=== PATIENT | male | born 1970 | race Two or more races ===

== ENCOUNTER 2024-08-26 20:05 | Inpatient (IN) | payer MEDICAID ==
[~2024-08-26] VITALS: Ht 157.5 cm; Wt 41.2 kg
--- NOTE | 2024-08-26 21:07 | ED.PDOC ---
Altered Mental Status HPI Comments 54-year-old male came to ER due to ALOC. Patient accompanied by sister who takes care of the patient. Patient has history of down syndrome. Noted for the past few days, patient has been combative and restless, screaming incessantly. Noted loss of appetite for 4 days with no bowel movements for same period. Persistence of altered mental status prompted check up at the ER. Chief Complaint: ALOC Time Seen by MD: 21:07 Reviewed Notes: Nurses Notes Allergies: Coded Allergies: NO KNOWN ALLERGIES (Unverified , 08/26/24) Information Source: Relative Mode of Arrival: Wheelchair Severity: Moderate, Unable to Care for Self Timing: Days Duration: Intermittent Quality: Decreased Alertness, Change in Behavior, Confusion Recent: None History of: Other (Down Sydrome) Past Medical History Past Medical History (Other): Down syndrome Surgical History: Denies all surgeries Family History Family History: Reviewed,noncontributory to illness Social History Smoker: Non-Smoker Alcohol: Denies ETOH Use Drugs: Denies Drug Use Lives In: Home Unable to Obtain due to: Other (Patient has down syndrome) Physical Exam General Appearance: No Apparent Distress, Normal HEENT: Normal ENT Inspection, Pharynx Normal, TMs Normal Neck: Full Range of Motion, Non-Tender, Normal, Normal Inspection Respiratory: Chest Non-Tender, Lungs Clear, No Accessory Muscle Use, No Respiratory Distress, Normal Breath Sounds Cardiovascular: No Edema, No JVD, No Murmur, No Gallop, Normal Peripheral Pulses, Regular Rate/Rhythm Breast Exam: Deferred Gastrointestinal: No Organomegaly, Non Tender, No Pulsatile Mass, Normal Bowel Sounds, Soft Genitalia: Deferred Pelvic: Deferred Rectal: Deferred Extremities: No calf tenderness, Normal capillary refill, Normal inspection, N ormal range of motion, Non-tender, No pedal edema Musculoskeletal : Apperance: Normal Neurologic: Alert, auto wrecker II-XII nml as Tested, No Motor Deficits, Normal Affect, Normal Mood, No Sensory Deficits Cerebellar Function: Normal Reflexes: Normal Skin: Dry, Normal Color, Warm Lymphatic: No Adenopathy Was a procedure done? Was a procedure done?: No Differential Diagnosis (ALOC) Differential Diagnosis: Dehydration, Hypoglycemia, Encephalopathy, Sepsis, Hypoxemia, Heart Failure, Renal Failure, Other (Down syndrome) X-Ray, Labs, Meds, VS Vital Signs Date Time Temp Pulse Resp B/P (MAP) Pulse Ox O2 Delivery O2 Flow Rate FiO2 08/27/24 00:00 86 15 94/47 (63) 99 08/26/24 21:53 97.5 109 20 91/64 (73) 100 97.5 08/26/24 21:53 109 20 100 Room Air* 0 21 08/26/24 20:55 97.0 80 22 95 Lab Test 08/26/24 23:09 08/26/24 21:28 08/26/24 21:25 Range/Units Salicylates Level < 3.0 -30 mg/dL Acetaminophen Level < 2.0 L 10.0-20.0 UG/ML Sodium Level 174 *H 136-145 mmol/L Potassium Level 4.2 3.5-5.1 mmol/L Chloride Level 136 H 98-107 mmol/L Carbon Dioxide Level 24 20-31 mmol/L Anion Gap 14 5-15 Blood Urea Nitrogen 61 H 9-23 mg/dL Creatinine 2.02 H 0.700-1.30 mg/dL Glomerular Filtration Rate Calc 38 >90 mL/min BUN/Creatinine Ratio 30.2 H 10.0-20.0 Serum Glucose 175 H 74-106 mg/dL Calcium Level 9.7 8.7-10.4 mg/dL Plasma/Serum Blood Alcohol 5.7 <10 mg/dL White Blood Count 10.4 4.4-10.8 10^3/uL Red Blood Count 5.82 4.5-5.90 10^6/uL Hemoglobin 18.8 H 13.5-17.5 g/dL Hematocrit 58.7 H 41.0-53.0 % Mean Corpuscular Volume 100.9 H 80.0-100.0 fL Mean Corpuscular Hemoglobin 32.3 H 28.0-32.0 pg Mean Corpuscular Hemoglobin Concent 32.1 32.0-36.0 g/dL Red Cell Distribution Width 14.5 H 11.8-14.3 % Platelet Count 164 140-450 10^3/uL Mean Platelet Volume 10.5 6.9-10.8 fL Neutrophils (%) (Auto) 80.1 H 37.0-80.0 % Lymphocytes (%) (Auto) 14.0 10.0-50.0 % Monocytes (%) (Auto) 5.1 0.0-12.0 % Eosinophils (%) (Auto) 0.5 0.0-7.0 % Basophils (%) (Auto) 0.3 0.0-2.0 % Neutrophils # (Auto) 8.3 1.6-8.6 10 ^3/uL Lymphocytes # (Auto) 1.5 0.4-5.4 10 ^3/uL Monocytes # (Auto) 0.5 0-1.3 10 ^3/uL Eosinophils # (Auto) 0.1 0-0.8 10 ^3/uL Basophils # (Auto) 0 0-0.2 10 ^3/uL Nucleated Red Blood Cells 0.5 % Current Medications Medications (Trade) Dose Ordered Sig/Elza Route Start Time Stop Time Status Last Admin Sodium Chloride 1,000 ml @ 1,000 mls/hr Q1H ONCE IV 08/26/24 21:45 08/26/24 22:44 DC 08/26/24 23:29 Ondansetron HCl (Zofran) 4 mg ONCE ONCE IV 08/26/24 21:45 08/26/24 21:46 DC 08/26/24 23:54 Famotidine (Pepcid Injection) 20 mg ONCE ONCE IV 08/26/24 21:45 08/26/24 21:46 DC 08/26/24 23:54 Acetaminophen (Ofirmev) 1,000 mg DAILY STAT IV 08/26/24 21:41 08/26/24 21:42 DC 08/26/24 23:54 Midazolam HCl (Versed Injection) 10 mg ONCE ONCE IM 08/26/24 22:15 08/26/24 22:17 DC 08/26/24 22:35 Time of 1ST Reevaluation: 21:01 Reevaluation 1ST: Unchanged Patient Education/Counseling: Diagnosis, Treatment, Other (PATIENT HAS DOWN SYNDROME) Family Education/Counseling: Diagnosis, Treatment Departure 1 Departure Time of Disposition: 05:28 (Patient with dehydration and elevated sodium. We will admit patient for further workup) Impression: Primary Impression: Acute hypernatremia Additional Impressions: Dehydration Down syndrome Disposition: 09 ADMITTED INPATIENT Admit to: Med Surg Condition: Guarded Critical Care Note Critical Care Time?: No Stability Stability form required: No Heart Score Heart Score: Heart Score Response (Comments) Value History N/A 0 EKG N/A 0 Age N/A 0 Risk Factors N/A 0 Troponin N/A 0 Total 0 I personally scribed for RAY FUNK MD ([email or web address]) on 08/26/24 at 21:07. E lectronically submitted by Patel Camilo ([facility]). RAY FUNK MD Aug 26, 2024 21:07
[2024-08-26 21:45] LABS: Eosinophils # (auto) 0.1 10 ^3/uL (0-0.8); Hemoglobin 18.8 g/dL (13.5-17.5); Lymphocytes # (auto) 1.5 10 ^3/uL (0.4-5.4); Monocytes # (auto) 0.5 10 ^3/uL (0-1.3)
[2024-08-26 21:46] LABS: Basophils # (auto) 0 10 ^3/uL (0-0.2); Basophils % (auto) 0.3 % (0.0-2.0); Eosinophils % (auto) 0.5 % (0.0-7.0); Mean Corpuscular Hemoglobin 32.3 pg (28.0-32.0); Mean Corpuscular Hgb Conc. 32.1 g/dL (32.0-36.0); Mean Corpuscular Volume 100.9 fL (80.0-100.0); Monocytes % (auto) 5.1 % (0.0-12.0); Neutrophils # (auto) 8.3 10 ^3/uL (1.6-8.6); Neutrophils % (auto) 80.1 % (37.0-80.0); Nucleated Red Blood Cells % 0.5 %; Platelet Count (auto) 164 10^3/uL (140-450); Red Blood Cells 5.82 10^6/uL (4.5-5.90); Red Cell Distribution Width 14.5 % (11.8-14.3); White Blood Cell 10.4 10^3/uL (4.4-10.8)
[2024-08-26 21:51] LABS: Potassium 4.2 mmol/L (3.5-5.1)
[2024-08-26 21:52] LABS: Hematocrit 58.7 % (41.0-53.0)
[2024-08-26 21:52] LABS: Anion Gap 14 (5-15); Calcium 9.7 mg/dL (8.7-10.4); Carbon Dioxide 24 mmol/L (20-31)
[2024-08-26 21:53] VITALS: PULSE 109; RESP 20; O2SAT 100
[2024-08-26 21:57] LABS: BUN/Creatinine Ratio 30.2 (10.0-20.0); Blood Alcohol 5.7 mg/dL (<10)
[2024-08-26 22:01] LABS: Blood Urea Nitrogen 61 mg/dL (9-23); Chloride 136 mmol/L (98-107); Glucose 175 mg/dL (74-106)
[2024-08-26 22:03] LABS: Sodium 174 mmol/L (136-145)
[2024-08-26] MEDS: MIDAZOLAM HCL 5 MG/ML-1ML VIAL IM ONE (22:35)
[2024-08-26] MEDS: SODIUM CHLORIDE 0.9% 1,000 ML IV ONE (23:29)
[2024-08-26] MEDS: ONDANSETRON HCL 4 MG/2 ML VIAL IV ONE (23:54)
[2024-08-26] MEDS: ACETAMINOPHEN IV 1000 MG/100ML (10MG/ML) IV STA (23:54)
[2024-08-26] MEDS: FAMOTIDINE (10MG/ML) 2ML VL IV ONE (23:54)
[2024-08-27] VITALS (22 sets, daily range): BP systolic 84–122; BP diastolic 38–70; PULSE 49–77; RESP 9–16; TEMP 97.8; O2SAT 95–100
[2024-08-27] LABS: Acetaminophen < 2.0 UG/ML (10.0-20.0); Salicylate < 3.0 mg/dL (-30)
[2024-08-27] MEDS ORDERED: ACETAMINOPHEN 325 MG TAB PO PRN (01:15)
[2024-08-27] MEDS ORDERED: MORPHINE SULFATE INJ 2 MG/ml SYRG IV PRN ×2 (01:15)
[2024-08-27] MEDS ORDERED: NITROGLYCERIN 0.4 MG SL TAB SL PRN (01:15)
--- NOTE | 2024-08-27 02:18 | DVHHPRES ---
History of Present Illness Resident Creating Document: GATITO LOVE RESIDENT History of Present Illness JUAN RIDDLE is a 54-year-old male with a PMH of down syndrome presented to the ED accompanied by sister due to altered mental status. Patient is altered, poor historian, obtained history from ED reports. For past 4 days patient has been not eating anything, no bowel movements, being combative, restless and screaming which got worsening so prominent him to visit ED. PMH: Down syndrome PSH: Denies Family history: Reviewed, noncontributory Social history: Lives in home. Denies smoking, alcohol and other drug abuse Allergies: No known allergies Review of Systems Review of Systems Patient seen and examined at the bedside. Patient is altered, unable to answer the questions. Unable to obtain ROS due to patient's clinical status. Allergies: Coded Allergies: NO KNOWN ALLERGIES (Unverified , 08/26/24) Medications Current Medications Medications Dose Ordered Sig/Elza Route Start Time Stop Time Status Last Admin Dose Admin Sodium Chloride 1,000 ml @ 100 mls/hr Q10H IV 08/27/24 01:15 Enoxaparin Sodium 30 mg DAILY SC 08/27/24 10:00 Acetaminophen 650 mg Q6HP PRN PO 08/27/24 01:15 Morphine Sulfate 2 mg Q4HPRN PRN IV 08/27/24 01:15 Nitroglycerin 0.4 mg Q5MINP PRN SL 08/27/24 01:15 Morphine Sulfate 2 mg Q30M PRN IV 08/27/24 01:15 Pantoprazole Sodium 40 mg DAILY IV 08/27/24 10:00 UNV Exam Vital Signs Vital Signs Date Time Temp Pulse Resp B/P (MAP) Pulse Ox O2 Delivery O2 Flow Rate FiO2 08/27/24 00:00 86 15 94/47 (63) 99 08/26/24 21:53 97.5 97.5 08/26/24 21:53 Room Air* 0 21 Exam Pt is lying on bed, limited exam due to patient's status General Appearance: Oriented X0, moderate distress HEENT: Atraumatic, Mucous membranes dry Respiratory: Clear to auscultation, Normal air movement Cardiovascular: Regular rate, Normal S1, Normal S2 Abdominal: Scaphoid, hypoactive bowel sounds, no distention, no tenderness Extremities: No edema, Normal pulses, No tenderness Skin: No Significant rash Neuro: Altered, unable to do neuro exam Nurse was there as oliviane during examination Labs/Xrays Labs Test 08/27/24 01:40 08/26/24 23:09 08/26/24 21:28 08/26/24 21:25 Range/Units Salicylates Level < 3.0 -30 mg/dL Acetaminophen Level < 2.0 L 10.0-20.0 UG/ML Plasma/Serum Blood Alcohol 5.7 <10 mg/dL White Blood Count 10.4 4.4-10.8 10^3/uL Red Blood Count 5.82 4.5-5.90 10^6/uL Hemoglobin 18.8 H 13.5-17.5 g/dL Hematocrit 58.7 H 41.0-53.0 % Mean Corpuscular Volume 100.9 H 80.0-100.0 fL Mean Corpuscular Hemoglobin 32.3 H 28.0-32.0 pg Mean Corpuscular Hemoglobin Concent 32.1 32.0-36.0 g/dL Red Cell Distribution Width 14.5 H 11.8-14.3 % Platelet Count 164 140-450 10^3/uL Mean Platelet Volume 10.5 6.9-10.8 fL Neutrophils (%) (Auto) 80.1 H 37.0-80.0 % Lymphocytes (%) (Auto) 14.0 10.0-50.0 % Monocytes (%) (Auto) 5.1 0.0-12.0 % Eosinophils (%) (Auto) 0.5 0.0-7.0 % Basophils (%) (Auto) 0.3 0.0-2.0 % Neutrophils # (Auto) 8.3 1.6-8.6 10 ^3/uL Lymphocytes # (Auto) 1.5 0.4-5.4 10 ^3/uL Monocytes # (Auto) 0.5 0-1.3 10 ^3/uL Eosinophils # (Auto) 0.1 0-0.8 10 ^3/uL Basophils # (Auto) 0 0-0.2 10 ^3/uL Nucleated Red Blood Cells 0.5 % Assessment/Plan Assessment/Plan # severe hypenatremia # severe dehydration # ? Hypovolemic shock - continuously monitoring lab - IVF NS 100 mL/hour - D5W 5% 75 ml/hr - avoid over-correction - consider free water # Failure to thrive # severe protein calorie malnutrition with a BMI 15.6 -nutritional consult # ROSLYN likely VMN unknown baseline -monitoring lab -IVF NS at 100 mL/hour # polycythemia -monitor lab for now # Hyper magnesemia - monitor PUD PPX: Protonix VTE PPX: Lovenox Diet: NPO for now Goals of care unable to discuss due to patient's status so until further details Full code status Case discussed with Dr. Espinosa and nurse Plan discussed with: Other (RN) My Orders Orders - GATITO LOVE RESIDENT Procedure Category Date Status Time Admit ADMIT 08/27/24 Transmitted 01:07 Allergies JULIEN 08/27/24 In Process 01:07 Code Status CODE 08/27/24 Transmitted 01:07 Sodium Chloride 0.9% PHA 08/27/24 In Process 01:15 Complete Blood Count LAB 08/28/24 Verified 04:00 Comprehensive LAB 08/27/24 Logged Metabolic Panel 04:00 Npo (Nothing By DIET 08/27/24 Transmitted Mouth) Diet Breakfast Condition: Stable JULIEN 08/27/24 In Process 01:07 Acetaminophen Tablet PHA 08/27/24 In Process (Tylenol Tablet) 01:15 Morphine Sulfate PHA 08/27/24 In Process Injection 01:15 Nitroglycerin PHA 08/27/24 In Process Sublingual (Ntrostat 01:15 Morphine Sulfate PHA 08/27/24 In Process Injection 01:15 Oxygen By Nasal RT 08/27/24 Transmitted Cannula 01:07 Stat Ekg For Chest JULIEN 08/27/24 In Process Pain 01:07 Notify Of Changes JULIEN 08/27/24 In Process From Base 01:07 Case Manager For JULIEN 08/27/24 In Process 24 Hours 01:07 Emergency Dysrhythmia JULIEN 08/27/24 In Process Protocol 01:07 Rhythm Strips Once JULIEN 08/27/24 In Process Every Shift 01:07 Comprehensive LAB 08/27/24 In Process Metabolic Panel 01:09 Magnesium LAB 08/27/24 In Process 01:09 Enoxaparin Sodium PHA 08/27/24 In Process (Lovenox) 10:00 Ammonia LAB 08/27/24 Logged 02:13 B-Type Natriuretic LAB 08/27/24 Logged Peptide 02:13 Drug Screen LAB 08/27/24 Logged 02:13 Hemoglobin A1c LAB 08/27/24 Logged 02:13 Lactic Acid W/ Reflex LAB 08/27/24 Logged Order 02:13 PTPTT LAB 08/27/24 Logged 02:13 Thyroid Stimulating LAB 08/27/24 Logged Hormone 02:13 Urinalysis LAB 08/27/24 Logged 02:13 Chest Xray 1 View XY 08/27/24 Logged 02:13 Pantoprazole PHA 08/27/24 Logged (Protonix) 10:00 Date of Service: Aug 27, 2024 Billing Provider: CHRISTAL ESPINOSA MD Common Visit Codes: [id number] CARE 30-74 MIN GATITO LOVE RESIDENT Aug 27, 2024 02:18 CHRISTAL ESPINOSA MD Aug 29, 2024 16:25
[2024-08-27 02:20] LABS: Albumin 3.4 g/dL (3.2-4.8); Anion Gap 11 (5-15); BUN/Creatinine Ratio 35.1 (10.0-20.0); Carbon Dioxide 26 mmol/L (20-31); Glucose 75 mg/dL (74-106); Potassium 3.6 mmol/L (3.5-5.1)
[2024-08-27 02:21] LABS: Bilirubin, Total 0.5 mg/dL (0.2-1.0); Total Protein 6.1 g/dL (5.7-8.2)
[2024-08-27] MEDS: SODIUM CHLORIDE 0.9% 1,000 ML IV SCH (02:29)
[2024-08-27 02:41] LABS: Alanine Aminotransferase 87 U/L (7-40); Alkaline Phosphatase 129 U/L (46-116); Aspartate Aminotransferase 94 U/L (13-40); Blood Urea Nitrogen 60 mg/dL (9-23); Calcium 8.5 mg/dL (8.7-10.4); Chloride 136 mmol/L (98-107); Magnesium 3.1 mg/dL (1.6-2.6); Sodium 173 mmol/L (136-145)
--- NOTE | 2024-08-27 04:00 | DVH ---
EXAM: CT HEAD WITHOUT CONTRAST HISTORY: aloc COMPARISON: None TECHNIQUE: Noncontrast axial CT images of the head were performed. Sagittal and coronal reformatted images were obtained. This CT exam was performed using 1 or more of the following dose reduction techniques: Au tomated exposure control, adjustment of the mA and/or kv according to patient size, or the use of ite rative reconstruction techniques. Radiation Dose : Head: CT Dose: CTDI volume is 53.8 mGy. Dose-length product is 1058.64 mGy*cm FINDINGS: No intracranial hemorrhage, mass, midline shift, or evidence of acute large vessel infarct. There is global brain atrophy with prominence of the ventricular system and sulci. The size of the ventricula r system is out of proportion to the size of the sulci. There is right phthsis bulbi. The partially-v isualized paranasal sinuses are clear. The bilateral mastoid air cells and middle ear spaces are dari ar. There is cerumen impaction in the bilateral external auditory canals. No cranial fracture or scal p edema. IMPRESSION: 1. Global brain atrophy with prominence of the ventricular system out of proportion to the size of th e sulci suggestive of normal pressure hydrocephalus. 2. Right phthisis bulbi.
[2024-08-27 05:04] LABS: INR 1.19 (0.9-1.15); Prothrombin Time 12.4 sec (9.3-11.8)
[2024-08-27 05:05] LABS: Albumin 3.4 g/dL (3.2-4.8); Anion Gap 11 (5-15); BUN/Creatinine Ratio 30.2 (10.0-20.0); Bilirubin, Total 0.5 mg/dL (0.2-1.0); Carbon Dioxide 25 mmol/L (20-31); Glucose 82 mg/dL (74-106); Potassium 3.9 mmol/L (3.5-5.1); Total Protein 6.3 g/dL (5.7-8.2)
[2024-08-27 05:36] LABS: Alanine Aminotransferase 90 U/L (7-40); Alkaline Phosphatase 133 U/L (46-116); Aspartate Aminotransferase 93 U/L (13-40); Blood Urea Nitrogen 52 mg/dL (9-23); Calcium 8.7 mg/dL (8.7-10.4); Chloride 136 mmol/L (98-107)
[2024-08-27 05:37] LABS: Sodium 172 mmol/L (136-145)
[2024-08-27] MEDS: D5W 5% 1,000 ML IV SCH ×3 (06:20→11:30)
--- NOTE | 2024-08-27 07:03 | DVH ---
CLINICAL INFORMATION: 54 years old, Male; pneumonia. TECHNIQUE: Single AP portable chest radiograph was obtained. COMPARISON: None FINDINGS: Lungs: Mild nonspecific perihilar interstitial opacities and mild atelectasis in the left lung base. No dense focal consolidation visualized. No pneumothorax or pleural effusion. Cardiac: Heart size is within normal limits. Pulmonary vasculature: Unremarkable. Mediastinum/greg: Unremarkable. Bones: No acute osseous abnormality identified. Other: No other significant findings. IMPRESSION: Nonspecific bilateral perihilar interstitial opacities and mild atelectasis in the left lung base. No dense focal consolidation visualized.
[2024-08-27] MEDS: NOREPINEPHRINE 8 MG/250ML KIT 250 ML IV ONE (07:53)
[2024-08-27] MEDS: NOREPINEPHRINE 8 MG/250ML KIT 250 ML IV SCH (08:00)
[2024-08-27 08:05] LABS: Magnesium 3.3 mg/dL (1.6-2.6); Phosphorus 5.3 mg/dL (2.4-5.1)
--- NOTE | 2024-08-27 08:50 | DVH ---
INDICATION: Transaminitis TECHNIQUE: Multiple real-time sonographic images were obtained of the right upper quadrant. COMPARISON: None FINDINGS: The liver demonstrates increased echotexture without focal mass lesions. The liver measure s 10.1 cm. There is no intrahepatic or extrahepatic ductal dilatation. The common duct is not visualized. The gallbladder is without evidence of stone or sludge. The gallbladder wall measures 0.1 cm and is within normal limits. The right kidney measures 8.0 cm. The right kidney is normal in contour, size, and shape. The echog enicity is normal. There is no hydronephrosis. The pancreas is not well visualized due to overlying bowel gas. IMPRESSION: Limited examination secondary to patient inability to cooperate with exam. Mild increased echogenicity of the liver may represent mild steatosis.
[2024-08-27 09:54] LABS: Urine Bacteria FEW /hpf (None Seen); Urine Blood Negative /uL (Negative); Urine Clarity Turbid (Clear); Urine Color Yellow (Yellow); Urine Protein, UAD TRACE (Negative); Urine Specific Gravity 1.029 (1.001-1.035); Urine Squamous Epithelial Cell None Seen /hpf (<5); Urine Urobilinogen Normal (Negative); Urine WBC 4 /HPF (0-3)
[2024-08-27 10:07] LABS: Amphetamine Screen, Urine Neg (NEGATIVE); Barbiturate Scree,Urine Neg (NEGATIVE); Benzodiazephine Screen, Urine Pos (NEGATIVE); Cocaine Screen, Urine Neg (NEGATIVE); Opiate Scree,Urine Neg (NEGATIVE); Phencyclidine Screen, Urine Neg (NEGATIVE)
[2024-08-27 10:08] LABS: Cannabinoid Screen, Urine Neg (NEGATIVE)
[2024-08-27 10:23] LABS: Anion Gap 12 (5-15); Carbon Dioxide 24 mmol/L (20-31); Potassium 3.7 mmol/L (3.5-5.1)
[2024-08-27 10:24] LABS: Calcium 8.9 mg/dL (8.7-10.4)
[2024-08-27 10:28] LABS: BUN/Creatinine Ratio 30.4 (10.0-20.0)
[2024-08-27 10:38] LABS: Blood Urea Nitrogen 55 mg/dL (9-23); Chloride 134 mmol/L (98-107); Glucose 146 mg/dL (74-106)
[2024-08-27 10:39] LABS: Sodium 170 mmol/L (136-145)
[2024-08-27] MEDS: PANTOPRAZOLE 40 MG/10 ML VIAL INJ IV SCH (11:23)
[2024-08-27] MEDS: ENOXAPARIN SOD 30 MG/0.3 ML SYRINGE SC SCH (11:23)
[2024-08-27] MEDS: LORazepam 2MG/ML-1ML VIAL IV ONE (13:01)
[2024-08-27 14:35] LABS: Potassium 3.7 mmol/L (3.5-5.1)
[2024-08-27 14:36] LABS: Anion Gap 10 (5-15); Carbon Dioxide 23 mmol/L (20-31)
[2024-08-27 14:42] LABS: BUN/Creatinine Ratio 23.5 (10.0-20.0)
[2024-08-27 14:45] LABS: Blood Urea Nitrogen 43 mg/dL (9-23); Calcium 8.6 mg/dL (8.7-10.4); Chloride 130 mmol/L (98-107); Glucose 319 mg/dL (74-106)
[2024-08-27 14:46] LABS: Sodium 163 mmol/L (136-145)
--- NOTE | 2024-08-27 17:11 | DVHINCON2 ---
Date of service: Aug 27, [address] Pham Reason for Consultation ROSLYN, Hypernatremia History of Present Illness Mr. Christy is a 54-year-old male with known history of Down syndrome presented for further evaluation management of altered mental status at home. He was brought in by family member. Evaluation in the ER notable for significant hypernatremia with serum sodium in the 170 range, elevated serum creatinine to two. He has received hypotonic IV fluids. He is currently seen in the emergency room remains minimally responsive. All the history was obtained through the chart. He has an indwelling Mason catheter currently. Past Medical History Down syndrome Allergies: Coded Allergies: NO KNOWN ALLERGIES (Unverified , 08/26/24) Current Medications Current Medications Medications (Trade) Dose Ordered Sig/Elza Route PRN Reason Start Time Stop Time Status Last Admin Acetaminophen (Ofirmev) 1,000 mg DAILY STAT IV 08/26/24 21:41 08/26/24 21:42 DC 08/26/24 23:54 Sodium Chloride 1,000 ml @ 100 mls/hr Q10H IV 08/27/24 01:15 08/27/24 06:03 DC 08/27/24 02:29 Enoxaparin Sodium (Lovenox) 30 mg DAILY SC 08/27/24 10:00 08/27/24 11:23 Acetaminophen (Tylenol Tablet) 650 mg Q6HP PRN PO PAIN SCALE 1-3 OR TEMP>100.4 08/27/24 01:15 Morphine Sulfate 2 mg Q4HPRN PRN IV SEVERE PAIN (7-10 PAIN SCALE) 08/27/24 01:15 Nitroglycerin (Ntrostat Sublingual) 0.4 mg Q5MINP PRN SL FOR CHEST PAIN 08/27/24 01:15 Morphine Sulfate 2 mg Q30M PRN IV FOR CHEST PAIN 08/27/24 01:15 Pantoprazole Sodium (Protonix) 40 mg DAILY IV 08/27/24 10:00 08/27/24 11:23 Dextrose 1,000 ml @ 75 mls/hr [id number] IV 08/27/24 06:00 08/27/24 08:35 DC 08/27/24 06:20 Norepinephrine Bitartrate 250 ml @ 3.75 mls/hr Q24H IV 08/27/24 08:00 08/27/24 08:00 Dextrose 1,000 ml @ 50 mls/hr Q20H IV 08/27/24 08:30 08/27/24 11:20 DC 08/27/24 08:56 Dextrose 1,000 ml @ 30 mls/hr Q24H IV 08/27/24 11:30 08/27/24 11:30 Lorazepam (Ativan Inj) 0.5 mg Q4HR PRN IV AGITATION 08/27/24 14:15 Family History: Diabetes mellitus G8 MOTHER G8 FATHER High cholesterol G8 MOTHER Hypertension G8 MOTHER Thyroid disease G8 MOTHER Review of Systems Unable to be obtained due to patient's current mental state H&P Exam Vital Signs/I&O Vital Sign Date Time Temp Pulse Resp B/P (MAP) Pulse Ox O2 Delivery O2 Flow Rate FiO2 08/27/24 15:00 59 15 119/81 (94) 97 08/27/24 08:45 Room Air* 0 21 08/27/24 01:07 97.6 97.6 Intake and Output 08/26/24 08/27/24 19:00 07:00 Intake Total 1300 ml Balance 1300 ml Intake IV Total 1300 ml Physical Exam Gen: nad, cachectic heent: nc/at, lungs: cta anteriorly cvs: no rub abd: soft, bowel sounds audible ext: no edema, onychomycosis skin: no rash neuro: Not responsive to voice Labs/Diagnostic Data Labs/Diagnostic Data Laboratory Tests Test 08/27/24 14:11 08/27/24 10:01 08/27/24 09:25 08/27/24 04:33 Range/Units Sodium Level 163 #*H 170 *H 172 *H 136-145 mmol/L Potassium Level 3.7 3.7 3.9 3.5-5.1 mmol/L Chloride Level 130 H 134 H 136 H 98-107 mmol/L Carbon Dioxide Level 23 24 25 20-31 mmol/L Anion Gap 10 12 11 5-15 Blood Urea Nitrogen 43 #H 55 H 52 H 9-23 mg/dL Creatinine 1.83 H 1.81 H 1.72 H 0.700-1.30 mg/dL Glomerular Filtration Rate Calc 43 44 46 >90 mL/min BUN/Creatinine Ratio 23.5 H 30.4 H 30.2 H 10.0-20.0 Serum Glucose 319 #H 146 H 82 74-106 mg/dL Calcium Level 8.6 L 8.9 8.7 8.7-10.4 mg/dL Urine Color Yellow Yellow Urine Clarity Turbid H Clear Urine pH 5.0 5.0-9.0 Urine Specific [place] 1.029 1.001-1.035 Urine Protein Trace H Negative Urine Ketones Negative Negative Urine Blood Negative Negative /uL Urine Nitrite Negative Negative Urine Bilirubin Negative Negative Urine Urobilinogen Normal Negative mg/dL Urine Leukocyte Esterase Negative Negative /uL Urine RBC 3 0 - 3 /hpf Urine Microscopic WBC 4 H 0-3 /HPF Urine Squamous Epithelial Cells None seen <5 /hpf Urine Uric Acid Crystals Few None Seen /hpf Urine Bacteria Few H None Seen /hpf Urine Glucose Normal Normal mg/dL Urine Opiates Screen Neg NEGATIVE Urine Fentanyl Screen Neg NEGATIVE Urine Barbiturates Screen Neg NEGATIVE Urine Phencyclidine Screen Neg NEGATIVE Urine Amphetamines Screen Neg NEGATIVE Urine Benzodiazepines Screen Pos NEGATIVE Urine Cocaine Screen Neg NEGATIVE Urine Cannabinoids Screen Neg NEGATIVE Prothrombin Time 12.4 H 9.3-11.8 sec Prothrombin Time INR 1.19 H 0.9-1.15 Activated Partial Thromboplast Time 25.0 24.5-34.5 SEC Hemoglobin A1c 5.6 <5.7 % A1C Serum Osmolality 378 H 278-298 mOsm/kg Lactic Acid Level 1.3 0.4-2.0 mmol/L Phosphorus Level 5.3 H 2.4-5.1 mg/dL Magnesium Level 3.3 H 1.6-2.6 mg/dL Total Bilirubin 0.5 0.2-1.0 mg/dL Aspartate Amino Transferase (AST) 93 H 13-40 U/L Alanine Aminotransferase (ALT) 90 H 7-40 U/L Alkaline Phosphatase 133 H 46-116 U/L Ammonia 23 11-32 umol/L B-Type Natriuretic Peptide 44.81 0-100 pg/mL Total Protein 6.3 5.7-8.2 g/dL Albumin 3.4 3.2-4.8 g/dL Thyroid Stimulating Hormone (TSH) 3.59 0.55-4.78 uIU/mL Test 08/27/24 01:40 08/26/24 23:09 08/26/24 21:28 08/26/24 21:25 Range/Units Sodium Level 173 *H 174 *H 136-145 mmol/L Potassium Level 3.6 4.2 3.5-5.1 mmol/L Chloride Level 136 H 136 H 98-107 mmol/L Carbon Dioxide Level 26 24 20-31 mmol/L Anion Gap 11 14 5-15 Blood Urea Nitrogen 60 H 61 H 9-23 mg/dL Creatinine 1.71 H 2.02 H 0.700-1.30 mg/dL Glomerular Filtration Rate Calc 47 38 >90 mL/min BUN/Creatinine Ratio 35.1 H 30.2 H 10.0-20.0 Serum Glucose 75 # 175 H 74-106 mg/dL Calcium Level 8.5 L 9.7 8.7-10.4 mg/dL Magnesium Level 3.1 H 1.6-2.6 mg/dL Total Bilirubin 0.5 0.2-1.0 mg/dL Aspartate Amino Transferase (AST) 94 H 13-40 U/L Alanine Aminotransferase (ALT) 87 H 7-40 U/L Alkaline Phosphatase 129 H 46-116 U/L Total Protein 6.1 5.7-8.2 g/dL Albumin 3.4 3.2-4.8 g/dL Salicylates Level < 3.0 -30 mg/dL Acetaminophen Level < 2.0 L 10.0-20.0 UG/ML Plasma/Serum Blood Alcohol 5.7 <10 mg/dL White Blood Count 10.4 4.4-10.8 10^3/uL Red Blood Count 5.82 4.5-5.90 10^6/uL Hemoglobin 18.8 H 13.5-17.5 g/dL Hematocrit 58.7 H 41.0-53.0 % Mean Corpuscular Volume 100.9 H 80.0-100.0 fL Mean Corpuscular Hemoglobin 32.3 H 28.0-32.0 pg Mean Corpuscular Hemoglobin Concent 32.1 32.0-36.0 g/dL Red Cell Distribution Width 14.5 H 11.8-14.3 % Platelet Count 164 140-450 10^3/uL Mean Platelet Volume 10.5 6.9-10.8 fL Neutrophils (%) (Auto) 80.1 H 37.0-80.0 % Lymphocytes (%) (Auto) 14.0 10.0-50.0 % Monocytes (%) (Auto) 5.1 0.0-12.0 % Eosinophils (%) (Auto) 0.5 0.0-7.0 % Basophils (%) (Auto) 0.3 0.0-2.0 % Neutrophils # (Auto) 8.3 1.6-8.6 10 ^3/uL Lymphocytes # (Auto) 1.5 0.4-5.4 10 ^3/uL Monocytes # (Auto) 0.5 0-1.3 10 ^3/uL Eosinophils # (Auto) 0.1 0-0.8 10 ^3/uL Basophils # (Auto) 0 0-0.2 10 ^3/uL Nucleated Red Blood Cells 0.5 % Assessment IMP: 1) Hemodynamically mediated ROSLYN/VMN secondary to volume depletion 2) hypernatremia - current water deficit approximately 3.7 L based on serum sodium 163 3) history of Down syndrome 4) toxic metabolic encephalopathy REC: - agree with holding D5 - repeat basic chemistry panel pending - we will resume efforts at hypotonic IV fluids A.m. August 28 pending repeat lab data guide therapy - we will check urine studies - we will continue to follow closely with you. Thank you for the consultation. Plan discussed with: Other RAE VIRK MD Aug 27, 2024 17:11
[2024-08-27] MEDS: LORazepam 2MG/ML-1ML VIAL IV PRN (17:42)
--- NOTE | 2024-08-27 18:26 | DVHPNRES ---
Progress Note Date Seen: Aug 27, 2024 Resident Creating Document: MARITZA WEEKS RESIDENT Medical Necessity Reason Pt with a Central, PICC or Fol: Yes The following are medically ne: Mason Catheter Subjective Review of Systems Orlando Christy is a 54-year-old male patient who presents to the ED due to altered mental status. Patient is altered, poor historian, obtained history from ED reports. For past 4 days patient has been not eating anything, no bowel movements, being combative, restless and screaming which got worsening so prominent him to visit ED. could not obtain review of systems due to clinical status. PMH: Down syndrome PSH: Denies Family history: Reviewed, noncontributory Social history: Lives in home. Denies smoking, alcohol and other drug abuse Allergies: No known allergies Home medication: Could not obtain at this moment Patient seen and examined at bedside. Patient was agitated and removing lines, indicated Ativan for agitation. We will monitor closely due to altered mental status, and need to protect airway. Objective vital signs Vital Sign Date Time Temp Pulse Resp B/P (MAP) Pulse Ox O2 Delivery O2 Flow Rate FiO2 08/27/24 15:00 59 15 119/81 (94) 97 08/27/24 08:45 Room Air* 0 21 08/27/24 01:07 97.6 97.6 Total Intake and Output 08/26/24 08/26/24 08/27/24 15:00 23:00 07:00 Intake Total 1300 ml Balance 1300 ml medications Current Medications Medications Dose Ordered Sig/Elza Route Start Time Stop Time Status Last Admin Dose Admin Enoxaparin Sodium 30 mg DAILY SC 08/27/24 10:00 08/27/24 11:23 30 MG Acetaminophen 650 mg Q6HP PRN PO 08/27/24 01:15 Morphine Sulfate 2 mg Q4HPRN PRN IV 08/27/24 01:15 Nitroglycerin 0.4 mg Q5MINP PRN SL 08/27/24 01:15 Morphine Sulfate 2 mg Q30M PRN IV 08/27/24 01:15 Pantoprazole Sodium 40 mg DAILY IV 08/27/24 10:00 08/27/24 11:23 40 MG Norepinephrine Bitartrate 250 ml @ 3.75 mls/hr Q24H IV 08/27/24 08:00 08/27/24 08:00 3.75 MLS/HR Dextrose 1,000 ml @ 30 mls/hr Q24H IV 08/27/24 11:30 08/27/24 11:30 30 MLS/HR Lorazepam 0.5 mg Q4HR PRN IV 08/27/24 14:15 08/27/24 17:42 0.5 MG Examination Patient lying in bed, in no acute distress General: Alert, orientation can not be evaluated, Down facies, afebrile, mucosae are dry Cardiovascular: Normal S1 and S2. No murmurs, gallops or rubs Respiratory: Normal ventilation mechanics. Clear lung sounds on auscultation Abdomen: Soft, nontender, no organomegaly, normal bowel sounds MSK/skin: Mobilizes 4 limbs. Skin is dry and warm Neurological: Orientation can not be evaluate due to Down syndrome. No motor no sensitive deficits. Pupils are isocoric and reactive laboratory and microbiology Laboratory Tests 08/27/24 14:11 08/26/24 21:25 Test 08/27/24 14:11 Range/Units Serum Glucose 319 #H 74-106 mg/dL Problem List/Assessment/Plan Problem List/Assessment/Plan # Metabolic encephalopathy secondary to hypernatremia Ordered head CT which showed global brain atrophy suggestive of normal pressure hydrocephalus, right phthisis bulbi Patient is more alert since admission, but is combative and trying to remove lines. Ativan p.r.n. for agitation. # Severe hypenatremia Natremia on admission was 174, currently is 163, have discontinued IV fluids at this point. Should not correct more than 10 mEq every 24 hours. BMP every 4 hours Nephrology on board: Optimizing medical therapy # Severe dehydration Monitor # Hypovolemic shock Currently on norepinephrine 8. # Failure to thrive Patient is NPO due to altered mental status # Severe protein calorie malnutrition with a BMI 15.6 -nutritional consult # ROSLYN likely VMN unknown baseline Nephrology on board Discontinue fluids at this point # Polycythemia Probably secondary to dehydration # Hypermagnesemia Monitor PUD PPX: Protonix VTE PPX: Lovenox Diet: NPO for now Goals of care discussed with sister (Torie) who is caregiver for over 18 minutes: Full code status Case discussed with Dr. Loco, sister and nurse: Patient is ICU status, lowering hypernatremia, currently discontinue D5W due to sodium level of 163 (on admission was 174), we will continue obtaining BNP at this moment. Patient is requiring low dose of norepinephrine, evaluate need for central line. Appreciate nephrology input. Patient has poor prognosis, have discussed with sister. Plan discussed with: Patient, Other (Sister (caregiver) and nurses) My Orders My Orders Orders - MARITZA WEEKS Procedure Category Date Status Time Basic Metabolic Panel LAB 08/27/24 Logged 18:00 Basic Metabolic Panel LAB 08/27/24 Logged 22:00 Basic Metabolic Panel LAB 08/28/24 Verified 02:00 Basic Metabolic Panel LAB 08/28/24 Verified 06:00 Basic Metabolic Panel LAB 08/28/24 Verified 10:00 Basic Metabolic Panel LAB 08/28/24 Verified 14:00 Basic Metabolic Panel LAB 08/28/24 Verified 18:00 Basic Metabolic Panel LAB 08/28/24 Verified 22:00 *[facility] CONS 08/27/24 Transmitted -[place] 07:35 D5w 5% (Dextrose 5%) PHA 08/27/24 In Process 11:30 Lorazepam 2mg/Ml Inj PHA 08/27/24 In Process (Ativan Inj) 14:15 Date of Service: Aug 27, 2024 Billing Provider: FRANKLYN LOCO MD Common Visit Codes: [id number] INP/OBS CARE(HIGH) MARITZA WEEKS RESIDENT Aug 27, 2024 18:26 FRANKLYN LOCO MD Aug 28, 2024 22:28
[2024-08-27 18:58] LABS: Anion Gap 9 (5-15); Calcium 8.9 mg/dL (8.7-10.4); Carbon Dioxide 27 mmol/L (20-31)
[2024-08-27 19:03] LABS: BUN/Creatinine Ratio 29.8 (10.0-20.0); Glucose 97 mg/dL (74-106)
[2024-08-27 19:11] LABS: Blood Urea Nitrogen 50 mg/dL (9-23); Chloride 136 mmol/L (98-107); Potassium 3.4 mmol/L (3.5-5.1)
[2024-08-27 19:12] LABS: Sodium 172 mmol/L (136-145)
[2024-08-27 19:22] LABS: Creatinine, Urine 104.6 mg/dL (30.0-125.0)
[2024-08-27 22:38] LABS: Potassium 3.8 mmol/L (3.5-5.1)
[2024-08-27 22:39] LABS: Anion Gap 8 (5-15); Carbon Dioxide 23 mmol/L (20-31)
[2024-08-27 22:47] LABS: Calcium 8.7 mg/dL (8.7-10.4); Chloride 134 mmol/L (98-107)
[2024-08-27 22:48] LABS: Blood Urea Nitrogen 34 mg/dL (9-23); Glucose 224 mg/dL (74-106); Sodium 165 mmol/L (136-145)
[2024-08-28] VITALS (50 sets, daily range): BP systolic 85–116; BP diastolic 43–70; PULSE 48–141; RESP 9–40; TEMP 97.6–99.3; O2SAT 91–100
[2024-08-28 02:55] LABS: Potassium 3.5 mmol/L (3.5-5.1)
[2024-08-28 02:56] LABS: Anion Gap 9 (5-15); Carbon Dioxide 25 mmol/L (20-31)
[2024-08-28 03:01] LABS: BUN/Creatinine Ratio 26.7 (10.0-20.0)
[2024-08-28 03:04] LABS: Chloride 136 mmol/L (98-107)
[2024-08-28 03:09] LABS: Blood Urea Nitrogen 39 mg/dL (9-23); Calcium 8.2 mg/dL (8.7-10.4); Glucose 116 mg/dL (74-106)
[2024-08-28 03:11] LABS: Sodium 170 mmol/L (136-145)
[2024-08-28 07:23] LABS: Basophils # (auto) 0 10 ^3/uL (0-0.2); Basophils % (auto) 0.4 % (0.0-2.0); Eosinophils # (auto) 0.1 10 ^3/uL (0-0.8); Eosinophils % (auto) 1.8 % (0.0-7.0); Hematocrit 48.1 % (41.0-53.0); Hemoglobin 15.6 g/dL (13.5-17.5); Lymphocytes # (auto) 1.1 10 ^3/uL (0.4-5.4); Lymphocytes % (auto) 17.4 % (10.0-50.0); Mean Corpuscular Hemoglobin 32.3 pg (28.0-32.0); Mean Corpuscular Hgb Conc. 32.4 g/dL (32.0-36.0); Monocytes # (auto) 0.4 10 ^3/uL (0-1.3); Monocytes % (auto) 5.6 % (0.0-12.0); Neutrophils # (auto) 4.7 10 ^3/uL (1.6-8.6); Neutrophils % (auto) 74.8 % (37.0-80.0); Nucleated Red Blood Cells % 0.3 %; Platelet Count (auto) 127 10^3/uL (140-450); Red Blood Cells 4.81 10^6/uL (4.5-5.90); Red Cell Distribution Width 14.4 % (11.8-14.3); White Blood Cell 6.3 10^3/uL (4.4-10.8)
[2024-08-28 07:42] LABS: Albumin 3.4 g/dL (3.2-4.8); Anion Gap 9 (5-15); BUN/Creatinine Ratio 20.6 (10.0-20.0); Bilirubin, Total 0.6 mg/dL (0.2-1.0); Calcium 8.8 mg/dL (8.7-10.4); Carbon Dioxide 24 mmol/L (20-31); Phosphorus 3.1 mg/dL (2.4-5.1); Potassium 3.5 mmol/L (3.5-5.1); Total Protein 6.3 g/dL (5.7-8.2)
[2024-08-28 08:03] LABS: Alanine Aminotransferase 75 U/L (7-40); Alkaline Phosphatase 123 U/L (46-116); Aspartate Aminotransferase 60 U/L (13-40); Blood Urea Nitrogen 34 mg/dL (9-23); Chloride 134 mmol/L (98-107); Glucose 145 mg/dL (74-106); Magnesium 3.1 mg/dL (1.6-2.6)
[2024-08-28 08:04] LABS: Sodium 167 mmol/L (136-145)
--- NOTE | 2024-08-28 08:45 | DVHPNRES ---
Progress Note Date Seen: Aug 28, 2024 Resident Creating Document: JOSE OLIVERA RESIDENT Medical Necessity Reason Pt with a Central, PICC or Fol: Yes The following are medically ne: Msaon Catheter Subjective Review of Systems Orlando Christy is a 54-year-old male patient who presents to the ED due to altered mental status. Patient is altered, poor historian, obtained history from ED reports. For past 4 days patient has been not eating anything, no bowel movements, being combative, restless and screaming which got worsening so prominent him to visit ED. could not obtain review of systems due to clinical status. PMH: Down syndrome PSH: Denies Family history: Reviewed, noncontributory Social history: Lives in home. Denies smoking, alcohol and other drug abuse Allergies: No known allergies Home medication: Could not obtain at this moment Patient seen and examined at bedside. Patient was agitated and removing lines, indicated Ativan for agitation. We will monitor closely due to altered mental status, and need to protect airway. GCS 9, however, patient was nonverbal at baseline so accurate calculation could not be completed. Patient continues to remain hypothermic with internal temperature is around 94.5, currently on Levophed 2 mcg. Target sodium for today in the range of upper 150s to low 160s over the next 24 hours. Objective vital signs Vital Sign Date Time Temp Pulse Resp B/P (MAP) Pulse Ox O2 Delivery O2 Flow Rate FiO2 08/28/24 08:00 104/63 08/28/24 07:30 48 12 100 Room Air* 0 21 08/28/24 04:00 97.8 97.8 Total Intake and Output 08/27/24 08/27/24 08/28/24 15:00 23:00 07:00 Intake Total 265 ml 232.50 ml 311.25 ml Output Total 400 ml Balance 265 ml 232.50 ml -88.75 ml medications Current Medications Medications Dose Ordered Sig/Elza Route Start Time Stop Time Status Last Admin Dose Admin Enoxaparin Sodium 30 mg DAILY SC 08/27/24 10:00 08/27/24 11:23 30 MG Acetaminophen 650 mg Q6HP PRN PO 08/27/24 01:15 Morphine Sulfate 2 mg Q4HPRN PRN IV 08/27/24 01:15 Nitroglycerin 0.4 mg Q5MINP PRN SL 08/27/24 01:15 Morphine Sulfate 2 mg Q30M PRN IV 08/27/24 01:15 Pantoprazole Sodium 40 mg DAILY IV 08/27/24 10:00 08/27/24 11:23 40 MG Norepinephrine Bitartrate 250 ml @ 3.75 mls/hr Q24H IV 08/27/24 08:00 08/28/24 02:38 11.25 MLS/HR Lorazepam 0.5 mg Q4HR PRN IV 08/27/24 14:15 08/27/24 23:49 0.5 MG Dextrose 1,000 ml @ 75 mls/hr [id number] IV 08/28/24 08:45 UNV Examination General Appearance: Patient lying in bed in position, currently in no active distress. Pulmonary/Respiratory: Chest non-tender. Clear bilateral breath sounds, no crackles, no wheezing. Cardiovascular/Chest: Regular rate and rhythm. No murmurs. No JVD. Peripheral Pulses: 2+ Radial (R). 2+ Radial (L). 2+ Pedal (R). 2+ Pedal (L) Abdominal Exam: Normal bowel sounds. Soft. normal abdomen, no visible veins, Nontender. No hepatospenomegaly. No masses Lower extremities: Negative lower extremity edema Neuro/Mental Status: A/O x0, patient nonverbal at baseline. No motor sensory deficits noted. laboratory and microbiology Laboratory Tests 08/28/24 07:05 Test 08/28/24 07:05 Range/Units Serum Glucose 145 H 74-106 mg/dL Labs and/or images reviewed: Labs reviewed by me, Image(s) reviewed by me Problem List/Assessment/Plan Problem List/Assessment/Plan # Metabolic encephalopathy secondary to hypernatremia Ordered head CT which showed global brain atrophy suggestive of normal pressure hydrocephalus, right phthisis bulbi Patient is more alert since admission, but is combative and trying to remove lines. Ativan p.r.n. for agitation. # Severe hypenatremia Natremia on admission was 174, currently is 163, have discontinued IV fluids at this point. Should not correct more than 10 mEq every 24 hours. BMP every 4 hours Nephrology on board: Optimizing medical therapy # Severe dehydration Monitor # Hypovolemic shock Currently on norepinephrine 2. # Failure to thrive Patient is NPO due to altered mental status # Severe protein calorie malnutrition with a BMI 15.6 -nutritional consult # ROSLYN likely VMN unknown baseline Nephrology on board Discontinue fluids at this point # Polycythemia Probably secondary to dehydration # Hypermagnesemia Monitor Hypokalemia 2.8, improved - repleted with IV potassium rider 60 mEq PUD PPX: Protonix VTE PPX: Lovenox Diet: NPO for now Goals of care discussed with sister (Torie) who is caregiver for over 18 minutes: Full code status Case discussed with Dr. Loco, sister and nurse: Patient is ICU status, lowering hypernatremia, currently D5W running at 75 cc/hour, we will continue obtaining BNP at this moment. Patient is requiring low dose of norepinephrine, evaluate need for central line. Appreciate nephrology input. Patient has poor prognosis, have discussed with sister. Plan discussed with: Patient, Other (RN) Date of Service: Aug 28, 2024 Billing Provider: FRANKLYN LOCO MD Common Visit Codes: [id number] INP/OBS CARE(HIGH) JOSE OLIVERA RESIDENT Aug 28, 2024 08:45 FRANKLYN LOCO MD Aug 28, 2024 22:29
[2024-08-28] MEDS: D5W 5% 1,000 ML IV SCH (09:20)
--- NOTE | 2024-08-28 09:24 | DVHPN2 ---
Progress Note - Dictate Date Seen: Aug 28, 2024 Medical Necessity Reason Pt with a Central, PICC or Fol: Yes The following are medically ne: Mason Catheter Subjective Still requiring vasopressor support vital signs Vital Sign Date Time Temp Pulse Resp B/P (MAP) Pulse Ox O2 Delivery O2 Flow Rate FiO2 08/28/24 08:00 104/63 08/28/24 07:30 48 12 100 Room Air* 0 21 08/28/24 04:00 97.8 97.8 Total Intake and Output 08/27/24 08/27/24 08/28/24 15:00 23:00 07:00 Intake Total 265 ml 232.50 ml 311.25 ml Output Total 400 ml Balance 265 ml 232.50 ml -88.75 ml medications Current Medications Medications Dose Ordered Sig/Elza Route Start Time Stop Time Status Last Admin Dose Admin Enoxaparin Sodium 30 mg DAILY SC 08/27/24 10:00 08/27/24 11:23 30 MG Acetaminophen 650 mg Q6HP PRN PO 08/27/24 01:15 Morphine Sulfate 2 mg Q4HPRN PRN IV 08/27/24 01:15 Nitroglycerin 0.4 mg Q5MINP PRN SL 08/27/24 01:15 Morphine Sulfate 2 mg Q30M PRN IV 08/27/24 01:15 Pantoprazole Sodium 40 mg DAILY IV 08/27/24 10:00 08/27/24 11:23 40 MG Norepinephrine Bitartrate 250 ml @ 3.75 mls/hr Q24H IV 08/27/24 08:00 08/28/24 02:38 11.25 MLS/HR Lorazepam 0.5 mg Q4HR PRN IV 08/27/24 14:15 08/27/24 23:49 0.5 MG Dextrose 1,000 ml @ 75 mls/hr [id number] IV 08/28/24 08:45 UNV objective Gen: nad, cachectic cvs: no rub ext: no edema skin: no rash laboratory and microbiology Laboratory Tests 08/28/24 07:05 Test 08/28/24 07:05 Range/Units Serum Glucose 145 H 74-106 mg/dL Assessment/Plan IMP: 1) Hemodynamically mediated ROSLYN/VMN secondary to volume depletion 2) hypernatremia - improved 3) history of Down syndrome 4) toxic metabolic encephalopathy REC: - will resume D5 at 75 cc an hour - target [Na] upper 150/ low 160 range approximately over next 24 Plan discussed with: Other RAE VIRK MD Aug 28, 2024 09:24
[2024-08-28 11:30] LABS: Anion Gap 9 (5-15); Carbon Dioxide 24 mmol/L (20-31)
[2024-08-28 11:35] LABS: BUN/Creatinine Ratio 26.3 (10.0-20.0); Glucose 98 mg/dL (74-106)
[2024-08-28 11:39] LABS: Blood Urea Nitrogen 35 mg/dL (9-23); Calcium 7.4 mg/dL (8.7-10.4); Chloride 135 mmol/L (98-107); Potassium 2.8 mmol/L (3.5-5.1)
[2024-08-28 11:40] LABS: Sodium 168 mmol/L (136-145)
[2024-08-28] MEDS: POTASSIUM CHL 20MEQ/100ML 100 ML IV SCH (13:12)
[2024-08-28 14:36] LABS: Potassium 3.5 mmol/L (3.5-5.1)
[2024-08-28 14:37] LABS: Anion Gap 9 (5-15); Carbon Dioxide 25 mmol/L (20-31)
[2024-08-28 14:42] LABS: Glucose 104 mg/dL (74-106)
[2024-08-28 14:43] LABS: BUN/Creatinine Ratio 21.1 (10.0-20.0); Blood Urea Nitrogen 34 mg/dL (9-23); Calcium 8.7 mg/dL (8.7-10.4); Chloride 133 mmol/L (98-107)
[2024-08-28 14:44] LABS: Sodium 167 mmol/L (136-145)
[2024-08-28 18:45] LABS: Potassium 4.4 mmol/L (3.5-5.1)
[2024-08-28 18:46] LABS: Calcium 8.5 mg/dL (8.7-10.4); Carbon Dioxide 24 mmol/L (20-31)
[2024-08-28 18:51] LABS: BUN/Creatinine Ratio 18.8 (10.0-20.0)
[2024-08-28 19:00] LABS: Anion Gap 7 (5-15); Blood Urea Nitrogen 30 mg/dL (9-23); Chloride 134 mmol/L (98-107); Glucose 139 mg/dL (74-106)
[2024-08-28 19:01] LABS: Sodium 165 mmol/L (136-145)
[2024-08-28 22:25] LABS: Potassium 4.1 mmol/L (3.5-5.1)
[2024-08-28 22:26] LABS: Anion Gap 9 (5-15); Carbon Dioxide 24 mmol/L (20-31)
[2024-08-28 22:31] LABS: BUN/Creatinine Ratio 17.7 (10.0-20.0)
[2024-08-28 22:35] LABS: Blood Urea Nitrogen 29 mg/dL (9-23); Calcium 8.5 mg/dL (8.7-10.4); Chloride 133 mmol/L (98-107); Glucose 136 mg/dL (74-106)
[2024-08-28 22:38] LABS: Sodium 166 mmol/L (136-145)
[2024-08-29] VITALS (92 sets, daily range): BP systolic 79–123; BP diastolic 36–79; PULSE 70–112; RESP 18–41; TEMP 92.7–99.3; O2SAT 90–100
[2024-08-29] MEDS ORDERED: D5W 5% 1,000 ML IV SCH
[2024-08-29 04:45] LABS: Potassium 4.1 mmol/L (3.5-5.1)
[2024-08-29 04:46] LABS: Anion Gap 7 (5-15); Carbon Dioxide 24 mmol/L (20-31)
[2024-08-29 04:47] LABS: Basophils # (auto) 0 10 ^3/uL (0-0.2); Basophils % (auto) 0.2 % (0.0-2.0); Calcium 8.8 mg/dL (8.7-10.4); Eosinophils # (auto) 0 10 ^3/uL (0-0.8); Hematocrit 46.6 % (41.0-53.0); Hemoglobin 15.1 g/dL (13.5-17.5); Lymphocytes # (auto) 0.7 10 ^3/uL (0.4-5.4); Lymphocytes % (auto) 4.9 % (10.0-50.0); Mean Corpuscular Hemoglobin 32.3 pg (28.0-32.0); Mean Corpuscular Hgb Conc. 32.4 g/dL (32.0-36.0); Mean Corpuscular Volume 99.7 fL (80.0-100.0); Monocytes # (auto) 0.6 10 ^3/uL (0-1.3); Neutrophils # (auto) 12.5 10 ^3/uL (1.6-8.6); Neutrophils % (auto) 90.9 % (37.0-80.0); Nucleated Red Blood Cells % 0.1 %; Platelet Count (auto) 131 10^3/uL (140-450); Red Blood Cells 4.68 10^6/uL (4.5-5.90); Red Cell Distribution Width 14.2 % (11.8-14.3); White Blood Cell 13.7 10^3/uL (4.4-10.8)
[2024-08-29 04:51] LABS: BUN/Creatinine Ratio 17.1 (10.0-20.0)
[2024-08-29 04:52] LABS: Magnesium 2.5 mg/dL (1.6-2.6)
[2024-08-29 04:53] LABS: Phosphorus 2.4 mg/dL (2.4-5.1)
[2024-08-29 04:55] LABS: Blood Urea Nitrogen 26 mg/dL (9-23); Chloride 131 mmol/L (98-107); Glucose 157 mg/dL (74-106)
[2024-08-29 04:56] LABS: Sodium 162 mmol/L (136-145)
[2024-08-29] MEDS ORDERED: VANCOMYCIN PER PHARMACY 0 MG IV SCH (06:30)
[2024-08-29] MEDS: PIPERACILLIN-TAZOB 3.375GM 100 ML IV ONE (06:35)
[2024-08-29] MEDS: D5W 5% 1,000 ML IV SCH ×2 (06:39→10:07)
[2024-08-29 07:15] LABS: Bilirubin, Total 0.7 mg/dL (0.2-1.0); Total Protein 5.8 g/dL (5.7-8.2)
[2024-08-29 07:21] LABS: Albumin 3.2 g/dL (3.2-4.8)
[2024-08-29 07:33] LABS: Bilirubin, Direct 0.3 mg/dL (<0.3)
--- NOTE | 2024-08-29 08:02 | DVH ---
CHEST RADIOGRAPH Indication: Acute respiratory failure Technique: Single AP portable chest radiograph was obtained. Comparison: XY CHEST XRAY 1 VIEW on DOS: 08/27/24, XY CHEST XRAY 1 VIEW on DOS: 08/27/24 FINDINGS: Lungs: Mild nonspecific perihilar interstitial opacities and mild atelectasis in the left lung base. No dense focal consolidation visualized. No pneumothorax or pleural effusion. Cardiac: Heart size is within normal limits. Pulmonary vasculature: Unremarkable. Mediastinum/greg: Unremarkable. Bones: No acute osseous abnormality identified. Other: No other significant findings. IMPRESSION: Nonspecific bilateral perihilar interstitial opacities and mild atelectasis in the left lung base. No dense focal consolidation visualized.
[2024-08-29 08:16] LABS: Base Excess -3.8 mmol/L (-2.0-3.0)
[2024-08-29 08:54] LABS: COVID19 ANTIGEN SOFIA FIA NEGATIVE (NEGATIVE); Rapid Influenza A Negative (Negative); Rapid Influenza B Negative (Negative)
[2024-08-29] MEDS: VANCOMYCIN 750mg/100mL D5W or NS KIT IV ONE (10:06)
[2024-08-29] MEDS: FUROSEMIDE 20 MG/2 ML VIAL ONE (11:41)
[2024-08-29] MEDS: FUROSEMIDE 20 MG/2 ML VIAL IV ONE (11:46)
--- NOTE | 2024-08-29 14:00 | DVHPN2 ---
Progress Note Date Seen: Aug 29, 2024 Medical Necessity Reason Pt with a Central, PICC or Fol: Yes The following are medically ne: Mason Catheter Subjective Patient reports: No new complaints Objective vital signs Vital Sign Date Time Temp Pulse Resp B/P (MAP) Pulse Ox O2 Delivery O2 Flow Rate FiO2 08/29/24 12:45 97.2 82 22 96/47 (63) 97 207.0 08/29/24 12:00 Oxymizer 5 N/A Total Intake and Output 08/28/24 08/28/24 08/29/24 15:00 23:00 07:00 Intake Total 585.875 ml 910.875 ml 821.25 ml Output Total 601 ml Balance 585.875 ml 910.875 ml 220.25 ml medications Current Medications Medications Dose Ordered Sig/Elza Route Start Time Stop Time Status Last Admin Dose Admin Enoxaparin Sodium 30 mg DAILY SC 08/27/24 10:00 08/29/24 10:06 30 MG Pantoprazole Sodium 40 mg DAILY IV 08/27/24 10:00 08/29/24 10:06 40 MG Norepinephrine Bitartrate 250 ml @ 3.75 mls/hr Q24H IV 08/27/24 08:00 08/29/24 09:20 30 MLS/HR Piperacillin Sod/ Tazobactam Sod 100 ml @ 25 mls/hr Q8HR IV 08/29/24 14:00 Vancomycin HCl 0 ml @ 0 mls/hr UD IV 08/29/24 06:30 Dextrose 1,000 ml @ 100 mls/hr Q10H IV 08/29/24 09:00 08/29/24 10:07 100 MLS/HR Vancomycin HCl 100 ml @ 200 mls/hr Q12H IV 08/29/24 20:00 Examination: GENERAL:Normal, CVS:Normal, ABDOMEN:Normal laboratory and microbiology Laboratory Tests 08/29/24 04:24 Test 08/29/24 04:24 Range/Units Serum Glucose 157 H 74-106 mg/dL Problem List/Assessment/Plan Problem List/Assessment/Plan Acute kidney injury in setting of volume depletion hypernatremia history of Down syndrome toxic metabolic encephalopathy ` free water IV currently clinically can tolerate more fluids avoid hypotension elevated WBC rule out infection sources Plan discussed with: Patient MANA KNUTSON MD Aug 29, 2024 14:00
[2024-08-29] MEDS: LIDOCAINE 1% (LOCAL ANESTH.) PF 5ml SDV ID ONE (14:12)
[2024-08-29 15:14] LABS: Potassium 3.7 mmol/L (3.5-5.1)
[2024-08-29 15:15] LABS: Anion Gap 8 (5-15); Calcium 9.4 mg/dL (8.7-10.4); Carbon Dioxide 27 mmol/L (20-31)
[2024-08-29 15:20] LABS: BUN/Creatinine Ratio 15.1 (10.0-20.0); Blood Urea Nitrogen 23 mg/dL (9-23)
[2024-08-29 15:26] LABS: Glucose 93 mg/dL (74-106)
[2024-08-29 15:30] LABS: Chloride 130 mmol/L (98-107)
[2024-08-29] MEDS ORDERED: CLINIMIX PER PHARMACY 0 ML IV SCH (15:30)
[2024-08-29 15:34] LABS: Sodium 165 mmol/L (136-145)
[2024-08-29] MEDS ORDERED: DEXTROSE (50%) 50ML SYRG IV SCH (15:45)
[2024-08-29] MEDS: PIPERACILLIN-TAZOB 3.375GM 100 ML IV SCH (16:01)
[2024-08-29] MEDS: InsuLIN REG 1unit/0.01ml Soln (100units/ml) SC SCH (18:00)
[2024-08-29] MEDS: NOREPINEPHRINE 8 MG/250ML KIT 250 ML IV ONE (18:23)
[2024-08-29] MEDS: ACCU-CHEK COMFORT CURVE STRIP VI SCH (18:28)
[2024-08-29] MEDS: PANTOPRAZOLE 40 MG/10 ML VIAL INJ IV ONE (18:28)
[2024-08-29] MEDS: VANCOMYCIN 500mg/100mL 100 ML IV SCH (20:26)
--- NOTE | 2024-08-29 20:43 | DVHPNRES ---
Progress Note Date Seen: Aug 29, 2024 Resident Creating Document: LUL MENDOZA RESIDENT Medical Necessity Reason Pt with a Central, PICC or Fol: Yes The following are medically ne: Mason Catheter Subjective Review of Systems Saw the patient initially at the emergency department, bladder patient was upgraded to the ICU, close monitoring continued. Objective vital signs Vital Sign Date Time Temp Pulse Resp B/P (MAP) Pulse Ox O2 Delivery O2 Flow Rate FiO2 08/29/24 18:45 98.6 94 26 120/68 (85) 92 209.5 08/29/24 18:00 Oxymizer 5 N/A Total Intake and Output 08/28/24 08/28/24 08/29/24 15:00 23:00 07:00 Intake Total 585.875 ml 910.875 ml 821.25 ml Output Total 601 ml Balance 585.875 ml 910.875 ml 220.25 ml medications Current Medications Medications Dose Ordered Sig/Elza Route Start Time Stop Time Status Last Admin Dose Admin Norepinephrine Bitartrate 250 ml @ 3.75 mls/hr Q24H IV 08/27/24 08:00 08/29/24 18:29 30 MLS/HR Piperacillin Sod/ Tazobactam Sod 100 ml @ 25 mls/hr Q8HR IV 08/29/24 14:00 08/29/24 16:01 25 MLS/HR Vancomycin HCl 0 ml @ 0 mls/hr UD IV 08/29/24 06:30 Vancomycin HCl 100 ml @ 200 mls/hr Q12H IV 08/29/24 20:00 Sodium Chloride 10 ml QSHIFT@10,22 IV 08/29/24 22:00 Amino Acids 0 ml @ 0 mls/hr PER PHARMACY IV 08/29/24 15:30 Pantoprazole Sodium 40 mg DAILY IV 08/30/24 10:00 Diagnostic Test (Pha) 1 strip Q6HR 08/29/24 18:00 08/29/24 18:28 1 STRIP Insulin Human Regular FOLLOW SLIDING SCALE Q6HR SC 08/29/24 18:00 Dextrose 50 ml UD IV 08/29/24 15:45 Amino Acids/ Electrolytes/ Dextrose 1,000 ml @ 41 mls/hr DAILY@2200 IV 08/29/24 22:00 Examination: GENERAL:Normal (Somnolent, arousable with voice and sternal rub), HEENT:Normal (Right eye existing lesion POA), NECK:Normal, LUNGS:Abnormal (Left lower lobe crackles more than right. Patient on nasal cannula oxygen Elijah present above), CVS:Abnormal (Low blood pressure with MAP of 65 on Levophed), ABDOMEN:Normal, MSK:Abnormal (Low muscle mass), SKIN:Normal, NEURO:Abnormal (Unable to check GCS as patient has baseline learning disability, Down syndrome and baseline nonverbal), :Normal (On Mason's catheter) laboratory and microbiology Laboratory Tests 08/29/24 14:50 08/29/24 04:24 Test 08/29/24 14:50 Range/Units Serum Glucose 93 74-106 mg/dL Labs and/or images reviewed: Labs reviewed by me, Image(s) reviewed by me Problem List/Assessment/Plan Problem List/Assessment/Plan ICU Course: Orlando Christy, a 54-year-old male with Down syndrome, presented to the ED with altered mental status. Over the past four days, he has not eaten, had no bowel movements, and exhibited combative, restless, and screaming behavior, which worsened and led to his ED visit. Due to his clinical status, a review of systems could not be obtained. His past surgical history is negative, family history is noncontributory, and he denies smoking, alcohol, and drug abuse. 08/29 morning patient was found ALOC with increased workup breathing, encephalopathic and primary team updated the patient to ICU status for close monitoring and possible intubation. after careful consideration, poor extubation reserve and poor outcome with no obvious benefits held further intubation but careful aspiration precautions. Hospitalization day: 3 A. Neurology: # down syndrome with learning disability # baseline nonverbal but internal at to the family as per sister # altered level of consciousness: Urine tox negative but plasma serum alcohol elevated, could be due to encephalopathy, change in electrolytes and sodium disorder # ? alcohol use disorder/ alcohol intoxication/ abuse # Encephalomalacia likely due to underlying Down syndrome # normal pressure hydrocephalus: Noted on noncontrast head CT # Right phthisis bulbi B. Cardiology: # ?Septic/ hypovolemic shock: now on Levophed support, Close monitoring with maybe target of 65 mm of mercury. No available echo/TTE, ordered echo to follow C. Respiratory: # acute hypoxic respiratory failure: At baseline patient does not dependent on oxygen, desaturated with 5 L of Oxymizer with negative for COVID and influenza likely aspiration pneumonia, keep the patient NPO and aspiration precautions # atelectasis: Also suggested for incentive spirometry patient is not able to follow commands. # possible flash pulmonary edema with possible aspiration pneumonia: Bilateral crackles with sudden desaturation and increased work of breathing with IV Lasix patient improved. # possible obstructive sleep apnea: Has a high propensity in down syndrome patient. We will look for overnight desaturations D. Gastrointestinal: # high-risk for aspiration: NPO status to continue aspiration precautions to continue. # mild transaminitis: Improving daily CMP to continue for now # Hepatic steatosis no obvious changes. E. Geniotourinary: # patient has indwelling catheter : Close input output keep the patient on Mason's for now, F. Infectious Disease: # Possible septic shock. Source of respiratory infection secondary to aspiration, elevated WBC 13.7, tachypnea, tachycardia, lactate previously WNL IV antibiotics to continue, IV hydration along with electrolyte correction to be continued, continue vancomycin and Zosyn for broad-spectrum antibiotic, as needed Levophed support G. Hematology & Oncology: # polycythemia: Was monitoring of CBC # Mild thrombocytopenia: close monitoring of platelets, high-risk of DVT so close monitoring of platelets and hold heparin ip attorney drop. # leukocytosis with predominant neutrophilia likely due to aspiration pneumonia: Daily CBC and close hemodynamic monitoring H. Nephrology: # severe hypenatremia , hypovolemic: Free water deficit of Around 5.6, Should not correct more than 10 mEq every 24 hours. Only on clini max now, Q 8 BMP, for free water supplements but if correct sodium accordingly # severe dehydration: Likely due to poor oral intake # ? Hypovolemic shock : Careful slow fluid replenishment with correction of underlying electrolyte disturbances # ROSLYN likely VMN unknown baseline: Close input output follow up, daily BNP, avoid nephrotoxins, improving renal functions # Hyper magnesemia: Improved # hypokalemia improved I. Endocrine: # Failure to thrive : Needs further evaluation, likely multifactorial , started the patient on Clinimix for nutrition supplement. # severe protein calorie malnutrition with a BMI 15.6, nutritional consult J. MSK: peripheral pulses, neuro vasculature remains intact. K. Prophylaxis: PPI: pantoprazole IV daily DVT: Lovenox continue L. Lines & Drains (with insertion date): Has existing Mason's catheter prior to the hospitalization not known insertion date Peripheral IV lines since 08/26. Poor vascular access PICC line placed today 08/29. M. Drips: Levophed titratable N. Disposition: Remains in ICU. Patient is requiring low dose of norepinephrine, evaluate need for central line. Appreciate nephrology input. Patient has poor prognosis, previously was updated Torie /sister. Further goals of care discussion tomorrow. Due to pre-existing conditions patient has extremely poor long-term outcome with present health issues. The plan was discussed with the ICU attending Dr. Sandoval. The patient care consists of total 87 minutes of critical care time excluding the procedures. Dictated by Lul Mendoza MD with 3M MModal Fluency. Plan discussed with: Patient, Other (Primary team RN) My Orders My Orders Orders - LUL MENDOZA Procedure Category Date Status Time Abg W/ Co-Ox RT 08/29/24 Logged 07:58 Mrsa Screen GUERO 08/29/24 In Process 11:00 Date of Service: Aug 29, 2024 Billing Provider: DAYDAY SANDOVAL MD Common Visit Codes: 45785-[id number] CARE 30-74 MIN, [id number] CARE-EACH +30MIN LUL MENDOZA Aug 29, 2024 20:43 DAYDAY SANDOVAL MD Aug 30, 2024 16:14
[2024-08-29] MEDS: SODIUM CHLOR 0.9% PF (SALINE LOCK) 10ML VIAL/SYR IV SCH (21:33)
[2024-08-29] MEDS: AMINO ACID INFUSION IN D10W 1,000 ML IV SCH (21:34)
[2024-08-30] VITALS (92 sets, daily range): BP systolic 89–139; BP diastolic 47–76; PULSE 52–114; RESP 11–33; TEMP 95.9–98.4; O2SAT 92–100
[2024-08-30 03:53] LABS: Basophils # (auto) 0 10 ^3/uL (0-0.2); Basophils % (auto) 0.1 % (0.0-2.0); Eosinophils # (auto) 0 10 ^3/uL (0-0.8); Hematocrit 45.7 % (41.0-53.0); Hemoglobin 14.6 g/dL (13.5-17.5); Lymphocytes # (auto) 0.7 10 ^3/uL (0.4-5.4); Lymphocytes % (auto) 4.3 % (10.0-50.0); Mean Corpuscular Hemoglobin 31.6 pg (28.0-32.0); Mean Corpuscular Hgb Conc. 31.9 g/dL (32.0-36.0); Mean Corpuscular Volume 99.1 fL (80.0-100.0); Monocytes # (auto) 0.5 10 ^3/uL (0-1.3); Neutrophils # (auto) 15.7 10 ^3/uL (1.6-8.6); Neutrophils % (auto) 92.6 % (37.0-80.0); Nucleated Red Blood Cells % 0.2 %; Platelet Count (auto) 107 10^3/uL (140-450); Red Blood Cells 4.62 10^6/uL (4.5-5.90); Red Cell Distribution Width 14.4 % (11.8-14.3)
[2024-08-30 04:18] LABS: Alkaline Phosphatase 102 U/L (46-116); Anion Gap 11 (5-15); Aspartate Aminotransferase 26 U/L (13-40); BUN/Creatinine Ratio 15.7 (10.0-20.0); Bilirubin, Total 0.9 mg/dL (0.2-1.0); Carbon Dioxide 23 mmol/L (20-31); Glucose 106 mg/dL (74-106); Magnesium 2.5 mg/dL (1.6-2.6); Total Protein 5.7 g/dL (5.7-8.2)
[2024-08-30 04:48] LABS: Alanine Aminotransferase 40 U/L (7-40); Albumin 3.1 g/dL (3.2-4.8); Blood Urea Nitrogen 24 mg/dL (9-23); Chloride 132 mmol/L (98-107); Phosphorus 2.3 mg/dL (2.4-5.1); Potassium 3.2 mmol/L (3.5-5.1); Sodium 166 mmol/L (136-145)
[2024-08-30] MEDS: POTASSIUM CHL 20MEQ/100ML 100 ML IV SCH (06:33)
[2024-08-30] MEDS: PANTOPRAZOLE 40 MG/10 ML VIAL INJ IV SCH (09:34)
[2024-08-30] MEDS: LORazepam 2MG/ML-1ML VIAL ONE (09:41)
[2024-08-30] MEDS ORDERED: D5W 5% 1,000 ML IV SCH (10:00)
[2024-08-30] MEDS: D5W 5% 1,000 ML IV SCH (10:00)
[2024-08-30] MEDS: LORazepam 2MG/ML-1ML VIAL IV ONE (10:11)
--- NOTE | 2024-08-30 12:30 | DVHSR ---
APPROVED REPORT EXAM: LIMITED Two-dimensional and M-mode echocardiogram with Doppler and color Doppler. Blood Pressure: 107/56 mmHg INDICATION Baseline structural cardiac functions in down syndrome RISK FACTORS Height: 62, Weight: 95 DIMENSIONS LVDd3.9 (3.8-5.7cm)LA (2D)3.9 (1.9-4.0cm)Aortic Root2.8 (2.0-3.7cm) LVDs2.7 (2.5-4.0cm)LA (MM) (1.9-4.0cm)Aortic Cusp Exc1.5 (1.5-2.0cm) EF (%) 60.0 (55-70%)Rt. Atrium3.4 (1.9-4.0cm)Asc. Aorta cm IVSd0.6 (0.7-1.1cm)RV (D) (1.8-2.4cm) PWd0.8 (0.7-1.1cm) Mitral Valve MitralMitral Stenosis E wave1.04m/sMV Mean GR.mmHg A wave0.81m/sMV Peak GR.mmHg E/A ratio1.32D MVAcm2 DECEL [id number] 1/2 Timems Aortic Valve Aortic ValveAortic Stenosis LVOT Diameter1.6 (1.8-2.4cm)Doppler AVAcm2 Other Information Technically limited study due to body habitus, patient position and patient moving. Patient was non compliant during exam due to down syndrome. Patient kept taking leads off during exam. Conclusion lvef 60% by visual estimate RV not well seen likely enlarged left atrium enlarged mild no severe valve abnormaliteis noted
[2024-08-30 15:39] LABS: Triglycerides 79 mg/dL (< 150)
[2024-08-30] MEDS: POTASSIUM PHOSPHATE 22 MEQ in SODIUM CHL 0.9% 100 ML IV ONE (15:53)
--- NOTE | 2024-08-30 17:45 | DVHPN2 ---
Progress Note Date Seen: Aug 30, 2024 Medical Necessity Reason Pt with a Central, PICC or Fol: Yes The following are medically ne: Mason Catheter Subjective Patient reports: Other Review of Systems: Deferred Objective vital signs Vital Sign Date Time Temp Pulse Resp B/P (MAP) Pulse Ox O2 Delivery O2 Flow Rate FiO2 08/30/24 16:30 98.2 56 16 97/56 (70) 100 98.2 08/30/24 16:00 Oxymizer 5 N/A Total Intake and Output 08/29/24 08/29/24 08/30/24 15:00 23:00 07:00 Intake Total 715 ml 584.5 ml 1045.00 ml Output Total 2000 ml 750 ml Balance 715 ml -1415.5 ml 295.00 ml medications Current Medications Medications Dose Ordered Sig/Elza Route Start Time Stop Time Status Last Admin Dose Admin Norepinephrine Bitartrate 250 ml @ 3.75 mls/hr Q24H IV 08/27/24 08:00 08/30/24 13:14 22.5 MLS/HR Piperacillin Sod/ Tazobactam Sod 100 ml @ 25 mls/hr Q8HR IV 08/29/24 14:00 08/30/24 13:14 25 MLS/HR Vancomycin HCl 0 ml @ 0 mls/hr UD IV 08/29/24 06:30 Vancomycin HCl 100 ml @ 200 mls/hr Q12H IV 08/29/24 20:00 08/30/24 09:43 200 MLS/HR Sodium Chloride 10 ml QSHIFT@10,22 IV 08/29/24 22:00 08/30/24 09:43 10 ML Amino Acids 0 ml @ 0 mls/hr PER PHARMACY IV 08/29/24 15:30 Pantoprazole Sodium 40 mg DAILY IV 08/30/24 10:00 08/30/24 09:34 40 MG Diagnostic Test (Pha) 1 strip Q6HR 08/29/24 18:00 08/30/24 12:06 1 STRIP Insulin Human Regular FOLLOW SLIDING SCALE Q6HR SC 08/29/24 18:00 08/30/24 12:08 2 UNITS Dextrose 50 ml UD IV 08/29/24 15:45 Amino Acids/ Electrolytes/ Dextrose 1,000 ml @ 41 mls/hr DAILY@2200 IV 08/29/24 22:00 08/29/24 21:34 41 MLS/HR Dextrose 1,000 ml @ 75 mls/hr [id number] IV 08/30/24 10:15 08/30/24 10:00 75 MLS/HR Examination: GENERAL:Abnormal, NEURO:Abnormal laboratory and microbiology Laboratory Tests 08/30/24 03:33 Test 08/30/24 17:26 Range/Units Serum Glucose Pending Microbiology Date/Time Source Procedure Growth Status 08/29/24 11:00 Nose MRSA Screen - Final Complete Problem List/Assessment/Plan Problem List/Assessment/Plan Acute kidney injury in setting of volume depletion hypernatremia history of Down syndrome toxic metabolic encephalopathy recs Continue D5W IV 75cc/hr There is shortage in pharmacy for D5W IV per rn Plan discussed with: Other My Orders My Orders Orders - EVERT KELLY MD Procedure Category Date Status Time D5w 5% (Dextrose 5%) PHA 08/30/24 In Process 10:15 Dietary Evaluation Review Comments: 1. Given functional GI tract, EN is preferred over PN; would recommend post-pyloric feeding tube placement to reduce aspiration risk and beginning standard formula Jevity 1.2 @ 10 ml/hr; advance by 10 ml Q6 hrs to goal-rate of 50 ml/hr or as tolerated *noted pt may not tolerate NGT placement due to agitation 2. If continuation of TPN is preferred by MD, recommend 1.5 L Clinimix E 15 @ 63 ml/hr x 24 hrs (provides 225 gm D, 75 gm AA = 1065 kcal/day) *add lipid infusion to meet remainder of kcal needs pending triglyceride level (must be <500) 3. Once medically able, consider WOOD PILER evaluation to assess appropriateness for PO diet Expected Outcomes/Goals: Improved nutritional status, weight maintenance, improved labs values. EVERT KELLY MD Aug 30, 2024 17:45
[2024-08-30 17:57] LABS: Anion Gap 9 (5-15); Carbon Dioxide 25 mmol/L (20-31)
[2024-08-30 18:04] LABS: Blood Urea Nitrogen 27 mg/dL (9-23)
[2024-08-30 18:18] LABS: BUN/Creatinine Ratio 18.9 (10.0-20.0); Calcium 8.6 mg/dL (8.7-10.4); Chloride 127 mmol/L (98-107); Glucose 129 mg/dL (74-106); Potassium 3.2 mmol/L (3.5-5.1)
[2024-08-30 18:21] LABS: Sodium 161 mmol/L (136-145)
--- NOTE | 2024-08-30 19:53 | DVHPNRES ---
Progress Note Date Seen: Aug 30, 2024 Resident Creating Document: LUL MENDOZA RESIDENT Medical Necessity Reason Pt with a Central, PICC or Fol: Yes The following are medically ne: Mason Catheter Objective vital signs Vital Sign Date Time Temp Pulse Resp B/P (MAP) Pulse Ox O2 Delivery O2 Flow Rate FiO2 08/30/24 18:30 57 14 109/65 (80) 98 08/30/24 18:00 Oxymizer 5 N/A 08/30/24 16:30 98.2 98.2 Total Intake and Output 08/29/24 08/29/24 08/30/24 15:00 23:00 07:00 Intake Total 715 ml 584.5 ml 1045.00 ml Output Total 2000 ml 750 ml Balance 715 ml -1415.5 ml 295.00 ml medications Current Medications Medications Dose Ordered Sig/Elza Route Start Time Stop Time Status Last Admin Dose Admin Norepinephrine Bitartrate 250 ml @ 3.75 mls/hr Q24H IV 08/27/24 08:00 08/30/24 13:14 22.5 MLS/HR Piperacillin Sod/ Tazobactam Sod 100 ml @ 25 mls/hr Q8HR IV 08/29/24 14:00 08/30/24 13:14 25 MLS/HR Vancomycin HCl 0 ml @ 0 mls/hr UD IV 08/29/24 06:30 Vancomycin HCl 100 ml @ 200 mls/hr Q12H IV 08/29/24 20:00 08/30/24 09:43 200 MLS/HR Sodium Chloride 10 ml QSHIFT@10,22 IV 08/29/24 22:00 08/30/24 09:43 10 ML Amino Acids 0 ml @ 0 mls/hr PER PHARMACY IV 08/29/24 15:30 Pantoprazole Sodium 40 mg DAILY IV 08/30/24 10:00 08/30/24 09:34 40 MG Diagnostic Test (Pha) 1 strip Q6HR 08/29/24 18:00 08/30/24 18:28 1 STRIP Insulin Human Regular FOLLOW SLIDING SCALE Q6HR SC 08/29/24 18:00 08/30/24 12:08 2 UNITS Dextrose 50 ml UD IV 08/29/24 15:45 Amino Acids/ Electrolytes/ Dextrose 1,000 ml @ 41 mls/hr DAILY@2200 IV 08/29/24 22:00 08/29/24 21:34 41 MLS/HR Dextrose 1,000 ml @ 75 mls/hr [id number] IV 08/30/24 10:15 08/30/24 10:00 75 MLS/HR Lorazepam 0.5 mg Q8HP PRN IV 08/30/24 19:00 UNV Examination GENERAL:Normal (Somnolent, arousable with voice and sternal rub), HEENT:Normal (Right eye existing lesion POA), NECK:Normal, LUNGS:Abnormal (Left lower lobe crackles more than right. Patient on nasal cannula oxygen Elijah present above), CVS:Abnormal (Low blood pressure with MAP of 65 on Levophed), ABDOMEN:Normal, MSK:Abnormal (Low muscle mass), SKIN:Normal, NEURO:Abnormal (Unable to check GCS as patient has baseline learning disability, Down syndrome and baseline nonverbal), :Normal (On Mason's catheter) laboratory and microbiology Laboratory Tests 08/30/24 17:26 08/30/24 03:33 Test 08/30/24 17:26 Range/Units Serum Glucose 129 H 74-106 mg/dL Microbiology Date/Time Source Procedure Growth Status 08/29/24 11:00 Nose MRSA Screen - Final Complete Labs and/or images reviewed: Labs reviewed by me, Image(s) reviewed by me Problem List/Assessment/Plan Problem List/Assessment/Plan ICU Course: Orlando Christy, a 54-year-old male with Down syndrome, presented to the ED with altered mental status. Over the past four days, he has not eaten, had no bowel movements, and exhibited combative, restless, and screaming behavior, which worsened and led to his ED visit. Due to his clinical status, a review of systems could not be obtained. His past surgical history is negative, family history is noncontributory, and he denies smoking, alcohol, and drug abuse. 08/29 morning patient was found ALOC with increased workup breathing, encephalopathic and primary team updated the patient to ICU status for close monitoring and possible intubation. after careful consideration, poor extubation reserve and poor outcome with no obvious benefits held further intubation but careful aspiration precautions. 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 Hospitalization day: 4 A. Neurology: # down syndrome with learning disability # baseline nonverbal but conversant to the family as per sister # altered level of consciousness: Urine tox negative but plasma serum alcohol elevated, could be due to encephalopathy, change in electrolytes and sodium disorder # ? alcohol use disorder/ alcohol intoxication/ abuse # Encephalomalacia likely due to underlying Down syndrome # normal pressure hydrocephalus: Noted on noncontrast head CT # Right phthisis bulbi, present on admission B. Cardiology: # ?Septic/ hypovolemic shock: now on Levophed support, Close monitoring with maybe target of 65 mm of mercury. Echo unremarkable, check morning cortisol. C. Respiratory: # acute hypoxic respiratory failure: At baseline patient does not dependent on oxygen, desaturated with 5 L of Oxymizer with negative for COVID and influenza likely aspiration pneumonia, keep the patient NPO and aspiration precautions # atelectasis: Also suggested for incentive spirometry patient is not able to follow commands. # possible flash pulmonary edema with possible aspiration pneumonia: Bilateral crackles with sudden desaturation and increased work of breathing with IV Lasix patient improved. # possible obstructive sleep apnea: Has a high propensity in down syndrome patient. We will look for overnight desaturations D. Gastrointestinal: # high-risk for aspiration: NPO status to continue aspiration precautions to continue. # mild transaminitis: Improving daily CMP to continue for now # Hepatic steatosis no obvious changes. E. Genitourinary: # patient has indwelling catheter: Close input output keep the patient on Mason's for now F. Infectious Disease: # Possible septic shock: Source of respiratory infection secondary to aspiration, elevated WBC 13.7, tachypnea, tachycardia, lactate previously WNL IV antibiotics to continue, IV hydration along with electrolyte correction to be continued, continue vancomycin and Zosyn for broad-spectrum antibiotic, as needed Levophed support # worsening leukocytosis: With predominant neutrophilia, likely worsening infection, source questionable pulmonary, needs further evaluation, at this point continue IV vanco Zosyn. G. Hematology & Oncology: # polycythemia history, questionable not noted on recent CBC # Mild thrombocytopenia: close monitoring of platelets, high-risk of DVT, off of heparin, on scds. # leukocytosis with predominant neutrophilia: likely due to aspiration pneumonia: Daily CBC and close hemodynamic monitoring. check blood culture. echo -ve for redding valvular pathology H. Nephrology: # severe hypenatremia , hypovolemic: Free water deficit of Around 5.6> today around 2.2 L Should not correct more than 10 mEq every 24 hours. On 75 cc/hour of D5 free water with Clinimix. We will repeat sodium tomorrow morning. Avoid over-correction. # severe dehydration: Likely due to poor oral intake, continue IV hydration. Monitor input output. # ? Hypovolemic shock : Careful slow fluid replenishment with correction of underlying electrolyte disturbances # ROSLYN likely VMN unknown baseline: Close input output follow up, daily BNP, avoid nephrotoxins, improving renal functions # Hyper magnesemia: Improved # hypokalemia, recurrent, continue supplementation. # hypophosphatemia: Replenished recheck in the morning. Correct accordingly. I. Endocrine: # Failure to thrive : Needs further evaluation, likely multifactorial , started the patient on Clinimix for nutrition supplement. # severe protein calorie malnutrition with a BMI 15.6, nutritional consult when patient is more clinically stable. J. MSK: peripheral pulses, neuro vasculature remains intact. But low muscle mass. K. Prophylaxis: PPI: pantoprazole IV daily DVT: Lovenox continue L. Lines & Drains (with insertion date): Has existing Mason's catheter prior to the hospitalization not known insertion date Peripheral IV lines since 08/26. Poor vascular access PICC line placed today 08/29. New Mason's placed on 08/30/2024 M. Drips: Levophed titratable to keep a map over 65 N. Disposition: Remains in ICU. Patient is requiring low dose of norepinephrine, evaluate need for central line. Appreciate nephrology input. Previously was updated sister. Further goals of care discussion tomorrow with sister at bedside. Due to pre-existing conditions patient has extremely poor long-term outcome with present health issues. The plan was discussed with the ICU attending Dr. Sandoval. The patient care consists of total 83 minutes of critical care time excluding the procedures. Dictated by Lul Mendoza MD with 3M MModal Fluency. Plan discussed with: Patient, Other My Orders My Orders Orders - LUL MENDOZA RESIDENT Procedure Category Date Status Time Echo 2d Mode Cardiac US 08/30/24 Resulted DOP 00:04 Urine Bacterial GUERO 08/30/24 Logged Culture 13:30 Lorazepam 2mg/Ml Inj PHA 08/30/24 Logged (Ativan Inj) 19:00 Dietary Evaluation Review Comments: 1. Given functional GI tract, EN is preferred over PN; would recommend post-pyloric feeding tube placement to reduce aspiration risk and beginning standard formula Jevity 1.2 @ 10 ml/hr; advance by 10 ml Q6 hrs to goal-rate of 50 ml/hr or as tolerated *noted pt may not tolerate NGT placement due to agitation 2. If continuation of TPN is preferred by MD, recommend 1.5 L Clinimix E 5/15 @ 63 ml/hr x 24 hrs (provides 225 gm D, 75 gm AA = 1065 kcal/day) *add lipid infusion to meet remainder of kcal needs pending triglyceride level (must be <500) 3. Once medically able, consider POWER PLANT SUPERINTENDENT evaluation to assess appropriateness for PO diet Expected Outcomes/Goals: Improved nutritional status, weight maintenance, improved labs values. Date of Service: Aug 30, 2024 Billing Provider: DAYDAY SANDOVAL MD Common Visit Codes: 50204-[id number] CARE 30-74 MIN, [id number] CARE-EACH +30MIN LUL MENDOZA RESIDENT Aug 30, 2024 19:53 DAYDAY SANDOVAL MD Aug 31, 2024 16:27
[2024-08-30] MEDS: LORazepam 2MG/ML-1ML VIAL IV PRN (19:57)
[2024-08-31] VITALS (98 sets, daily range): BP systolic 79–147; BP diastolic 39–80; PULSE 47–110; RESP 8–28; TEMP 97.6–98.2; O2SAT 84–100
[2024-08-31 03:30] LABS: Hematocrit 41.1 % (41.0-53.0); Hemoglobin 13.5 g/dL (13.5-17.5); Mean Corpuscular Hemoglobin 32.5 pg (28.0-32.0); Mean Corpuscular Volume 98.7 fL (80.0-100.0); Platelet Count (auto) 95 10^3/uL (140-450); Red Blood Cells 4.16 10^6/uL (4.5-5.90); Red Cell Distribution Width 14.3 % (11.8-14.3); White Blood Cell 16.8 10^3/uL (4.4-10.8)
[2024-08-31 03:34] LABS: Alanine Aminotransferase 28 U/L (7-40); Alkaline Phosphatase 95 U/L (46-116); Anion Gap 8 (5-15); Aspartate Aminotransferase 17 U/L (13-40); Carbon Dioxide 24 mmol/L (20-31)
[2024-08-31 03:35] LABS: Bilirubin, Total 0.8 mg/dL (0.2-1.0); Phosphorus 2.6 mg/dL (2.4-5.1)
[2024-08-31 03:38] LABS: Albumin 2.8 g/dL (3.2-4.8); Blood Urea Nitrogen 25 mg/dL (9-23); Calcium 8.3 mg/dL (8.7-10.4); Chloride 123 mmol/L (98-107); Glucose 116 mg/dL (74-106); Potassium 2.9 mmol/L (3.5-5.1); Sodium 155 mmol/L (136-145); Total Protein 5.2 g/dL (5.7-8.2)
[2024-08-31 03:53] LABS: Band Neutrophils % (manual) 0; Basophils % (manual) 0 (0.0-2.0); Blast Cells 0; Metamyelocytes % 0; Myelocytes % 0; Promyelocytes % 0; Reactive Lymphocytes 0
[2024-08-31] MEDS: POTASSIUM CHL 20MEQ/100ML 100 ML IV SCH (04:36)
[2024-08-31 07:35] LABS: Eosinophils % (manual) 1 (0-7); Lymphocytes % (manual) 11 (10.0-50.0); Monocytes % (manual) 5 (0-12); Platelet Estimate Decreased
--- NOTE | 2024-08-31 07:46 | DVHPNRES ---
Progress Note Date Seen: Aug 31, 2024 Resident Creating Document: LUL MENDOZA RESIDENT Medical Necessity Reason Pt with a Central, PICC or Fol: Yes The following are medically ne: Mason Catheter Objective vital signs Vital Sign Date Time Temp Pulse Resp B/P (MAP) Pulse Ox O2 Delivery O2 Flow Rate FiO2 08/31/24 07:15 75 8 110/58 (75) 100 08/31/24 05:56 98.1 98.1 08/31/24 05:53 Oxymizer 5 N/A Total Intake and Output 08/30/24 08/30/24 08/31/24 15:00 23:00 07:00 Intake Total 1142.0 ml 1090.5 ml 1337 ml Output Total 501 ml 402 ml Balance 1142.0 ml 589.5 ml 935 ml medications Current Medications Medications Dose Ordered Sig/Elza Route Start Time Stop Time Status Last Admin Dose Admin Norepinephrine Bitartrate 250 ml @ 3.75 mls/hr Q24H IV 08/27/24 08:00 08/30/24 23:37 22.5 MLS/HR Piperacillin Sod/ Tazobactam Sod 100 ml @ 25 mls/hr Q8HR IV 08/29/24 14:00 08/31/24 05:19 25 MLS/HR Vancomycin HCl 0 ml @ 0 mls/hr UD IV 08/29/24 06:30 Vancomycin HCl 100 ml @ 200 mls/hr Q12H IV 08/29/24 20:00 08/30/24 20:41 200 MLS/HR Sodium Chloride 10 ml QSHIFT@10,22 IV 08/29/24 22:00 08/30/24 22:03 10 ML Amino Acids 0 ml @ 0 mls/hr PER PHARMACY IV 08/29/24 15:30 Pantoprazole Sodium 40 mg DAILY IV 08/30/24 10:00 08/30/24 09:34 40 MG Amino Acids/ Electrolytes/ Dextrose 1,000 ml @ 41 mls/hr DAILY@2200 IV 08/29/24 22:00 08/30/24 22:04 41 MLS/HR Lorazepam 0.5 mg Q8HP PRN IV 08/30/24 19:00 08/30/24 19:57 0.5 MG Potassium Chloride 100 ml @ 50 mls/hr Q2H IV 08/31/24 04:30 08/31/24 08:29 08/31/24 06:19 50 MLS/HR Examination GENERAL:Normal (Somnolent, arousable with voice and sternal rub), HEENT:Normal (Right eye existing lesion POA), NECK:Normal, LUNGS:Abnormal (Left lower lobe crackles more than right. Patient on nasal cannula oxygen Elijah present above), CVS:Abnormal (Low blood pressure with MAP of 65 on Levophed), ABDOMEN:Normal, MSK:Abnormal (Low muscle mass), SKIN:Normal, NEURO:Abnormal (Unable to check GCS as patient has baseline learning disability, Down syndrome and baseline nonverbal), :Normal (On Mason's catheter) laboratory and microbiology Laboratory Tests 08/31/24 03:00 Test 08/31/24 03:00 Range/Units Serum Glucose 116 H 74-106 mg/dL Microbiology Date/Time Source Procedure Growth Status 08/29/24 11:00 Nose MRSA Screen - Final Complete Labs and/or images reviewed: Labs reviewed by me, Image(s) reviewed by me Problem List/Assessment/Plan Problem List/Assessment/Plan ICU Course: Orlando Christy, a 54-year-old male with Down syndrome, presented to the ED with altered mental status. Over the past four days, he has not eaten, had no bowel movements, and exhibited combative, restless, and screaming behavior, which worsened and led to his ED visit. Due to his clinical status, a review of systems could not be obtained. His past surgical history is negative, family history is noncontributory, and he denies smoking, alcohol, and drug abuse. 08/29 morning patient was found ALOC with increased workup breathing, encephalopathic and primary team updated the patient to ICU status for close monitoring and possible intubation. after careful consideration, poor extubation reserve and poor outcome with no obvious benefits held further intubation but careful aspiration precautions. 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 Hospitalization day: 5 A. Neurology: # down syndrome with learning disability # baseline nonverbal but conversant to the family as per sister # altered level of consciousness: Urine tox negative but plasma serum alcohol elevated, could be due to encephalopathy, change in electrolytes and sodium disorder # ? alcohol use disorder/ alcohol intoxication/ abuse # Encephalomalacia likely due to underlying Down syndrome # normal pressure hydrocephalus: Noted on noncontrast head CT # Right phthisis bulbi, present on admission B. Cardiology: # ?Septic/ hypovolemic shock: now on Levophed support, Close monitoring with maybe target of 65 mm of mercury. Echo unremarkable, check morning cortisol unremarkable. titrate down levo as tolerated. C. Respiratory: # acute hypoxic respiratory failure: At baseline patient does not dependent on oxygen, desaturated with 5 L of Oxymizer with negative for COVID and influenza likely aspiration pneumonia, keep the patient NPO and aspiration precautions, weaned to room air. # atelectasis: Also suggested for incentive spirometry patient is not able to follow commands. # possible flash pulmonary edema with possible aspiration pneumonia: Bilateral crackles with sudden desaturation and increased work of breathing with IV Lasix patient improved. # possible obstructive sleep apnea: Has a high propensity in down syndrome patient. We will look for overnight desaturations D. Gastrointestinal: # high-risk for aspiration: NPO status to continue aspiration precautions to continue. clinimax. # mild transaminitis: Improving daily CMP to continue for now # Hepatic steatosis no obvious changes. E. Genitourinary: # patient has indwelling catheter: Close input output keep the patient on Mason's for now F. Infectious Disease: # Possible septic shock: Source of respiratory infection secondary to aspiration, elevated WBC 13.7, tachypnea, tachycardia, lactate previously WNL IV antibiotics to continue, IV hydration along with electrolyte correction to be continued, continue vancomycin and Zosyn for broad-spectrum antibiotic, as needed Levophed support # worsening leukocytosis: With predominant neutrophilia, likely worsening infection, source questionable pulmonary, needs further evaluation, at this point continue IV vanco Zosyn. follow cbc. G. Hematology & Oncology: # polycythemia history, questionable not noted on recent CBC # Mild thrombocytopenia>moderate now: close monitoring of platelets, high-risk of DVT, off of heparin, on scds. # leukocytosis with predominant neutrophilia: likely due to aspiration pneumonia: Daily CBC and close hemodynamic monitoring. check blood culture. echo -ve for hopi valvular pathology H. Nephrology: # severe hypenatremia , hypovolemic: Free water deficit of Around 5.6> today around 2.2>>1 L Should not correct more than 10 mEq every 24 hours. On 50 cc/hour of D5 free water with Clinimix. We will repeat sodium tomorrow morning. Avoid over-correction. Target 145 by 4 am on 09/01 # severe dehydration: Likely due to poor oral intake, continue IV hydration. M onitor input output. Intravascular status improved # septic/Hypovolemic shock : Careful slow fluid replenishment with correction of underlying electrolyte disturbances # ROSLYN likely VMN unknown baseline: Close input output follow up, daily BNP, avoid nephrotoxins, improving renal functions # Hypomagnesemia: Improved # hypokalemia, recurrent, continue supplementation. # hypophosphatemia: Replenished recheck in the morning. Correct accordingly. Recheck electrolytes tomorrow I. Endocrine: # Failure to thrive : Needs further evaluation, likely multifactorial , started the patient on Clinimix for nutrition supplement. # severe protein calorie malnutrition with a BMI 15.6, nutritional consult when patient is more clinically stable. J. MSK: peripheral pulses, neuro vasculature remains intact. But low muscle mass. K. Prophylaxis: PPI: pantoprazole IV daily DVT: Lovenox continue L. Lines & Drains (with insertion date): Has existing Mason's catheter prior to the hospitalization not known insertion date Peripheral IV lines since 08/26. Poor vascular access PICC line placed today 08/29. New Mason's placed on 08/30/2024 M. Drips: Levophed titratable to keep a map over 65, still on 12. N. Disposition: Remains in ICU. Patient is requiring low dose of norepinephrine, evaluate need for central line. Appreciate nephrology input. Previously was updated sister. Further goals of care discussion pending with sister at bedside. Due to pre-existing conditions patient has extremely poor long-term outcome with present health issues. Appreciate sw input. Patient has mother out of state, who declined to partake in caregiving. The plan was discussed with the ICU attending Dr. Sandoval. The patient care consists of total 66 minutes of critical care time excluding the procedures. Dictated by Lul Mendoza MD with 3M MModal Fluency. Plan discussed with: Patient, Other My Orders My Orders Orders - LUL MENDOZA RESIDENT Procedure Category Date Status Time Urine Bacterial GUERO 08/30/24 In Process Culture 13:30 Lorazepam 2mg/Ml Inj PHA 08/30/24 In Process (Ativan Inj) 19:00 Cortisol Am LAB 08/31/24 Logged 04:00 Dietary Evaluation Review Comments: 1. Given functional GI tract, EN is preferred over PN; would recommend post-pyloric feeding tube placement to reduce aspiration risk and beginning standard formula Jevity 1.2 @ 10 ml/hr; advance by 10 ml Q6 hrs to goal-rate of 50 ml/hr or as tolerated *noted pt may not tolerate NGT placement due to agitation 2. If continuation of TPN is preferred by MD, recommend 1.5 L Clinimix E 5/15 @ 63 ml/hr x 24 hrs (provides 225 gm D, 75 gm AA = 1065 kcal/day) *add lipid infusion to meet remainder of kcal needs pending triglyceride level (must be <500) 3. Once medically able, consider CONGRESSIONAL ASSISTANT evaluation to assess appropriateness for PO diet Expected Outcomes/Goals: Improved nutritional status, weight maintenance, improved labs values. Date of Service: Aug 31, 2024 Billing Provider: DAYDAY SANDOVAL MD Common Visit Codes: [id number] CARE 30-74 MIN LUL MENDOZA RESIDENT Aug 31, 2024 07:46 DAYDAY SANDOVAL MD Sep 01, 2024 10:54
[2024-08-31] MEDS: D5W 5% 1,000 ML IV SCH (09:30)
--- NOTE | 2024-08-31 18:50 | DVHPN2 ---
Progress Note Date Seen: Aug 31, 2024 Medical Necessity Reason Pt with a Central, PICC or Fol: Yes The following are medically ne: Mason Catheter Subjective Patient reports: Other (No new events) Review of Systems: Deferred Objective vital signs Vital Sign Date Time Temp Pulse Resp B/P (MAP) Pulse Ox O2 Delivery O2 Flow Rate FiO2 08/31/24 18:30 66 18 125/80 (95) 98 08/31/24 18:00 Nasal Cannula* 2 28 08/31/24 16:15 98.1 98.1 Total Intake and Output 08/30/24 08/30/24 08/31/24 15:00 23:00 07:00 Intake Total 1142.0 ml 1090.5 ml 1337 ml Output Total 501 ml 402 ml Balance 1142.0 ml 589.5 ml 935 ml medications Current Medications Medications Dose Ordered Sig/Elza Route Start Time Stop Time Status Last Admin Dose Admin Norepinephrine Bitartrate 250 ml @ 3.75 mls/hr Q24H IV 08/27/24 08:00 08/31/24 10:36 26.25 MLS/HR Piperacillin Sod/ Tazobactam Sod 100 ml @ 25 mls/hr Q8HR IV 08/29/24 14:00 08/31/24 14:19 25 MLS/HR Vancomycin HCl 0 ml @ 0 mls/hr UD IV 08/29/24 06:30 Vancomycin HCl 100 ml @ 200 mls/hr Q12H IV 08/29/24 20:00 08/31/24 09:25 200 MLS/HR Sodium Chloride 10 ml QSHIFT@10,22 IV 08/29/24 22:00 08/31/24 09:39 10 ML Amino Acids 0 ml @ 0 mls/hr PER PHARMACY IV 08/29/24 15:30 Pantoprazole Sodium 40 mg DAILY IV 08/30/24 10:00 08/31/24 09:38 40 MG Amino Acids/ Electrolytes/ Dextrose 1,000 ml @ 41 mls/hr DAILY@2200 IV 08/29/24 22:00 08/30/24 22:04 41 MLS/HR Lorazepam 0.5 mg Q8HP PRN IV 08/30/24 19:00 08/30/24 19:57 0.5 MG Dextrose 1,000 ml @ 50 mls/hr Q20H IV 08/31/24 10:45 08/31/24 09:30 50 MLS/HR Examination: GENERAL:Abnormal, LUNGS:Abnormal, NEURO:Abnormal laboratory and microbiology Laboratory Tests 08/31/24 11:50 08/31/24 03:00 Test 08/31/24 03:00 Range/Units Serum Glucose 116 H 74-106 mg/dL Microbiology Date/Time Source Procedure Growth Status 08/31/24 00:30 Urine - Mason Port Urine Culture - Preliminary Resulted 08/30/24 17:21 Blood Blood Culture - Preliminary NO GROWTH AFTER 24 HOURS OF INCUBATION. Resulted 08/29/24 11:00 Nose MRSA Screen - Final Complete Problem List/Assessment/Plan Problem List/Assessment/Plan Acute kidney injury in setting of volume depletion hypernatremia history of Down syndrome toxic metabolic encephalopathy Hypokalemia recs Continue D5W IV KCL replace p.r.n. There is shortage in pharmacy for D5W IV per rn Plan discussed with: Other Dietary Evaluation Review Comments: 1. Given functional GI tract, EN is preferred over PN; would recommend post-pyloric feeding tube placement to reduce aspiration risk and beginning standard formula Jevity 1.2 @ 10 ml/hr; advance by 10 ml Q6 hrs to goal-rate of 50 ml/hr or as tolerated *noted pt may not tolerate NGT placement due to agitation 2. If continuation of TPN is preferred by MD, recommend 1.5 L Clinimix E 5/15 @ 63 ml/hr x 24 hrs (provides 225 gm D, 75 gm AA = 1065 kcal/day) *add lipid infusion to meet remainder of kcal needs pending triglyceride level (must be <500) 3. Once medically able, consider LAUNDRY PRICING CLERK evaluation to assess appropriateness for PO diet Expected Outcomes/Goals: Improved nutritional status, weight maintenance, improved labs values. EVERT KELLY MD Aug 31, 2024 18:50
[2024-09-01] VITALS (99 sets, daily range): BP systolic 84–133; BP diastolic 45–85; PULSE 51–94; RESP 10–33; TEMP 97.3–98.1; O2SAT 94–100
[2024-09-01 04:01] LABS: Hematocrit 40.3 % (41.0-53.0); Hemoglobin 13.5 g/dL (13.5-17.5); Mean Corpuscular Hemoglobin 32.6 pg (28.0-32.0); Mean Corpuscular Hgb Conc. 33.5 g/dL (32.0-36.0); Mean Corpuscular Volume 97.3 fL (80.0-100.0); Platelet Count (auto) 83 10^3/uL (140-450); Red Blood Cells 4.14 10^6/uL (4.5-5.90); Red Cell Distribution Width 14.2 % (11.8-14.3); White Blood Cell 10.9 10^3/uL (4.4-10.8)
[2024-09-01 04:12] LABS: Calcium 8.3 mg/dL (8.7-10.4)
[2024-09-01 04:13] LABS: Albumin 2.7 g/dL (3.2-4.8); BUN/Creatinine Ratio 21.1 (10.0-20.0); Magnesium 1.9 mg/dL (1.6-2.6)
[2024-09-01 04:15] LABS: Alanine Aminotransferase 19 U/L (7-40); Alkaline Phosphatase 91 U/L (46-116); Anion Gap 9 (5-15); Aspartate Aminotransferase 16 U/L (13-40); BUN/Creatinine Ratio 21.1 (10.0-20.0); Blood Urea Nitrogen 20 mg/dL (9-23); Carbon Dioxide 23 mmol/L (20-31)
[2024-09-01 04:16] LABS: Albumin 2.7 g/dL (3.2-4.8); Bilirubin, Total 0.6 mg/dL (0.2-1.0); Calcium 8.1 mg/dL (8.7-10.4); Chloride 121 mmol/L (98-107); Glucose 119 mg/dL (74-106); Phosphorus 1.5 mg/dL (2.4-5.1); Sodium 153 mmol/L (136-145); Total Protein 5.1 g/dL (5.7-8.2)
[2024-09-01 04:23] LABS: Basophils % (manual) 0 (0.0-2.0); Blast Cells 0; Metamyelocytes % 0; Monocytes % (manual) 0 (0-12); Myelocytes % 0; Promyelocytes % 0; Reactive Lymphocytes 0
[2024-09-01 05:24] LABS: Band Neutrophils % (manual) 8; Eosinophils % (manual) 1 (0-7); Lymphocytes % (manual) 17 (10.0-50.0); Platelet Estimate Decreased
[2024-09-01] MEDS: POTASSIUM CHL 20MEQ/100ML 100 ML IV SCH ×2 (09:11→17:09)
[2024-09-01] MEDS ORDERED: POTASSIUM CHL 20MEQ/100ML 100 ML IV SCH (10:45)
[2024-09-01] MEDS: POTASSIUM PHOSPHATE IV ONE (11:14)
[2024-09-01] MEDS: SODIUM CHL 0.9% IV ONE (11:14)
[2024-09-01] MEDS: D5W 5% 1,000 ML IV SCH (13:30)
[2024-09-01 15:38] LABS: Anion Gap 8 (5-15); Carbon Dioxide 24 mmol/L (20-31)
[2024-09-01 15:40] LABS: Calcium 8.1 mg/dL (8.7-10.4); Chloride 120 mmol/L (98-107); Potassium 3.1 mmol/L (3.5-5.1); Sodium 152 mmol/L (136-145)
[2024-09-01 15:44] LABS: BUN/Creatinine Ratio 19.3 (10.0-20.0); Blood Urea Nitrogen 17 mg/dL (9-23); Glucose 147 mg/dL (74-106)
--- NOTE | 2024-09-01 16:19 | DVHPN2 ---
Progress Note Date Seen: Sep 01, 2024 Medical Necessity Reason Pt with a Central, PICC or Fol: Yes The following are medically ne: Mason Catheter Subjective Patient reports: Other Review of Systems: Deferred Objective vital signs Vital Sign Date Time Temp Pulse Resp B/P (MAP) Pulse Ox O2 Delivery O2 Flow Rate FiO2 09/01/24 16:01 17 95 Room Air* 0 21 09/01/24 15:38 55 09/01/24 15:00 92/52 (65) 09/01/24 12:15 98.0 98.0 Total Intake and Output 08/31/24 08/31/24 09/01/24 15:00 23:00 07:00 Intake Total 1226.75 ml 1036.125 ml 835.55 ml Output Total 1228 ml 1978 ml Balance 1226.75 ml -191.875 ml -1142.45 ml medications Current Medications Medications Dose Ordered Sig/Elza Route Start Time Stop Time Status Last Admin Dose Admin Norepinephrine Bitartrate 250 ml @ 3.75 mls/hr Q24H IV 08/27/24 08:00 09/01/24 14:17 7.5 MLS/HR Piperacillin Sod/ Tazobactam Sod 100 ml @ 25 mls/hr Q8HR IV 08/29/24 14:00 09/01/24 14:10 25 MLS/HR Vancomycin HCl 0 ml @ 0 mls/hr UD IV 08/29/24 06:30 Vancomycin HCl 100 ml @ 200 mls/hr Q12H IV 08/29/24 20:00 09/01/24 10:07 200 MLS/HR Sodium Chloride 10 ml QSHIFT@10,22 IV 08/29/24 22:00 09/01/24 10:11 10 ML Amino Acids 0 ml @ 0 mls/hr PER PHARMACY IV 08/29/24 15:30 Pantoprazole Sodium 40 mg DAILY IV 08/30/24 10:00 09/01/24 10:10 40 MG Amino Acids/ Electrolytes/ Dextrose 1,000 ml @ 41 mls/hr DAILY@2200 IV 08/29/24 22:00 08/31/24 21:57 41 MLS/HR Lorazepam 0.5 mg Q8HP PRN IV 08/30/24 19:00 08/31/24 23:20 0.5 MG Dextrose 1,000 ml @ 75 mls/hr [id number] IV 09/01/24 10:45 09/01/24 13:30 75 MLS/HR laboratory and microbiology Laboratory Tests 09/01/24 15:11 09/01/24 03:06 Test 09/01/24 15:11 Range/Units Serum Glucose 147 H 74-106 mg/dL Microbiology Date/Time Source Procedure Growth Status 08/31/24 00:30 Urine - Mason Port Urine Culture - Final Complete 08/30/24 17:21 Blood Blood Culture - Preliminary Resulted 08/29/24 11:00 Nose MRSA Screen - Final Complete Problem List/Assessment/Plan Problem List/Assessment/Plan Acute kidney injury in setting of volume depletion hypernatremia history of Down syndrome toxic metabolic encephalopathy Hypokalemia recs Continue D5W IV KCL replace p.r.n. Improving sodium and renal function Plan discussed with: Other My Orders My Orders Orders - EVERT KELLY MD Procedure Category Date Status Time Basic Metabolic Panel LAB 09/02/24 Verified 04:00 Dietary Evaluation Review Comments: 1. Given functional GI tract, EN is preferred over PN; would recommend post-pyloric feeding tube placement to reduce aspiration risk and beginning standard formula Jevity 1.2 @ 10 ml/hr; advance by 10 ml Q6 hrs to goal-rate of 50 ml/hr or as tolerated *noted pt may not tolerate NGT placement due to agitation 2. If continuation of TPN is preferred by MD, recommend 1.5 L Clinimix E 5/15 @ 63 ml/hr x 24 hrs (provides 225 gm D, 75 gm AA = 1065 kcal/day) *add lipid infusion to meet remainder of kcal needs pending triglyceride level (must be <500) 3. Once medically able, consider HOOD MAKER evaluation to assess appropriateness for PO diet Expected Outcomes/Goals: Improved nutritional status, weight maintenance, improved labs values. EVERT KELLY MD Sep 01, 2024 16:19
--- NOTE | 2024-09-01 21:51 | DVHPNRES ---
Progress Note Date Seen: Sep 01, 2024 Resident Creating Document: LUL MENDOZA RESIDENT Medical Necessity Reason Pt with a Central, PICC or Fol: Yes The following are medically ne: Mason Catheter Subjective Review of Systems Remains nonverbal, agitated, sleeping most of the day, but awake most of the night. Patient reports: Feels better Objective vital signs Vital Sign Date Time Temp Pulse Resp B/P (MAP) Pulse Ox O2 Delivery O2 Flow Rate FiO2 09/01/24 20:07 126/62 09/01/24 19:00 58 20 99 09/01/24 18:21 Room Air* 0 21 09/01/24 16:15 98.1 98.1 Total Intake and Output 08/31/24 08/31/24 09/01/24 15:00 23:00 07:00 Intake Total 1226.75 ml 1036.125 ml 835.55 ml Output Total 1228 ml 1978 ml Balance 1226.75 ml -191.875 ml -1142.45 ml medications Current Medications Medications Dose Ordered Sig/Elza Route Start Time Stop Time Status Last Admin Dose Admin Norepinephrine Bitartrate 250 ml @ 3.75 mls/hr Q24H IV 08/27/24 08:00 09/01/24 14:17 7.5 MLS/HR Piperacillin Sod/ Tazobactam Sod 100 ml @ 25 mls/hr Q8HR IV 08/29/24 14:00 09/01/24 21:42 25 MLS/HR Vancomycin HCl 0 ml @ 0 mls/hr UD IV 08/29/24 06:30 Vancomycin HCl 100 ml @ 200 mls/hr Q12H IV 08/29/24 20:00 09/01/24 20:08 200 MLS/HR Sodium Chloride 10 ml QSHIFT@10,22 IV 08/29/24 22:00 09/01/24 21:42 10 ML Amino Acids 0 ml @ 0 mls/hr PER PHARMACY IV 08/29/24 15:30 Pantoprazole Sodium 40 mg DAILY IV 08/30/24 10:00 09/01/24 10:10 40 MG Amino Acids/ Electrolytes/ Dextrose 1,000 ml @ 41 mls/hr DAILY@2200 IV 08/29/24 22:00 09/01/24 21:40 41 MLS/HR Dextrose 1,000 ml @ 75 mls/hr [id number] IV 09/01/24 10:45 09/01/24 13:30 75 MLS/HR Lorazepam 1 mg Q8HP PRN IV 09/01/24 20:00 Examination GENERAL:Normal (Somnolent, arousable with voice and sternal rub), HEENT:Normal (Right eye existing lesion POA), NECK:Normal, LUNGS:Abnormal (Left lower lobe crackles more than right. Patient on nasal cannula oxygen Elijah present above), CVS:Abnormal (Low blood pressure with MAP of 65 on Levophed), ABDOMEN:Normal, MSK:Abnormal (Low muscle mass), SKIN:Normal, NEURO:Abnormal (Unable to check GCS as patient has baseline learning disability, Down syndrome and baseline nonverbal), :Normal (On Mason's catheter) laboratory and microbiology Laboratory Tests 09/01/24 15:11 09/01/24 03:06 Test 09/01/24 15:11 Range/Units Serum Glucose 147 H 74-106 mg/dL Microbiology Date/Time Source Procedure Growth Status 08/31/24 00:30 Urine - Mason Port Urine Culture - Final Complete 08/30/24 17:21 Blood Blood Culture - Preliminary Resulted 08/29/24 11:00 Nose MRSA Screen - Final Complete Labs and/or images reviewed: Labs reviewed by me, Image(s) reviewed by me Problem List/Assessment/Plan Problem List/Assessment/Plan ICU Course: Orlando Christy, a 54-year-old male with Down syndrome, presented to the ED with altered mental status. Over the past four days, he has not eaten, had no bowel movements, and exhibited combative, restless, and screaming behavior, which worsened and led to his ED visit. Due to his clinical status, a review of systems could not be obtained. His past surgical history is negative, family history is noncontributory, and he denies smoking, alcohol, and drug abuse. 08/29 morning patient was found ALOC with increased workup breathing, encephalopathic and primary team updated the patient to ICU status for close monitoring and possible intubation. after careful consideration, poor extubation reserve and poor outcome with no obvious benefits held further intubation but careful aspiration precautions. 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 Overall recent decline prior to the hospitalization and family's inability to help the patient further needs a care for goals of care discussion. Hospitalization day: 6 A. Neurology: # down syndrome with learning disability # baseline nonverbal but conversant to the family as per sister # altered level of consciousness: Urine tox negative but plasma serum alcohol elevated, could be due to encephalopathy, change in electrolytes and sodium disorder # ? alcohol use disorder/ alcohol intoxication/ abuse # Encephalomalacia likely due to underlying Down syndrome # normal pressure hydrocephalus: Noted on noncontrast head CT # Right phthisis bulbi, present on admission # agitation: Not improving with 0.5 as needed Ativan, as per family that has been going for past few days event prior to the hospitalization. Increased from 0.5-1 of Ativan. Close monitoring, minimal interruption. B. Cardiology: # ?Septic/ hypovolemic shock: now on Levophed support, Close monitoring with maybe target of 65 mm of mercury. Echo unremarkable, check morning cortisol unremarkable. titrate down levo as tolerated. C. Respiratory: # acute hypoxic respiratory failure: At baseline patient does not dependent on oxygen, desaturated with 5 L of Oxymizer with negative for COVID and influenza likely aspiration pneumonia, keep the patient NPO and aspiration precautions, weaned to room air. # atelectasis: Also suggested for incentive spirometry patient is not able to follow commands. # possible flash pulmonary edema with possible aspiration pneumonia: Bilateral crackles with sudden desaturation and increased work of breathing with IV Lasix patient improved. # possible obstructive sleep apnea: Has a high propensity in down syndrome patient. We will look for overnight desaturations D. Gastrointestinal: # high-risk for aspiration: NPO status to continue aspiration precautions to continue. clinimax. Patient failed swallow eval. # mild transaminitis: Improving daily CMP to continue for now # Hepatic steatosis no obvious changes. E. Genitourinary: # patient has indwelling catheter: Close input output keep the patient on Mason's for now F. Infectious Disease: # Possible septic shock: Source of respiratory infection secondary to aspiration, elevated WBC 13.7, tachypnea, tachycardia, lactate previously WNL IV antibiotics to continue, IV hydration along with electrolyte correction to be continued, continue vancomycin and Zosyn for broad-spectrum antibiotic, as needed Levophed support # worsening leukocytosis: With predominant neutrophilia, likely worsening infection, source questionable pulmonary, needs further evaluation, at this point continue IV vanco Zosyn. follow cbc. Blood culture growing Gram-positive pathogen, follow for further sensitivity. G. Hematology & Oncology: # polycythemia history, questionable not noted on recent CBC # Mild thrombocytopenia>moderate now: close monitoring of platelets, high-risk of DVT, off of heparin, on scds. Close monitoring # leukocytosis with predominant neutrophilia: likely due to aspiration pneumonia: Daily CBC and close hemodynamic monitoring. check blood culture. echo -ve for [place] [facility] pathology H. Nephrology: # severe hypenatremia , hypovolemic: Free water deficit of Around 5.6> today around 2.2>>1 L Should not correct more than 10 mEq every 24 hours. On 50 cc/hour of D5 free water with Clinimix. We will repeat sodium tomorrow morning. Avoid over-correction. Target 145 by 4 am on 09/01 # severe dehydration: Likely due to poor oral intake, continue IV hydration. M onitor input output. Intravascular status improved # septic/Hypovolemic shock : Careful slow fluid replenishment with correction of underlying electrolyte disturbances # ROSLYN likely VMN unknown baseline: Close input output follow up, daily BNP, avoid nephrotoxins, improving renal functions # Hypomagnesemia: Improved # hypokalemia, recurrent, continue supplementation. # hypophosphatemia: Replenished recheck in the morning. Correct accordingly. Recheck electrolytes tomorrow I. Endocrine: # Failure to thrive : Needs further evaluation, likely multifactorial , started the patient on Clinimix for nutrition supplement. # severe protein calorie malnutrition with a BMI 15.6, nutritional consult when patient is more clinically stable. J. MSK: peripheral pulses, neuro vasculature remains intact. But low muscle mass. K. Prophylaxis: PPI: pantoprazole IV daily DVT: Lovenox continue L. Lines & Drains (with insertion date): Has existing Mason's catheter prior to the hospitalization not known insertion date Peripheral IV lines since 08/26. Poor vascular access PICC line placed today 08/29. New Mason's placed on 08/30/2024 M. Drips: Levophed titratable to keep a map over 65, still on 12. N. Disposition: Remains in ICU. Patient is requiring low dose of norepinephrine, evaluate need for central line. Appreciate nephrology input. Previously was updated sister. Further goals of care discussion pending with sister at bedside. Due to pre-existing conditions patient has extremely poor long-term outcome with present health issues. Appreciate sw input. Extensive discussion with the patient's family, is a caregiver, but she does not have a POA, case management and sw input appreciated. Further discussion needed for need of additional documents/APS involvement in terms of life and decision-making. Pending meeting tomorrow at 6:30 p.m with sister. Code status: Remains full code till Thursday, we will continue all aggressive management. The plan was discussed with the ICU attending Dr. Sandoval. The patient care consists of total 69 minutes of critical care time excluding the procedures. Dictated by Lul Mendoza MD with 3M MModal Fluency. Plan discussed with: Patient, Other My Orders My Orders Orders - LUL MENDOZA RESIDENT Procedure Category Date Status Time Sequential JULIEN 08/31/24 In Process Compression Device 23:43 Phosphorus LAB 09/02/24 Verified 04:00 * Swallow Request ST 09/01/24 Transmitted 10:23 D5w 5% (Dextrose 5%) PHA 09/01/24 In Process 10:45 Npo (Nothing By DIET 09/01/24 Transmitted Mouth) Diet Dinner Lorazepam 2mg/Ml Inj PHA 09/01/24 In Process (Ativan Inj) 20:00 Complete Blood Count LAB 09/02/24 Verified 04:00 Comprehensive LAB 09/02/24 Verified Metabolic Panel 04:00 Dietary Evaluation Review Comments: 1. Given functional GI tract, EN is preferred over PN; would recommend post-pyloric feeding tube placement to reduce aspiration risk and beginning standard formula Jevity 1.2 @ 10 ml/hr; advance by 10 ml Q6 hrs to goal-rate of 50 ml/hr or as tolerated *noted pt may not tolerate NGT placement due to agitation 2. If continuation of TPN is preferred by MD, recommend 1.5 L Clinimix E 5/15 @ 63 ml/hr x 24 hrs (provides 225 gm D, 75 gm AA = 1065 kcal/day) *add lipid infusion to meet remainder of kcal needs pending triglyceride level (must be <500) 3. Once medically able, consider PORTER LUGGAGE evaluation to assess appropriateness for PO diet Expected Outcomes/Goals: Improved nutritional status, weight maintenance, improved labs values. Date of Service: Sep 01, 2024 Billing Provider: DAYDAY SANDOVAL MD Common Visit Codes: [id number] CARE 30-74 MIN LUL MENDOZA RESIDENT Sep 01, 2024 21:51 DAYDAY SANDOVAL MD Sep 04, 2024 15:37
[2024-09-02] VITALS (94 sets, daily range): BP systolic 73–122; BP diastolic 46–72; PULSE 54–106; RESP 11–32; TEMP 97–98.5; O2SAT 87–100
[2024-09-02 04:27] LABS: Hemoglobin 13.5 g/dL (13.5-17.5); Mean Corpuscular Hemoglobin 32.6 pg (28.0-32.0); Mean Corpuscular Hgb Conc. 33.7 g/dL (32.0-36.0); Mean Corpuscular Volume 96.7 fL (80.0-100.0); Platelet Count (auto) 91 10^3/uL (140-450); Red Blood Cells 4.14 10^6/uL (4.5-5.90); Red Cell Distribution Width 14.3 % (11.8-14.3); White Blood Cell 8.4 10^3/uL (4.4-10.8)
[2024-09-02 04:51] LABS: Basophils % (manual) 0 (0.0-2.0); Blast Cells 0; Metamyelocytes % 0; Myelocytes % 0; Promyelocytes % 0; Reactive Lymphocytes 0
[2024-09-02 04:52] LABS: Alanine Aminotransferase 19 U/L (7-40); Alkaline Phosphatase 98 U/L (46-116); Anion Gap 9 (5-15); BUN/Creatinine Ratio 16.5 (10.0-20.0); Blood Urea Nitrogen 14 mg/dL (9-23); Carbon Dioxide 24 mmol/L (20-31); GFR African American 120 mL/min; GFR Non-African American 99 mL/min; Magnesium 1.9 mg/dL (1.6-2.6)
[2024-09-02 04:53] LABS: Bilirubin, Total 0.6 mg/dL (0.2-1.0)
[2024-09-02 05:23] LABS: Albumin 2.8 g/dL (3.2-4.8); Aspartate Aminotransferase 10 U/L (13-40); Calcium 8.4 mg/dL (8.7-10.4); Chloride 118 mmol/L (98-107); Glucose 115 mg/dL (74-106); Phosphorus 1.7 mg/dL (2.4-5.1); Potassium 3.2 mmol/L (3.5-5.1); Sodium 151 mmol/L (136-145); Total Protein 5.3 g/dL (5.7-8.2)
[2024-09-02 06:27] LABS: Band Neutrophils % (manual) 8; Eosinophils % (manual) 1 (0-7); Lymphocytes % (manual) 25 (10.0-50.0); Monocytes % (manual) 1 (0-12)
[2024-09-02 06:28] LABS: Platelet Estimate Decreased
[2024-09-02] MEDS: POTASSIUM CHL 20MEQ/100ML 200 ML IV ONE (06:41)
[2024-09-02] MEDS: POTASSIUM CHL 20MEQ/100ML 100 ML IV SCH (08:15)
[2024-09-02] MEDS: D5W 5% 1,000 ML IV SCH (08:30)
--- NOTE | 2024-09-02 08:32 | DVHPNRES ---
Progress Note Date Seen: Sep 02, 2024 Resident Creating Document: LUL MENDOZA RESIDENT Medical Necessity Reason Pt with a Central, PICC or Fol: Yes The following are medically ne: Mason Catheter Objective vital signs Vital Sign Date Time Temp Pulse Resp B/P (MAP) Pulse Ox O2 Delivery O2 Flow Rate FiO2 09/02/24 07:00 87 15 92/47 (62) 97 09/02/24 06:00 Room Air* 0 21 09/02/24 04:00 98.0 98.0 Total Intake and Output 09/01/24 09/01/24 09/02/24 15:00 23:00 07:00 Intake Total 1523.00 ml 1489.675 ml 842.05 ml Output Total 1552 ml 2650 ml Balance 1523.00 ml -62.325 ml -1807.95 ml medications Current Medications Medications Dose Ordered Sig/Elza Route Start Time Stop Time Status Last Admin Dose Admin Norepinephrine Bitartrate 250 ml @ 3.75 mls/hr Q24H IV 08/27/24 08:00 09/01/24 14:17 7.5 MLS/HR Piperacillin Sod/ Tazobactam Sod 100 ml @ 25 mls/hr Q8HR IV 08/29/24 14:00 09/02/24 06:01 25 MLS/HR Vancomycin HCl 0 ml @ 0 mls/hr UD IV 08/29/24 06:30 Vancomycin HCl 100 ml @ 200 mls/hr Q12H IV 08/29/24 20:00 09/01/24 20:08 200 MLS/HR Sodium Chloride 10 ml QSHIFT@10,22 IV 08/29/24 22:00 09/01/24 21:42 10 ML Amino Acids 0 ml @ 0 mls/hr PER PHARMACY IV 08/29/24 15:30 Pantoprazole Sodium 40 mg DAILY IV 08/30/24 10:00 09/01/24 10:10 40 MG Amino Acids/ Electrolytes/ Dextrose 1,000 ml @ 41 mls/hr DAILY@2200 IV 08/29/24 22:00 09/01/24 21:40 41 MLS/HR Lorazepam 1 mg Q8HP PRN IV 09/01/24 20:00 Potassium Chloride 100 ml @ 50 mls/hr Q2H IV 09/02/24 06:15 09/02/24 10:14 Dextrose 1,000 ml @ 125 mls/hr Q8H IV 09/02/24 08:30 UNV Examination Remains nonverbal, agitated, sleeping most of the day, but awake most of the night. GENERAL:Normal (Somnolent, arousable with voice and sternal rub), HEENT:Normal (Right eye existing lesion POA), NECK:Normal, LUNGS: clear, CVS:Abnormal (Low blood pressure with MAP of 65 on min Levophed), ABDOMEN:Normal, MSK:Abnormal (Low muscle mass), SKIN:Normal, NEURO:Abnormal (Unable to check GCS as patient has baseline learning disability, Down syndrome and baseline nonverbal), :Normal (On Mason's catheter) laboratory and microbiology Laboratory Tests 09/02/24 03:20 Test 09/02/24 03:20 Range/Units Serum Glucose 115 H 74-106 mg/dL Microbiology Date/Time Source Procedure Growth Status 08/31/24 00:30 Urine - Mason Port Urine Culture - Final Complete 08/30/24 17:21 Blood Blood Culture - Preliminary Resulted 08/29/24 11:00 Nose MRSA Screen - Final Complete Labs and/or images reviewed: Labs reviewed by me, Image(s) reviewed by me Problem List/Assessment/Plan Problem List/Assessment/Plan ICU Course: Orlando Christy, a 54-year-old male with Down syndrome, presented to the ED with altered mental status. Over the past four days, he has not eaten, had no bowel movements, and exhibited combative, restless, and screaming behavior, which worsened and led to his ED visit. Due to his clinical status, a review of systems could not be obtained. His past surgical history is negative, family history is noncontributory, and he denies smoking, alcohol, and drug abuse. 08/29 morning patient was found ALOC with increased workup breathing, encephalopathic and primary team updated the patient to ICU status for close monitoring and possible intubation. after careful consideration, poor extubation reserve and poor outcome with no obvious benefits held further intubation but careful aspiration precautions. 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 Overall recent decline prior to the hospitalization and family's inability to help the patient further needs a care for goals of care discussion. Hospitalization day: 7 A. Neurology: # down syndrome with learning disability # baseline nonverbal but conversant to the family as per sister # altered level of consciousness due to metabolic/toxic encephalopathy, change in electrolytes and sodium disorder # Encephalomalacia likely due to underlying Down syndrome # normal pressure hydrocephalus: Noted on noncontrast head CT # Right phthisis bulbi, present on admission # agitation: Not improving with 0.5 as needed Ativan, as per family that has been going for past few days event prior to the hospitalization. Increased from 0.5-1 of Ativan. Close monitoring, minimal interruption. sitter as needed. B. Cardiology: # Likely Septic/ hypovolemic shock: now on minimal Levophed support, Close monitoring with maybe target of 65 mm of mercury. Echo unremarkable,morning cortisol unremarkable. titrate down levo as tolerated. C. Respiratory: # acute hypoxic respiratory failure: weaned to room air. # atelectasis: Also suggested for incentive spirometry patient is not able to follow commands. # possible flash pulmonary edema with possible aspiration pneumonia IV Lasix patient improved. # possible obstructive sleep apnea, no overnight desaturations D. Gastrointestinal: # high-risk for aspiration: NPO status to continue aspiration precautions to continue. clinimax. Patient failed swallow eval. # mild transaminitis: Improving daily CMP to continue for now # Hepatic steatosis no obvious changes. E. Genitourinary: # patient has indwelling catheter: Close input output keep the patient on Mason's for now F. Infectious Disease: # septic shock: Source of respiratory infection secondary to aspiration, elukocytosis resolved, continue vancomycin and Zosyn for broad-spectrum antibiotic, as needed Levophed support # Blood culture growing Gram-positive pathogen, follow for further sensitivity. G. Hematology & Oncology: # polycythemia history, questionable not noted on recent CBC # Mild thrombocytopenia>moderate now: Close monitoring # leukocytosis with predominant neutrophilia: likely due to aspiration pneumonia: Daily CBC and close hemodynamic monitoring. check blood culture. echo -ve for viejas valvular pathology H. Nephrology: # severe hypenatremia , hypovolemic: 1.3 L Should not correct more than 10 mEq every 24 hours. On 1 cc/hour of D5 free water with Clinimix. We will repeat sodium tomorrow morning. Avoid over-correction. Target 145 by 4 am on 09/01 # severe dehydration: Likely due to poor oral intake, continue IV hydration. Monitor input output. Intravascular status improved # septic/Hypovolemic shock : Careful slow fluid replenishment with correction of underlying electrolyte disturbances # ROSLYN likely VMN unknown baseline: Close input output follow up, daily BNP, avoid nephrotoxins, improving renal functions # Hypomagnesemia: Improved # hypokalemia, recurrent, continue supplementation. # hypophosphatemia: Replenished recheck in the morning. Correct accordingly. Recheck electrolytes tomorrow I. Endocrine: # Failure to thrive : Needs further evaluation, likely multifactorial , started the patient on Clinimix for nutrition supplement. recheck swallow eval. # severe protein calorie malnutrition with a BMI 15.6, nutritional consult when patient is more clinically stable. J. MSK: peripheral pulses, neuro vasculature remains intact. But low muscle mass. K. Prophylaxis: PPI: pantoprazole IV daily DVT Lovenox continue L. Lines & Drains (with insertion date): Has existing Mason's catheter prior to the hospitalization not known insertion date Peripheral IV lines since 08/26. Poor vascular access PICC line placed today 08/29. New Mason's placed on 08/30/2024 M. Drips: Levophed titratable to keep a map over 65, still on 2 N. Disposition: Remains in ICU. Extensive discussion with the patient's family, sister is a caregiver, but she does not have a POA, case management and sw input appreciated this PM. Thursday the family decided for hospice care. till then continue aggressive treatment. Code status: Remains full code till Thursday, we will continue all aggressive management. The plan was discussed with the ICU attending Dr. Paul Nuñez. The patient care consists of total 89 minutes of critical care time excluding the procedures. Dictated by Lul Mendoza MD with 3M MModal Fluency. Plan discussed with: Patient, Other (sister, ) My Orders My Orders Orders - LUL MENDOZA RESIDENT Procedure Category Date Status Time * Swallow Request ST 09/01/24 Transmitted 10:23 Npo (Nothing By DIET 09/01/24 Transmitted Mouth) Diet Dinner Lorazepam 2mg/Ml Inj PHA 09/01/24 In Process (Ativan Inj) 20:00 D5w 5% (Dextrose 5%) PHA 09/02/24 Logged 08:30 Basic Metabolic Panel LAB 09/02/24 Logged 15:00 Dietary Evaluation Review Comments: 1. Given functional GI tract, EN is preferred over PN; would recommend post-pyloric feeding tube placement to reduce aspiration risk and beginning standard formula Jevity 1.2 @ 10 ml/hr; advance by 10 ml Q6 hrs to goal-rate of 50 ml/hr or as tolerated *noted pt may not tolerate NGT placement due to agitation 2. If continuation of TPN is preferred by MD, recommend 1.5 L Clinimix E 15 @ 63 ml/hr x 24 hrs (provides 225 gm D, 75 gm AA = 1065 kcal/day) *add lipid infusion to meet remainder of kcal needs pending triglyceride level (must be <500) 3. Once medically able, consider STRING WINDING MACHINE OPERATOR evaluation to assess appropriateness for PO diet Expected Outcomes/Goals: Improved nutritional status, weight maintenance, improved labs values. Labs/Diagnostic Data Laboratory Tests Test 09/02/24 03:20 09/01/24 15:11 Range/Units White Blood Count 8.4 4.4-10.8 10^3/uL Red Blood Count 4.14 L 4.5-5.90 10^6/uL Hemoglobin 13.5 13.5-17.5 g/dL Hematocrit 40.0 L 41.0-53.0 % Mean Corpuscular Volume 96.7 80.0-100.0 fL Mean Corpuscular Hemoglobin 32.6 H 28.0-32.0 pg Mean Corpuscular Hemoglobin Concent 33.7 32.0-36.0 g/dL Red Cell Distribution Width 14.3 11.8-14.3 % Platelet Count 91 L 140-450 10^3/uL Mean Platelet Volume 9.8 6.9-10.8 fL Neutrophils (%) (Auto) 37.0-80.0 % Lymphocytes (%) (Auto) 10.0-50.0 % Monocytes (%) (Auto) 0.0-12.0 % Basophils (%) (Auto) 0.0-2.0 % Neutrophils # (Auto) 1.6-8.6 10 ^3/uL Lymphocytes # (Auto) 0.4-5.4 10 ^3/uL Monocytes # (Auto) 0-1.3 10 ^3/uL Differential Total Cells Counted 100.0 100 Neutrophils % (Manual) 65 37.0-80.0 Band Neutrophils % (Manual) 8 Lymphocytes % (Manual) 25 10.0-50.0 Monocytes % (Manual) 1 0-12 Eosinophils % (Manual) 1 0-7 Basophils % (Manual) 0 0.0-2.0 Metamyelocytes % (manual) 0 Myelocytes % (Manual) 0 Promyelocytes % (Manual) 0 Blast Cells % (Manual) 0 Reactive Lymphocytes 0 Platelet Estimate Decreased Sodium Level 151 H 152 H 136-145 mmol/L Potassium Level 3.2 L 3.1 L 3.5-5.1 mmol/L Chloride Level 118 H 120 H 98-107 mmol/L Carbon Dioxide Level 24 24 20-31 mmol/L Anion Gap 9 8 5-15 Blood Urea Nitrogen 14 17 9-23 mg/dL Creatinine 0.85 0.88 0.700-1.30 mg/dL Glomerular Filtration Rate Calc 103 102 >90 mL/min Estimated GFR () 120 mL/min Estimated GFR (Non- 99 mL/min BUN/Creatinine Ratio 16.5 19.3 10.0-20.0 Serum Glucose 115 H 147 H 74-106 mg/dL Calcium Level 8.4 L 8.1 L 8.7-10.4 mg/dL Phosphorus Level 1.7 L 2.4-5.1 mg/dL Magnesium Level 1.9 1.6-2.6 mg/dL Total Bilirubin 0.6 0.2-1.0 mg/dL Aspartate Amino Transferase (AST) 10 L 13-40 U/L Alanine Aminotransferase (ALT) 19 7-40 U/L Alkaline Phosphatase 98 46-116 U/L Total Protein 5.3 L 5.7-8.2 g/dL Albumin 2.8 L 3.2-4.8 g/dL Microbiology Date/Time Source Procedure Growth Status 08/31/24 00:30 Urine - Mason Port Urine Culture - Final Complete 08/30/24 17:21 Blood Blood Culture - Preliminary Resulted 08/29/24 11:00 Nose MRSA Screen - Final Complete Date of Service: Sep 02, 2024 Billing Provider: PAUL NUÑEZ MD Common Visit Codes: NOT BILLABLE LUL MENDOZA RESIDENT Sep 02, 2024 08:32 PAUL NUÑEZ MD Sep 12, 2024 10:59
[2024-09-02] MEDS: POTASSIUM PHOSPHATE 22 MEQ in SODIUM CHL 0.9% 100 ML IV ONE (12:28)
--- NOTE | 2024-09-02 12:36 | DVHPN2 ---
Progress Note Date Seen: Sep 02, 2024 Medical Necessity Reason Pt with a Central, PICC or Fol: Yes The following are medically ne: Masno Catheter Subjective Patient reports: No new complaints Other Systems: Patient seen and examined by myself today in follow-up Objective vital signs Vital Sign Date Time Temp Pulse Resp B/P (MAP) Pulse Ox O2 Delivery O2 Flow Rate FiO2 09/02/24 07:00 87 15 92/47 (62) 97 09/02/24 06:00 Room Air* 0 21 09/02/24 04:00 98.0 98.0 Total Intake and Output 09/01/24 09/01/24 09/02/24 15:00 23:00 07:00 Intake Total 1523.00 ml 1489.675 ml 842.05 ml Output Total 1552 ml 2650 ml Balance 1523.00 ml -62.325 ml -1807.95 ml medications Current Medications Medications Dose Ordered Sig/Elza Route Start Time Stop Time Status Last Admin Dose Admin Norepinephrine Bitartrate 250 ml @ 3.75 mls/hr Q24H IV 08/27/24 08:00 09/01/24 14:17 7.5 MLS/HR Piperacillin Sod/ Tazobactam Sod 100 ml @ 25 mls/hr Q8HR IV 08/29/24 14:00 09/02/24 06:01 25 MLS/HR Vancomycin HCl 0 ml @ 0 mls/hr UD IV 08/29/24 06:30 Vancomycin HCl 100 ml @ 200 mls/hr Q12H IV 08/29/24 20:00 09/02/24 12:23 200 MLS/HR Sodium Chloride 10 ml QSHIFT@10,22 IV 08/29/24 22:00 09/02/24 10:03 10 ML Amino Acids 0 ml @ 0 mls/hr PER PHARMACY IV 08/29/24 15:30 Pantoprazole Sodium 40 mg DAILY IV 08/30/24 10:00 09/02/24 10:02 40 MG Amino Acids/ Electrolytes/ Dextrose 1,000 ml @ 41 mls/hr DAILY@2200 IV 08/29/24 22:00 09/01/24 21:40 41 MLS/HR Lorazepam 1 mg Q8HP PRN IV 09/01/24 20:00 Dextrose 1,000 ml @ 125 mls/hr Q8H IV 09/02/24 08:30 09/02/24 11:04 125 MLS/HR Examination: LUNGS:Normal, CVS:Normal, MSK:Normal laboratory and microbiology Laboratory Tests 09/02/24 03:20 Test 09/02/24 03:20 Range/Units Serum Glucose 115 H 74-106 mg/dL Microbiology Date/Time Source Procedure Growth Status 08/31/24 00:30 Urine - Mason Port Urine Culture - Final Complete 08/30/24 17:21 Blood Blood Culture - Final Staphylococcus aureus Complete 08/29/24 11:00 Nose MRSA Screen - Final Complete Problem List/Assessment/Plan Problem List/Assessment/Plan Acute kidney injury in setting of volume depletion hypernatremia secondary to dehydration Down syndrome Hypokalemia Recommendations Kidney function is improving Continue D5W IV KCL replace p.r.n. We will continue to follow up Plan discussed with: Other (Nurse) Dietary Evaluation Review Comments: 1. Given functional GI tract, EN is preferred over PN; would recommend post-pyloric feeding tube placement to reduce aspiration risk and beginning standard formula Jevity 1.2 @ 10 ml/hr; advance by 10 ml Q6 hrs to goal-rate of 50 ml/hr or as tolerated *noted pt may not tolerate NGT placement due to agitation 2. If continuation of TPN is preferred by MD, recommend 1.5 L Clinimix E 5/15 @ 63 ml/hr x 24 hrs (provides 225 gm D, 75 gm AA = 1065 kcal/day) *add lipid infusion to meet remainder of kcal needs pending triglyceride level (must be <500) 3. Once medically able, consider HEAVY REPAIRER evaluation to assess appropriateness for PO diet Expected Outcomes/Goals: Improved nutritional status, weight maintenance, improved labs values. CAROLANN BELTRAN MD Sep 02, 2024 12:36
[2024-09-02 15:44] LABS: Potassium 3.6 mmol/L (3.5-5.1)
[2024-09-02 15:45] LABS: Anion Gap 5 (5-15); Carbon Dioxide 27 mmol/L (20-31)
[2024-09-02 15:50] LABS: BUN/Creatinine Ratio 18.5 (10.0-20.0); Blood Urea Nitrogen 15 mg/dL (9-23); Glucose 86 mg/dL (74-106)
[2024-09-02 15:51] LABS: Calcium 8.4 mg/dL (8.7-10.4); Chloride 116 mmol/L (98-107); Sodium 148 mmol/L (136-145)
[2024-09-02] MEDS: VANCOMYCIN 500mg/100mL 100 ML IV SCH (21:30)
[2024-09-02] MEDS: HYDROCORTISONE SOD SUCC 100 MG/2ML INJ VIAL IV SCH (22:17)
[2024-09-03] VITALS (90 sets, daily range): BP systolic 76–123; BP diastolic 19–101; PULSE 52–98; RESP 10–25; TEMP 97–98.5; O2SAT 90–100
[2024-09-03] MEDS: POTASSIUM PHOSPHATE 22 MEQ in SODIUM CHL 0.9% 100 ML IV ONE (03:00)
[2024-09-03 04:30] LABS: Hematocrit 40.9 % (41.0-53.0); Hemoglobin 13.7 g/dL (13.5-17.5); Mean Corpuscular Hemoglobin 32.1 pg (28.0-32.0); Mean Corpuscular Hgb Conc. 33.5 g/dL (32.0-36.0); Platelet Count (auto) 106 10^3/uL (140-450); Red Blood Cells 4.26 10^6/uL (4.5-5.90); White Blood Cell 5.6 10^3/uL (4.4-10.8)
[2024-09-03 04:34] LABS: Basophils % (manual) 0 (0.0-2.0); Blast Cells 0; Eosinophils % (manual) 0 (0-7); Metamyelocytes % 0; Myelocytes % 0; Promyelocytes % 0; Reactive Lymphocytes 0
[2024-09-03 04:44] LABS: Alanine Aminotransferase 19 U/L (7-40); Alkaline Phosphatase 94 U/L (46-116); Anion Gap 8 (5-15); Aspartate Aminotransferase 19 U/L (13-40); BUN/Creatinine Ratio 13.8 (10.0-20.0); Blood Urea Nitrogen 11 mg/dL (9-23); Carbon Dioxide 26 mmol/L (20-31); Magnesium 1.9 mg/dL (1.6-2.6)
[2024-09-03 04:45] LABS: Bilirubin, Total 0.7 mg/dL (0.2-1.0); Phosphorus 3.1 mg/dL (2.4-5.1)
[2024-09-03 04:58] LABS: Calcium 8.6 mg/dL (8.7-10.4); Chloride 114 mmol/L (98-107); Glucose 155 mg/dL (74-106); Potassium 3.1 mmol/L (3.5-5.1); Sodium 148 mmol/L (136-145); Total Protein 5.7 g/dL (5.7-8.2)
[2024-09-03 05:15] LABS: Band Neutrophils % (manual) 8; Lymphocytes % (manual) 22 (10.0-50.0); Monocytes % (manual) 1 (0-12)
[2024-09-03 05:16] LABS: Platelet Estimate Decreased
[2024-09-03] MEDS: POTASSIUM CHL 20MEQ/100ML 100 ML IV SCH ×2 (06:35→12:40)
--- NOTE | 2024-09-03 08:35 | MEDREC ---
[facility] Intervention Section I [facility] Intervention: Deescalate AB based on CS (THE FINAL BLOOD CULTURE RESULTED IN [facility]. PLEASE CONSIDER DE-ESCALATING ANTIBIOTICS BASED ON THE CULTURE RESULT) RACHELLE ROSARIO Sep 03, 2024 08:35
[2024-09-03] MEDS: InsuLIN REG 1unit/0.01ml Soln (100units/ml) ONE (08:40)
--- NOTE | 2024-09-03 09:33 | DVHPN2 ---
Progress Note Date Seen: Sep 03, 2024 Medical Necessity Reason Pt with a Central, PICC or Fol: Yes The following are medically ne: Mason Catheter Subjective Patient reports: No new complaints Other Systems: Patient seen and examined by myself today in follow-up Objective vital signs Vital Sign Date Time Temp Pulse Resp B/P (MAP) Pulse Ox O2 Delivery O2 Flow Rate FiO2 09/03/24 08:00 97.0 79 13 95/47 (63) 100 97.0 09/03/24 08:00 Room Air* 0 21 Total Intake and Output 09/02/24 09/02/24 09/03/24 15:00 23:00 07:00 Intake Total 1508.00 ml 1622.00 ml 1001.25 ml Output Total 2350 ml 2150 ml Balance 1508.00 ml -728.00 ml -1148.75 ml medications Current Medications Medications Dose Ordered Sig/Elza Route Start Time Stop Time Status Last Admin Dose Admin Norepinephrine Bitartrate 250 ml @ 3.75 mls/hr Q24H IV 08/27/24 08:00 09/01/24 14:17 7.5 MLS/HR Piperacillin Sod/ Tazobactam Sod 100 ml @ 25 mls/hr Q8HR IV 08/29/24 14:00 09/03/24 06:35 25 MLS/HR Vancomycin HCl 0 ml @ 0 mls/hr UD IV 08/29/24 06:30 Sodium Chloride 10 ml QSHIFT@10,22 IV 08/29/24 22:00 09/02/24 22:04 10 ML Amino Acids 0 ml @ 0 mls/hr PER PHARMACY IV 08/29/24 15:30 Pantoprazole Sodium 40 mg DAILY IV 08/30/24 10:00 09/02/24 10:02 40 MG Amino Acids/ Electrolytes/ Dextrose 1,000 ml @ 41 mls/hr DAILY@2200 IV 08/29/24 22:00 09/01/24 21:40 41 MLS/HR Lorazepam 1 mg Q8HP PRN IV 09/01/24 20:00 Dextrose 1,000 ml @ 125 mls/hr Q8H IV 09/02/24 08:30 09/03/24 03:40 125 MLS/HR Vancomycin HCl 100 ml @ 200 mls/hr Q12HR IV 09/02/24 22:00 09/02/24 21:30 200 MLS/HR Hydrocortisone Sodium Succinate 50 mg Q12HR IV 09/02/24 22:00 09/02/24 22:17 50 MG Potassium Chloride 100 ml @ 50 mls/hr Q2H IV 09/03/24 05:45 09/03/24 09:44 09/03/24 06:35 50 MLS/HR Examination: LUNGS:Normal, CVS:Normal, MSK:Normal laboratory and microbiology Laboratory Tests 09/03/24 04:00 Test 09/03/24 04:00 Range/Units Serum Glucose 155 H 74-106 mg/dL Microbiology Date/Time Source Procedure Growth Status 08/31/24 00:30 Urine - Mason Port Urine Culture - Final Complete 08/30/24 17:21 Blood Blood Culture - Final Staphylococcus aureus Complete 08/29/24 11:00 Nose MRSA Screen - Final Complete Problem List/Assessment/Plan Problem List/Assessment/Plan Acute kidney injury in setting of volume depletion hypernatremia secondary to dehydration Down syndrome Hypokalemia Recommendations Kidney function resolved back to normal Increased urine output Continue D5W IV KCL 40 mEq IV piggyback We will continue to follow Plan discussed with: Other (Nurse) Dietary Evaluation Review Comments: 1. Given functional GI tract, EN is preferred over PN; would recommend post-pyloric feeding tube placement to reduce aspiration risk and beginning standard formula Jevity 1.2 @ 10 ml/hr; advance by 10 ml Q6 hrs to goal-rate of 50 ml/hr or as tolerated *noted pt may not tolerate NGT placement due to agitation 2. If continuation of TPN is preferred by MD, recommend 1.5 L Clinimix E 5/15 @ 63 ml/hr x 24 hrs (provides 225 gm D, 75 gm AA = 1065 kcal/day) *add lipid infusion to meet remainder of kcal needs pending triglyceride level (must be <500) 3. Once medically able, consider MARKETING SERVICES MANAGER evaluation to assess appropriateness for PO diet Expected Outcomes/Goals: Improved nutritional status, weight maintenance, improved labs values. CAROLANN BELTRAN MD Sep 03, 2024 09:33
[2024-09-03] MEDS ORDERED: POTASSIUM CHL 20MEQ/100ML 100 ML IV SCH (09:45)
[2024-09-03] MEDS ORDERED: D5W 5% 1,000 ML IV SCH (11:15)
--- NOTE | 2024-09-03 14:43 | DVHPN2 ---
Subjective The patient is seen and examined at bedside. Complain of being hungry. Waiting for swallow evaluation. Reviewed: Care Plan, H&P, Labs, Medications, Previous Orders, Radiology Changes from previous H/P or p: No Changes Objective Vitals Vital Signs Date Time Temp Pulse Resp B/P (MAP) Pulse Ox O2 Delivery O2 Flow Rate FiO2 09/03/24 08:00 97.0 79 13 95/47 (63) 100 97.0 09/03/24 08:00 Room Air* 0 21 Intake/Output Intake and Output 09/03/24 07:00 Intake Total 4131.25 ml Output Total 4500 ml Balance -368.75 ml IV Total 4131.25 ml Output Urine Total 4500 ml # Bowel Movements 6 General Appearance: Alert, Cooperative, No acute distress HEENT: Atraumatic, PERRLA, EOMI, Mucous membr. moist/pink Neck: Supple Lungs: Clear to auscultation, Normal air movement Cardiovascular: Regular rate, Normal S1, Normal S2, No murmurs, Gallops, Rubs Abdomen: Normal bowel sounds, Soft, No tenderness Neuro: Cranial nerves 3-12 NL Psych/Mental Status: Mental status NL Medications Current Medications Medications Dose Ordered Sig/Elza Route Start Time Stop Time Status Last Admin Dose Admin Norepinephrine Bitartrate 250 ml @ 3.75 mls/hr Q24H IV 08/27/24 08:00 09/01/24 14:17 7.5 MLS/HR Piperacillin Sod/ Tazobactam Sod 100 ml @ 25 mls/hr Q8HR IV 08/29/24 14:00 09/03/24 06:35 25 MLS/HR Vancomycin HCl 0 ml @ 0 mls/hr UD IV 08/29/24 06:30 Sodium Chloride 10 ml QSHIFT@10,22 IV 08/29/24 22:00 09/03/24 10:33 10 ML Amino Acids 0 ml @ 0 mls/hr PER PHARMACY IV 08/29/24 15:30 Pantoprazole Sodium 40 mg DAILY IV 08/30/24 10:00 09/03/24 10:32 40 MG Amino Acids/ Electrolytes/ Dextrose 1,000 ml @ 41 mls/hr DAILY@2200 IV 08/29/24 22:00 09/01/24 21:40 41 MLS/HR Lorazepam 1 mg Q8HP PRN IV 09/01/24 20:00 Dextrose 1,000 ml @ 125 mls/hr Q8H IV 09/02/24 08:30 09/03/24 12:41 125 MLS/HR Vancomycin HCl 100 ml @ 200 mls/hr Q12HR IV 09/02/24 22:00 09/03/24 10:34 200 MLS/HR Hydrocortisone Sodium Succinate 50 mg Q12HR IV 09/02/24 22:00 09/03/24 10:33 50 MG Potassium Chloride 100 ml @ 50 mls/hr Q2H IV 09/03/24 12:30 09/03/24 16:29 09/03/24 12:40 50 MLS/HR Laboratory Results Laboratory Tests 09/03/24 04:00 Chemistry Test 09/02/24 15:00 09/03/24 04:00 Calcium Level 8.4 mg/dL (8.7-10.4) L 8.6 mg/dL (8.7-10.4) L Albumin 3.0 g/dL (3.2-4.8) L Magnesium Level 1.9 mg/dL (1.6-2.6) Phosphorus Level 3.1 mg/dL (2.4-5.1) Total Protein 5.7 g/dL (5.7-8.2) LFT Test 09/03/24 04:00 Alanine Aminotransferase (ALT) 19 U/L (7-40) Alkaline Phosphatase 94 U/L (46-116) Aspartate Amino Transferase (AST) 19 U/L (13-40) Total Bilirubin 0.7 mg/dL (0.2-1.0) Urinalysis Test 08/27/24 09:25 Urine Color Yellow (Yellow) Urine Clarity Turbid (Clear) H Urine pH 5.0 (5.0-9.0) Urine Specific [place] 1.029 (1.001-1.035) Urine Protein Trace (Negative) H Urine Ketones Negative (Negative) Urine Blood Negative /uL (Negative) Urine Nitrite Negative (Negative) Urine Bilirubin Negative (Negative) Urine Urobilinogen Normal mg/dL (Negative) Urine Leukocyte Esterase Negative /uL (Negative) Urine RBC 3 /hpf (0 - 3) Urine Microscopic WBC 4 /HPF (0-3) H Urine Squamous Epithelial Cells None seen /hpf (<5) Urine Uric Acid Crystals Few /hpf (None Seen) Urine Bacteria Few /hpf (None Seen) H Urine Creatinine 104.60 mg/dL (30.0-125.0) Urine Sodium 24 mmol/L (40-220) L Urine Glucose Normal mg/dL (Normal) Microbiology Microbiology Date/Time Source Procedure Growth Status 08/31/24 00:30 Urine - Mason Port Urine Culture - Final Complete 08/30/24 17:21 Blood Blood Culture - Final Staphylococcus aureus Complete 08/29/24 11:00 Nose MRSA Screen - Final Complete Labs and/or images reviewed: Labs reviewed by me Assessment/Plan Assessment/Plan Orlando Christy, a 54-year-old male with Down syndrome, presented to the ED with altered mental status. Over the past four days, he has not eaten, had no bowel movements, and exhibited combative, restless, and screaming behavior, which worsened and led to his ED visit. Due to his clinical status, a review of systems could not be obtained. His past surgical history is negative, family history is noncontributory, and he denies smoking, alcohol, and drug abuse. 08/29 morning patient was found ALOC with increased workup breathing, encephalopathic and primary team updated the patient to ICU status for close monitoring and possible intubation. after careful consideration, poor extubation reserve and poor outcome with no obvious benefits held further intubation but careful aspiration precautions. 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 Overall recent decline prior to the hospitalization and family's inability to help the patient further needs a care for goals of care discussion. Hospitalization day: 8 A. Neurology: # down syndrome with learning disability # baseline nonverbal but conversant to the family as per sister # altered level of consciousness due to metabolic/toxic encephalopathy, change in electrolytes and sodium disorder # Encephalomalacia likely due to underlying Down syndrome # normal pressure hydrocephalus: Noted on noncontrast head CT # Right phthisis bulbi, present on admission # agitation: Not improving with 0.5 as needed Ativan, as per family that has been going for past few days event prior to the hospitalization. Increased from 0.5-1 of Ativan. Close monitoring, minimal interruption. sitter as needed. B. Cardiology: # Likely Septic/ hypovolemic shock: now on minimal Levophed support, Close monitoring with maybe target of 65 mm of mercury. Echo unremarkable,morning cortisol unremarkable. titrate down levo as tolerated. C. Respiratory: # acute hypoxic respiratory failure: weaned to room air. # atelectasis: Also suggested for incentive spirometry patient is not able to follow commands. # possible flash pulmonary edema with possible aspiration pneumonia IV Lasix patient improved. # possible obstructive sleep apnea, no overnight desaturations D. Gastrointestinal: # high-risk for aspiration: NPO status to continue aspiration precautions to continue. clinimax. Patient failed swallow eval. # mild transaminitis: Improving daily CMP to continue for now # Hepatic steatosis no obvious changes. E. Genitourinary: # patient has indwelling catheter: Close input output keep the patient on Mason's for now F. Infectious Disease: # septic shock: Source of respiratory infection secondary to aspiration, elukocytosis resolved, continue vancomycin and Zosyn for broad-spectrum antibiotic, as needed Levophed support # Blood culture growing Gram-positive pathogen, follow for further sensitivity. G. Hematology & Oncology: # polycythemia history, questionable not noted on recent CBC # Mild thrombocytopenia>moderate now: Close monitoring # leukocytosis with predominant neutrophilia: likely due to aspiration pneumonia: Daily CBC and close hemodynamic monitoring. check blood culture. echo -ve for [place] valvular pathology H. Nephrology: # severe hypenatremia , hypovolemic: 1.3 L Should not correct more than 10 mEq every 24 hours. On 1 cc/hour of D5 free water with Clinimix. We will repeat sodium tomorrow morning. Avoid over-correction. Target 145 by 4 am on 09/01 # severe dehydration: Likely due to poor oral intake, continue IV hydration. Monitor input output. Intravascular status improved # septic/Hypovolemic shock : Careful slow fluid replenishment with correction of underlying electrolyte disturbances # ROSLYN likely VMN unknown baseline: Close input output follow up, daily BNP, avoid nephrotoxins, improving renal functions # Hypomagnesemia: Improved # hypokalemia, recurrent, continue supplementation. # hypophosphatemia: Replenished recheck in the morning. Correct accordingly. Recheck electrolytes tomorrow I. Endocrine: # Failure to thrive : Needs further evaluation, likely multifactorial , started the patient on Clinimix for nutrition supplement. recheck swallow eval. # severe protein calorie malnutrition with a BMI 15.6, nutritional consult when patient is more clinically stable. J. MSK: peripheral pulses, neuro vasculature remains intact. But low muscle mass. K. Prophylaxis: PPI: pantoprazole IV daily DVT Lovenox continue L. Lines & Drains (with insertion date): Has existing Mason's catheter prior to the hospitalization not known insertion date Peripheral IV lines since 08/26. Poor vascular access PICC line placed today 08/29. New Mason's placed on 08/30/2024 M. Drips: Levophed titratable to keep a map over 65, still on 2 N. Disposition: Remains in ICU. Extensive discussion with the patient's family, sister is a caregiver, but she does not have a POA, case management and sw input appreciated this PM. Thursday the family decided for hospice care. till then continue aggressive treatment. Code status: Remains full code till Thursday, we will continue all aggressive management. Continue current management. Will restart diet if patient passed swallow evaluation today. Plan discussed with: Other (RN) Date of Service: Sep 03, 2024 Billing Provider: FRANKLYN LOCO MD Common Visit Codes: [id number] INP/OBS CARE(HIGH) FRANKLYN LOCO MD Sep 03, 2024 14:43
[2024-09-03] MEDS ORDERED: DEXTROSE (50%) 50ML SYRG IV SCH (16:45)
[2024-09-03] MEDS ORDERED: ACCU-CHEK COMFORT CURVE STRIP VI SCH (18:00)
[2024-09-03] MEDS ORDERED: InsuLIN REG 1unit/0.01ml Soln (100units/ml) SC SCH (18:00)
--- NOTE | 2024-09-03 21:57 | DVHINCON2 ---
Date of service: Sep 03, 2024 Referring Physician Lul Willams MD Reason for Consultation AHRF, septic shock History of Present Illness A 54-year-old man with a PMHx of Down syndrome who presented to the ED on 08/27/24 accompanied by sister due to altered mental status. Patient is altered, poor historian, obtained history from ED reports. Per report, for the past 4 days prior to presentation, patient had not been eating,. no bowel movements, being combative, restless and screaming which worsened, prompting visit to ED. Patient was admitted for further care, and pulmonary consultation is requested for evaluation and management of acute hypoxic respiratory failure and septic shock. Review of Systems: 14-point review of systems negative unless otherwise noted above. Past Medical History: Down syndrome Past Surgical History: None Medications: Reviewed. Allergies: No known drug allergies. Family History: DM, HTN, HLD, thyroid disease. Social History: Nonsmoker. No alcohol or illicit drug use. Family History: Diabetes mellitus G8 MOTHER G8 FATHER High cholesterol G8 MOTHER Hypertension G8 MOTHER Thyroid disease G8 MOTHER Allergies: Coded Allergies: NO KNOWN ALLERGIES (Unverified , 08/26/24) Current Medications Current Medications Medications (Trade) Dose Ordered Sig/Elza Route PRN Reason Start Time Stop Time Status Last Admin Vancomycin HCl 100 ml @ 200 mls/hr Q12HR IV 09/02/24 22:00 09/03/24 10:34 Hydrocortisone Sodium Succinate (Solu-CORTEF INJECTION) 50 mg Q12HR IV 09/02/24 22:00 09/03/24 10:33 Potassium Chloride 100 ml @ 50 mls/hr Q2H IV 09/03/24 05:45 09/03/24 09:44 DC 09/03/24 09:49 Potassium Chloride 100 ml @ 50 mls/hr Q2H IV 09/03/24 09:45 09/03/24 12:27 DC Dextrose 1,000 ml @ 100 mls/hr Q10H IV 09/03/24 11:15 09/03/24 11:25 DC Potassium Chloride 100 ml @ 50 mls/hr Q2H IV 09/03/24 12:30 09/03/24 16:29 DC 09/03/24 15:40 Diagnostic Test (Pha) (Accu-Chek Comfort Curve T) 1 strip Q6HR 09/03/24 18:00 Cancel Insulin Human Regular (InsuLIN R) FOLLOW SLIDING SCALE Q6HR SC 09/03/24 18:00 Cancel Dextrose 50 ml UD IV 09/03/24 16:45 Cancel Vital Signs Vital Signs Date Time Temp Pulse Resp B/P (MAP) Pulse Ox O2 Delivery O2 Flow Rate FiO2 09/03/24 20:00 57 19 96 Room Air* 0 21 09/03/24 18:30 117/59 (78) 09/03/24 16:00 97.4 97.4 Physical Exam Gen.: Patient lying in bed in no apparent distress. Breathing on room air. Head: Normocephalic, atraumatic. Eyes: EOMI/PERRLA. Ears: Normal hearing. Normal anatomy. Neck/trachea: Trachea midline, supple. Nose: Normal external anatomy. Mouth: Moist mucous membranes. Chest: Decreased air entry bilaterally. No wheezing or rhonchi. Cardiovascular: Positive S1, positive S2. Regular rate and rhythm. Abdomen: Positive bowel sounds in all 4 quadrants. Soft, non-tender, non- distended. : Deferred. Rectal: Deferred. Skin: Warm, dry. Intact. Extremities: 2+ radial pulses bilaterally. No lower extremity edema. Neuro: Awake, alert, oriented x3. No gross motor or sensory deficits. Cranial nerves II through XII intact. Gait not assessed. Labs/Diagnostic Data Labs Test 09/03/24 19:44 09/03/24 04:00 09/02/24 03:20 08/31/24 07:55 Range/Units Stool Occult Blood Negative Negative Stool Occult Blood Sample #3 Negative White Blood Count 5.6 # 4.4-10.8 10^3/uL Red Blood Count 4.26 L 4.5-5.90 10^6/uL Hemoglobin 13.7 13.5-17.5 g/dL Hematocrit 40.9 L 41.0-53.0 % Mean Corpuscular Volume 96.0 80.0-100.0 fL Mean Corpuscular Hemoglobin 32.1 H 28.0-32.0 pg Mean Corpuscular Hemoglobin Concent 33.5 32.0-36.0 g/dL Red Cell Distribution Width 14.0 11.8-14.3 % Platelet Count 106 L 140-450 10^3/uL Mean Platelet Volume 9.0 6.9-10.8 fL Neutrophils (%) (Auto) 37.0-80.0 % Lymphocytes (%) (Auto) 10.0-50.0 % Monocytes (%) (Auto) 0.0-12.0 % Basophils (%) (Auto) 0.0-2.0 % Neutrophils # (Auto) 1.6-8.6 10 ^3/uL Lymphocytes # (Auto) 0.4-5.4 10 ^3/uL Monocytes # (Auto) 0-1.3 10 ^3/uL Differential Total Cells Counted 100.0 100 Neutrophils % (Manual) 69 37.0-80.0 Band Neutrophils % (Manual) 8 Lymphocytes % (Manual) 22 10.0-50.0 Monocytes % (Manual) 1 0-12 Eosinophils % (Manual) 0 0-7 Basophils % (Manual) 0 0.0-2.0 Metamyelocytes % (manual) 0 Myelocytes % (Manual) 0 Promyelocytes % (Manual) 0 Blast Cells % (Manual) 0 Reactive Lymphocytes 0 Platelet Estimate Decreased Sodium Level 148 H 136-145 mmol/L Potassium Level 3.1 L 3.5-5.1 mmol/L Chloride Level 114 H 98-107 mmol/L Carbon Dioxide Level 26 20-31 mmol/L Anion Gap 8 5-15 Blood Urea Nitrogen 11 9-23 mg/dL Creatinine 0.80 0.700-1.30 mg/dL Glomerular Filtration Rate Calc 105 >90 mL/min BUN/Creatinine Ratio 13.8 10.0-20.0 Serum Glucose 155 H 74-106 mg/dL Calcium Level 8.6 L 8.7-10.4 mg/dL Phosphorus Level 3.1 2.4-5.1 mg/dL Magnesium Level 1.9 1.6-2.6 mg/dL Total Bilirubin 0.7 0.2-1.0 mg/dL Aspartate Amino Transferase (AST) 19 13-40 U/L Alanine Aminotransferase (ALT) 19 7-40 U/L Alkaline Phosphatase 94 46-116 U/L Total Protein 5.7 5.7-8.2 g/dL Albumin 3.0 L 3.2-4.8 g/dL Estimated GFR () 120 mL/min Estimated GFR (Non- 99 mL/min Cortisol AM Sample 24.28 H 5.27-22.45 ug/dL Vancomycin Level Trough 16.5 H 5-10 ug/mL Test 08/31/24 03:00 08/30/24 23:59 08/30/24 03:33 08/29/24 08:13 Range/Units Nucleated Red Blood Cells 1.0 % POC Glucose 165 H 70-106 mg/dl Eosinophils (%) (Auto) 0.0 0.0-7.0 % Eosinophils # (Auto) 0 0-0.8 10 ^3/uL Basophils # (Auto) 0 0-0.2 10 ^3/uL Triglycerides Level 79 < 150 mg/dL Influenza Type A Antigen Negative Negative Influenza Type B Antigen Negative Negative SARS-CoV-2 Antigen (Rapid) Negative NEGATIVE Test 08/29/24 08:09 08/29/24 04:24 08/27/24 09:25 08/27/24 04:33 Range/Units Blood Gas Specimen Type Arterial Blood Gas Sample Site Left radial Blood Gas Patient Temperature 37.0 Arterial Blood Date Drawn [id number] Arterial Blood pH 7.379 7.350-7.450 Arterial Blood Partial Pressure CO2 35.7 35.0-48.0 mmHg Arterial Blood Partial Pressure O2 71.6 L 83.0-108.0 mmHg Arterial Blood HCO3 20.6 L 21.0-28.0 mmol/L Arterial Blood Oxygen Saturation 94.4 94.0-98.0 % Arterial Blood Base Excess -3.8 L -2.0-3.0 mmol/L Arterial Blood Oxyhemoglobin 93.2 L 94.0-98.0 % Arterial Blood Carboxyhemoglobin 1.0 0.5-1.5 % Arterial Blood Methemoglobin 0.3 0.0-1.5 % Jeff Test Yes Blood Gas Total Hemoglobin 15.50 13.5-17.5 g/dL Blood Gas Liter Flow 5.00 Blood Gas Modality Oxymizer FiO2 % 46.0 Direct Bilirubin 0.3 <0.3 mg/dL Urine Color Yellow Yellow Urine Clarity Turbid H Clear Urine pH 5.0 5.0-9.0 Urine Specific [place] 1.029 1.001-1.035 Urine Protein Trace H Negative Urine Ketones Negative Negative Urine Blood Negative Negative /uL Urine Nitrite Negative Negative Urine Bilirubin Negative Negative Urine Urobilinogen Normal Negative mg/dL Urine Leukocyte Esterase Negative Negative /uL Urine RBC 3 0 - 3 /hpf Urine Microscopic WBC 4 H 0-3 /HPF Urine Squamous Epithelial Cells None seen <5 /hpf Urine Uric Acid Crystals Few None Seen /hpf Urine Bacteria Few H None Seen /hpf Urine Creatinine 104.60 30.0-125.0 mg/dL Urine Sodium 24 L 40-220 mmol/L Urine Glucose Normal Normal mg/dL Urine Opiates Screen Neg NEGATIVE Urine Fentanyl Screen Neg NEGATIVE Urine Barbiturates Screen Neg NEGATIVE Urine Phencyclidine Screen Neg NEGATIVE Urine Amphetamines Screen Neg NEGATIVE Urine Benzodiazepines Screen Pos NEGATIVE Urine Cocaine Screen Neg NEGATIVE Urine Cannabinoids Screen Neg NEGATIVE Prothrombin Time 12.4 H 9.3-11.8 sec Prothrombin Time INR 1.19 H 0.9-1.15 Activated Partial Thromboplast Time 25.0 24.5-34.5 SEC Hemoglobin A1c 5.6 <5.7 % A1C Serum Osmolality 378 H 278-298 mOsm/kg Lactic Acid Level 1.3 0.4-2.0 mmol/L Ammonia 23 11-32 umol/L B-Type Natriuretic Peptide 44.81 0-100 pg/mL Thyroid Stimulating Hormone (TSH) 3.59 0.55-4.78 uIU/mL Test 08/26/24 23:09 08/26/24 21:28 Range/Units Salicylates Level < 3.0 -30 mg/dL Acetaminophen Level < 2.0 L 10.0-20.0 UG/ML Plasma/Serum Blood Alcohol 5.7 <10 mg/dL Microbiology Date/Time Source Procedure Growth Status 08/31/24 00:30 Urine - [place] Urine Culture - Final Complete 08/30/24 17:21 Blood Blood Culture - Final Staphylococcus aureus Complete 08/29/24 11:00 Nose MRSA Screen - Final Complete Assessment Impression: Acute hypoxic respiratory failure, resolved Septic shock Hypokalemia Developmental delay Cachexia Plan: On room air Supplemental oxygen PRN Titrate to keep O2 sats above 92%. S/p PICC line On pressors for hemodynamic support Levophed 1 mcg/min Titrate to keep mean arterial pressure greater than 65 mmHg. Continue antibiotics IV steroids Swallow eval Clinimix for nutritional support IV fluids with NS at 100 ml/hr. Monitor renal function. Monitor electrolytes. Supplement as necessary. Potassium supplementation Monitor ins and outs. DVT prophylaxis. Prognosis: Poor given patient's multiple co-morbidities. Rest of plan per hospitalist and other consultants. Thank you Dr. Willams, for allowing me to participate in this patient's care. Further recommendations will depend on the patient's clinical course. Please do not hesitate to contact me if you have any questions or concerns. This medical document was created using an electronic medical record system with [employer] dictation system. Although these documentations are being carefully reviewed, there may still be some phonetic and typographical changes. The errors are purely typographical, due to imperfection on the software program, and do not reflect any compromise in the patient's medical care. Plan discussed with: Other (JENI October/Dr Willams) TIFFANY DEVINE MD Sep 03, 2024 21:57
[2024-09-03] MEDS: ONDANSETRON HCL 4 MG/2 ML VIAL IV PRN (23:14)
[2024-09-04] VITALS (94 sets, daily range): BP systolic 82–128; BP diastolic 36–81; PULSE 43–108; RESP 9–25; TEMP 98.2–98.8; O2SAT 83–100
[2024-09-04 04:37] LABS: Alanine Aminotransferase 23 U/L (7-40); Alkaline Phosphatase 93 U/L (46-116); Anion Gap 8 (5-15); Blood Urea Nitrogen 9 mg/dL (9-23); Carbon Dioxide 26 mmol/L (20-31); Magnesium 1.8 mg/dL (1.6-2.6); Sodium 144 mmol/L (136-145)
[2024-09-04 04:38] LABS: Aspartate Aminotransferase 28 U/L (13-40)
[2024-09-04 04:39] LABS: Bilirubin, Total 0.4 mg/dL (0.2-1.0)
[2024-09-04 04:48] LABS: Albumin 2.9 g/dL (3.2-4.8); Calcium 8.4 mg/dL (8.7-10.4); Chloride 110 mmol/L (98-107); Glucose 210 mg/dL (74-106); Phosphorus 2.3 mg/dL (2.4-5.1); Potassium 3.1 mmol/L (3.5-5.1); Total Protein 5.5 g/dL (5.7-8.2)
[2024-09-04] MEDS: SOD CHL 0.45% 1,000 ML IV SCH (06:00)
--- NOTE | 2024-09-04 10:20 | DVHPN2 ---
Progress Note Date Seen: Sep 04, 2024 Medical Necessity Reason Pt with a Central, PICC or Fol: Yes The following are medically ne: Mason Catheter Subjective Patient reports: No new complaints Other Systems: Patient seen and examined by myself today in follow-up Objective vital signs Vital Sign Date Time Temp Pulse Resp B/P (MAP) Pulse Ox O2 Delivery O2 Flow Rate FiO2 09/04/24 07:15 54 11 89/50 (63) 96 09/04/24 06:00 Room Air* 0 21 09/04/24 04:00 98.4 98.4 Total Intake and Output 09/03/24 09/03/24 09/04/24 15:00 23:00 07:00 Intake Total 1353.00 ml 1558.00 ml 1209.8 ml Output Total 1525 ml 1700 ml Balance 1353.00 ml 33.00 ml -490.2 ml medications Current Medications Medications Dose Ordered Sig/Ezla Route Start Time Stop Time Status Last Admin Dose Admin Norepinephrine Bitartrate 250 ml @ 3.75 mls/hr Q24H IV 08/27/24 08:00 09/02/24 22:00 3.75 MLS/HR Piperacillin Sod/ Tazobactam Sod 100 ml @ 25 mls/hr Q8HR IV 08/29/24 14:00 09/04/24 06:00 25 MLS/HR Vancomycin HCl 0 ml @ 0 mls/hr UD IV 08/29/24 06:30 Sodium Chloride 10 ml QSHIFT@10,22 IV 08/29/24 22:00 09/04/24 09:43 10 ML Amino Acids 0 ml @ 0 mls/hr PER PHARMACY IV 08/29/24 15:30 Pantoprazole Sodium 40 mg DAILY IV 08/30/24 10:00 09/04/24 09:42 40 MG Amino Acids/ Electrolytes/ Dextrose 1,000 ml @ 41 mls/hr DAILY@2200 IV 08/29/24 22:00 09/03/24 12:35 41 MLS/HR Lorazepam 1 mg Q8HP PRN IV 09/01/24 20:00 Vancomycin HCl 100 ml @ 200 mls/hr Q12HR IV 09/02/24 22:00 09/04/24 09:43 200 MLS/HR Hydrocortisone Sodium Succinate 50 mg Q12HR IV 09/02/24 22:00 09/04/24 09:43 50 MG Diagnostic Test (Pha) 1 strip Q6HR 09/03/24 18:00 Cancel Insulin Human Regular FOLLOW SLIDING SCALE Q6HR SC 09/03/24 18:00 Cancel Dextrose 50 ml UD IV 09/03/24 16:45 Cancel Ondansetron HCl 4 mg Q4HPRN PRN IV 09/03/24 23:00 09/04/24 09:23 4 MG Sodium Chloride 1,000 ml @ 100 mls/hr Q10H IV 09/04/24 05:15 09/04/24 06:00 100 MLS/HR Examination: LUNGS:Normal, CVS:Normal, MSK:Normal laboratory and microbiology Laboratory Tests 09/04/24 03:37 09/03/24 04:00 Test 09/04/24 03:37 Range/Units Serum Glucose 210 H 74-106 mg/dL Microbiology Date/Time Source Procedure Growth Status 08/31/24 00:30 Urine - [place] Urine Culture - Final Complete 08/30/24 17:21 Blood Blood Culture - Final Staphylococcus aureus Complete 08/29/24 11:00 Nose MRSA Screen - Final Complete Problem List/Assessment/Plan Problem List/Assessment/Plan Acute kidney injury in setting of volume depletion hypernatremia secondary to dehydration Down syndrome Hypokalemia Recommendations Kidney function resolved back to normal Increased urine output Continue D5W IV KCL 40 mEq IV piggyback I will sign off this case, please reconsult as needed Thank you for the consult Plan discussed with: Patient My Orders My Orders Orders - CAROLANN BELTRAN MD Procedure Category Date Status Time Communication Order ORDERS 09/03/24 Transmitted 11:07 Sod Chl 0.45% (Sodium PHA 09/04/24 In Process Chloride 0.45% Via 05:15 Dietary Evaluation Review Comments: 1. Given functional GI tract, EN is preferred over PN; would recommend post-pyloric feeding tube placement to reduce aspiration risk and beginning standard formula Jevity 1.2 @ 10 ml/hr; advance by 10 ml Q6 hrs to goal-rate of 50 ml/hr or as tolerated *noted pt may not tolerate NGT placement due to agitation 2. If continuation of TPN is preferred by , recommend 1.5 L Clinimix E 15 @ 63 ml/hr x 24 hrs (provides 225 gm D, 75 gm AA = 1065 kcal/day) *add lipid infusion to meet remainder of kcal needs pending triglyceride level (must be <500) 3. Once medically able, consider [employer] evaluation to assess appropriateness for PO diet Expected Outcomes/Goals: Improved nutritional status, weight maintenance, improved labs values. CAROLANN BELTRAN MD Sep 04, 2024 10:20
[2024-09-04] MEDS: POTASSIUM CHL 20MEQ/100ML 100 ML IV SCH (10:30)
[2024-09-04] MEDS ORDERED: DEXTROSE (50%) 50ML SYRG IV SCH (12:00)
[2024-09-04] MEDS: InsuLIN REG 1unit/0.01ml Soln (100units/ml) SC SCH (12:00)
[2024-09-04] MEDS ORDERED: POTASSIUM PHOSPHATE 22 MEQ in SODIUM CHL 0.9% 100 ML IV ONE (12:00)
[2024-09-04] MEDS: ACCU-CHEK COMFORT CURVE STRIP VI SCH (12:00)
--- NOTE | 2024-09-04 12:41 | DVHPN2 ---
Subjective The patient is seen and examined at bedside. Alert , awake. Reviewed: Care Plan, H&P, Labs, Medications, Previous Orders, Radiology Changes from previous H/P or p: No Changes Objective Vitals Vital Signs Date Time Temp Pulse Resp B/P (MAP) Pulse Ox O2 Delivery O2 Flow Rate FiO2 09/04/24 10:00 59 09/04/24 10:00 18 98 Room Air* 0 21 09/04/24 09:30 76/32 09/04/24 04:00 98.4 98.4 Intake/Output Intake and Output 09/04/24 07:00 Intake Total 4128.30 ml Output Total 3225 ml Balance 903.30 ml Intake Oral 220 ml IV Total 3908.30 ml Output Urine Total 3225 ml # Bowel Movements 3 General Appearance: Alert, Cooperative, No acute distress HEENT: Atraumatic, PERRLA, EOMI, Mucous membr. moist/pink Neck: Supple Lungs: Clear to auscultation, Normal air movement Cardiovascular: Regular rate, Normal S1, Normal S2, No murmurs, Gallops, Rubs Abdomen: Normal bowel sounds, Soft, No tenderness Neuro: Cranial nerves 3-12 NL Psych/Mental Status: Mental status NL Medications Current Medications Medications Dose Ordered Sig/Elza Route Start Time Stop Time Status Last Admin Dose Admin Norepinephrine Bitartrate 250 ml @ 3.75 mls/hr Q24H IV 08/27/24 08:00 09/02/24 22:00 3.75 MLS/HR Piperacillin Sod/ Tazobactam Sod 100 ml @ 25 mls/hr Q8HR IV 08/29/24 14:00 09/04/24 06:00 25 MLS/HR Vancomycin HCl 0 ml @ 0 mls/hr UD IV 08/29/24 06:30 Sodium Chloride 10 ml QSHIFT@10,22 IV 08/29/24 22:00 09/04/24 09:43 10 ML Amino Acids 0 ml @ 0 mls/hr PER PHARMACY IV 08/29/24 15:30 Pantoprazole Sodium 40 mg DAILY IV 08/30/24 10:00 09/04/24 09:42 40 MG Amino Acids/ Electrolytes/ Dextrose 1,000 ml @ 41 mls/hr DAILY@2200 IV 08/29/24 22:00 09/03/24 12:35 41 MLS/HR Lorazepam 1 mg Q8HP PRN IV 09/01/24 20:00 Vancomycin HCl 100 ml @ 200 mls/hr Q12HR IV 09/02/24 22:00 09/04/24 09:43 200 MLS/HR Hydrocortisone Sodium Succinate 50 mg Q12HR IV 09/02/24 22:00 09/04/24 09:43 50 MG Diagnostic Test (Pha) 1 strip Q6HR 09/03/24 18:00 Cancel Insulin Human Regular FOLLOW SLIDING SCALE Q6HR SC 09/03/24 18:00 Cancel Dextrose 50 ml UD IV 09/03/24 16:45 Cancel Ondansetron HCl 4 mg Q4HPRN PRN IV 09/03/24 23:00 09/04/24 09:23 4 MG Sodium Chloride 1,000 ml @ 100 mls/hr Q10H IV 09/04/24 05:15 09/04/24 06:00 100 MLS/HR Potassium Chloride 100 ml @ 50 mls/hr Q2H IV 09/04/24 10:30 09/04/24 14:29 09/04/24 10:30 50 MLS/HR Diagnostic Test (Pha) 1 strip Q6HR 09/04/24 12:00 Insulin Human Regular FOLLOW SLIDING SCALE Q6HR SC 09/04/24 12:00 Dextrose 50 ml UD IV 09/04/24 12:00 Enteral Nutritional Formula 4 oz BIDWM PO 09/04/24 18:00 Laboratory Results Laboratory Tests 09/03/24 04:00 09/04/24 03:37 Chemistry Test 09/04/24 03:37 Albumin 2.9 g/dL (3.2-4.8) L Calcium Level 8.4 mg/dL (8.7-10.4) L Magnesium Level 1.8 mg/dL (1.6-2.6) Phosphorus Level 2.3 mg/dL (2.4-5.1) L Total Protein 5.5 g/dL (5.7-8.2) L LFT Test 09/04/24 03:37 Alanine Aminotransferase (ALT) 23 U/L (7-40) Alkaline Phosphatase 93 U/L (46-116) Aspartate Amino Transferase (AST) 28 U/L (13-40) Total Bilirubin 0.4 mg/dL (0.2-1.0) Urinalysis Test 08/27/24 09:25 Urine Color Yellow (Yellow) Urine Clarity Turbid (Clear) H Urine pH 5.0 (5.0-9.0) Urine Specific [place] 1.029 (1.001-1.035) Urine Protein Trace (Negative) H Urine Ketones Negative (Negative) Urine Blood Negative /uL (Negative) Urine Nitrite Negative (Negative) Urine Bilirubin Negative (Negative) Urine Urobilinogen Normal mg/dL (Negative) Urine Leukocyte Esterase Negative /uL (Negative) Urine RBC 3 /hpf (0 - 3) Urine Microscopic WBC 4 /HPF (0-3) H Urine Squamous Epithelial Cells None seen /hpf (<5) Urine Uric Acid Crystals Few /hpf (None Seen) Urine Bacteria Few /hpf (None Seen) H Urine Creatinine 104.60 mg/dL (30.0-125.0) Urine Sodium 24 mmol/L (40-220) L Urine Glucose Normal mg/dL (Normal) Microbiology Microbiology Date/Time Source Procedure Growth Status 08/31/24 00:30 Urine - [facility] Urine Culture - Final Complete 08/30/24 17:21 Blood Blood Culture - Final Staphylococcus aureus Complete 08/29/24 11:00 Nose MRSA Screen - Final Complete Labs and/or images reviewed: Labs reviewed by me Assessment/Plan Assessment/Plan Orlando Christy, a 54-year-old male with Down syndrome, presented to the ED with altered mental status. Over the past four days, he has not eaten, had no bowel movements, and exhibited combative, restless, and screaming behavior, which worsened and led to his ED visit. Due to his clinical status, a review of systems could not be obtained. His past surgical history is negative, family history is noncontributory, and he denies smoking, alcohol, and drug abuse. 08/29 morning patient was found ALOC with increased workup breathing, encephalopathic and primary team updated the patient to ICU status for close monitoring and possible intubation. after careful consideration, poor extubation reserve and poor outcome with no obvious benefits held further intubation but careful aspiration precautions. 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 Overall recent decline prior to the hospitalization and family's inability to help the patient further needs a care for goals of care discussion. Hospitalization day: 9 A. Neurology: # down syndrome with learning disability # baseline nonverbal but conversant to the family as per sister # altered level of consciousness due to metabolic/toxic encephalopathy, change in electrolytes and sodium disorder # Encephalomalacia likely due to underlying Down syndrome # normal pressure hydrocephalus: Noted on noncontrast head CT # Right phthisis bulbi, present on admission # agitation: Not improving with 0.5 as needed Ativan, as per family that has been going for past few days event prior to the hospitalization. Increased from 0.5-1 of Ativan. Close monitoring, minimal interruption. sitter as needed. B. Cardiology: # Likely Septic/ hypovolemic shock: now on minimal Levophed support, Close monitoring with maybe target of 65 mm of mercury. Echo unremarkable,morning cortisol unremarkable. titrate down levo as tolerated. C. Respiratory: # acute hypoxic respiratory failure: weaned to room air. # atelectasis: Also suggested for incentive spirometry patient is not able to follow commands. # possible flash pulmonary edema with possible aspiration pneumonia IV Lasix patient improved. # possible obstructive sleep apnea, no overnight desaturations D. Gastrointestinal: # high-risk for aspiration: NPO status to continue aspiration precautions to continue. clinimax. Patient failed swallow eval. # mild transaminitis: Improving daily CMP to continue for now # Hepatic steatosis no obvious changes. E. Genitourinary: # patient has indwelling catheter: Close input output keep the patient on Mason's for now F. Infectious Disease: # septic shock: Source of respiratory infection secondary to aspiration, elukocytosis resolved, continue vancomycin and Zosyn for broad-spectrum antibiotic, as needed Levophed support # Blood culture growing Gram-positive pathogen, follow for further sensitivity. G. Hematology & Oncology: # polycythemia history, questionable not noted on recent CBC # Mild thrombocytopenia>moderate now: Close monitoring # leukocytosis with predominant neutrophilia: likely due to aspiration pneumonia: Daily CBC and close hemodynamic monitoring. check blood culture. echo -ve for [place] valvular pathology H. Nephrology: # severe hypenatremia , hypovolemic: 1.3 L Should not correct more than 10 mEq every 24 hours. On 1 cc/hour of D5 free water with Clinimix. We will repeat sodium tomorrow morning. Avoid over-correction. Target 145 by 4 am on 09/01 # severe dehydration: Likely due to poor oral intake, continue IV hydration. Monitor input output. Intravascular status improved # septic/Hypovolemic shock : Careful slow fluid replenishment with correction of underlying electrolyte disturbances # ROSLYN likely VMN unknown baseline: Close input output follow up, daily BNP, avoid nephrotoxins, improving renal functions # Hypomagnesemia: Improved # hypokalemia, recurrent, continue supplementation. # hypophosphatemia: Replenished recheck in the morning. Correct accordingly. Recheck electrolytes tomorrow I. Endocrine: # Failure to thrive : Needs further evaluation, likely multifactorial , started the patient on Clinimix for nutrition supplement. recheck swallow eval. # severe protein calorie malnutrition with a BMI 15.6, nutritional consult when patient is more clinically stable. J. MSK: peripheral pulses, neuro vasculature remains intact. But low muscle mass. K. Prophylaxis: PPI: pantoprazole IV daily DVT Lovenox continue L. Lines & Drains (with insertion date): Has existing Mason's catheter prior to the hospitalization not known insertion date Peripheral IV lines since 08/26. Poor vascular access PICC line placed today 08/29. New Mason's placed on 08/30/2024 M. Drips: Levophed titratable to keep a map over 65, still on 2 N. Disposition: Remains in ICU. Extensive discussion with the patient's family, sister is a caregiver, but she does not have a POA, case management and sw input appreciated this PM. Thursday the family decided for hospice care. till then continue aggressive treatment. Code status: Remains full code till Thursday, we will continue all aggressive management. Continuing current management. Patient passed swallow eval and eating. Aspirate precautions. Plan discussed with: Other (RN) Date of Service: Sep 04, 2024 Billing Provider: FRANKLYN LOCO MD Common Visit Codes: [id number] INP/OBS CARE(HIGH) FRANKLYN LOCO MD Sep 04, 2024 12:41
[2024-09-04] MEDS: POTASSIUM PHOSPHATE 22 MEQ in SODIUM CHL 0.9% 100 ML IV ONE (14:38)
[2024-09-04] MEDS: Ensure Pudding Vanilla 4 oz Cup PO SCH (17:31)
--- NOTE | 2024-09-04 23:16 | DVHPN2 ---
Progress Note - Dictate Date Seen: Sep 04, 2024 Medical Necessity Reason Pt with a Central, PICC or Fol: Yes The following are medically ne: Feliz Catheter Reason for feliz catheter: Strict I&O Subjective Patient seen and examined at bedside. Breathing comfortably on room air. Overnight events reviewed vital signs Vital Sign Date Time Temp Pulse Resp B/P (MAP) Pulse Ox O2 Delivery O2 Flow Rate FiO2 09/04/24 22:31 43 12 126/63 (84) 97 09/04/24 22:00 Room Air* 0 21 09/04/24 16:00 98.4 98.4 Total Intake and Output 09/03/24 09/03/24 09/04/24 15:00 23:00 07:00 Intake Total 1353.00 ml 1558.00 ml 1358.3 ml Output Total 1525 ml 1700 ml Balance 1353.00 ml 33.00 ml -341.7 ml medications Current Medications Medications Dose Ordered Sig/Elza Route Start Time Stop Time Status Last Admin Dose Admin Norepinephrine Bitartrate 250 ml @ 3.75 mls/hr Q24H IV 08/27/24 08:00 09/04/24 17:34 11.25 MLS/HR Piperacillin Sod/ Tazobactam Sod 100 ml @ 25 mls/hr Q8HR IV 08/29/24 14:00 09/04/24 22:07 25 MLS/HR Vancomycin HCl 0 ml @ 0 mls/hr UD IV 08/29/24 06:30 Sodium Chloride 10 ml QSHIFT@10,22 IV 08/29/24 22:00 09/04/24 22:07 10 ML Amino Acids 0 ml @ 0 mls/hr PER PHARMACY IV 08/29/24 15:30 Pantoprazole Sodium 40 mg DAILY IV 08/30/24 10:00 09/04/24 09:42 40 MG Amino Acids/ Electrolytes/ Dextrose 1,000 ml @ 41 mls/hr DAILY@2200 IV 08/29/24 22:00 09/04/24 22:07 41 MLS/HR Lorazepam 1 mg Q8HP PRN IV 09/01/24 20:00 Vancomycin HCl 100 ml @ 200 mls/hr Q12HR IV 09/02/24 22:00 09/04/24 21:36 200 MLS/HR Hydrocortisone Sodium Succinate 50 mg Q12HR IV 09/02/24 22:00 09/04/24 22:07 50 MG Diagnostic Test (Pha) 1 strip Q6HR 09/03/24 18:00 Cancel Insulin Human Regular FOLLOW SLIDING SCALE Q6HR SC 09/03/24 18:00 Cancel Dextrose 50 ml UD IV 09/03/24 16:45 Cancel Ondansetron HCl 4 mg Q4HPRN PRN IV 09/03/24 23:00 09/04/24 14:38 4 MG Sodium Chloride 1,000 ml @ 100 mls/hr Q10H IV 09/04/24 05:15 09/04/24 14:39 100 MLS/HR Diagnostic Test (Pha) 1 strip Q6HR 09/04/24 12:00 09/04/24 17:34 1 STRIP Insulin Human Regular FOLLOW SLIDING SCALE Q6HR SC 09/04/24 12:00 09/04/24 17:33 4 UNITS Dextrose 50 ml UD IV 09/04/24 12:00 Enteral Nutritional Formula 4 oz BIDWM PO 09/04/24 18:00 objective Gen.: Patient lying in bed in no apparent distress. Breathing on room air. Head: Normocephalic, atraumatic. Eyes: EOMI/PERRLA. Ears: Normal hearing. Normal anatomy. Neck/trachea: Trachea midline, supple. Nose: Normal external anatomy. Mouth: Moist mucous membranes. Chest: Decreased air entry bilaterally. No wheezing or rhonchi. Cardiovascular: Positive S1, positive S2. Regular rate and rhythm. Abdomen: Positive bowel sounds in all 4 quadrants. Soft, non-tender, non- distended. : Deferred. Rectal: Deferred. Skin: Warm, dry. Intact. Extremities: 2+ radial pulses bilaterally. No lower extremity edema. Neuro: Awake, alert, oriented x3. No gross motor or sensory deficits. Cranial nerves II through XII intact. Gait not assessed. laboratory and microbiology Laboratory Tests 09/04/24 03:37 09/03/24 04:00 Test 09/04/24 03:37 Range/Units Serum Glucose 210 H 74-106 mg/dL Assessment/Plan Impression: Acute hypoxic respiratory failure, resolved Septic shock Hypokalemia Developmental delay Cachexia Events: Remains on room air Supplemental oxygen PRN On pressors for hemodynamic support Levophed 6 mcg/min Titrate to keep mean arterial pressure greater than 65 mmHg Continue antibiotics IV fluids with D5W at 100 ml/hr TPN for nutritional support Monitor renal function. Monitor electrolytes. Supplement as necessary. Potassium supplementation Labs and imaging reviewed. Rest of plan as noted below. Plan: On room air Supplemental oxygen PRN S/p PICC line On pressors for hemodynamic support Titrate to keep mean arterial pressure greater than 65 mmHg. Continue antibiotics IV steroids Swallow eval Clinimix for nutritional support IV fluids with NS at 100 ml/hr. Monitor renal function. Monitor electrolytes. Supplement as necessary. Potassium supplementation Monitor ins and outs. DVT prophylaxis. Prognosis: Guarded given patient's multiple co-morbidities. Condition: Critical Rest of plan per hospitalist and other consultants. A total of 35 minutes of critical care time was spent reviewing the patient record, examining the patient, making a diagnostic and therapeutic plan, discussing this plan with the medical personnel, following up on diagnostic studies and following the patient for clinical stability excluding any and all procedures. At least 50% of this time was spent in direct, [id number] contact. Thank you Dr. Willams, for allowing me to participate in this patient's care. Further recommendations will depend on the patient's clinical course. Please do not hesitate to contact me if you have any questions or concerns. This medical document was created using an electronic medical record system with [id number] dictation system. Although these documentations are being carefully reviewed, there may still be some phonetic and typographical changes. The errors are purely typographical, due to imperfection on the software program, and do not reflect any compromise in the patient's medical care. Dietary Evaluation Review Comments: 1) Intiate Glucerna bid 2) Promote good PO intake 3) Continue to monitor appetite, labs, and skin integrity Expected Outcomes/Goals: 1) appetite and labs to improve 2) skin to improve 3) f/u in 5 days Plan discussed with: Patient, Other (JENI Peraza) Critical Care Time(min): 35 TIFFANY DEVINE MD Sep 04, 2024 23:16
[2024-09-05] VITALS (99 sets, daily range): BP systolic 68–138; BP diastolic 33–96; PULSE 39–112; RESP 9–27; TEMP 97.4–98.3; O2SAT 81–100
[2024-09-05] MEDS: LORazepam 2MG/ML-1ML VIAL IV PRN (00:33)
[2024-09-05 03:55] LABS: Alkaline Phosphatase 89 U/L (46-116); Anion Gap 7 (5-15); BUN/Creatinine Ratio 14.1 (10.0-20.0); Blood Urea Nitrogen 11 mg/dL (9-23); Carbon Dioxide 28 mmol/L (20-31); Magnesium 2.1 mg/dL (1.6-2.6); Phosphorus 2.6 mg/dL (2.4-5.1)
[2024-09-05 03:56] LABS: Alanine Aminotransferase 45 U/L (7-40); Albumin 2.8 g/dL (3.2-4.8); Aspartate Aminotransferase 47 U/L (13-40); Bilirubin, Total 0.3 mg/dL (0.2-1.0); Calcium 8.5 mg/dL (8.7-10.4); Chloride 115 mmol/L (98-107); Glucose 138 mg/dL (74-106); Sodium 150 mmol/L (136-145); Total Protein 5.2 g/dL (5.7-8.2)
[2024-09-05] MEDS: POTASSIUM CHL 20MEQ/100ML 100 ML IV SCH (05:56)
[2024-09-05 06:42] LABS: Hematocrit 37.1 % (41.0-53.0); Hemoglobin 12.3 g/dL (13.5-17.5); Mean Corpuscular Hgb Conc. 33.2 g/dL (32.0-36.0); Mean Corpuscular Volume 96.4 fL (80.0-100.0); Platelet Count (auto) 176 10^3/uL (140-450); Red Blood Cells 3.85 10^6/uL (4.5-5.90); Red Cell Distribution Width 14.1 % (11.8-14.3); White Blood Cell 7.2 10^3/uL (4.4-10.8)
[2024-09-05 06:53] LABS: Basophils % (manual) 0 (0.0-2.0); Blast Cells 0; Eosinophils % (manual) 0 (0-7); Metamyelocytes % 0; Myelocytes % 0; Promyelocytes % 0
[2024-09-05 07:25] LABS: Band Neutrophils % (manual) 6; Lymphocytes % (manual) 9 (10.0-50.0); Monocytes % (manual) 6 (0-12); Reactive Lymphocytes 2
[2024-09-05 07:26] LABS: Platelet Estimate Adequate; RBC Morphology Normal
--- NOTE | 2024-09-05 09:14 | DVHPN2 ---
Progress Note Date Seen: Sep 05, 2024 Medical Necessity Reason Pt with a Central, PICC or Fol: Yes The following are medically ne: Feliz Catheter Reason for feliz catheter: Strict I&O Objective vital signs Vital Sign Date Time Temp Pulse Resp B/P (MAP) Pulse Ox O2 Delivery O2 Flow Rate FiO2 09/05/24 06:45 44 11 109/54 (72) 100 09/05/24 06:00 Nasal Cannula* 2 28 09/05/24 04:00 98.3 98.3 Total Intake and Output 09/04/24 09/04/24 09/05/24 15:00 23:00 07:00 Intake Total 1157.75 ml 1483.00 ml 1394.75 ml Output Total 1250 ml 1500 ml Balance 1157.75 ml 233.00 ml -105.25 ml medications Current Medications Medications Dose Ordered Sig/Elza Route Start Time Stop Time Status Last Admin Dose Admin Norepinephrine Bitartrate 250 ml @ 3.75 mls/hr Q24H IV 08/27/24 08:00 09/04/24 17:34 11.25 MLS/HR Piperacillin Sod/ Tazobactam Sod 100 ml @ 25 mls/hr Q8HR IV 08/29/24 14:00 09/05/24 05:56 25 MLS/HR Vancomycin HCl 0 ml @ 0 mls/hr UD IV 08/29/24 06:30 Sodium Chloride 10 ml QSHIFT@10,22 IV 08/29/24 22:00 09/04/24 22:07 10 ML Amino Acids 0 ml @ 0 mls/hr PER PHARMACY IV 08/29/24 15:30 Pantoprazole Sodium 40 mg DAILY IV 08/30/24 10:00 09/04/24 09:42 40 MG Amino Acids/ Electrolytes/ Dextrose 1,000 ml @ 41 mls/hr DAILY@2200 IV 08/29/24 22:00 09/04/24 22:07 41 MLS/HR Lorazepam 1 mg Q8HP PRN IV 09/01/24 20:00 09/05/24 00:33 1 MG Vancomycin HCl 100 ml @ 200 mls/hr Q12HR IV 09/02/24 22:00 09/04/24 21:36 200 MLS/HR Hydrocortisone Sodium Succinate 50 mg Q12HR IV 09/02/24 22:00 09/04/24 22:07 50 MG Diagnostic Test (Pha) 1 strip Q6HR 09/03/24 18:00 Cancel Insulin Human Regular FOLLOW SLIDING SCALE Q6HR SC 09/03/24 18:00 Cancel Dextrose 50 ml UD IV 09/03/24 16:45 Cancel Ondansetron HCl 4 mg Q4HPRN PRN IV 09/03/24 23:00 09/04/24 14:38 4 MG Sodium Chloride 1,000 ml @ 100 mls/hr Q10H IV 09/04/24 05:15 09/05/24 01:49 100 MLS/HR Diagnostic Test (Pha) 1 strip Q6HR 09/04/24 12:00 09/05/24 05:56 1 STRIP Insulin Human Regular FOLLOW SLIDING SCALE Q6HR SC 09/04/24 12:00 09/05/24 06:09 2 UNITS Dextrose 50 ml UD IV 09/04/24 12:00 Enteral Nutritional Formula 4 oz BIDWM PO 09/04/24 18:00 Examination: GENERAL:Abnormal, ABDOMEN:Abnormal, MSK:Abnormal laboratory and microbiology Laboratory Tests 09/05/24 03:30 09/05/24 03:02 Test 09/05/24 03:02 Range/Units Serum Glucose 138 H 74-106 mg/dL Microbiology Date/Time Source Procedure Growth Status 08/31/24 00:30 Urine - [place] Urine Culture - Final Complete 08/30/24 17:21 Blood Blood Culture - Final Staphylococcus aureus Complete 08/29/24 11:00 Nose MRSA Screen - Final Complete Problem List/Assessment/Plan Problem List/Assessment/Plan Acute kidney injury in setting of volume depletion resolved history of Down syndrome toxic metabolic encephalopathy hypernatremia hypokalemia free water IV currently was on 07/14 however NA 150 today. needs more intake free water orally if able clinically can tolerate more fluids avoid hypotension replace potassium change to DW due to worsening Na Plan discussed with: Patient Dietary Evaluation Review Comments: 1) Intiate Glucerna bid 2) Promote good PO intake 3) Continue to monitor appetite, labs, and skin integrity Expected Outcomes/Goals: 1) appetite and labs to improve 2) skin to improve 3) f/u in 5 days MANA KNUTSON MD Sep 05, 2024 09:13
[2024-09-05] MEDS: D5W 5% 1,000 ML IV SCH (10:52)
--- NOTE | 2024-09-05 10:58 | DVHPNRES ---
Progress Note Date Seen: Sep 05, 2024 Resident Creating Document: LUL MENDOZA RESIDENT Medical Necessity Reason Pt with a Central, PICC or Fol: Yes The following are medically ne: Feliz Catheter Reason for feliz catheter: Strict I&O Subjective Patient reports: Feels better Objective vital signs Vital Sign Date Time Temp Pulse Resp B/P (MAP) Pulse Ox O2 Delivery O2 Flow Rate FiO2 09/05/24 08:00 12 100 Nasal Cannula* 2 28 09/05/24 08:00 45 09/05/24 06:45 109/54 (72) 09/05/24 04:00 98.3 98.3 Total Intake and Output 09/04/24 09/04/24 09/05/24 15:00 23:00 07:00 Intake Total 1157.75 ml 1483.00 ml 1747.00 ml Output Total 1250 ml 1500 ml Balance 1157.75 ml 233.00 ml 247.00 ml medications Current Medications Medications Dose Ordered Sig/Elza Route Start Time Stop Time Status Last Admin Dose Admin Norepinephrine Bitartrate 250 ml @ 3.75 mls/hr Q24H IV 08/27/24 08:00 09/04/24 17:34 11.25 MLS/HR Piperacillin Sod/ Tazobactam Sod 100 ml @ 25 mls/hr Q8HR IV 08/29/24 14:00 09/05/24 05:56 25 MLS/HR Vancomycin HCl 0 ml @ 0 mls/hr UD IV 08/29/24 06:30 Sodium Chloride 10 ml QSHIFT@10,22 IV 08/29/24 22:00 09/05/24 10:00 10 ML Amino Acids 0 ml @ 0 mls/hr PER PHARMACY IV 08/29/24 15:30 Pantoprazole Sodium 40 mg DAILY IV 08/30/24 10:00 09/05/24 10:31 40 MG Amino Acids/ Electrolytes/ Dextrose 1,000 ml @ 41 mls/hr DAILY@2200 IV 08/29/24 22:00 09/04/24 22:07 41 MLS/HR Lorazepam 1 mg Q8HP PRN IV 09/01/24 20:00 09/05/24 00:33 1 MG Vancomycin HCl 100 ml @ 200 mls/hr Q12HR IV 09/02/24 22:00 09/05/24 10:00 200 MLS/HR Hydrocortisone Sodium Succinate 50 mg Q12HR IV 09/02/24 22:00 09/05/24 10:32 50 MG Diagnostic Test (Pha) 1 strip Q6HR 09/03/24 18:00 Cancel Insulin Human Regular FOLLOW SLIDING SCALE Q6HR SC 09/03/24 18:00 Cancel Dextrose 50 ml UD IV 09/03/24 16:45 Cancel Ondansetron HCl 4 mg Q4HPRN PRN IV 09/03/24 23:00 09/04/24 14:38 4 MG Diagnostic Test (Pha) 1 strip Q6HR 09/04/24 12:00 09/05/24 05:56 1 STRIP Insulin Human Regular FOLLOW SLIDING SCALE Q6HR SC 09/04/24 12:00 09/05/24 06:09 2 UNITS Dextrose 50 ml UD IV 09/04/24 12:00 Enteral Nutritional Formula 4 oz BIDWM PO 09/04/24 18:00 09/05/24 08:00 4 OZ Dextrose 1,000 ml @ 60 mls/hr [id number] IV 09/05/24 09:15 09/05/24 10:52 60 MLS/HR Examination Remains nonverbal, significantly less agitated, sleeping most of the day and night. GENERAL:Normal (alert, awake, nonverbal communication continues), HEENT:Normal (Right eye existing lesion POA), NECK:Normal, LUNGS: clear, CVS:Abnormal (Low blood pressure with MAP of 65 on min Levophed off,), ABDOMEN:Normal, MSK:Abnormal (Low muscle mass), SKIN:Normal, NEURO:Abnormal ( has baseline learning disability, Down syndrome and baseline nonverbal), :Normal (On Feliz's catheter) laboratory and microbiology Laboratory Tests 09/05/24 03:30 09/05/24 03:02 Test 09/05/24 03:02 Range/Units Serum Glucose 138 H 74-106 mg/dL Microbiology Date/Time Source Procedure Growth Status 08/31/24 00:30 Urine - Feliz Port Urine Culture - Final Complete 08/30/24 17:21 Blood Blood Culture - Final Staphylococcus aureus Complete 08/29/24 11:00 Nose MRSA Screen - Final Complete Labs and/or images reviewed: Labs reviewed by me, Image(s) reviewed by me Problem List/Assessment/Plan Problem List/Assessment/Plan ICU Course: Orlando Christy, a 54-year-old male with Down syndrome, presented to the ED with altered mental status. Over the past four days, he has not eaten, had no bowel movements, and exhibited combative, restless, and screaming behavior, which worsened and led to his ED visit. Due to his clinical status, a review of systems could not be obtained. His past surgical history is negative, family history is noncontributory, and he denies smoking, alcohol, and drug abuse. 08/29 morning patient was found ALOC with increased workup breathing, encephalopathic and primary team updated the patient to ICU status for close monitoring and possible intubation. after careful consideration, poor extubation reserve and poor outcome with no obvious benefits held further intubation but careful aspiration precautions. 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 Overall recent decline prior to the hospitalization and family's inability to help the patient further needs a care for goals of care discussion. Hospitalization day: 10 A. Neurology: # down syndrome with learning disability # baseline nonverbal but conversant to the family as per sister # altered level of consciousness due to metabolic/toxic encephalopathy, change in electrolytes and sodium disorder # Encephalomalacia likely due to underlying Down syndrome # normal pressure hydrocephalus: Noted on noncontrast head CT # Right phthisis bulbi, present on admission # agitation: 1 changed to 0.5 ativan # early onset of dementia ? contributory B. Cardiology: # Likely Septic/ hypovolemic shock: now on minimal Levophed support, Close monitoring with maybe target of 65 mm of mercury. Echo unremarkable,morning cortisol unremarkable. titrate down levo as tolerated. # asymptomatic sinus bradycardia with baseline in 40s to 50s without any other conduction abnormalities. C. Respiratory: # acute hypoxic respiratory failure: weaned to room air. # atelectasis: Also suggested for incentive spirometry patient is not able to follow commands. # possible flash pulmonary edema with possible aspiration pneumonia IV Lasix patient improved. respiratory stable. # possible obstructive sleep apnea, overnight desaturations can use oxygen, as bipap not feasible. D. Gastrointestinal: # high-risk for aspiration: NPO status to continue aspiration precautions to continue. clinimax. Patient failed swallow eval>>>passed later on pureed diet - ensure high-protein twice a day. # mild transaminitis: Improving daily CMP to continue for now # Hepatic steatosis no obvious changes. E. Genitourinary: # patient has indwelling catheter: Close input output keep the patient on Feliz's for now F. Infectious Disease: # septic shock: Source of respiratory infection secondary to aspiration, lukocytosis resolved, discontinue vancomycin and Zosyn for MSSA, as needed Levophed support -repeat blood culture follow up if -ve dc all the abx day 9 # Blood culture growing MSSA in 1/2 on iv levophed. we will try to titrate Levophed with systolic of 90 other than map of 65, as needed small doses of bolus. DC IV steroid . G. Hematology & Oncology: # polycythemia history, questionable not noted on recent CBC # Mild thrombocytopenia>moderate now: Close monitoring lovenox off. recovered pletlets. close follow up. # leukocytosis with predominant neutrophilia: likely due to aspiration pneumonia: Daily CBC and close hemodynamic monitoring. check blood culture. echo -ve for [place] valvular pathology, repeat blood culture pending H. Nephrology: # severe hypernatremia , hypovolemic>>mild hypernatrimia 0.8 L free water defecit: Should not correct more than 10 mEq every 24 hours. On 60 cc/hour of D5 free water with Clinimix. Target 145 by 4 am on 09/06 # severe dehydration: Likely due to poor oral intake, continue IV hydration. Monitor input output. Intravascular fluid status improved, close to euvolemia. # septic/Hypovolemic shock : Careful slow fluid replenishment with correction of underlying electrolyte disturbances # ROSLYN likely VMN unknown baseline: Close input output follow up, daily BNP, avoid nephrotoxins, improving renal functions # Hypomagnesemia: Improved # hypokalemia, recurrent, continue supplementation added, follow bmp. # hypophosphatemia: Replenished recheck in the morning. Correct accordingly. Recheck electrolytes tomorrow I. Endocrine: # Failure to thrive : Needs further evaluation, likely multifactorial , started the patient on Clinimix for nutrition supplement. recheck swallow eval. # severe protein calorie malnutrition with a BMI 15.6>17.0 (likely body water gain), nutritional consult when patient is more clinically stable. continue protein. J. MSK: peripheral pulses, neuro vasculature remains intact. But low muscle mass. K. Prophylaxis: PPI: pantoprazole IV daily DVT Lovenox held, scd on. pletlets improved. L. Lines & Drains (with insertion date): Poor vascular access PICC line placed 08/29. New Feliz's placed on 08/30/2024 M. Drips: Levophed titratable to keep a map over 65, still on 2 N. Disposition: Remains in ICU. Extensive discussion with the patient's family, sister is a caregiver, on 09/02. Repeat goals of care and further discussion with mother, sister, other family members all agreed to home hospice for based care. Planned called back on 09/06 2 start arrangement for home hospice and advanced discharge planning. Code status: Remains full code, we will continue all aggressive management. Pending code status change tomorrow. Family agreed to have a further discussion over phone. The plan was discussed with the ICU attending Dr. Sandoval. The patient care consists of total 91 minutes of critical care time excluding the procedures. Dictated by Lul Mendoza MD with 3M MModal Fluency. Plan discussed with: Patient, Other (sister, mother, aunt , primary team RN ) My Orders My Orders Orders - LUL MENDOZA RESIDENT Procedure Category Date Status Time Nutritional PHA 09/04/24 In Process Supplements (Ensure 18:00 Lorazepam 2mg/Ml Inj PHA 09/05/24 Transmitted (Ativan Inj) 11:00 Dietary Evaluation Review Comments: 1) Intiate Glucerna bid 2) Promote good PO intake 3) Continue to monitor appetite, labs, and skin integrity Expected Outcomes/Goals: 1) appetite and labs to improve 2) skin to improve 3) f/u in 5 days Laboratory Results Laboratory Tests 09/05/24 03:02 09/05/24 03:30 Chemistry Test 09/05/24 03:02 Albumin 2.8 g/dL (3.2-4.8) L Calcium Level 8.5 mg/dL (8.7-10.4) L Magnesium Level 2.1 mg/dL (1.6-2.6) Phosphorus Level 2.6 mg/dL (2.4-5.1) Total Protein 5.2 g/dL (5.7-8.2) L LFT Test 09/05/24 03:02 Alanine Aminotransferase (ALT) 45 U/L (7-40) H Alkaline Phosphatase 89 U/L (46-116) Aspartate Amino Transferase (AST) 47 U/L (13-40) H Total Bilirubin 0.3 mg/dL (0.2-1.0) Urinalysis Test 08/27/24 09:25 Urine Color Yellow (Yellow) Urine Clarity Turbid (Clear) H Urine pH 5.0 (5.0-9.0) Urine Specific [place] 1.029 (1.001-1.035) Urine Protein Trace (Negative) H Urine Ketones Negative (Negative) Urine Blood Negative /uL (Negative) Urine Nitrite Negative (Negative) Urine Bilirubin Negative (Negative) Urine Urobilinogen Normal mg/dL (Negative) Urine Leukocyte Esterase Negative /uL (Negative) Urine RBC 3 /hpf (0 - 3) Urine Microscopic WBC 4 /HPF (0-3) H Urine Squamous Epithelial Cells None seen /hpf (<5) Urine Uric Acid Crystals Few /hpf (None Seen) Urine Bacteria Few /hpf (None Seen) H Urine Creatinine 104.60 mg/dL (30.0-125.0) Urine Sodium 24 mmol/L (40-220) L Urine Glucose Normal mg/dL (Normal) Microbiology Microbiology Date/Time Source Procedure Growth Status 08/31/24 00:30 Urine - Feliz Port Urine Culture - Final Complete 08/30/24 17:21 Blood Blood Culture - Final Staphylococcus aureus Complete 08/29/24 11:00 Nose MRSA Screen - Final Complete vital signs Vital Sign Date Time Temp Pulse Resp B/P (MAP) Pulse Ox O2 Delivery O2 Flow Rate FiO2 09/05/24 08:00 12 100 Nasal Cannula* 2 28 09/05/24 08:00 45 09/05/24 06:45 109/54 (72) 09/05/24 04:00 98.3 98.3 Total Intake and Output 09/04/24 09/04/24 09/05/24 15:00 23:00 07:00 Intake Total 1157.75 ml 1483.00 ml 1747.00 ml Output Total 1250 ml 1500 ml Balance 1157.75 ml 233.00 ml 247.00 ml medications Current Medications Medications Dose Ordered Sig/Elza Route Start Time Stop Time Status Last Admin Dose Admin Norepinephrine Bitartrate 250 ml @ 3.75 mls/hr Q24H IV 08/27/24 08:00 09/04/24 17:34 11.25 MLS/HR Piperacillin Sod/ Tazobactam Sod 100 ml @ 25 mls/hr Q8HR IV 08/29/24 14:00 09/05/24 05:56 25 MLS/HR Vancomycin HCl 0 ml @ 0 mls/hr UD IV 08/29/24 06:30 Sodium Chloride 10 ml QSHIFT@10,22 IV 08/29/24 22:00 09/05/24 10:00 10 ML Amino Acids 0 ml @ 0 mls/hr PER PHARMACY IV 08/29/24 15:30 Pantoprazole Sodium 40 mg DAILY IV 08/30/24 10:00 09/05/24 10:31 40 MG Amino Acids/ Electrolytes/ Dextrose 1,000 ml @ 41 mls/hr DAILY@2200 IV 08/29/24 22:00 09/04/24 22:07 41 MLS/HR Lorazepam 1 mg Q8HP PRN IV 09/01/24 20:00 09/05/24 00:33 1 MG Vancomycin HCl 100 ml @ 200 mls/hr Q12HR IV 09/02/24 22:00 09/05/24 10:00 200 MLS/HR Hydrocortisone Sodium Succinate 50 mg Q12HR IV 09/02/24 22:00 09/05/24 10:32 50 MG Diagnostic Test (Pha) 1 strip Q6HR 09/03/24 18:00 Cancel Insulin Human Regular FOLLOW SLIDING SCALE Q6HR SC 09/03/24 18:00 Cancel Dextrose 50 ml UD IV 09/03/24 16:45 Cancel Ondansetron HCl 4 mg Q4HPRN PRN IV 09/03/24 23:00 09/04/24 14:38 4 MG Diagnostic Test (Pha) 1 strip Q6HR 09/04/24 12:00 09/05/24 05:56 1 STRIP Insulin Human Regular FOLLOW SLIDING SCALE Q6HR SC 09/04/24 12:00 09/05/24 06:09 2 UNITS Dextrose 50 ml UD IV 09/04/24 12:00 Enteral Nutritional Formula 4 oz BIDWM PO 09/04/24 18:00 09/05/24 08:00 4 OZ Dextrose 1,000 ml @ 60 mls/hr [id number] IV 09/05/24 09:15 09/05/24 10:52 60 MLS/HR laboratory and microbiology Laboratory Tests 09/05/24 03:30 09/05/24 03:02 Test 09/05/24 03:02 Range/Units Serum Glucose 138 H 74-106 mg/dL Date of Service: Sep 05, 2024 Billing Provider: DAYDAY SANDOVAL MD Common Visit Codes: 28601-[id number] CARE 30-74 MIN, 24314-REBUIOBS CARE-EACH +30MIN LUL MENDOZA RESIDENT Sep 05, 2024 10:58 DAYDAY SANDOVAL MD Sep 06, 2024 13:38
[2024-09-05] MEDS ORDERED: LORazepam 2MG/ML-1ML VIAL IV PRN (11:00)
[2024-09-05] MEDS: NOREPINEPHRINE 8 MG/250ML KIT 250 ML IV SCH (11:15)
[2024-09-05] MEDS: POTASSIUM PHOSPHATE 26.4 MEQ in SODIUM CHL 0.9% 100 ML IV ONE (13:22)
[2024-09-05 17:57] LABS: Chloride 113 mmol/L (98-107); Potassium 3.4 mmol/L (3.5-5.1); Sodium 145 mmol/L (136-145)
[2024-09-05 17:58] LABS: Anion Gap 6 (5-15); Carbon Dioxide 26 mmol/L (20-31)
[2024-09-05 17:59] LABS: Calcium 7.8 mg/dL (8.7-10.4)
[2024-09-05 18:03] LABS: BUN/Creatinine Ratio 11.5 (10.0-20.0); Blood Urea Nitrogen 9 mg/dL (9-23)
[2024-09-05 18:07] LABS: Glucose 132 mg/dL (74-106)
[2024-09-06] VITALS (96 sets, daily range): BP systolic 74–137; BP diastolic 31–72; PULSE 44–110; RESP 5–28; TEMP 97.2–98; O2SAT 90–100
[2024-09-06 04:22] LABS: Alkaline Phosphatase 88 U/L (46-116); Anion Gap 6 (5-15); Blood Urea Nitrogen 12 mg/dL (9-23); Carbon Dioxide 28 mmol/L (20-31); Magnesium 1.8 mg/dL (1.6-2.6); Sodium 144 mmol/L (136-145)
[2024-09-06 04:53] LABS: Alanine Aminotransferase 74 U/L (7-40); Albumin 2.5 g/dL (3.2-4.8); Aspartate Aminotransferase 61 U/L (13-40); Bilirubin, Total 0.2 mg/dL (0.2-1.0); Calcium 8.1 mg/dL (8.7-10.4); Chloride 110 mmol/L (98-107); Glucose 128 mg/dL (74-106); Phosphorus 1.8 mg/dL (2.4-5.1); Potassium 3.1 mmol/L (3.5-5.1); Total Protein 4.7 g/dL (5.7-8.2)
[2024-09-06 04:54] LABS: Triglycerides 161 mg/dL (< 150)
--- NOTE | 2024-09-06 08:58 | DVHPNRES ---
Progress Note Date Seen: Sep 06, 2024 Resident Creating Document: LUL MENDOZA RESIDENT Medical Necessity Reason Pt with a Central, PICC or Fol: Yes The following are medically ne: Feliz Catheter Reason for feliz catheter: Strict I&O Objective vital signs Vital Sign Date Time Temp Pulse Resp B/P (MAP) Pulse Ox O2 Delivery O2 Flow Rate FiO2 09/06/24 05:52 16 98 Room Air* 0 21 09/06/24 05:52 58 09/06/24 03:30 97.2 104/40 (61) 97.2 Total Intake and Output 09/05/24 09/05/24 09/06/24 15:00 23:00 07:00 Intake Total 1203.375 ml 1295.50 ml 833.25 ml Output Total 750 ml 1500 ml Balance 1203.375 ml 545.50 ml -666.75 ml medications Current Medications Medications Dose Ordered Sig/Elza Route Start Time Stop Time Status Last Admin Dose Admin Piperacillin Sod/ Tazobactam Sod 100 ml @ 25 mls/hr Q8HR IV 08/29/24 14:00 09/06/24 05:39 25 MLS/HR Sodium Chloride 10 ml QSHIFT@10,22 IV 08/29/24 22:00 09/05/24 21:29 10 ML Amino Acids 0 ml @ 0 mls/hr PER PHARMACY IV 08/29/24 15:30 Pantoprazole Sodium 40 mg DAILY IV 08/30/24 10:00 09/05/24 10:31 40 MG Amino Acids/ Electrolytes/ Dextrose 1,000 ml @ 41 mls/hr DAILY@2200 IV 08/29/24 22:00 09/05/24 20:24 41 MLS/HR Diagnostic Test (Pha) 1 strip Q6HR 09/03/24 18:00 Cancel Insulin Human Regular FOLLOW SLIDING SCALE Q6HR SC 09/03/24 18:00 Cancel Dextrose 50 ml UD IV 09/03/24 16:45 Cancel Ondansetron HCl 4 mg Q4HPRN PRN IV 09/03/24 23:00 09/04/24 14:38 4 MG Diagnostic Test (Pha) 1 strip Q6HR 09/04/24 12:00 09/06/24 05:39 1 STRIP Insulin Human Regular FOLLOW SLIDING SCALE Q6HR SC 09/04/24 12:00 09/05/24 12:39 4 UNITS Dextrose 50 ml UD IV 09/04/24 12:00 Enteral Nutritional Formula 4 oz BIDWM PO 09/04/24 18:00 09/05/24 18:00 4 OZ Dextrose 1,000 ml @ 60 mls/hr [id number] IV 09/05/24 09:15 09/06/24 05:47 60 MLS/HR Norepinephrine Bitartrate 250 ml @ 3.75 mls/hr Q24H IV 09/05/24 11:15 Examination Remains nonverbal, significantly less agitated, watching tv when awake, sleeping most of the day and night. GENERAL:Normal (alert, awake, nonverbal communication continues), HEENT:Normal (Right eye existing lesion POA), NECK:Normal, LUNGS: clear, CVS:Abnormal (Low blood pressure with MAP of 65 on min Levophed off,), ABDOMEN:Normal, MSK:Abnormal (Low muscle mass), SKIN:Normal, NEURO:Abnormal ( has baseline learning disability, Down syndrome and baseline nonverbal), :Normal (On Feliz's catheter) laboratory and microbiology Laboratory Tests 09/06/24 03:27 Test 09/06/24 03:27 Range/Units Serum Glucose 128 H 74-106 mg/dL Microbiology Date/Time Source Procedure Growth Status 08/31/24 00:30 Urine - Feliz Port Urine Culture - Final Complete 08/30/24 17:21 Blood Blood Culture - Final Staphylococcus aureus Complete 08/29/24 11:00 Nose MRSA Screen - Final Complete Labs and/or images reviewed: Labs reviewed by me, Image(s) reviewed by me Problem List/Assessment/Plan Problem List/Assessment/Plan ICU Course: Orlando Christy, a 54-year-old male with Down syndrome, presented to the ED with altered mental status. Over the past four days, he has not eaten, had no bowel movements, and exhibited combative, restless, and screaming behavior, which worsened and led to his ED visit. Due to his clinical status, a review of systems could not be obtained. His past surgical history is negative, family history is noncontributory, and he denies smoking, alcohol, and drug abuse. 08/29 morning patient was found ALOC with increased workup breathing, encephalopathic and primary team updated the patient to ICU status for close monitoring and possible intubation. after careful consideration, poor extubation reserve and poor outcome with no obvious benefits held further intubation but careful aspiration precautions. 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 Overall recent decline prior to the hospitalization and family's inability to help the patient further needs a care for goals of care discussion. Hospitalization day: 11 A. Neurology: # down syndrome with learning disability # baseline nonverbal but conversant to the family as per sister # altered level of consciousness due to metabolic/toxic encephalopathy, change in electrolytes and sodium disorder # Encephalomalacia likely due to underlying Down syndrome # normal pressure hydrocephalus: Noted on noncontrast head CT # Right phthisis bulbi, present on admission # agitation: 1 changed to 0.5 ativan # early onset of dementia ? contributory B. Cardiology: # Septic shock, concurrent hypovolumic shock: now on minimal Levophed support, Close monitoring with maybe target of 65 mm of mercury. Echo unremarkable,morning cortisol unremarkable. titrate down levo as tolerated. # asymptomatic sinus bradycardia with baseline in 40s to 50s without any other conduction abnormalities. continue telemetry avoid lan blockers. C. Respiratory: # acute hypoxic respiratory failure: weaned to room air. resolved. # atelectasis: Also suggested for incentive spirometry q1 patient is not able to follow commands. # possible flash pulmonary edema with possible aspiration pneumonia IV Lasix patient improved. respiratory stable. resolved. # possible obstructive sleep apnea, overnight desaturations can use oxygen, as bipap not feasible, patient is agitated. interval xray this AM unremarkable. improving pulm infection. # aspiration pneumonia present on admission D. Gastrointestinal: # high-risk for aspiration: NPO status to continue aspiration precautions to continue. clinimax. Patient failed swallow eval>>>passed later on pureed diet - ensure high-protein ensure thrice a day. strict aspiration precaution. # mild transaminitis: Improving daily CMP to continue for now # Hepatic steatosis no obvious changes. E. Genitourinary: # patient has indwelling catheter: Close input output keep the patient on Feliz's for now F. Infectious Disease: # Sepsis present on admission # septic shock: Source of respiratory infection secondary to aspiration, lukocytosis resolved, discontinue vancomycin and continue Zosyn for MSSA, as needed Levophed support -repeat blood culture follow up if -ve dc all the abx day 10. as needed iv 250 cc of LR and avoid levophed. # Blood culture growing MSSA in 1/2 on iv levophed. we will try to titrate Levophed with systolic of 90 other than map of 65, as needed small doses of bolus. DC IV steroid . G. Hematology & Oncology: # polycythemia history, questionable not noted on recent CBC # Mild thrombocytopenia>moderate now: Close monitoring lovenox off. recovered pletlets. close follow up. # leukocytosis with predominant neutrophilia: likely due to aspiration pneumonia: Daily CBC and close hemodynamic monitoring. check blood culture. echo -ve for [place] valvular pathology, repeat blood culture pending H. Nephrology: # severe hypernatremia , hypovolemic>> corrected, this am 144 Na, continue oral free water. # severe dehydration: Likely due to poor oral intake, continue IV hydration. Monitor input output. Intravascular fluid status improved, close to euvolemia. check I and O closely. # septic shock : Careful slow fluid replenishment with correction of underlying electrolyte disturbances # ROSLYN likely VMN unknown baseline: Close input output follow up, daily BNP, avoid nephrotoxins, improving renal functions resolved. # Hypomagnesemia: Improved # hypokalemia, recurrent, continue supplementation added, follow bmp. # hypophosphatemia: Replenished recheck in the morning. Correct accordingly. Recheck electrolytes tomorrow I. Endocrine: # Failure to thrive : Needs further evaluation, likely multifactorial , started the patient on Clinimix for nutrition supplement. recheck swallow eval. # severe protein calorie malnutrition with a BMI 15.6>17.0 (likely body water gain), nutritional consult when patient is more clinically stable. continue protein. J. MSK: peripheral pulses, neuro vasculature remains intact. But low muscle mass. difficult to follow him with Physical therapy. K. Prophylaxis: PPI: pantoprazole IV daily DVT Lovenox held, scd on. pletlets improved. L. Lines & Drains (with insertion date): Poor vascular access PICC line placed 08/29. New Feliz's placed on 08/30/2024 M. Drips: off of drips. N. Disposition: Remains in ICU, if remains stable downgrade to floor tomorrow AM. Extensive discussion with the patient's family, sister is a caregiver, on 09/02. Repeat goals of care and further discussion with mother, sister, other family members all agreed to home hospice for based care. Planned called back on 09/06 start arrangement for home hospice and advanced discharge planning. discussed with Dr. Sandoval for home hospice arrangement. Code status: Remains full code, we will continue all aggressive management. Pending code status change tomorrow. Family agreed to have a further discussion over phone. The plan was discussed with the ICU attending Dr. Sandoval. The patient care consists of total 69 minutes of critical care time excluding the procedures. Dictated by Lul Mendoza MD with 3M MModal Fluency. Plan discussed with: Patient, Other (Sister. CHRISTIANA) My Orders My Orders Orders - LUL MENDOZA Procedure Category Date Status Time Norepinephrine 8 PHA 09/06/24 Logged Mg/250ml Kit 08:30 Complete Blood Count LAB 09/06/24 In Process 08:18 Dietary Evaluation Review Comments: 1) Intiate Glucerna bid 2) Promote good PO intake 3) Continue to monitor appetite, labs, and skin integrity Expected Outcomes/Goals: 1) appetite and labs to improve 2) skin to improve 3) f/u in 5 days Date of Service: Sep 07, 2024 Billing Provider: DAYDAY SANDOVAL MD Common Visit Codes: [id number] CARE 30-74 MIN LUL MENDOZA Sep 06, 2024 08:58 DAYDAY SANDOVAL MD Sep 07, 2024 14:55
[2024-09-06 09:07] LABS: Hematocrit 33.7 % (41.0-53.0); Hemoglobin 11.2 g/dL (13.5-17.5); Mean Corpuscular Hemoglobin 32.1 pg (28.0-32.0); Mean Corpuscular Hgb Conc. 33.2 g/dL (32.0-36.0); Mean Corpuscular Volume 96.7 fL (80.0-100.0); Platelet Count (auto) 157 10^3/uL (140-450); Red Blood Cells 3.48 10^6/uL (4.5-5.90); White Blood Cell 5.4 10^3/uL (4.4-10.8)
[2024-09-06 09:22] LABS: Basophils % (manual) 0 (0.0-2.0); Blast Cells 0; Metamyelocytes % 0; Myelocytes % 0; Promyelocytes % 0
[2024-09-06] MEDS: POTASSIUM EFFERVESENT TAB 25 MEQ PO ONE (09:31)
[2024-09-06] MEDS: NOREPINEPHRINE 8 MG/250ML KIT 250 ML IV SCH ×2 (09:50→11:50)
--- NOTE | 2024-09-06 10:50 | DVHPN2 ---
Progress Note Date Seen: Sep 06, 2024 Medical Necessity Reason Pt with a Central, PICC or Fol: Yes The following are medically ne: Feliz Catheter Reason for feliz catheter: Strict I&O Objective vital signs Vital Sign Date Time Temp Pulse Resp B/P (MAP) Pulse Ox O2 Delivery O2 Flow Rate FiO2 09/06/24 09:50 108/47 09/06/24 08:00 16 98 Room Air* 0 21 09/06/24 05:52 58 09/06/24 03:30 97.2 97.2 Total Intake and Output 09/05/24 09/05/24 09/06/24 15:00 23:00 07:00 Intake Total 1203.375 ml 1295.50 ml 833.25 ml Output Total 750 ml 1500 ml Balance 1203.375 ml 545.50 ml -666.75 ml medications Current Medications Medications Dose Ordered Sig/Elza Route Start Time Stop Time Status Last Admin Dose Admin Piperacillin Sod/ Tazobactam Sod 100 ml @ 25 mls/hr Q8HR IV 08/29/24 14:00 09/06/24 05:39 25 MLS/HR Sodium Chloride 10 ml QSHIFT@10,22 IV 08/29/24 22:00 09/05/24 21:29 10 ML Amino Acids 0 ml @ 0 mls/hr PER PHARMACY IV 08/29/24 15:30 Pantoprazole Sodium 40 mg DAILY IV 08/30/24 10:00 09/06/24 09:31 40 MG Amino Acids/ Electrolytes/ Dextrose 1,000 ml @ 41 mls/hr DAILY@2200 IV 08/29/24 22:00 09/05/24 20:24 41 MLS/HR Diagnostic Test (Pha) 1 strip Q6HR 09/03/24 18:00 Cancel Insulin Human Regular FOLLOW SLIDING SCALE Q6HR SC 09/03/24 18:00 Cancel Dextrose 50 ml UD IV 09/03/24 16:45 Cancel Ondansetron HCl 4 mg Q4HPRN PRN IV 09/03/24 23:00 09/04/24 14:38 4 MG Diagnostic Test (Pha) 1 strip Q6HR 09/04/24 12:00 09/06/24 05:39 1 STRIP Insulin Human Regular FOLLOW SLIDING SCALE Q6HR SC 09/04/24 12:00 09/05/24 12:39 4 UNITS Dextrose 50 ml UD IV 09/04/24 12:00 Enteral Nutritional Formula 4 oz BIDWM PO 09/04/24 18:00 09/05/24 18:00 4 OZ Norepinephrine Bitartrate 250 ml @ 3.75 mls/hr Q24H IV 09/06/24 08:30 Examination: GENERAL:Normal, HEENT:Normal, CVS:Normal laboratory and microbiology Laboratory Tests 09/06/24 03:27 Test 09/06/24 03:27 Range/Units Serum Glucose 128 H 74-106 mg/dL Microbiology Date/Time Source Procedure Growth Status 08/31/24 00:30 Urine - Feliz Port Urine Culture - Final Complete 08/30/24 17:21 Blood Blood Culture - Final Staphylococcus aureus Complete 08/29/24 11:00 Nose MRSA Screen - Final Complete Problem List/Assessment/Plan Problem List/Assessment/Plan Acute kidney injury in setting of volume depletion resolved history of Down syndrome toxic metabolic encephalopathy hypernatremia hypokalemia hypophosphatemia free water as needed K-phos IV avoid hypotension replace potassium Andrea has resolved, replace electrytes daily. no further renal recs will sign off Plan discussed with: Patient My Orders My Orders Orders - MANA KNUTSON MD Procedure Category Date Status Time Potassium Phosphate PHA 09/06/24 Verified 11:00 Dietary Evaluation Review Comments: 1) Intiate Glucerna bid 2) Promote good PO intake 3) Continue to monitor appetite, labs, and skin integrity Expected Outcomes/Goals: 1) appetite and labs to improve 2) skin to improve 3) f/u in 5 days MANA KNUTSON MD Sep 06, 2024 10:50
[2024-09-06 11:20] LABS: Band Neutrophils % (manual) 1; Eosinophils % (manual) 1 (0-7); Lymphocytes % (manual) 39 (10.0-50.0); Monocytes % (manual) 14 (0-12); Reactive Lymphocytes 4
[2024-09-06 11:21] LABS: Platelet Estimate Adequate
--- NOTE | 2024-09-06 11:41 | DVH ---
EXAM: XY CHEST PORTABLE Indication: pain Technique: Single frontal view of the chest was obtained Comparison: XY CHEST XRAY 1 VIEW on DOS: 08/29/24, XY CHEST XRAY 1 VIEW on DOS: 08/27/24 FINDINGS: Lines and Tubes: Left PICC tip projects over the cavoatrial junction. Lungs: Diffuse interstitial opacities. Pleura: Trace left pleural effusion. No pneumothorax. Cardiomediastinal contours: Unremarkable Bones: No acute osseous abnormality. IMPRESSION: Diffuse interstitial opacities suggestive of atypical infection or pulmonary edema. Trace left pleura l effusion.
[2024-09-06] MEDS: POTASSIUM PHOSPHATE 22 MEQ in SODIUM CHL 0.9% 100 ML IV ONE (12:01)
[2024-09-06] MEDS: LACTATED RINGER'S 250 ML IV ONE ×2 (14:26→18:24)
[2024-09-06] MEDS: MAGNESIUM SULFATE 1GM/100ML 100 ML IV ONE (15:59)
[2024-09-06] MEDS: Ensure HIGH Protein Chocolate 8oz Bottle PO SCH (21:53)
[2024-09-07] VITALS (94 sets, daily range): BP systolic 56–124; BP diastolic 22–74; PULSE 48–94; RESP 10–27; TEMP 97.3–97.9; O2SAT 95–100
[2024-09-07 05:24] LABS: Hematocrit 41.1 % (41.0-53.0); Hemoglobin 13.5 g/dL (13.5-17.5); Mean Corpuscular Hemoglobin 31.7 pg (28.0-32.0); Mean Corpuscular Hgb Conc. 32.8 g/dL (32.0-36.0); Mean Corpuscular Volume 96.6 fL (80.0-100.0); Platelet Count (auto) 241 10^3/uL (140-450); Red Blood Cells 4.25 10^6/uL (4.5-5.90); Red Cell Distribution Width 14.5 % (11.8-14.3)
[2024-09-07 05:51] LABS: Anion Gap 7 (5-15); Basophils % (manual) 0 (0.0-2.0); Blast Cells 0; Carbon Dioxide 27 mmol/L (20-31); Metamyelocytes % 0; Myelocytes % 0; Promyelocytes % 0; Sodium 144 mmol/L (136-145)
[2024-09-07 05:57] LABS: BUN/Creatinine Ratio 10.5 (10.0-20.0)
[2024-09-07 06:25] LABS: Blood Urea Nitrogen 8 mg/dL (9-23); Calcium 7.8 mg/dL (8.7-10.4); Chloride 110 mmol/L (98-107); Glucose 69 mg/dL (74-106); Potassium 3.4 mmol/L (3.5-5.1)
[2024-09-07 07:50] LABS: Band Neutrophils % (manual) 3; Eosinophils % (manual) 2 (0-7); Lymphocytes % (manual) 50 (10.0-50.0); Monocytes % (manual) 6 (0-12); Platelet Estimate Adequate; Reactive Lymphocytes 1
--- NOTE | 2024-09-07 09:27 | DVHPNRES ---
Progress Note Date Seen: Sep 07, 2024 Resident Creating Document: LUL MENDOZA RESIDENT Medical Necessity Reason Pt with a Central, PICC or Fol: Yes The following are medically ne: Feliz Catheter Reason for feliz catheter: Strict I&O Objective vital signs Vital Sign Date Time Temp Pulse Resp B/P (MAP) Pulse Ox O2 Delivery O2 Flow Rate FiO2 09/07/24 07:30 23 99 Room Air* 0 21 09/07/24 06:47 91/51 09/07/24 06:45 64 09/07/24 04:00 97.9 97.9 Total Intake and Output 09/06/24 09/06/24 09/07/24 15:00 23:00 07:00 Intake Total 964.5 ml 711.500 ml 171.875 ml Output Total 1400 ml 2350 ml Balance 964.5 ml -688.500 ml -2178.125 ml medications Current Medications Medications Dose Ordered Sig/Elza Route Start Time Stop Time Status Last Admin Dose Admin Piperacillin Sod/ Tazobactam Sod 100 ml @ 25 mls/hr Q8HR IV 08/29/24 14:00 09/07/24 06:31 25 MLS/HR Sodium Chloride 10 ml QSHIFT@10,22 IV 08/29/24 22:00 09/06/24 21:53 10 ML Pantoprazole Sodium 40 mg DAILY IV 08/30/24 10:00 09/06/24 09:31 40 MG Diagnostic Test (Pha) 1 strip Q6HR 09/03/24 18:00 Cancel Insulin Human Regular FOLLOW SLIDING SCALE Q6HR SC 09/03/24 18:00 Cancel Dextrose 50 ml UD IV 09/03/24 16:45 Cancel Ondansetron HCl 4 mg Q4HPRN PRN IV 09/03/24 23:00 09/04/24 14:38 4 MG Diagnostic Test (Pha) 1 strip Q6HR 09/04/24 12:00 09/07/24 06:31 1 STRIP Insulin Human Regular FOLLOW SLIDING SCALE Q6HR SC 09/04/24 12:00 09/05/24 12:39 4 UNITS Dextrose 50 ml UD IV 09/04/24 12:00 Norepinephrine Bitartrate 250 ml @ 3.75 mls/hr Q24H IV 09/06/24 11:15 09/06/24 11:50 4.688 MLS/HR Enteral Nutritional Formula 240 ml TIDWM PO 09/06/24 18:00 09/06/24 21:53 240 ML Examination Remains nonverbal, significantly less agitated, watching tv when awake, sleeping most of the day and night. GENERAL:Normal (alert, awake, nonverbal communication continues), HEENT:Normal (Right eye existing lesion POA), NECK:Normal, LUNGS: clear, CVS:Abnormal (Low blood pressure with MAP of 65 on min Levophed off,), ABDOMEN:Normal, MSK:Abnormal (Low muscle mass), SKIN:Normal, NEURO:Abnormal ( has baseline learning disability, Down syndrome and baseline nonverbal), :Normal (On Feliz's catheter) laboratory and microbiology Laboratory Tests 09/07/24 04:10 Test 09/07/24 04:10 Range/Units Serum Glucose 69 L 74-106 mg/dL Microbiology Date/Time Source Procedure Growth Status 09/05/24 16:30 Blood Blood Culture - Preliminary NO GROWTH AFTER 24 HOURS OF INCUBATION. Resulted 08/31/24 00:30 Urine - Feliz Port Urine Culture - Final Complete 08/29/24 11:00 Nose MRSA Screen - Final Complete Labs and/or images reviewed: Labs reviewed by me, Image(s) reviewed by me Problem List/Assessment/Plan Problem List/Assessment/Plan ICU Course: Orlando Christy, a 54-year-old male with Down syndrome, presented to the ED with altered mental status. Over the past four days, he has not eaten, had no bowel movements, and exhibited combative, restless, and screaming behavior, which worsened and led to his ED visit. Due to his clinical status, a review of systems could not be obtained. His past surgical history is negative, family history is noncontributory, and he denies smoking, alcohol, and drug abuse. 08/29 morning patient was found ALOC with increased workup breathing, encephalopathic and primary team updated the patient to ICU status for close monitoring and possible intubation. after careful consideration, poor extubation reserve and poor outcome with no obvious benefits held further intubation but careful aspiration precautions. 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 Overall recent decline prior to the hospitalization and family's inability to help the patient further needs a care for goals of care discussion. Hospitalization day: 13 A. Neurology: # down syndrome with learning disability # baseline nonverbal but conversant to the family as per sister # altered level of consciousness due to metabolic/toxic encephalopathy, change in electrolytes and sodium disorder # Encephalomalacia likely due to underlying Down syndrome # normal pressure hydrocephalus: Noted on noncontrast head CT # Right phthisis bulbi, present on admission # agitation: 1 changed to 0.5 ativan as needed # early onset of dementia ? contributory B. Cardiology: # Septic shock, concurrent hypovolumic shock: now on minimal Levophed support, Close monitoring with maybe target of 90 mm of mercury for systolic. Echo unremarkable,morning cortisol unremarkable. titrate down levo as tolerated. a dded midodrine 5 tid # asymptomatic sinus bradycardia with baseline in 40s to 50s without any other conduction abnormalities. continue telemetry avoid lan blockers. C. Respiratory: # acute hypoxic respiratory failure: weaned to room air. resolved. # atelectasis: Also suggested for incentive spirometry q1 patient is not able to follow commands. # possible flash pulmonary edema with possible aspiration pneumonia IV Lasix patient improved. respiratory stable. resolved. # possible obstructive sleep apnea, overnight desaturations can use oxygen, as bipap not feasible, patient is agitated. interval xray this AM unremarkable. improving pulm infection. added iv cefazolin to zosyn. # aspiration pneumonia present on admission, aspiration precautions. D. Gastrointestinal: # high-risk for aspiration: Patient failed swallow eval>>>passed later on pureed diet -ensure high-protein ensure thrice a day. strict aspiration precaution. # mild transaminitis:trend daily CMP, improved. # Hepatic steatosis no obvious changes. E. Genitourinary: # patient has indwelling catheter: Close input output keep the patient on Feliz's for now F. Infectious Disease: # Sepsis present on admission # septic shock: Source of respiratory infection secondary to aspiration, lukocytosis resolved, discontinue vancomycin and continue Zosyn for MSSA, as needed Levophed support -repeat blood culture follow up if -ve dc all the abx day 10. as needed iv 250 cc of LR and avoid levophed added midodrine # Blood culture growing MSSA in 1/2 on iv levophed. we will try to titrate Levophed with systolic of 90 other than map of 65, as needed small doses of bolus. DC IV steroid . G. Hematology & Oncology: # polycythemia history, questionable not noted on recent CBC # Mild thrombocytopenia>moderate now: Close monitoring lovenox off. recovered pletlets. close follow up. # leukocytosis with predominant neutrophilia: likely due to aspiration pneumonia: Daily CBC and close hemodynamic monitoring. check blood culture. echo -ve for [place] valvular pathology, repeat blood culture -ve so far. H. Nephrology: # severe hypernatremia , hypovolemic>> corrected, this am 144 Na, continue oral free water. no further D5W% # severe dehydration: Likely due to poor oral intake, continue IV hydration. Monitor input output. Intravascular fluid status improved, close to euvolemia. check I and O closely. # septic shock : Careful slow fluid replenishment with correction of underlying electrolyte disturbances # ROSLYN likely VMN unknown baseline: Close input output follow up, daily BNP, avoid nephrotoxins, improving renal functions resolved. # Hypomagnesemia: Improved # hypokalemia, recurrent, continue supplementation added, follow bmp. # hypophosphatemia: Replenished recheck in the morning. Correct accordingly. Recheck electrolytes tomorrow # yet to rule out central DI. I. Endocrine: # Failure to thrive : Needs further evaluation, likely multifactorial , started the patient on Clinimix for nutrition supplement. recheck swallow eval. # severe protein calorie malnutrition with a BMI 15.6>17.0 (likely body water gain), nutritional consult when patient is more clinically stable. continue protein. IV albumin for temporary support with oncotic pressure. J. MSK: peripheral pulses, neuro vasculature remains intact. But low muscle mass. difficult to follow him with Physical therapy. K. Prophylaxis: PPI: pantoprazole IV daily DVT Lovenox held, scd on. pletlets improved. L. Lines & Drains (with insertion date): Poor vascular access PICC line placed 08/29. [place] Feliz's placed on 08/30/2024 M. Drips: off of drips. as needed levophed. N. Disposition: Remains in ICU, if remains stable downgrade to floor tomorrow AM. Extensive discussion with the patient's family, sister is a caregiver, on 09/02. home hospice and advanced discharge planning. discussed with Dr. Sandoval for home hospice arrangement. Code status: Remains full code, we will continue all aggressive management. Pending code status change. Family agreed to have a further discussion over phone. The plan was discussed with the ICU attending Dr. Sandoval. The patient care consists of total 61 minutes of critical care time excluding the procedures. Dictated by Lul Mendoza MD with 3M MModal Fluency. Plan discussed with: Patient, Other My Orders My Orders Orders - LUL MENDOZA RESIDENT Procedure Category Date Status Time Chest Portable XY 09/06/24 Resulted 09:20 Norepinephrine 8 PHA 09/06/24 In Process Mg/250ml Kit 11:15 Nutritional PHA 09/06/24 In Process Supplements (Ensure 18:00 Phosphorus LAB 09/07/24 In Process 08:56 Magnesium LAB 09/07/24 In Process 08:56 Osmolality Urine LAB 09/07/24 Logged 08:56 Urine Sodium LAB 09/07/24 Logged 08:56 Urine Potassium LAB 09/07/24 Logged 08:56 Urine Creatinine LAB 09/07/24 Logged 08:56 Albumin 25% (Albutein) PHA 09/07/24 In Process 09:00 Lactated Ringer's PHA 09/07/24 In Process 09:00 Dietary Evaluation Review Comments: 1) Intiate Glucerna bid 2) Promote good PO intake 3) Continue to monitor appetite, labs, and skin integrity Expected Outcomes/Goals: 1) appetite and labs to improve 2) skin to improve 3) f/u in 5 days Laboratory Results Laboratory Tests 09/07/24 04:10 Chemistry Test 09/07/24 04:10 Calcium Level 7.8 mg/dL (8.7-10.4) L Magnesium Level 2.4 mg/dL (1.6-2.6) Phosphorus Level 2.3 mg/dL (2.4-5.1) L Urinalysis Test 08/27/24 09:25 09/07/24 10:17 Urine Color Yellow (Yellow) Urine Clarity Turbid (Clear) H Urine pH 5.0 (5.0-9.0) Urine Specific [place] 1.029 (1.001-1.035) Urine Protein Trace (Negative) H Urine Ketones Negative (Negative) Urine Blood Negative /uL (Negative) Urine Nitrite Negative (Negative) Urine Bilirubin Negative (Negative) Urine Urobilinogen Normal mg/dL (Negative) Urine Leukocyte Esterase Negative /uL (Negative) Urine RBC 3 /hpf (0 - 3) Urine Microscopic WBC 4 /HPF (0-3) H Urine Squamous Epithelial Cells None seen /hpf (<5) Urine Uric Acid Crystals Few /hpf (None Seen) Urine Bacteria Few /hpf (None Seen) H Urine Glucose Normal mg/dL (Normal) Urine Osmolality Pending Urine Creatinine 34.64 mg/dL (30.0-125.0) Urine Sodium 148 mmol/L (40-220) Urine Potassium 12 mmol/L (12-62) Microbiology Microbiology Date/Time Source Procedure Growth Status 09/05/24 16:30 Blood Blood Culture - Preliminary NO GROWTH AFTER 24 HOURS OF INCUBATION. Resulted 08/31/24 00:30 Urine - Feliz Port Urine Culture - Final Complete 08/29/24 11:00 Nose MRSA Screen - Final Complete vital signs Vital Sign Date Time Temp Pulse Resp B/P (MAP) Pulse Ox O2 Delivery O2 Flow Rate FiO2 09/07/24 11:22 83/39 09/07/24 09:45 57 18 96 09/07/24 09:30 Room Air* 0 21 09/07/24 07:30 97.6 97.6 Total Intake and Output 09/06/24 09/06/24 09/07/24 15:00 23:00 07:00 Intake Total 964.5 ml 711.500 ml 171.875 ml Output Total 1400 ml 2350 ml Balance 964.5 ml -688.500 ml -2178.125 ml medications Current Medications Medications Dose Ordered Sig/Elza Route Start Time Stop Time Status Last Admin Dose Admin Piperacillin Sod/ Tazobactam Sod 100 ml @ 25 mls/hr Q8HR IV 08/29/24 14:00 09/07/24 06:31 25 MLS/HR Sodium Chloride 10 ml QSHIFT@10,22 IV 08/29/24 22:00 09/07/24 10:41 10 ML Pantoprazole Sodium 40 mg DAILY IV 08/30/24 10:00 09/07/24 09:40 40 MG Diagnostic Test (Pha) 1 strip Q6HR 09/03/24 18:00 Cancel Insulin Human Regular FOLLOW SLIDING SCALE Q6HR SC 09/03/24 18:00 Cancel Dextrose 50 ml UD IV 09/03/24 16:45 Cancel Ondansetron HCl 4 mg Q4HPRN PRN IV 09/03/24 23:00 09/04/24 14:38 4 MG Diagnostic Test (Pha) 1 strip Q6HR 09/04/24 12:00 09/07/24 06:31 1 STRIP Insulin Human Regular FOLLOW SLIDING SCALE Q6HR SC 09/04/24 12:00 09/05/24 12:39 4 UNITS Dextrose 50 ml UD IV 09/04/24 12:00 Norepinephrine Bitartrate 250 ml @ 3.75 mls/hr Q24H IV 09/06/24 11:15 09/06/24 11:50 4.688 MLS/HR Enteral Nutritional Formula 240 ml TIDWM PO 09/06/24 18:00 09/07/24 09:30 240 ML laboratory and microbiology Laboratory Tests 09/07/24 04:10 Test 09/07/24 04:10 Range/Units Serum Glucose 69 L 74-106 mg/dL Date of Service: Sep 07, 2024 Billing Provider: DAYDAY SANDOVAL MD Common Visit Codes: [id number] CARE 30-74 MIN LUL MENDOZA RESIDENT Sep 07, 2024 09:27 DAYDAY SANDOVAL MD Sep 08, 2024 12:28
[2024-09-07 09:28] LABS: Magnesium 2.4 mg/dL (1.6-2.6)
[2024-09-07 09:35] LABS: Phosphorus 2.3 mg/dL (2.4-5.1)
[2024-09-07] MEDS: LACTATED RINGER'S 500 ML IV ONE (09:37)
[2024-09-07] MEDS: ALBUMIN 25% 50 ML IV ONE (10:40)
[2024-09-07 11:21] LABS: Creatinine, Urine 34.64 mg/dL (30.0-125.0)
[2024-09-07] MEDS: POTASSIUM EFFERVESENT TAB 25 MEQ GT ONE (11:52)
[2024-09-07] MEDS: MIDODRINE HCL 10 MG TAB PO SCH (13:18)
[2024-09-07] MEDS: POTASSIUM PHOSPHATE 22 MEQ in SODIUM CHL 0.9% 100 ML IV ONE (13:42)
[2024-09-07] MEDS: ceFAZolin 1GM/50ML 50 ML IV SCH (21:50)
[2024-09-08] VITALS (96 sets, daily range): BP systolic 61–148; BP diastolic 24–76; PULSE 46–169; RESP 8–25; TEMP 97.7–98.7; O2SAT 89–100
--- NOTE | 2024-09-08 09:28 | DVHPNRES ---
Progress Note Date Seen: Sep 08, 2024 Resident Creating Document: LUL MENDOZA RESIDENT Medical Necessity Reason Pt with a Central, PICC or Fol: Yes The following are medically ne: Feliz Catheter Reason for feliz catheter: Strict I&O Subjective Review of Systems -Overnight patient is afebrile, hemodynamically stable, sinus rhythm baseline 50s to 60s, remains in the room air, overnight continues to have Levophed support to keep the map over 65. -Patient continues to have large amount of urine output 10/09/2074, all workup for central DI negative, could be polyuric phase of ROSLYN, fluid challenge this morning. -patient remains on cefazolin/Ancef 8 QVAR, Zosyn DC, poor oral intake, otherwise unremarkable. -no change in mental status otherwise. Cultures so far negative, repeat blood culture free of Staphylococcus aureus/MSSA Patient reports: Feels better Changes from previous H/P or p: No Changes Objective vital signs Vital Sign Date Time Temp Pulse Resp B/P (MAP) Pulse Ox O2 Delivery O2 Flow Rate FiO2 09/08/24 08:13 93/54 09/08/24 06:45 63 20 97 09/08/24 06:00 Room Air* 0 21 09/08/24 04:00 98.7 98.7 Total Intake and Output 09/07/24 09/07/24 09/08/24 15:00 23:00 07:00 Intake Total 1281.270 ml 888.64 ml 392.250 ml Output Total 1600 ml 1775 ml Balance 1281.270 ml -711.36 ml -1382.750 ml medications Current Medications Medications Dose Ordered Sig/Elza Route Start Time Stop Time Status Last Admin Dose Admin Sodium Chloride 10 ml QSHIFT@10,22 IV 08/29/24 22:00 09/08/24 08:58 10 ML Pantoprazole Sodium 40 mg DAILY IV 08/30/24 10:00 09/07/24 09:40 40 MG Diagnostic Test (Pha) 1 strip Q6HR 09/03/24 18:00 Cancel Insulin Human Regular FOLLOW SLIDING SCALE Q6HR SC 09/03/24 18:00 Cancel Dextrose 50 ml UD IV 09/03/24 16:45 Cancel Ondansetron HCl 4 mg Q4HPRN PRN IV 09/03/24 23:00 09/08/24 01:21 4 MG Diagnostic Test (Pha) 1 strip Q6HR 09/04/24 12:00 09/08/24 05:55 1 STRIP Insulin Human Regular FOLLOW SLIDING SCALE Q6HR SC 09/04/24 12:00 09/05/24 12:39 4 UNITS Dextrose 50 ml UD IV 09/04/24 12:00 Norepinephrine Bitartrate 250 ml @ 3.75 mls/hr Q24H IV 09/06/24 11:15 09/08/24 08:13 15 MLS/HR Enteral Nutritional Formula 240 ml TIDWM PO 09/06/24 18:00 09/08/24 08:00 240 ML Cefazolin Sodium 50 ml @ 100 mls/hr Q8HR IV 09/07/24 22:00 09/08/24 05:40 100 MLS/HR Lactated Ringer's 1,000 ml @ 150 mls/hr Q6H40M IV 09/08/24 09:30 UNV Examination Remains nonverbal, significantly less agitated, watching tv when awake, sleeping most of the day and night. GENERAL:Normal (alert, awake, nonverbal communication continues), HEENT:Normal (Right eye existing lesion POA), NECK:Normal, LUNGS: clear, CVS:Abnormal (Low blood pressure but hemodynamically stable, Levophed off,), ABDOMEN:Normal, MSK:Abnormal (Low muscle mass), SKIN:Normal, NEURO:Abnormal ( has baseline learning disability, Down syndrome and baseline nonverbal), :Normal (On Feliz's catheter) comfortable and playing with his osman bear. laboratory and microbiology Laboratory Tests 09/07/24 04:10 Test 09/07/24 04:10 Range/Units Serum Glucose 69 L 74-106 mg/dL Microbiology Date/Time Source Procedure Growth Status 09/05/24 16:30 Blood Blood Culture - Preliminary NO GROWTH AFTER 48 HOURS OF INCUBATION. Resulted 08/31/24 00:30 Urine - Feliz Port Urine Culture - Final Complete 08/29/24 11:00 Nose MRSA Screen - Final Complete Labs and/or images reviewed: Labs reviewed by me, Image(s) reviewed by me Problem List/Assessment/Plan Problem List/Assessment/Plan ICU Course: Orlando Christy, a 54-year-old male with Down syndrome, presented to the ED with altered mental status. Over the past four days, he has not eaten, had no bowel movements, and exhibited combative, restless, and screaming behavior, which worsened and led to his ED visit. Due to his clinical status, a review of systems could not be obtained. His past surgical history is negative, family history is noncontributory, and he denies smoking, alcohol, and drug abuse. 08/29 morning patient was found ALOC with increased workup breathing, encephalopathic and primary team updated the patient to ICU status for close monitoring and possible intubation. after careful consideration, poor extubation reserve and poor outcome with no obvious benefits held further intubation but careful aspiration precautions. 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 Overall recent decline prior to the hospitalization and family's inability to help the patient further needs a care for goals of care discussion drove change of code status to Do Not Resuscitate as of 5:40 pm of 09/08/2024. Hospitalization day: 14 A. Neurology: # down syndrome with learning disability # baseline nonverbal but conversant to the family as per sister # altered level of consciousness due to metabolic/toxic encephalopathy, change in electrolytes and sodium disorder # Encephalomalacia likely due to underlying Down syndrome # normal pressure hydrocephalus: Noted on noncontrast head CT # Right phthisis bulbi, present on admission # agitation: 1 changed to 0.5 ativan as needed # early onset of dementia ? contributory B. Cardiology: # Septic shock, concurrent hypovolumic shock: now on minimal Levophed support, Close monitoring with maybe target of 90 mm of mercury for systolic. Echo unremarkable,morning cortisol unremarkable. titrate down levo as tolerated. a dded midodrine 5 tid # asymptomatic sinus bradycardia with baseline in 40s to 50s without any other conduction abnormalities. continue telemetry avoid lan blockers. C. Respiratory: # acute hypoxic respiratory failure: weaned to room air. resolved. # atelectasis: Also suggested for incentive spirometry q1 patient is not able to follow commands. # possible flash pulmonary edema with possible aspiration pneumonia IV Lasix patient improved. respiratory stable. resolved. # possible obstructive sleep apnea bipap not feasible, patient gets agitated # aspiration pneumonia present on admission, aspiration precautions. D. Gastrointestinal: # high-risk for aspiration: ensure high-protein ensure thrice a day. strict aspiration precaution. # mild transaminitis, improved. # Hepatic steatosis no obvious changes. E. Genitourinary: # patient has indwelling catheter: Close input output keep the patient on Feliz's for now F. Infectious Disease: # Sepsis present on admission # septic shock: Source of respiratory infection secondary to aspiration, lukocytosis resolved, discontinue vancomycin and continue Zosyn for MSSA, as needed Levophed support -repeat blood culture follow up if -ve dc all the abx day 10. as needed iv 250 cc of LR and avoid levophed added midodrine # Bacteremia MSSA in 1/2 repeat culture -ve G. Hematology & Oncology: # polycythemia history, questionable not noted on recent CBC # Mild thrombocytopenia>moderate now: Close monitoring Lovenox off. recovered pletlets. close follow up. # leukocytosis with predominant neutrophilia: likely due to aspiration pneumonia H. Nephrology: # severe hypernatremia , hypovolemic>> corrected # severe dehydration: Likely due to poor oral intake, continue IV hydration. Monitor input output. Intravascular fluid status improved, close to euvolemia. # septic shock : Careful slow fluid replenishment with correction of underlying electrolyte disturbances # ROSLYN likely VMN unknown baseline: Close input output follow up, daily BNP, avoid nephrotoxins, improving renal functions resolved. # Hypomagnesemia: Improved # hypokalemia, resolved. # hypophosphatemia: Replenished recheck in the morning. Correct accordingly. Recheck electrolytes tomorrow # Ruled out central DI. I. Endocrine: # Failure to thrive continue dietary supplement. # severe protein calorie malnutrition with a BMI 15.6>17.0 s/p IV albumin for temporary support with oncotic pressure continue oral protein. J. MSK: peripheral pulses, neuro vasculature remains intact. But low muscle mass. difficult to follow him with Physical therapy. K. Prophylaxis: PPI: pantoprazole IV daily DVT Lovenox held, scd on. pletlets improved. L. Lines & Drains (with insertion date): Poor vascular access PICC line placed 08/29. New Feliz's placed on 08/30/2024 M. Drips: off of drips. N. Disposition: O. Code Status: In the presence of two nursing staff, patient is change to do not resuscitate code status and the code status document is signed at 5:40 p.m. this afternoon of 09/08 in details with POA sister. Document in file and a copy will be shared to the family at discharge. Remains in ICU, we will be discharged tomorrow home with home hospice. To be discharged home with transport in a.m. of 09/09/2024. The plan was discussed with the ICU attending Dr. Sandoval. The patient care consists of total 53 minutes of critical care time excluding the procedures. Dictated by Lul Mendoza MD with 3M MModal Fluency. Plan discussed with: Patient, Other (primary team RN, sister (LILY)) My Orders My Orders Orders - LUL MENDOZA RESIDENT Procedure Category Date Status Time Midodrine Tablet PHA 09/07/24 In Process (Proamatine Tablet) 12:00 Complete Blood Count LAB 09/08/24 Logged 08:53 Basic Metabolic Panel LAB 09/08/24 Logged 08:53 Magnesium LAB 09/08/24 Logged 08:53 Phosphorus LAB 09/08/24 Logged 08:53 Lactated Ringer's PHA 09/08/24 In Process 09:00 Lactated Ringer's PHA 09/08/24 Logged 09:30 Midodrine Tablet PHA 09/08/24 Transmitted (Proamatine Tablet) 12:00 Dietary Evaluation Review Comments: 1) Intiate Glucerna bid 2) Promote good PO intake 3) Continue to monitor appetite, labs, and skin integrity Expected Outcomes/Goals: 1) appetite and labs to improve 2) skin to improve 3) f/u in 5 days Labs/Diagnostic Data Laboratory Tests Test 09/08/24 05:55 09/07/24 23:36 09/07/24 17:53 09/07/24 11:48 Range/Units POC Glucose 113 H 105 118 H 104 70-106 mg/dl Test 09/07/24 10:17 Range/Units Urine Osmolality 426 mOsm/kg Urine Creatinine 34.64 30.0-125.0 mg/dL Urine Sodium 148 40-220 mmol/L Urine Potassium 12 12-62 mmol/L Microbiology Date/Time Source Procedure Growth Status 09/05/24 16:30 Blood Blood Culture - Preliminary NO GROWTH AFTER 48 HOURS OF INCUBATION. Resulted 08/31/24 00:30 Urine - Feliz Port Urine Culture - Final Complete 08/29/24 11:00 Nose MRSA Screen - Final Complete vital signs Vital Sign Date Time Temp Pulse Resp B/P (MAP) Pulse Ox O2 Delivery O2 Flow Rate FiO2 09/08/24 08:13 93/54 09/08/24 06:45 63 20 97 09/08/24 06:00 Room Air* 0 21 09/08/24 04:00 98.7 98.7 Total Intake and Output 09/07/24 09/07/24 09/08/24 15:00 23:00 07:00 Intake Total 1281.270 ml 888.64 ml 392.250 ml Output Total 1600 ml 1775 ml Balance 1281.270 ml -711.36 ml -1382.750 ml medications Current Medications Medications Dose Ordered Sig/Elza Route Start Time Stop Time Status Last Admin Dose Admin Sodium Chloride 10 ml QSHIFT@10,22 IV 08/29/24 22:00 09/08/24 08:58 10 ML Pantoprazole Sodium 40 mg DAILY IV 08/30/24 10:00 09/07/24 09:40 40 MG Diagnostic Test (Pha) 1 strip Q6HR 09/03/24 18:00 Cancel Insulin Human Regular FOLLOW SLIDING SCALE Q6HR SC 09/03/24 18:00 Cancel Dextrose 50 ml UD IV 09/03/24 16:45 Cancel Ondansetron HCl 4 mg Q4HPRN PRN IV 09/03/24 23:00 09/08/24 01:21 4 MG Diagnostic Test (Pha) 1 strip Q6HR 09/04/24 12:00 09/08/24 05:55 1 STRIP Insulin Human Regular FOLLOW SLIDING SCALE Q6HR SC 09/04/24 12:00 09/05/24 12:39 4 UNITS Dextrose 50 ml UD IV 09/04/24 12:00 Norepinephrine Bitartrate 250 ml @ 3.75 mls/hr Q24H IV 09/06/24 11:15 09/08/24 08:13 15 MLS/HR Enteral Nutritional Formula 240 ml TIDWM PO 09/06/24 18:00 09/08/24 08:00 240 ML Cefazolin Sodium 50 ml @ 100 mls/hr Q8HR IV 09/07/24 22:00 09/08/24 05:40 100 MLS/HR Lactated Ringer's 1,000 ml @ 150 mls/hr Q6H40M IV 09/08/24 09:30 UNV laboratory and microbiology Laboratory Tests 09/07/24 04:10 Test 09/07/24 04:10 Range/Units Serum Glucose 69 L 74-106 mg/dL Date of Service: Sep 08, 2024 Billing Provider: DAYDAY SANDOVAL MD Common Visit Codes: [id number] CARE 30-74 MIN KELLYLUL RESIDENT Sep 08, 2024 09:28 DAYDAY SANDOVAL MD Sep 11, 2024 16:38
[2024-09-08] MEDS: LACTATED RINGER'S 1,000 ML IV SCH (09:30)
[2024-09-08 10:01] LABS: Anion Gap 6 (5-15); Carbon Dioxide 29 mmol/L (20-31); Chloride 107 mmol/L (98-107); Potassium 3.7 mmol/L (3.5-5.1); Sodium 142 mmol/L (136-145)
[2024-09-08 10:05] LABS: Calcium 7.6 mg/dL (8.7-10.4)
[2024-09-08 10:09] LABS: Phosphorus 2.7 mg/dL (2.4-5.1)
[2024-09-08 10:13] LABS: Basophils # (auto) 0 10 ^3/uL (0-0.2); Basophils % (auto) 0.6 % (0.0-2.0); Eosinophils # (auto) 0.1 10 ^3/uL (0-0.8); Eosinophils % (auto) 2.6 % (0.0-7.0); Hematocrit 36.3 % (41.0-53.0); Hemoglobin 12.2 g/dL (13.5-17.5); Lymphocytes # (auto) 1.7 10 ^3/uL (0.4-5.4); Lymphocytes % (auto) 30.4 % (10.0-50.0); Mean Corpuscular Hemoglobin 32.5 pg (28.0-32.0); Mean Corpuscular Hgb Conc. 33.8 g/dL (32.0-36.0); Mean Corpuscular Volume 96.2 fL (80.0-100.0); Monocytes # (auto) 0.7 10 ^3/uL (0-1.3); Monocytes % (auto) 11.7 % (0.0-12.0); Neutrophils % (auto) 54.7 % (37.0-80.0); Nucleated Red Blood Cells % 0.1 %; Platelet Count (auto) 296 10^3/uL (140-450); Red Blood Cells 3.77 10^6/uL (4.5-5.90); Red Cell Distribution Width 14.5 % (11.8-14.3); White Blood Cell 5.6 10^3/uL (4.4-10.8)
[2024-09-08] MEDS: LACTATED RINGER'S 500 ML IV ONE (10:13)
[2024-09-08 10:15] LABS: Glucose 170 mg/dL (74-106)
[2024-09-08 10:48] LABS: Magnesium 2.2 mg/dL (1.6-2.6)
[2024-09-08 12:20] LABS: BUN/Creatinine Ratio 9.7 (10.0-20.0); Blood Urea Nitrogen 9 mg/dL (9-23)
[2024-09-08] MEDS: MIDODRINE HCL 10 MG TAB PO SCH (14:27)
[2024-09-09] VITALS (57 sets, daily range): BP systolic 72–152; BP diastolic 16–66; PULSE 43–86; RESP 10–22; TEMP 97.3; O2SAT 76–100
--- NOTE | 2024-09-09 07:53 | DVHDSRES ---
Discharge Summary Date of Admission Resident Creating Document: RAMIREZ MENDOZA RESIDENT Aug 27, 2024 at 01:07 Date of Discharge: Sep 09, 2024 Admitting Diagnosis Septic shock, altered level of consciousness, respiratory failure Labs/Diagnostic Data: Laboratory Results Test 09/08/24 17:17 09/08/24 09:32 09/07/24 10:17 09/07/24 04:10 POC Glucose 90 mg/dl (70-106) White Blood Count 5.6 10^3/uL (4.4-10.8) Red Blood Count 3.77 10^6/uL (4.5-5.90) Hemoglobin 12.2 g/dL (13.5-17.5) Hematocrit 36.3 % (41.0-53.0) Mean Corpuscular Volume 96.2 fL (80.0-100.0) Mean Corpuscular Hemoglobin 32.5 pg (28.0-32.0) Mean Corpuscular Hemoglobin Concent 33.8 g/dL (32.0-36.0) Red Cell Distribution Width 14.5 % (11.8-14.3) Platelet Count 296 10^3/uL (140-450) Mean Platelet Volume 8.7 fL (6.9-10.8) Neutrophils (%) (Auto) 54.7 % (37.0-80.0) Lymphocytes (%) (Auto) 30.4 % (10.0-50.0) Monocytes (%) (Auto) 11.7 % (0.0-12.0) Eosinophils (%) (Auto) 2.6 % (0.0-7.0) Basophils (%) (Auto) 0.6 % (0.0-2.0) Neutrophils # (Auto) 3.0 10 ^3/uL (1.6-8.6) Lymphocytes # (Auto) 1.7 10 ^3/uL (0.4-5.4) Monocytes # (Auto) 0.7 10 ^3/uL (0-1.3) Eosinophils # (Auto) 0.1 10 ^3/uL (0-0.8) Basophils # (Auto) 0 10 ^3/uL (0-0.2) Nucleated Red Blood Cells 0.1 % Sodium Level 142 mmol/L (136-145) Potassium Level 3.7 mmol/L (3.5-5.1) Chloride Level 107 mmol/L (98-107) Carbon Dioxide Level 29 mmol/L (20-31) Anion Gap 6 (5-15) Blood Urea Nitrogen 9 mg/dL (9-23) Creatinine 0.93 mg/dL (0.700-1.30) Glomerular Filtration Rate Calc 97 mL/min (>90) BUN/Creatinine Ratio 9.7 (10.0-20.0) Serum Glucose 170 mg/dL (74-106) Calcium Level 7.6 mg/dL (8.7-10.4) Phosphorus Level 2.7 mg/dL (2.4-5.1) Magnesium Level 2.2 mg/dL (1.6-2.6) Urine Osmolality 426 mOsm/kg Urine Creatinine 34.64 mg/dL (30.0-125.0) Urine Sodium 148 mmol/L (40-220) Urine Potassium 12 mmol/L (12-62) Differential Total Cells Counted 100.0 (100) Neutrophils % (Manual) 38 (37.0-80.0) Band Neutrophils % (Manual) 3 Lymphocytes % (Manual) 50 (10.0-50.0) Monocytes % (Manual) 6 (0-12) Eosinophils % (Manual) 2 (0-7) Basophils % (Manual) 0 (0.0-2.0) Metamyelocytes % (manual) 0 Myelocytes % (Manual) 0 Promyelocytes % (Manual) 0 Blast Cells % (Manual) 0 Reactive Lymphocytes 1 Platelet Estimate Adequate Serum Osmolality 297 mOsm/kg (278-298) Test 09/06/24 03:27 09/05/24 10:28 09/05/24 03:30 09/03/24 19:44 Total Bilirubin 0.2 mg/dL (0.2-1.0) Aspartate Amino Transferase (AST) 61 U/L (13-40) Alanine Aminotransferase (ALT) 74 U/L (7-40) Alkaline Phosphatase 88 U/L (46-116) Total Protein 4.7 g/dL (5.7-8.2) Albumin 2.5 g/dL (3.2-4.8) Triglycerides Level 161 mg/dL (< 150) Vancomycin Level Trough 9.6 ug/mL (5-10) Red Blood Cell Morphology Normal Stool Occult Blood Negative (Negative) Stool Occult Blood Sample #3 (Negative) Test 09/02/24 03:20 08/31/24 07:55 08/29/24 08:13 08/29/24 08:09 Estimated GFR () 120 mL/min Estimated GFR (Non- 99 mL/min Cortisol AM Sample 24.28 ug/dL (5.27-22.45) Influenza Type A Antigen Negative (Negative) Influenza Type B Antigen Negative (Negative) SARS-CoV-2 Antigen (Rapid) Negative (NEGATIVE) Blood Gas Specimen Type Arterial Blood Gas Sample Site Left radial Blood Gas Patient Temperature 37.0 Arterial Blood Date Drawn [id number] Arterial Blood pH 7.379 (7.350-7.450) Arterial Blood Partial Pressure CO2 35.7 mmHg (35.0-48.0) Arterial Blood Partial Pressure O2 71.6 mmHg (83.0-108.0) Arterial Blood HCO3 20.6 mmol/L (21.0-28.0) Arterial Blood Oxygen Saturation 94.4 % (94.0-98.0) Arterial Blood Base Excess -3.8 mmol/L (-2.0-3.0) Arterial Blood Oxyhemoglobin 93.2 % (94.0-98.0) Arterial Blood Carboxyhemoglobin 1.0 % (0.5-1.5) Arterial Blood Methemoglobin 0.3 % (0.0-1.5) Jeff Test Yes Blood Gas Total Hemoglobin 15.50 g/dL (13.5-17.5) Blood Gas Liter Flow 5.00 Blood Gas Modality Oxymizer FiO2 % 46.0 Test 08/29/24 04:24 08/27/24 09:25 08/27/24 04:33 08/26/24 23:09 Direct Bilirubin 0.3 mg/dL (<0.3) Urine Color Yellow (Yellow) Urine Clarity Turbid (Clear) Urine pH 5.0 (5.0-9.0) Urine Specific [place] 1.029 (1.001-1.035) Urine Protein Trace (Negative) Urine Ketones Negative (Negative) Urine Blood Negative /uL (Negative) Urine Nitrite Negative (Negative) Urine Bilirubin Negative (Negative) Urine Urobilinogen Normal mg/dL (Negative) Urine Leukocyte Esterase Negative /uL (Negative) Urine RBC 3 /hpf (0 - 3) Urine Microscopic WBC 4 /HPF (0-3) Urine Squamous Epithelial Cells None seen /hpf (<5) Urine Uric Acid Crystals Few /hpf (None Seen) Urine Bacteria Few /hpf (None Seen) Urine Glucose Normal mg/dL (Normal) Urine Opiates Screen Neg (NEGATIVE) Urine Fentanyl Screen Neg (NEGATIVE) Urine Barbiturates Screen Neg (NEGATIVE) Urine Phencyclidine Screen Neg (NEGATIVE) Urine Amphetamines Screen Neg (NEGATIVE) Urine Benzodiazepines Screen Pos (NEGATIVE) Urine Cocaine Screen Neg (NEGATIVE) Urine Cannabinoids Screen Neg (NEGATIVE) Prothrombin Time 12.4 sec (9.3-11.8) Prothrombin Time INR 1.19 (0.9-1.15) Activated Partial Thromboplast Time 25.0 SEC (24.5-34.5) Hemoglobin A1c 5.6 % A1C (<5.7) Lactic Acid Level 1.3 mmol/L (0.4-2.0) Ammonia 23 umol/L (11-32) B-Type Natriuretic Peptide 44.81 pg/mL (0-100) Thyroid Stimulating Hormone (TSH) 3.59 uIU/mL (0.55-4.78) Salicylates Level < 3.0 mg/dL (-30) Acetaminophen Level < 2.0 UG/ML (10.0-20.0) Test 08/26/24 21:28 Plasma/Serum Blood Alcohol 5.7 mg/dL (<10) Other Laboratory Tests 09/08/24 09:32 Brief Hx & Hospital Course: Hospitalization summary: Orlando Riddle, a 54-year-old male with Down syndrome, presented to the ED with altered mental status. Over the past four days, he has not eaten, had no bowel movements, and exhibited combative, restless, and screaming behavior, which worsened and led to his ED visit. Due to his clinical status, a review of systems could not be obtained. His past surgical history is negative, family history is noncontributory, and he denies smoking, alcohol, and drug abuse. 08/29 morning patient was found ALOC with increased workup breathing, encephalopathic and primary team updated the patient to ICU status for close monitoring and possible intubation. after careful consideration, poor extubation reserve and poor outcome with no obvious benefits held further intubation but careful aspiration precautions. 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 Overall recent decline prior to the hospitalization and family's inability to help the patient further needs a care for goals of care discussion drove change of code status to Do Not Resuscitate as of 5:40 pm of 09/08/2024. Patient remains overnight comfortable, hemodynamically stable, no further concerning health issues at this point to be addressed in this hospitalization. Patient is discharged home with homeless space transport arranged by the same. 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 Echo unremarkable,morning cortisol unremarkable. titrate down levo as tolerated. added midodrine 5 tid # asymptomatic sinus bradycardia with baseline in 40s to 50s without any other conduction abnormalities. continue telemetry avoid lan blockers. # acute hypoxic respiratory failure: weaned to room air. resolved. # atelectasis: Also suggested for incentive spirometry q1 patient is not able to follow commands. # possible flash pulmonary edema with possible aspiration pneumonia IV Lasix patient improved. respiratory stable. resolved. # possible obstructive sleep apnea bipap not feasible, patient gets agitated # aspiration pneumonia present on admission, aspiration precautions. # high-risk for aspiration: ensure high-protein ensure thrice a day. strict aspiration precaution. # mild transaminitis, improved. # Hepatic steatosis no obvious changes. # patient has indwelling catheter: Close input output keep the patient on Mason's for now # Sepsis present on admission # septic shock: Source of respiratory infection secondary to aspiration, lukocytosis resolved, discontinue vancomycin and continue Zosyn for MSSA, as needed Levophed support -repeat blood culture follow up if -ve dc all the abx day 10. as needed iv 250 cc of LR and avoid levophed added midodrine # Bacteremia MSSA in 1/2 repeat culture -ve # polycythemia history, questionable not noted on recent CBC # Mild thrombocytopenia>moderate now: Close monitoring Lovenox off. recovered pletlets. close follow up. # leukocytosis with predominant neutrophilia: likely due to aspiration pneumonia Call back to 0 1 at this 0 difficult to ICU # severe hypernatremia , hypovolemic>> corrected # severe dehydration: Likely due to poor oral intake, continue IV hydration. Monitor input output. Intravascular fluid status improved, close to euvolemia. # septic shock : Careful slow fluid replenishment with correction of underlying electrolyte disturbances # ROSLYN likely VMN unknown baseline: Close input output follow up, daily BNP, avoid nephrotoxins, improving renal functions resolved. # Hypomagnesemia: Improved # hypokalemia, resolved. # hypophosphatemia: Replenished recheck in the morning. Correct accordingly. Recheck electrolytes tomorrow # Ruled out central DI. # Failure to thrive continue dietary supplement. # severe protein calorie malnutrition with a BMI 15.6>17.0 s/p IV albumin for temporary support with oncotic pressure continue oral protein. Discharge discussion and further planning of care with power of billing typist sister over phone, agreeable. Discharge planning needed total 37 minutes of detailed discussion. Plan discussed with Dr. Ware. Patient remains DNR/DNI/comfort care and goals of care discussion paper copy is provided at discharge. Consults/Reason for consult Hospice Operations or Procedures [place] [address] Ph: [phone] DIAGNOSTIC IMAGING Diagnostic Imaging Report : [id number] Signed PATIENT: ORLANDO RIDDLE ACCT: [id number] UNIT: [id number] : 1970 LOC: OVERFLOW ROOM / BED: [address] [place] [address] AGE / SEX: 54 / M ADM STATUS: ADM IN SERVICE 2 ORDERING PHYSICIAN: GATITO LOVE RESIDENT PROCEDURE(s): CXR1 - CHEST XRAY 1 VIEW REASON: ? PNA ORDER NUMBER(s): [id number], ACCESSION NUMBER(s): [id number] CLINICAL INFORMATION: 54 years old, Male; pneumonia. TECHNIQUE: Single AP portable chest radiograph was obtained. COMPARISON: None FINDINGS: Lungs: Mild nonspecific perihilar interstitial opacities and mild atelectasis in the left lung base. No dense focal consolidation visualized. No pneumothorax or pleural effusion. Cardiac: Heart size is within normal limits. Pulmonary vasculature: Unremarkable. Mediastinum/greg: Unremarkable. Bones: No acute osseous abnormality identified. Other: No other significant findings. IMPRESSION: Nonspecific bilateral perihilar interstitial opacities and mild atelectasis in the left lung base. No dense focal consolidation visualized. ATED BY: LYDIA QUEVEDO DO DICTATED DATE/TIME: 08/27/24700 SIGNED BY: LYDIA QUEVEDO DO SIGNED DATE/TIME: 08/27/24700 CC: [place] [address] Ph: [phone] DIAGNOSTIC IMAGING Diagnostic Imaging Report : [id number] Signed PATIENT: ORLANDO RIDDLE ACCT: [id number] UNIT: [id number] : 1970 LOC: OVERFLOW ROOM / BED: [address] [place] [address] AGE / SEX: 54 / M ADM STATUS: ADM IN SERVICE 6 ORDERING PHYSICIAN: GATITO LOVE RESIDENT PROCEDURE(s): HWOCT - HEAD WITHOUT CONTRAST REASON: aloc ORDER NUMBER(s): [id number], ACCESSION NUMBER(s): [id number] EXAM: CT HEAD WITHOUT CONTRAST HISTORY: aloc COMPARISON: None TECHNIQUE: Noncontrast axial CT images of the head were performed. Sagittal and coronal reformatted images were obtained. This CT exam was performed using 1 or more of the following dose reduction techniques: Automated exposure control, adjustment of the mA and/or kv according to patient size, or the use of iterative reconstruction techniques. Radiation Dose : Head: CT Dose: CTDI volume is 53.8 mGy. Dose-length product is 1058.64 mGy*cm FINDINGS: No intracranial hemorrhage, mass, midline shift, or evidence of acute large vessel infarct. There is global brain atrophy with prominence of the ventricular system and sulci. The size of the ventricular system is out of proportion to the size of the sulci. There is right phthsis bulbi. The partially-visualized paranasal sinuses are clear. The bilateral mastoid air cells and middle ear spaces are clear. There is cerumen impaction in the bilateral external auditory canals. No cranial fracture or scalp edema. IMPRESSION: 1. Global brain atrophy with prominence of the ventricular system out of proportion to the size of the sulci suggestive of normal pressure hydrocephalus. 2. Right phthisis bulbi. ATED BY: NATHAN MCDERMOTT MD DICTATED DATE/TIME: 08/27/24356 SIGNED BY: NATHAN MCDERMOTT MD SIGNED DATE/TIME: 08/27/24356 CC: [facility] [id number] [place] [address] Ph: [phone] DIAGNOSTIC IMAGING Diagnostic Imaging Report : [id number] Signed PATIENT: ORLANDO RIDDLE ACCT: [id number] UNIT: [id number] : 1970 LOC: OVERFLOW ROOM / BED: [address] [place] [address] / AGE / SEX: 54 / M ADM STATUS: ADM IN SERVICE 1 ORDERING PHYSICIAN: GATITO LOVE RESIDENT PROCEDURE(s): LIVUS - LIVER REASON: Transaminitis ORDER NUMBER(s): [id number], ACCESSION NUMBER(s): [id number] INDICATION: Transaminitis TECHNIQUE: Multiple real-time sonographic images were obtained of the right upper quadrant. COMPARISON: None FINDINGS: The liver demonstrates increased echotexture without focal mass lesions. The liver measures 10.1 cm. There is no intrahepatic or extrahepatic ductal dilatation. The common duct is not visualized. The gallbladder is without evidence of stone or sludge. The gallbladder wall measures 0.1 cm and is within normal limits. The right kidney measures 8.0 cm. The right kidney is normal in contour, size, and shape. The echogenicity is normal. There is no hydronephrosis. The pancreas is not well visualized due to overlying bowel gas. IMPRESSION: Limited examination secondary to patient inability to cooperate with exam. Mild increased echogenicity of the liver may represent mild steatosis. ATED BY: PHILIP BARR MD DICTATED DATE/TIME: 08/27/24844 SIGNED BY: PHILIP BARR MD SIGNED DATE/TIME: 08/27/24844 CC: [facility] [address] [address] Ph: [phone] DIAGNOSTIC IMAGING Diagnostic Imaging Report : [id number] Signed PATIENT: ORLANDO RIDDLE ACCT: [id number] UNIT: [id number] : 1970 LOC: OVERFLOW ROOM / BED: 1009-ERT / A AGE / SEX: 54 / M ADM STATUS: ADM IN SERVICE 0622 ORDERING PHYSICIAN: MARITZA WEEKS PROCEDURE(s): CXR1 - CHEST XRAY 1 VIEW REASON: Acute respiratory failure ORDER NUMBER(s): [id number], ACCESSION NUMBER(s): [id number] CHEST RADIOGRAPH Indication: Acute respiratory failure Technique: Single AP portable chest radiograph was obtained. Comparison: XY CHEST XRAY 1 VIEW on DOS: 08/27/24, XY CHEST XRAY 1 VIEW on DOS: 08/27/24 FINDINGS: Lungs: Mild nonspecific perihilar interstitial opacities and mild atelectasis in the left lung base. No dense focal consolidation visualized. No pneumothorax or pleural effusion. Cardiac: Heart size is within normal limits. Pulmonary vasculature: Unremarkable. Mediastinum/greg: Unremarkable. Bones: No acute osseous abnormality identified. Other: No other significant findings. IMPRESSION: Nonspecific bilateral perihilar interstitial opacities and mild atelectasis in the left lung base. No dense focal consolidation visualized. ATED BY: NATHAN MCDERMOTT MD DICTATED DATE/TIME: 08/29/24799 SIGNED BY: NATHAN MCDERMOTT MD SIGNED DATE/TIME: 08/29/24 08 CC: [address] [address] Ph: [phone] DIAGNOSTIC IMAGING Diagnostic Imaging Report : [id number] Signed PATIENT: ORLANDO RIDDLE ACCT: [id number] UNIT: [id number] : 1970 LOC: ICU WEST ROOM / BED: 0101-CC / A AGE / SEX: 54 / M ADM STATUS: ADM IN SERVICE 0920 ORDERING PHYSICIAN: RAMIREZ MENDOZA PROCEDURE(s): CXRP - CHEST PORTABLE REASON: to rule out aspiration ORDER NUMBER(s): [id number], ACCESSION NUMBER(s): [id number] EXAM: XY CHEST PORTABLE Indication: pain Technique: Single frontal view of the chest was obtained Comparison: XY CHEST XRAY 1 VIEW on DOS: 08/29/24, XY CHEST XRAY 1 VIEW on DOS: 08/27/24 FINDINGS: Lines and Tubes: Left PICC tip projects over the cavoatrial junction. Lungs: Diffuse interstitial opacities. Pleura: Trace left pleural effusion. No pneumothorax. Cardiomediastinal contours: Unremarkable Bones: No acute osseous abnormality. IMPRESSION: Diffuse interstitial opacities suggestive of atypical infection or pulmonary edema. Trace left pleural effusion. ATED BY: MAGGIE ROBLES MD DICTATED DATE/TIME: 09/06/24 1141 SIGNED BY: MAGGIE ROBLES MD SIGNED DATE/TIME: 09/06/24 1141 CC: [place] [address] Ph: [phone] DIAGNOSTIC IMAGING Diagnostic Imaging Report : [id number] Signed PATIENT: ORLANDO RIDDLE ACCT: [id number] UNIT: [id number] : 1970 LOC: [facility] ROOM / BED: [address] [place] [address] AGE / SEX: 54 / M ADM STATUS: ADM IN SERVICE 0004 ORDERING PHYSICIAN: RAMIREZ MENDOZA RESIDENT PROCEDURE(s): ECIDC - ECHO 2D MODE CARDIAC DOP REASON: baseline structural cardiac functions in downs syndrome. ORDER NUMBER(s): [id number], ACCESSION NUMBER(s): [id number] APPROVED REPORT EXAM: LIMITED Two-dimensional and M-mode echocardiogram with Doppler and color Doppler. Blood Pressure: 107/56 mmHg INDICATION Baseline structural cardiac functions in down syndrome RISK FACTORS Height: 62, Weight: 95 DIMENSIONS LVDd 3.9 (3.8-5.7cm) LA (2D) 3.9 (1.9-4.0cm) Aortic Root 2.8 (2.0- 3.7cm) LVDs 2.7 (2.5-4.0cm) LA (MM) (1.9-4.0cm) Aortic Cusp Exc 1.5 (1.5- 2.0cm) EF (%) 60.0 (55-70%) Rt. Atrium 3.4 (1.9-4.0cm) Asc. Aorta cm IVSd 0.6 (0.7-1.1cm) RV (D) (1.8-2.4cm) PWd 0.8 (0.7-1.1cm) Mitral Valve Mitral Mitral Stenosis E wave 1.04m/s MV Mean GR. mmHg A wave 0.81m/s MV Peak GR. mmHg E/A ratio 1.3 2D MVA cm2 DECEL Time 283ms PRESS 1/2 Time ms Aortic Valve Aortic Valve Aortic Stenosis LVOT Diameter 1.6 (1.8-2.4cm) Doppler FIFI cm2 Other Information Technically limited study due to body habitus, patient position and patient moving. Patient was non compliant during exam due to down syndrome. Patient kept taking leads off during exam. Conclusion lvef 60% by visual estimate RV not well seen likely enlarged left atrium enlarged mild no severe valve abnormaliteis noted SIGNED BY: JUSTIN ALCAZAR MD SIGNED DATE/TIME: 08/30/24 1230 CC: Condition at Discharge: Guarded Final Diagnosis/Problems List Septic shock MSSA bacteremia Respiratory failure Moderate protein energy malnutrition Advanced learning disability and executive function with down syndrome with life expectancy less than 6 months needing home hospice support. Discharge Disposition: Hospice - Home Discharge Instruct/Medications Diet: See Comment Activity: No Restrictions, As Tolerated Medications: as per SEP Discharge Statement: "Patient was advised to return to the ER or call 911 if any headaches, dizziness, shortness of breath, chest pain, abdominal pain, bleeding, fevers, or worsening of medical condition. Patient was counseled about treatment plan, medications, possible side effects, patientverbalized understanding. All questions were answered to the best of my ability. This discharge took greater then 30 minutes in planning, reviewing documentation, counseling the patient, and discussing with other team members." ASSESSMENT ASSESSMENT Assessment RAMIREZ MENDOZA RESIDENT Sep 09, 2024 07:53
[2024-09-09] MEDS ORDERED: MID10T PO (09:39)
== END 2024-09-09 13:55 | disposition hospice, home (50) | DRG 720 ==
LOC: ER 20:05 → OVERFLOW 08-27 01:07 → ICU WEST 08-29 10:54
PROVIDERS: ADMIT Internal Medicine Pulmonary Disease; ATTEND Internal Medicine Pulmonary Disease
PROC: 02HV33Z Insertion of Infusion Device into Superior Vena Cava, Percutaneous Approach (ICD-10-PCS; principal; 2024-08-29)
PROC: B548ZZA Ultrasonography of Superior Vena Cava, Guidance (ICD-10-PCS; 2024-08-29)
DX: A41.9 Sepsis, unspecified organism (principal); J96.01 Acute respiratory failure with hypoxia; N17.0 Acute kidney failure with tubular necrosis; J69.0 Pneumonitis due to inhalation of food and vomit; R65.21 Severe sepsis with septic shock; R57.1 Hypovolemic shock; G92.8 Other toxic encephalopathy; R64 Cachexia; E83.39 Other disorders of phosphorus metabolism; D69.6 Thrombocytopenia, unspecified; Z66 Do not resuscitate; Z20.822 Contact with and (suspected) exposure to COVID-19; E43 Unspecified severe protein-calorie malnutrition; E86.0 Dehydration; E83.41 Hypermagnesemia; E87.0 Hyperosmolality and hypernatremia; R62.7 Adult failure to thrive; Q90.9 Down syndrome, unspecified; E86.1 Hypovolemia; E87.6 Hypokalemia; F81.9 Developmental disorder of scholastic skills, unspecified; K76.0 Fatty (change of) liver, not elsewhere classified; D75.1 Secondary polycythemia; G91.2 (Idiopathic) normal pressure hydrocephalus; G93.89 Other specified disorders of brain; F03.90 Unspecified dementia, unspecified severity, without behavioral disturbance, psychotic disturbance, mood disturbance, and anxiety; G47.33 Obstructive sleep apnea (adult) (pediatric); Z68.1 Body mass index [BMI] 19.9 or less, adult; Z83.3 Family history of diabetes mellitus; Z82.49 Family history of ischemic heart disease and other diseases of the circulatory system; Z79.899 Other long term (current) drug therapy
CPT/HCPCS: 36415; 36569; 36600; 70450; 71045; 76705; 76937; 80048; 80053; 80069; 80076; 80202; 80307; 80320; 80329; 81001; 82140; 82270; 82533; 82570; 82805; 82962; 83036; 83605; 83735; 83880; 83930; 83935; 84100; 84132; 84133; 84300; 84443; 84478; 85007; 85025; 85027; 85610; 85730; 87040; 87077; 87081; 87086; 87186; 87426; 87804; 92507; 92610; 93306; 96361; 96372; 96374; 96375; G0378; J0131; J1815; J2250; J2405; J2470; J2543; J3480; J3490

== ENCOUNTER 2024-12-01 18:29 | Inpatient (IN) | payer MEDICAID ==
[~2024-12-01] VITALS: Ht 160 cm; Wt 46.6 kg
[~2024-12-01 18:29] MED LIST: MID10T PO
[2024-12-01] MEDS ORDERED: MORPHINE SULFATE 4 MG/ML SYR/VIAL IV PRN (18:45)
[2024-12-01 18:50] VITALS: PULSE 111; RESP 24; O2SAT 15
--- NOTE | 2024-12-01 18:56 | ED.PDOC ---
Altered Mental Status HPI Comments 54-year-old male who came to ER via EMS for altered level of consciousness. Patient has history of down syndrome. Patient on hospice care, currently on DNR and DNI status. Was seen by the hospice doctor earlier for shortness of breath, and the doctor deemed that the patient probably has pneumonia and he wanted patient to be evaluated at the ER. No family members are at bedside at this time. Patients blood pressure was 70/40 mmHg upon arrival Chief Complaint: ALOC Time Seen by MD: 18:56 Reviewed Notes: Nurses Notes Allergies: Coded Allergies: NO KNOWN ALLERGIES (Unverified , 08/26/24) Home Meds Active Scripts Midodrine HCl (Midodrine HCl) 10 Mg Tab, 10 MG PO TID@0600,1200,1800 for 30 Days, #90 TAB Prov:EMMANUEL LI RESIDENT 09/09/24 Information Source: Emergency Med Personnel Mode of Arrival: EMS Severity: Unable to Care for Self, Unresponsive Timing: Days Duration: Since onset Prehospital treatment: Oxygen Quality: Decreased Alertness, Change in Behavior History of: Other (Down syndrome) Past Medical History Past Medical History (Other): Down syndrome Surgical History: Unobtainable Family History Family History: Unobtainable Social History Smoker: Unobtainable Alcohol: Unobtainable Drugs: Unobtainable Lives In: Home Unable to Obtain due to: Altered Mental Status Physical Exam General Appearance: Moderate Distress HEENT: Normal ENT Inspection, Pharynx Normal, TMs Normal Neck: Full Range of Motion, Non-Tender, Normal, Normal Inspection Respiratory: Chest Non-Tender, Lungs Clear, No Accessory Muscle Use, No Respiratory Distress, Normal Breath Sounds Cardiovascular: No Edema, No JVD, No Murmur, No Gallop, Normal Peripheral Pulses, Regular Rate/Rhythm Breast Exam: Deferred Gastrointestinal: No Organomegaly, Non Tender, No Pulsatile Mass, Normal Bowel Sounds, Soft Genitalia: Deferred Pelvic: Deferred Rectal: Deferred Extremities: No calf tenderness, Normal capillary refill, Normal inspection, Normal range of motion, Non-tender, No pedal edema Musculoskeletal : Apperance: Normal Neurologic: Alert, sr. social media & mobile manager II-XII nml as Tested, No Motor Deficits, Normal Affect, Normal Mood, No Sensory Deficits Cerebellar Function: Normal Reflexes: Normal Skin: Dry, Normal Color, Warm Lymphatic: No Adenopathy Was a procedure done? Was a procedure done?: No Differential Diagnosis (ALOC) Differential Diagnosis: Dehydration, Hypoglycemia, Encephalopathy, Other (Down syndrome) X-Ray, Labs, Meds, VS Vital Signs Date Time Temp Pulse Resp B/P (MAP) Pulse Ox O2 Delivery O2 Flow Rate FiO2 12/01/24 20:00 107 12/01/24 18:50 111 24 15 Simple Mask* 15 N/A Non-Rebreather 12/01/24 18:47 99.5 111 24 78/46 (57) 96 99.5 12/01/24 18:39 99.5 125 38 67/37 (47) 91 99.5 Lab Test 12/01/24 19:10 Range/Units White Blood Count 8.2 4.4-10.8 10^3/uL Red Blood Count 5.47 4.5-5.90 10^6/uL Hemoglobin 18.1 H 13.5-17.5 g/dL Hematocrit 56.0 H 41.0-53.0 % Mean Corpuscular Volume 102.5 H 80.0-100.0 fL Mean Corpuscular Hemoglobin 33.2 H 28.0-32.0 pg Mean Corpuscular Hemoglobin Concent 32.4 32.0-36.0 g/dL Red Cell Distribution Width 16.7 H 11.8-14.3 % Platelet Count 75 L 140-450 10^3/uL Mean Platelet Volume 10.8 6.9-10.8 fL Neutrophils (%) (Auto) 88.9 H 37.0-80.0 % Lymphocytes (%) (Auto) 3.4 L 10.0-50.0 % Monocytes (%) (Auto) 7.6 0.0-12.0 % Eosinophils (%) (Auto) 0.0 0.0-7.0 % Basophils (%) (Auto) 0.1 0.0-2.0 % Neutrophils # (Auto) 7.3 1.6-8.6 10 ^3/uL Lymphocytes # (Auto) 0.3 L 0.4-5.4 10 ^3/uL Monocytes # (Auto) 0.6 0-1.3 10 ^3/uL Eosinophils # (Auto) 0 0-0.8 10 ^3/uL Basophils # (Auto) 0 0-0.2 10 ^3/uL Nucleated Red Blood Cells 1.0 % Platelet Estimate Decreased Large Platelets Few Sodium Level 183 *H 136-145 mmol/L Potassium Level 3.4 L 3.5-5.1 mmol/L Chloride Level 142 H 98-107 mmol/L Carbon Dioxide Level 26 20-31 mmol/L Anion Gap 15 5-15 Blood Urea Nitrogen 105 *H 9-23 mg/dL Creatinine 4.46 H 0.700-1.30 mg/dL Glomerular Filtration Rate Calc 15 >90 mL/min BUN/Creatinine Ratio 23.5 H 10.0-20.0 Serum Glucose 135 H 74-106 mg/dL Lactic Acid Level 3.9 *H 0.4-2.0 mmol/L Calcium Level 9.9 8.7-10.4 mg/dL Total Bilirubin 0.7 0.2-1.0 mg/dL Aspartate Amino Transferase (AST) 31 13-40 U/L Alanine Aminotransferase (ALT) 49 H 7-40 U/L Alkaline Phosphatase 107 46-116 U/L Total Protein 6.8 5.7-8.2 g/dL Albumin 3.6 3.2-4.8 g/dL Current Medications Medications (Trade) Dose Ordered Sig/Elza Route Start Time Stop Time Status Last Admin Sodium Chloride 1,000 ml @ 150 mls/hr Q6H40M ONCE IV 12/01/24 19:00 12/02/24 01:39 12/01/24 19:05 Azithromycin 250 ml @ 125 mls/hr ONCE ONCE IV 12/01/24 19:00 12/01/24 20:59 12/01/24 19:05 Sodium Chloride 2,000 ml @ 1,000 mls/hr Q2H ONCE IV 12/01/24 19:30 12/01/24 21:29 12/01/24 19:49 Time of 1ST Reevaluation: 18:51 Reevaluation 1ST: Unchanged Patient Education/Counseling: Other (Unresponsive to verbal stimuli, altered level of consciousness), Pt Unresponsive Family Education/Counseling: No Family Present Sepsis focused exam: focus exam completed, time: (1929) Sepsis Sepsis Reasesment Focused Exam Sepsis focused exam: focus exam completed, time: (1929) Orders: Laboratory Tests 12/01/24 19:10: Lactic Acid Level 3.9 Departure 1 Departure Time of Disposition: 20:52 Impression: Primary Impression: Acute hypernatremia Additional Impressions: Dehydration Down syndrome Toxic encephalopathy Pneumonia Acute renal injury Disposition: 09 ADMITTED INPATIENT Admit to: Med Surg Condition: Critical Discharged With: Self Comments Generalized Weakness and Respiratory Distress in Down Syndrome Patient on Hospice Chief Complaint: Generalized weakness and labored breathing History of Present Illness: 54-year-old male with Down syndrome presents from home with generalized weakness and labored breathing. Patient has been receiving hospice care at home with established DNR/DNI status. The patient's sister, who holds power of medical office receptionist assistant, is requesting limited additional interventions to assist the patient. Patient appears gravely ill on presentation with signs of severe dehydration, respiratory distress, and altered mental status. Review of Systems: Constitutional: Generalized weakness, appears gravely ill Respiratory: Labored breathing requiring oxygen support Other systems: Limited review due to patient's condition Past Medical History: 1. Down syndrome 2. Currently on hospice care Social History: Lives at home Sister has power of medical office receptionist assistant Vital Signs: Initial vitals: Temperature: 99.5F Heart Rate: 125 bpm Blood Pressure: 67/37 mmHg Respiratory Rate: 38/min After fluid resuscitation: Heart Rate: 111 bpm Blood Pressure: 78/46 mmHg Respiratory Rate: 24/min on non-rebreather mask Physical Exam: General: Patient appears cachectic and gravely ill Respiratory: Labored breathing, requiring non-rebreather mask Lab Results: CBC: - WBC: 8.2 (normal) - Hemoglobin: 18 g/dL (elevated) - Hematocrit: 56% (elevated) - Platelets: 75K (low) Chemistry: - Sodium: 183 mEq/L (severely elevated) - Potassium: 3.4 mEq/L (low) - Chloride: 142 mEq/L (elevated) - BUN: 105 mg/dL (elevated) - Creatinine: 4.46 mg/dL (elevated) - Glucose: 135 mg/dL Lactic Acid: 3.9 (elevated) Imaging and Other Relevant Results: Chest X-ray: Multifocal interstitial markings consistent with multifocal pneumonia Medical Decision Making: Summary Statement: 54-year-old male with Down syndrome, on hospice care, presenting with severe dehydration, multifocal pneumonia, and acute kidney injury. Despite DNR/DNI status, family requesting limited interventions. Problem List: 1. Severe dehydration with hypernatremia 2. Multifocal pneumonia 3. Acute kidney injury 4. Toxic encephalopathy 5. Thrombocytopenia Differential Diagnosis: 1. Sepsis secondary to pneumonia 2. Volume depletion 3. Pre-renal acute kidney injury 4. End-stage disease progression ED Course: Patient received 2L IV fluid bolus (30cc/kg) with mild improvement in vital signs. Started on IV Zosyn and azithromycin for pneumonia. Oxygen support provided via non-rebreather mask with improvement in respiratory rate. Assessment and Plan: 1. Severe Dehydration with Hypernatremia (Na 183) - Admit to hospital - Continue IV fluid resuscitation with close monitoring of electrolytes - Serial neurologic checks 2. Multifocal Pneumonia - Continue IV antibiotics (Zosyn and azithromycin) - Oxygen support as needed - Monitor respiratory status 3. Acute Kidney Injury - Likely pre-renal due to severe dehydration - Monitor urine output - Serial renal function tests 4. Toxic Encephalopathy - Secondary to severe hypernatremia and dehydration - Careful correction of sodium to avoid central pontine myelinolysis 5. Goals of Care - Discuss with sister (POA) regarding extent of interventions given hospice status - Clarify code status and treatment limitations Billing Information: ICD-10: J18.9 - Pneumonia, unspecified organism ICD-10: E87.0 - Hyperosmolality and hypernatremia ICD-10: N17.9 - Acute kidney failure, unspecified ICD-10: G92 - Toxic encephalopathy ICD-10: E86.0 - Dehydration ICD-10: Q90.9 - Down syndrome, unspecified Critical Care Note Critical Care Time?: Yes (35 min-critical care time only) Critical care comment: Hypotension, altered level of consciousness Total critical care time: Approximately 36 minutes Due to a high probability of clinically significant, life threatening deterioration, the patient required my highest level of preparedness to interv randall emergently and I personally spent this critical care time directly and personally managing the patient. This critical care time included obtaining a history; examining the patient; pulse oximetry; ordering and review of studies; arranging urgent treatment with development of a management plan; evaluation of patient's response to treatment; frequent reassessment; and, discussions with other providers. This critical care time was performed to assess and manage the high probability of imminent, life-threatening deterioration that could result in multi-organ failure. It was exclusive of separately billable procedures and treating other patients. Stability Stability form required: No Heart Score Heart Score: Heart Score Response (Comments) Value History N/A 0 EKG N/A 0 Age N/A 0 Risk Factors N/A 0 Troponin N/A 0 Total 0 I personally scribed for CONY SHELLEY MD ([email or web address]) on 12/01/24 at 18:56. Electronically submitted by Patel Camilo ([facility]). CONY SHELLEY MD December 01, 2024 18:56
[2024-12-01] MEDS: LORazepam 2MG/ML-1ML VIAL IV ONE (19:02)
[2024-12-01] MEDS: KETAMINE 50mg/ML 10ml Vial (500mg/10ml) IV ONE (19:02)
[2024-12-01] MEDS: SODIUM CHLORIDE 0.9% 1,000 ML IV ONE (19:05)
[2024-12-01] MEDS: AZITHROMYCIN 500MG/ 250ML 250 ML IV ONE (19:05)
[2024-12-01 19:43] LABS: Basophils # (auto) 0 10 ^3/uL (0-0.2); Basophils % (auto) 0.1 % (0.0-2.0); Eosinophils # (auto) 0 10 ^3/uL (0-0.8); Lymphocytes # (auto) 0.3 10 ^3/uL (0.4-5.4); Lymphocytes % (auto) 3.4 % (10.0-50.0); Mean Corpuscular Hemoglobin 33.2 pg (28.0-32.0); Monocytes # (auto) 0.6 10 ^3/uL (0-1.3); Neutrophils # (auto) 7.3 10 ^3/uL (1.6-8.6); White Blood Cell 8.2 10^3/uL (4.4-10.8)
[2024-12-01 19:45] VITALS: PULSE 115; RESP 20; O2SAT 97
[2024-12-01 19:45] LABS: Hemoglobin 18.1 g/dL (13.5-17.5); Mean Corpuscular Hgb Conc. 32.4 g/dL (32.0-36.0); Mean Corpuscular Volume 102.5 fL (80.0-100.0); Monocytes % (auto) 7.6 % (0.0-12.0); Neutrophils % (auto) 88.9 % (37.0-80.0); Platelet Count (auto) 75 10^3/uL (140-450); Red Blood Cells 5.47 10^6/uL (4.5-5.90); Red Cell Distribution Width 16.7 % (11.8-14.3)
[2024-12-01] MEDS: SODIUM CHLORIDE 0.9% 2,000 ML IV ONE (19:49)
[2024-12-01 19:55] LABS: Albumin 3.6 g/dL (3.2-4.8); Alkaline Phosphatase 107 U/L (46-116); Anion Gap 15 (5-15); Aspartate Aminotransferase 31 U/L (13-40); BUN/Creatinine Ratio 23.5 (10.0-20.0); Calcium 9.9 mg/dL (8.7-10.4); Carbon Dioxide 26 mmol/L (20-31); Total Protein 6.8 g/dL (5.7-8.2)
[2024-12-01 19:56] LABS: Bilirubin, Total 0.7 mg/dL (0.2-1.0)
[2024-12-01 20:04] LABS: Alanine Aminotransferase 49 U/L (7-40); Chloride 142 mmol/L (98-107); Glucose 135 mg/dL (74-106); Potassium 3.4 mmol/L (3.5-5.1)
[2024-12-01 20:05] LABS: Large Platelets FEW; Platelet Estimate Decreased
[2024-12-01 20:09] LABS: Blood Urea Nitrogen 105 mg/dL (9-23); Lactic Acid w/Reflex 3.9 mmol/L (0.4-2.0); Sodium 183 mmol/L (136-145)
--- NOTE | 2024-12-01 20:31 | DVH ---
CHEST RADIOGRAPH Indication: SOB Technique: Single frontal view of the chest was obtained COMPARISON: XY CHEST PORTABLE on DOS: 09/06/24, XY CHEST XRAY 1 VIEW on DOS: 08/29/24, XY CHEST XRAY 1 VIEW on DOS: 08/27/24 FINDINGS: Lines and Tubes: None Lungs: Multifocal airspace disease Pleura: No effusion. No pneumothorax. Cardiomediastinal contours: Unremarkable Bones: Unremarkable IMPRESSION: Multifocal airspace disease or pulmonary edema.
[2024-12-01] MEDS ORDERED: VANCOMYCIN PER PHARMACY 0 MG IV SCH (21:45)
[2024-12-01] MEDS ORDERED: DOCUSATE SOD 100 MG CAP PO PRN (21:45)
[2024-12-01] MEDS ORDERED: HYDROcodone-ACET 5/325MG TAB PO PRN (21:45)
[2024-12-01] MEDS: PIPERACILLIN-TAZOB 3.375GM 100 ML IV ONE (22:10)
[2024-12-01] MEDS ORDERED: VANCOMYCIN 1GM/250ML 250 ML IV ONE (22:30)
[2024-12-01] MEDS ORDERED: VANCOMYCIN 750MG KIT 100 ML IV ONE (22:30)
--- NOTE | 2024-12-01 22:54 | DVHHP2 ---
History of Present Illness Reason for Visit: Sepsis, unspecified organism History of Present Illness The patient is a 54 years old male with past medical history of Down syndrome presented to [facility] ED for evaluation of altered level of consciousness. As reported, patient is currently on hospice, DNI, DNR status. Patient was seen at home by hospice doctor who instructed patient to be sent to the for further evaluation. Patient was seen and evaluated in the ED, laboratory data shows WBC 8.2, hemoglobin 18.1, hematocrit 56.0, platelets 06778, sodium 183, potassium 3.4, BUN 105, creatinine 4.46, glucose 135, lactic acid 3.9, AST 31, ALT 49, blood pressure 67/37, heart rate 125, temperature 99.1 F, O2 saturation 91% on non-rebreather. Chest x-ray revealing multifocal airspace disease or pulmonary edema. Patient was started on IV antibiotic regimen vancomycin, on Levophed, please see medication orders section in the computer. On my assessment, patient remains altered, no diaphoresis, currently on oxygen, no vomiting, no fever, no chills. Patient was admitted for further evaluation and medical management. Past Medical History Down syndrome Past Surgical History Unobtainable Family History Reviewed, noncontributory to the management of this case. Past Social History The patient lives at home, no history of smoking, alcohol or illicit drugs abuse on file. Review of Systems Constitutional: Yes: Weakness; No: Fever, Chills, Sweats, Malaise, Other Eyes: No: Pain, Vision change, Conjunctivae inflammation, Eyelid inflammation, Other, Redness ENT: No: Ear pain, Ear discharge, Nose pain, Nose discharge, Nose congestion, Mouth pain, Mouth swelling, Throat pain, Throat swelling, Other Respiratory: Shortness of breath, Other (SOB at rest); No: Cough, Dry, SOB with excertion, Wheezing, Hemoptysis, Pleuritic Pain, Sputum, Wheezing Cardiovascular: No: Chest Pain, Palpitations, Orthopnea, Paroxysmal Noc. Dyspnea, Edema, Lt Headedness, Other Gastrointestinal: No: Nausea, Vomiting, Abdominal Pain, Diarrhea, Constipation, Melena, Hematochezia, Other Genitourinary: No Dysuria, No Frequency, No Incontinence, No Hematuria, No Retention; Other (Anuric) Musculoskeletal: No: other, neck pain, shoulder pain, arm pain, back pain, hand pain, leg pain, foot pain Skin: No: Rash, Lesions, Jaundice, Bruising, Other Neurological: Weakness, Other (Altered level of consciousness); No: Numbness, Incoordination, Change in speech, Confusion, Seizures Allergies: Coded Allergies: NO KNOWN ALLERGIES (Unverified , 08/26/24) Medications Current Medications Medications Dose Ordered Sig/Elza Route Start Time Stop Time Status Last Admin Dose Admin Vancomycin HCl 0 ml @ 0 mls/hr UD IV 12/01/24 21:45 Azithromycin 250 ml @ 125 mls/hr DAILY IV 12/02/24 10:00 Acetaminophen 650 mg Q6HP PRN RI 12/01/24 21:45 Dextrose 1,000 ml @ 75 mls/hr [id number] IV 12/01/24 22:30 Midodrine 10 mg TID@0600,1200,1800 PO 12/02/24 06:00 Acetaminophen/ Hydrocodone Bitart 1 tab Q4HP PRN PO 12/01/24 21:45 Ondansetron HCl 4 mg Q4HP PRN IV 12/01/24 21:45 Docusate Sodium 100 mg BIDPRN PRN PO 12/01/24 21:45 Norepinephrine Bitartrate 250 ml @ 3.75 mls/hr Q24H IV 12/01/24 22:15 Exam Vital Signs Vital Signs Date Time Temp Pulse Resp B/P (MAP) Pulse Ox O2 Delivery O2 Flow Rate FiO2 12/01/24 20:00 107 12/01/24 19:45 98.7 20 88/52 (64) 97 98.7 12/01/24 19:45 Non-Rebreather 15 N/A General Appearance: Alert, Cooperative, mild distress HEENT: Atraumatic, PERRLA, EOMI, Mucous membr. moist/pink Respiratory: Normal air movement, Other (Diminished breath sounds) Cardiovascular: Normal S1, Normal S2, No murmurs, Other (Irregular rate and rhythm) Abdominal: Normal bowel sounds, Soft, No tenderness, No hepatospenomegaly, No masses Extremities: No clubbing, No cyanosis, No edema, Normal pulses, No tenderness/swelling Skin: No significant lesion Neuro: Normal tone, Sensation intact, Reflexes 2+, Other (Generalized weakness) Psych/Mental Status: Mood NL, Other (Altered mental status) Labs/Xrays Labs Test 12/01/24 21:10 12/01/24 19:10 Range/Units Lactic Acid Level 3.5 *H 0.4-2.0 mmol/L White Blood Count 8.2 4.4-10.8 10^3/uL Red Blood Count 5.47 4.5-5.90 10^6/uL Hemoglobin 18.1 H 13.5-17.5 g/dL Hematocrit 56.0 H 41.0-53.0 % Mean Corpuscular Volume 102.5 H 80.0-100.0 fL Mean Corpuscular Hemoglobin 33.2 H 28.0-32.0 pg Mean Corpuscular Hemoglobin Concent 32.4 32.0-36.0 g/dL Red Cell Distribution Width 16.7 H 11.8-14.3 % Platelet Count 75 L 140-450 10^3/uL Mean Platelet Volume 10.8 6.9-10.8 fL Neutrophils (%) (Auto) 88.9 H 37.0-80.0 % Lymphocytes (%) (Auto) 3.4 L 10.0-50.0 % Monocytes (%) (Auto) 7.6 0.0-12.0 % Eosinophils (%) (Auto) 0.0 0.0-7.0 % Basophils (%) (Auto) 0.1 0.0-2.0 % Neutrophils # (Auto) 7.3 1.6-8.6 10 ^3/uL Lymphocytes # (Auto) 0.3 L 0.4-5.4 10 ^3/uL Monocytes # (Auto) 0.6 0-1.3 10 ^3/uL Eosinophils # (Auto) 0 0-0.8 10 ^3/uL Basophils # (Auto) 0 0-0.2 10 ^3/uL Nucleated Red Blood Cells 1.0 % Platelet Estimate Decreased Large Platelets Few Sodium Level 183 *H 136-145 mmol/L Potassium Level 3.4 L 3.5-5.1 mmol/L Chloride Level 142 H 98-107 mmol/L Carbon Dioxide Level 26 20-31 mmol/L Anion Gap 15 5-15 Blood Urea Nitrogen 105 *H 9-23 mg/dL Creatinine 4.46 H 0.700-1.30 mg/dL Glomerular Filtration Rate Calc 15 >90 mL/min BUN/Creatinine Ratio 23.5 H 10.0-20.0 Serum Glucose 135 H 74-106 mg/dL Calcium Level 9.9 8.7-10.4 mg/dL Total Bilirubin 0.7 0.2-1.0 mg/dL Aspartate Amino Transferase (AST) 31 13-40 U/L Alanine Aminotransferase (ALT) 49 H 7-40 U/L Alkaline Phosphatase 107 46-116 U/L Total Protein 6.8 5.7-8.2 g/dL Albumin 3.6 3.2-4.8 g/dL PATIENT: JUAN RIDDLE ACCT: [id number] UNIT: [id number] : 1970 LOC: ER ROOM / BED: / AGE / SEX: 54 / M ADM STATUS: REG ER SERVICE 51 ORDERING PHYSICIAN: CONY SHELLEY MD PROCEDURE(s): CXRP - CHEST PORTABLE REASON: SOB ORDER NUMBER(s): [id number], ACCESSION NUMBER(s): [id number] CHEST RADIOGRAPH Indication: SOB Technique: Single frontal view of the chest was obtained COMPARISON: XY CHEST PORTABLE on DOS: 09/06/24, XY CHEST XRAY 1 VIEW on DOS: 08/29/24, XY CHEST XRAY 1 VIEW on DOS: 08/27/24 FINDINGS: Lines and Tubes: None Lungs: Multifocal airspace disease Pleura: No effusion. No pneumothorax. Cardiomediastinal contours: Unremarkable Bones: Unremarkable IMPRESSION: Multifocal airspace disease or pulmonary edema. Assessment/Plan Assessment/Plan Acute hypernatremia Acute renal failure Dehydration Down syndrome Toxic encephalopathy Pneumonia, unspecified organism Generalized weakness Sepsis, unspecified organism Plan 1. Admit to intensive care unit 2. Breathing treatment 3. Pain control management 4. IV antibiotic management 5. Management of fluids and electrolytes 6. Consultation for Nephrology/cardiology 7. Diagnostic test chest x-ray 8. DVT prophylaxis-on SCDs 9. Repeat labs CBC, CMP in a.m. 10. Home medication reviewed and reconciled 11. Continue with current medical management 12. Treatment plan discussed with patient and RN. Patient will need reinstatement of information given mental status. Plan discussed with: Patient, Other (RN) My Orders Orders - SHAHBAZ ARROYO DNP Procedure Category Date Status Time *Dr. [facility] CONS 12/01/24 Transmitted -[place] 21:41 Vancomycin Per PHA 12/01/24 In Process Pharmacy 21:45 Azithromycin 500mg/ PHA 12/02/24 In Process 250ml (Zithromax 50 10:00 Acetaminophen PHA 12/01/24 In Process Suppository (Tylenol 21:45 Midodrine Tablet PHA 12/02/24 In Process (Proamatine Tablet) 06:00 Allergies JULIEN 12/01/24 In Process 21:41 Renal DIET 12/02/24 Transmitted Standard(2gna,3gk,Lopho) Breakfast Oxygen Per Hour RT 12/01/24 Transmitted 21:41 Hydrocodone-Acet PHA 12/01/24 In Process 5/325mg Tab ([place] 21:45 Ondansetron Hcl PHA 12/01/24 In Process (Zofran) 21:45 Docusate Sodium PHA 12/01/24 In Process Capsule (Colace 21:45 Fall Risk Precautions JULIEN 12/01/[address] 21:41 Complete Blood Count LAB 12/02/24 Verified 04:00 Comprehensive LAB 12/02/24 Verified Metabolic Panel 04:00 Condition: Serious JULIEN 12/01/24 In Process 21:41 Maintain Bed Rest JULIEN 12/01/24 In Process 21:41 Sequential JULIEN 12/01/24 In Process Compression Device D5w 5% (Dextrose 5%) PHA 12/01/24 In Process 22:30 Vancomycin PHA 12/01/24 In Process 750mg/150ml 22:45 Problem List: (1) Acute hypernatremia (2) Acute renal failure (3) Dehydration (4) Down syndrome (5) Toxic encephalopathy (6) Pneumonia, unspecified organism (7) Generalized weakness (8) Sepsis, unspecified organism Date of Service: December 01, 2024 Billing Provider: SHAHBAZ ARROYO DNP Common Visit Codes: [id number] INP/OBS CARE (HIGH) SHAHBAZ ARROYO DNP December 01, 2024 22:53
[2024-12-01] MEDS: NOREPINEPHRINE 8 MG/250ML KIT 250 ML IV SCH (22:55)
[2024-12-01] MEDS ORDERED: NITROGLYCERIN 0.4 MG SL TAB SL PRN (23:00)
[2024-12-01] MEDS ORDERED: VANCOMYCIN 1GM/200ML PM 200 ML IV ONE (23:00)
[2024-12-01] MEDS ORDERED: MORPHINE SULFATE INJ 2 MG/ml SYRG IV PRN (23:00)
[2024-12-01] MEDS: D5W 5% 1,000 ML IV SCH (23:57)
[2024-12-02] VITALS (10 sets, daily range): BP systolic 98; BP diastolic 52; PULSE 50–112; RESP 14–32; TEMP 97.9; O2SAT 91–100
[2024-12-02] MEDS: VANCOMYCIN 750mg/150ml 150 ML IV ONE (00:01)
[2024-12-02 05:04] LABS: Red Blood Cells 4.49 10^6/uL (4.5-5.90)
[2024-12-02 05:06] LABS: Mean Corpuscular Hemoglobin 33.4 pg (28.0-32.0); Mean Corpuscular Hgb Conc. 31.9 g/dL (32.0-36.0); Mean Corpuscular Volume 104.7 fL (80.0-100.0); Platelet Count (auto) 61 10^3/uL (140-450); Red Cell Distribution Width 16.5 % (11.8-14.3); White Blood Cell 12.2 10^3/uL (4.4-10.8)
[2024-12-02 05:10] LABS: Basophils % (manual) 0 (0.0-2.0); Blast Cells 0; Eosinophils % (manual) 0 (0-7); Myelocytes % 0; Promyelocytes % 0; Reactive Lymphocytes 0
[2024-12-02 05:14] LABS: Alanine Aminotransferase 35 U/L (7-40); Alkaline Phosphatase 77 U/L (46-116); Anion Gap 16 (5-15); Aspartate Aminotransferase 35 U/L (13-40); BUN/Creatinine Ratio 24.7 (10.0-20.0); Bilirubin, Total 0.7 mg/dL (0.2-1.0); Carbon Dioxide 21 mmol/L (20-31)
[2024-12-02 05:17] LABS: Potassium 3.2 mmol/L (3.5-5.1)
[2024-12-02 05:18] LABS: Albumin 2.9 g/dL (3.2-4.8); Calcium 8.3 mg/dL (8.7-10.4); Chloride 142 mmol/L (98-107); Glucose 114 mg/dL (74-106); Total Protein 5.4 g/dL (5.7-8.2)
[2024-12-02 05:19] LABS: Blood Urea Nitrogen 85 mg/dL (9-23); Sodium 179 mmol/L (136-145)
[2024-12-02] MEDS: MIDODRINE HCL 10 MG TAB PO SCH (06:00)
[2024-12-02 07:04] LABS: Band Neutrophils % (manual) 21; Lymphocytes % (manual) 5 (10.0-50.0); Macrocytosis Slight; Metamyelocytes % 4; Monocytes % (manual) 7 (0-12); Platelet Estimate Decreased
[2024-12-02] MEDS: POTASSIUM CHL 20MEQ/100ML 100 ML IV SCH (08:45)
[2024-12-02 09:16] LABS: Anion Gap 12 (5-15); Carbon Dioxide 23 mmol/L (20-31)
[2024-12-02 09:17] LABS: Calcium 9.1 mg/dL (8.7-10.4)
[2024-12-02 09:21] LABS: BUN/Creatinine Ratio 28.8 (10.0-20.0)
[2024-12-02] MEDS: AZITHROMYCIN 500MG/ 250ML 250 ML IV SCH (10:09)
[2024-12-02] MEDS: PANTOPRAZOLE 40 MG/10 ML VIAL INJ IV ONE (10:58)
[2024-12-02 10:59] LABS: Chloride 144 mmol/L (98-107); Glucose 111 mg/dL (74-106); Magnesium 2.8 mg/dL (1.6-2.6); Potassium 3.2 mmol/L (3.5-5.1)
[2024-12-02] MEDS: methylPREDNISolone SOD SUCC 40 MG/ML VL IV ONE (10:59)
[2024-12-02 11:00] LABS: Blood Urea Nitrogen 90 mg/dL (9-23); Phosphorus 3.2 mg/dL (2.4-5.1); Sodium 179 mmol/L (136-145)
[2024-12-02] MEDS: DOXYCYCLINE 100MG/100ML 100 ML IV ONE (11:00)
[2024-12-02 11:01] LABS: Base Excess -4.2 mmol/L (-2.0-3.0)
[2024-12-02] MEDS: D5W 5% 1,000 ML IV SCH ×2 (11:15→23:15)
[2024-12-02 11:20] LABS: INR 1.49 (0.9-1.15); Partial Thromboplastin Time 35.6 SEC (24.5-34.5); Prothrombin Time 15.2 sec (9.3-11.8)
[2024-12-02 11:23] LABS: Lactic Acid w/Reflex 2.2 mmol/L (0.4-2.0)
[2024-12-02] MEDS ORDERED: LEVALBUTEROL HCL 1.25 MG/3 ML NEB NEB SCH (12:00)
[2024-12-02 12:14] LABS: COVID19 ANTIGEN SOFIA FIA NEGATIVE (NEGATIVE); Rapid Influenza A Negative (Negative); Rapid Influenza B Negative (Negative)
[2024-12-02] MEDS: MEROPENEM 1GM IVPB 50 ML IV ONE (13:07)
[2024-12-02] MEDS ORDERED: ACETYLCYSTEINE 20%(200MG/ML) SOL 4ML NEB SCH ×2 (14:00→18:00)
[2024-12-02] MEDS ORDERED: IPRATROPIUM BROM 0.5 MG/2.5ML INH SOL NEB SCH (14:00)
[2024-12-02 14:26] LABS: Anion Gap 11 (5-15); Carbon Dioxide 21 mmol/L (20-31)
[2024-12-02 14:27] LABS: Calcium 8.9 mg/dL (8.7-10.4)
[2024-12-02 14:32] LABS: BUN/Creatinine Ratio 29.2 (10.0-20.0)
[2024-12-02 14:48] LABS: Blood Urea Nitrogen 79 mg/dL (9-23); Chloride 144 mmol/L (98-107); Glucose 155 mg/dL (74-106); Potassium 3.2 mmol/L (3.5-5.1); Sodium 176 mmol/L (136-145)
[2024-12-02] MEDS: POTASSIUM CHL 20MEQ/100ML 100 ML IV ONE (15:18)
--- NOTE | 2024-12-02 15:52 | DVHINCON2 ---
Date of service: December 02, 2024 Referring Physician Len Burnett NP Reason for Consultation Orlando is a 54-year-old male with known history of Down syndrome with presented for further evaluation and management of worsening altered mentation. His evaluation in the emergency department notable for severe hypernatremia with serum sodium of 183. Markedly elevated creatinine to the four range. Both hypernatremia and acute kidney injury have improved slightly with current management. He is awake, moving spontaneously in the emergency department. Patient's RN is at the bedside. All the history was obtained through the chart. History of Present Illness Down syndrome Allergies: Coded Allergies: NO KNOWN ALLERGIES (Unverified , 08/26/24) Home Meds Active Scripts Midodrine HCl (Midodrine HCl) 10 Mg Tab, 10 MG PO TID@0600,1200,1800 for 30 Days, #90 TAB Prov:EMMANUEL LI RESIDENT 09/09/24 Current Medications Current Medications Medications (Trade) Dose Ordered Sig/Elza Route PRN Reason Start Time Stop Time Status Last Admin Morphine Sulfate 4 mg Q1HP PRN IV MODERATE PAIN (4-6 PAIN SCALE) 12/01/24 18:45 12/01/24 21:46 DC Vancomycin HCl 0 ml @ 0 mls/hr UD IV 12/01/24 21:45 12/02/24 10:18 DC Azithromycin 250 ml @ 125 mls/hr DAILY IV 12/02/24 10:00 12/02/24 10:18 DC 12/02/24 10:09 Acetaminophen (Tylenol Suppository) 650 mg Q6HP PRN AL PAIN SCALE 1-3 OR TEMP>100.4 12/01/24 21:45 Dextrose 1,000 ml @ 75 mls/hr [id number] IV 12/01/24 22:30 12/02/24 11:13 DC 12/01/24 23:57 Midodrine (Proamatine Tablet) 10 mg TID@0600,1200,1800 PO 12/02/24 06:00 12/02/24 10:21 DC Acetaminophen/ Hydrocodone Bitart (Robeline 5/325MG Tab) 1 tab Q4HP PRN PO MODERATE PAIN (4-6 PAIN SCALE) 12/01/24 21:45 12/02/24 10:21 DC Ondansetron HCl (Zofran) 4 mg Q4HP PRN IV NAUSEA / VOMITING 12/01/24 21:45 Docusate Sodium (Colace Capsule) 100 mg BIDPRN PRN PO FOR CONSTIPATION 12/01/24 21:45 12/02/24 10:21 DC Norepinephrine Bitartrate 250 ml @ 3.75 mls/hr Q24H IV 12/01/24 22:15 12/02/24 12:30 Nitroglycerin (Ntrostat Sublingual) 0.4 mg Q5MINP PRN SL FOR CHEST PAIN 12/01/24 23:00 12/02/24 10:21 DC Morphine Sulfate 2 mg Q30M PRN IV FOR CHEST PAIN 12/01/24 23:00 12/02/24 10:21 DC Potassium Chloride 100 ml @ 50 mls/hr Q2H IV 12/02/24 06:45 12/02/24 10:44 DC 12/02/24 08:45 Doxycycline Hyclate 100 ml @ 50 mls/hr Q12H IV 12/02/24 20:00 Meropenem 50 ml @ 17 mls/hr Q8HR IV 12/02/24 22:00 12/03/24 00:57 Ipratropium [place] (Atrovent Medneb) 0.5 mg Q4HWA NEB 12/02/24 14:00 Levalbuterol HCl (Xopenex Medneb) 0.625 mg Q6HR NEB 12/02/24 12:00 12/02/24 11:37 DC Methylprednisolone Sodium Succinate (Solu Medrol) 40 mg BID IV 12/02/24 22:00 Acetylcysteine (Mucomyst Inhalation 20%) 200 mg Q8HR NEB 12/02/24 14:00 12/02/24 11:37 DC Pantoprazole Sodium (Protonix) 40 mg DAILY IV 12/03/24 10:00 Meropenem 50 ml @ 17 mls/hr Q12HR IV 12/03/24 10:00 Dextrose 1,000 ml @ 100 mls/hr Q10H IV 12/02/24 11:15 12/02/24 11:15 Acetylcysteine (Mucomyst Inhalation 20%) 200 mg Q8H NEB 12/02/24 18:00 Levalbuterol HCl (Xopenex Medneb) 0.625 mg Q4HWA [facility] 12/02/24 18:00 Family History: Diabetes mellitus G8 MOTHER G8 FATHER High cholesterol G8 MOTHER Hypertension G8 MOTHER Thyroid disease G8 MOTHER Review of Systems Unable to be obtained due to patient's mental status H&P Exam Vital Signs/I&O Vital Sign Date Time Temp Pulse Resp B/P (MAP) Pulse Ox O2 Delivery O2 Flow Rate FiO2 12/02/24 15:30 79 17 98/52 (67) 96 12/02/24 11:12 Nasal Cannula 3.0 12/02/24 11:12 32 12/02/24 09:00 97.9 97.9 Intake and Output 12/01/24 12/02/24 19:00 07:00 Intake Total 2772.50 ml Balance 2772.50 ml Intake IV Total 2772.50 ml Physical Exam Gen: nad, cachectic, chronically ill-appearing no acute distress heent: nc/at, mmm lungs: cta anteriorly cvs: no rub abd: soft, bowel sounds audible ext: no edema skin: no rash neuro: Patient moving spontaneously Labs/Diagnostic Data Labs/Diagnostic Data Laboratory Tests Test 12/02/24 13:53 12/02/24 11:18 12/02/24 10:52 12/02/24 10:37 Range/Units Sodium Level 176 *H 136-145 mmol/L Potassium Level 3.2 L 3.5-5.1 mmol/L Chloride Level 144 H 98-107 mmol/L Carbon Dioxide Level 21 20-31 mmol/L Anion Gap 11 5-15 Blood Urea Nitrogen 79 H 9-23 mg/dL Creatinine 2.71 H 0.700-1.30 mg/dL Glomerular Filtration Rate Calc 27 >90 mL/min BUN/Creatinine Ratio 29.2 H 10.0-20.0 Serum Glucose 155 H 74-106 mg/dL Calcium Level 8.9 8.7-10.4 mg/dL Influenza Type A Antigen Negative Negative Influenza Type B Antigen Negative Negative SARS-CoV-2 Antigen (Rapid) Negative NEGATIVE Blood Gas Specimen Type Arterial Blood Gas Sample Site Left brachial Blood Gas Patient Temperature 37.0 Arterial Blood Date Drawn [id number] Arterial Blood pH 7.395 7.350-7.450 Arterial Blood Partial Pressure CO2 32.9 L 35.0-48.0 mmHg Arterial Blood Partial Pressure O2 44.7 *L 83.0-108.0 mmHg Arterial Blood HCO3 19.7 L 21.0-28.0 mmol/L Arterial Blood Oxygen Saturation 83.9 *L 94.0-98.0 % Arterial Blood Base Excess -4.2 L -2.0-3.0 mmol/L Arterial Blood Oxyhemoglobin 83.0 L 94.0-98.0 % Arterial Blood Carboxyhemoglobin 0.5 0.5-1.5 % Arterial Blood Methemoglobin 0.6 0.0-1.5 % Jeff Test N/a Blood Gas Total Hemoglobin 14.60 13.5-17.5 g/dL Blood Gas Modality Room air FiO2 % 21.0 Blood Gas Critical Value Read Back Yes Blood Gas Notified Whom laure Radford md. Blood Gas Notified Time [id number] Blood Gas Notified By tea Rose rt. Prothrombin Time 15.2 H 9.3-11.8 sec Prothrombin Time INR 1.49 H 0.9-1.15 Activated Partial Thromboplast Time 35.6 H 24.5-34.5 SEC Lactic Acid Level 2.2 *H 0.4-2.0 mmol/L Test 12/02/24 09:00 12/02/24 04:36 12/01/24 21:10 12/01/24 19:10 Range/Units Sodium Level 179 *H 179 *H 183 *H 136-145 mmol/L Potassium Level 3.2 L 3.2 L 3.4 L 3.5-5.1 mmol/L Chloride Level 144 H 142 H 142 H 98-107 mmol/L Carbon Dioxide Level 23 21 26 20-31 mmol/L Anion Gap 12 16 H 15 5-15 Blood Urea Nitrogen 90 *H 85 #*H 105 *H 9-23 mg/dL Creatinine 3.13 H 3.44 H 4.46 H 0.700-1.30 mg/dL Glomerular Filtration Rate Calc 23 20 15 >90 mL/min BUN/Creatinine Ratio 28.8 H 24.7 H 23.5 H 10.0-20.0 Serum Glucose 111 H 114 H 135 H 74-106 mg/dL Calcium Level 9.1 8.3 L 9.9 8.7-10.4 mg/dL Phosphorus Level 3.2 2.4-5.1 mg/dL Magnesium Level 2.8 H 1.6-2.6 mg/dL Ammonia < 10 L 11-32 umol/L Triglycerides Level 128 < 150 mg/dL Cholesterol Level 116 < 200 mg/dL LDL Cholesterol 52 < 100 mg/dL HDL Cholesterol 20 L 40-59 mg/dL Vitamin B12 Level 406 211-911 pg/mL Vitamin D 25-Hydroxy 51.7 30.0-100 ng/mL White Blood Count 12.2 #H 8.2 4.4-10.8 10^3/uL Red Blood Count 4.49 L 5.47 4.5-5.90 10^6/uL Hemoglobin 15.0 # 18.1 H 13.5-17.5 g/dL Hematocrit 47.0 # 56.0 H 41.0-53.0 % Mean Corpuscular Volume 104.7 H 102.5 H 80.0-100.0 fL Mean Corpuscular Hemoglobin 33.4 H 33.2 H 28.0-32.0 pg Mean Corpuscular Hemoglobin Concent 31.9 L 32.4 32.0-36.0 g/dL Red Cell Distribution Width 16.5 H 16.7 H 11.8-14.3 % Platelet Count 61 L 75 L 140-450 10^3/uL Mean Platelet Volume 11.9 H 10.8 6.9-10.8 fL Neutrophils (%) (Auto) 88.9 H 37.0-80.0 % Lymphocytes (%) (Auto) 3.4 L 10.0-50.0 % Monocytes (%) (Auto) 7.6 0.0-12.0 % Basophils (%) (Auto) 0.1 0.0-2.0 % Neutrophils # (Auto) 7.3 1.6-8.6 10 ^3/uL Lymphocytes # (Auto) 0.3 L 0.4-5.4 10 ^3/uL Monocytes # (Auto) 0.6 0-1.3 10 ^3/uL Differential Total Cells Counted 100.0 100 Neutrophils % (Manual) 63 37.0-80.0 Band Neutrophils % (Manual) 21 Lymphocytes % (Manual) 5 L 10.0-50.0 Monocytes % (Manual) 7 0-12 Eosinophils % (Manual) 0 0-7 Basophils % (Manual) 0 0.0-2.0 Metamyelocytes % (manual) 4 Myelocytes % (Manual) 0 Promyelocytes % (Manual) 0 Blast Cells % (Manual) 0 Reactive Lymphocytes 0 Platelet Estimate Decreased Decreased Macrocytosis Slight Hemoglobin A1c 5.4 <5.7 % A1C Total Bilirubin 0.7 0.7 0.2-1.0 mg/dL Aspartate Amino Transferase (AST) 35 31 13-40 U/L Alanine Aminotransferase (ALT) 35 49 H 7-40 U/L Alkaline Phosphatase 77 107 46-116 U/L C-Reactive Protein High Sensitivity 15.65 H <1.0 mg/dL B-Type Natriuretic Peptide 311.05 0-100 pg/mL Total Protein 5.4 L 6.8 5.7-8.2 g/dL Albumin 2.9 L 3.6 3.2-4.8 g/dL Thyroid Stimulating Hormone (TSH) 1.26 0.55-4.78 uIU/mL Random Vancomycin Level 22.7 H 5-10 ug/mL Lactic Acid Level 3.5 *H 3.9 *H 0.4-2.0 mmol/L Eosinophils (%) (Auto) 0.0 0.0-7.0 % Eosinophils # (Auto) 0 0-0.8 10 ^3/uL Basophils # (Auto) 0 0-0.2 10 ^3/uL Nucleated Red Blood Cells 1.0 % Large Platelets Few Assessment IMP: 1) Hemodynamically mediated ROSLYN/VMN, prerenal state - improving 2) severe hypernatremia 3) history of Down's syndrome 4) dehydration REC: - target a serum sodium in the mid 170 range by this evening. - we will continue to attempt reduction of serum sodium by 8-10 mEq every 24 hours. - anticipate continued improvement in kidney function with conservative means. - we will continue to follow closely along with you. Thank you for the consultation. Plan discussed with: Other RAE VIRK MD December 02, 2024 15:52
--- NOTE | 2024-12-02 16:45 | DVHPNRES ---
Progress Note Date Seen: December 02, 2024 Resident Creating Document: MARITZA WEEKS RESIDENT Medical Necessity Reason Pt with a Central, PICC or Fol: Yes The following are medically ne: Central Line, Mason Catheter Subjective Review of Systems Orlando Christy is a 54-year-old male patient who presents to the ED due to altered mental status and progressive dyspnea from functional class II to functional class IV one week prior to his admission, associated with decreased food intake and productive cough with green phlegm. Patient is altered, poor historian, obtained history from EMR and sister (she is the caregiver). Patient is in home hospice, is goals of care are DNI and DNR, due to increased respiratory effort, sister who is the caregiver decided to call EMS to evaluate for probable aspiration pneumonia. Patient was recently hospitalized due to metabolic encephalopathy secondary to severe hypernatremia associated with septic shock due to aspiration pneumonia, current symptoms are similar to that admission. 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 Multiple history of pneumonia PSH: Denies Family history: Mother has diabetes and hypertension Social history: Lives with sister (Vandana, she is the caregiver and next of kin) in [place]. Denies smoking, alcohol and other drug abuse Allergies: Denies Home medication: Lorazepam, haloperidol and midodrine Patient seen and examined at bedside. Patient is altered, he is nonverbal, could not obtain review of systems. Lasts natremia 176 at 2:00 p.m. on 12/02/2024 (was on admission 183 at 7:00 p.m. on 12/01/2024). Nephrology stopped D5W drip to gradually reduce natremia no more than 8-10 mEq in 24 hours. Ordered BMP q.4 hours until natremia improves. Ordered head CT, but patient is combative. Patient will not be intubated due to goals of care (DNR/DNI) Objective vital signs Vital Sign Date Time Temp Pulse Resp B/P (MAP) Pulse Ox O2 Delivery O2 Flow Rate FiO2 12/02/24 15:30 79 17 98/52 (67) 96 12/02/24 11:12 Nasal Cannula 3.0 12/02/24 11:12 32 12/02/24 09:00 97.9 97.9 Total Intake and Output 12/01/24 12/01/24 12/02/24 15:00 23:00 07:00 Intake Total 2007.5 ml 765.00 ml Balance 2007.5 ml 765.00 ml medications Current Medications Medications Dose Ordered Sig/Elza Route Start Time Stop Time Status Last Admin Dose Admin Acetaminophen 650 mg Q6HP PRN [place] 12/01/24 21:45 Ondansetron HCl 4 mg Q4HP PRN IV 12/01/24 21:45 Norepinephrine Bitartrate 250 ml @ 3.75 mls/hr Q24H IV 12/01/24 22:15 12/02/24 12:30 18.75 MLS/HR Doxycycline Hyclate 100 ml @ 50 mls/hr Q12H IV 12/02/24 20:00 Meropenem 50 ml @ 17 mls/hr Q8HR IV 12/02/24 22:00 12/03/24 00:57 Ipratropium [place] 0.5 mg Q4HWA [facility] 12/02/24 14:00 Methylprednisolone Sodium Succinate 40 mg BID IV 12/02/24 22:00 Pantoprazole Sodium 40 mg DAILY IV 12/03/24 10:00 Meropenem 50 ml @ 17 mls/hr Q12HR IV 12/03/24 10:00 Acetylcysteine 200 mg Q8H NEB 12/02/24 18:00 Levalbuterol HCl 0.625 mg Q4HWA [facility] 12/02/24 18:00 Examination Patient lying in bed, in no acute distress General: [place], low grade fever, Down facies, mucosae are dry, cachectic. Cardiovascular: Normal S1 and S2. No murmurs, gallops or rubs Respiratory: Regular ventilation mechanics. Rhonchus predominantly on right hemithorax associated with diffuse wheezing Abdomen: Soft, nontender, no organomegaly, normal bowel sounds, palpable abdominal aorta MSK/skin: Mobilizes 4 limbs. Skin is dry Neurological: Patient is non verbal, cannot assess orientation. No motor no sensitive deficits. Right eye has traumatic injury, left pupil is isochoric and reactive laboratory and microbiology Laboratory Tests 12/02/24 13:53 12/02/24 04:36 Test 12/02/24 13:53 Range/Units Serum Glucose 155 H 74-106 mg/dL Microbiology Date/Time Source Procedure Growth Status 12/01/24 19:10 Blood Blood Culture - Preliminary Resulted Problem List/Assessment/Plan Problem List/Assessment/Plan Neurology # Metabolic encephalopathy secondary to hypernatremia Ordered head CT, but could not be completed since patient is combative. Continue improving natremia Cardiovascular # Mixed shock (Hypovolemia and septic) On IV vasopressors Respiratory # Acute respiratory failure secondary to aspiration pneumonia On oxygen therapy with Nasal cannula at 5 L/min Currently under empiric IV antibiotics (Doxycycline and Meropenem) Gastrointestinal History of Hepatic steatosis LFTs within normal limits. Will continue monitoring Genitourinary/Renal # Severe Hyponatremia # ROSLYN lhemodynamically mediated (VMN) - baseline 0.76 # Severe dehydration # Hypermagnesemia Natremia on admission was 183, currently is 179 after 18 hours, have discontinued IV fluids at this point. Should not correct more than 8-10 mEq every 24 hours. BMP every 4 hours Nephrology on board: Optimizing medical therapy Infectious Disease # Mixed shock (Septic and hypovolemic) # Aspiration pneumonia Currently under empiric IV antibiotics (Doxycycline and Meropenem) On IV vasopressors Endocrine # Failure to thrive # Severe protein calorie malnutrition with a BMI 15.6 Patient is NPO due to altered mental status nutritional consult Hematology #Thrombocytopenia# # Polycythemia - Probably secondary to dehydration (Resolved) No heparin. On SCDs Nutrition: NPO (high risk aspiration). Prophylaxis: PUD (Pantoprazole) and DVT (SCDs) Lines 12/01/2024 Right femoral CVC Drips Norepinephrine 10 D5W was 100 ml/h, now DC Goals of care discussed with sister Gary) who is caregiver for over 18 minutes: DNR/DNI Case discussed with Dr. Nuñez, sister and nurse: Patient is ICU status due to requirement of IV vasopressors through central line, lowering hypernatremia at a rate of 8-10 mEq every 24 hours, currently discontinue D5W, we will continue obtaining BMP. Appreciate nephrology input. Patient has poor prognosis, have discussed with sister. Critical care time spent including discussion with nursing and family, excluding procedures: 89 minutes Plan discussed with: Patient, Other (Sister (Vandana) and nurses) My Orders My Orders Orders - MARITZA WEEKS RESIDENT Procedure Category Date Status Time Basic Metabolic Panel LAB 12/02/24 Logged 18:00 Basic Metabolic Panel LAB 12/02/24 Logged 22:00 Basic Metabolic Panel LAB 12/03/24 Verified 02:00 Basic Metabolic Panel LAB 12/03/24 Verified 06:00 Basic Metabolic Panel LAB 12/03/24 Verified 10:00 Basic Metabolic Panel LAB 12/03/24 Verified 14:00 Basic Metabolic Panel LAB 12/03/24 Verified 18:00 Basic Metabolic Panel LAB 12/03/24 Verified 22:00 Basic Metabolic Panel LAB 12/04/24 Verified 02:00 Doxycycline PHA 12/02/24 In Process 100mg/100ml 20:00 Meropenem 1gm Ivpb PHA 12/02/24 In Process (Merrem 1gm/ Ns) 22:00 Ipratropium Medneb PHA 12/02/24 In Process (Atrovent Medneb) 14:00 Methylprednisolone PHA 12/02/24 In Process Sod Succ (Solu Medrol 22:00 Mrsa Screen GUERO 12/02/24 In Process 11:25 Pantoprazole PHA 12/03/24 In Process (Protonix) 10:00 Abg W/ Co-Ox RT 12/02/24 Logged 10:23 Electrocardigram EKG 12/02/24 Logged 10:24 Meropenem 500mg Ivpb PHA 12/03/24 In Process (Merrem 500mg/Ns) 10:00 Acetylcysteine PHA 12/02/24 In Process Inhalation 20% 18:00 Levalbuterol Hcl PHA 12/02/24 In Process (Xopenex Medneb) 18:00 Potassium Chl PHA 12/02/24 In Process 20meq/100ml 15:00 MARITZA WEEKS RESIDENT December 02, 2024 16:45
[2024-12-02] MEDS ORDERED: VANCOMYCIN PER PHARMACY 0 MG IV SCH (17:00)
[2024-12-02] MEDS: ACETAMINOPHEN 650 MG RECT SUPP PR PRN (17:30)
[2024-12-02 18:36] LABS: Potassium 3.6 mmol/L (3.5-5.1)
[2024-12-02 18:37] LABS: Anion Gap 11 (5-15); Carbon Dioxide 21 mmol/L (20-31)
[2024-12-02 18:42] LABS: BUN/Creatinine Ratio 29.1 (10.0-20.0)
[2024-12-02 18:46] LABS: Blood Urea Nitrogen 72 mg/dL (9-23); Chloride 145 mmol/L (98-107); Glucose 128 mg/dL (74-106)
[2024-12-02 18:50] LABS: Sodium 177 mmol/L (136-145)
[2024-12-02] MEDS: LEVALBUTEROL HCL 1.25 MG/3 ML NEB NEB SCH (19:08)
[2024-12-02] MEDS: IPRATROPIUM BROM 0.5 MG/2.5ML INH SOL NEB SCH (19:09)
[2024-12-02] MEDS ORDERED: DOXYCYCLINE 100MG/100ML 100 ML IV SCH (20:00)
[2024-12-02 20:27] LABS: Urine Bacteria None Seen /hpf (None Seen)
[2024-12-02 20:36] LABS: Urine Amorphous Crystal FEW /hpf (None Seen); Urine Blood 2+ /uL (Negative); Urine Clarity Turbid (Clear); Urine Color Colorless (Yellow); Urine Protein, UAD TRACE (Negative); Urine Squamous Epithelial Cell FEW /hpf (<5); Urine Urobilinogen Normal (Negative); Urine WBC 3 /HPF (0-3)
[2024-12-02 21:23] LABS: Amphetamine Screen, Urine Neg (NEGATIVE); Barbiturate Scree,Urine Neg (NEGATIVE); Benzodiazephine Screen, Urine Neg (NEGATIVE); Cannabinoid Screen, Urine Neg (NEGATIVE); Cocaine Screen, Urine Neg (NEGATIVE); Opiate Scree,Urine Neg (NEGATIVE); Phencyclidine Screen, Urine Neg (NEGATIVE)
[2024-12-02] MEDS: MEROPENEM 1GM IVPB 50 ML IV SCH (21:49)
[2024-12-02] MEDS: methylPREDNISolone SOD SUCC 40 MG/ML VL IV SCH (22:04)
[2024-12-02 22:18] LABS: Anion Gap 11 (5-15); Carbon Dioxide 23 mmol/L (20-31)
[2024-12-02 22:19] LABS: Calcium 9.1 mg/dL (8.7-10.4)
[2024-12-02 22:24] LABS: BUN/Creatinine Ratio 32.9 (10.0-20.0)
[2024-12-02 22:38] LABS: Blood Urea Nitrogen 76 mg/dL (9-23); Chloride 144 mmol/L (98-107); Glucose 120 mg/dL (74-106); Potassium 3.3 mmol/L (3.5-5.1)
[2024-12-02 22:40] LABS: Sodium 178 mmol/L (136-145)
[2024-12-02] MEDS: ACETYLCYSTEINE 20%(200MG/ML) SOL 4ML NEB SCH (23:00)
[2024-12-03] VITALS (39 sets, daily range): BP systolic 82–140; BP diastolic 33–84; PULSE 41–128; RESP 11–25; TEMP 95.4–98.4; O2SAT 83–100
[2024-12-03 03:20] LABS: Anion Gap 13 (5-15); Carbon Dioxide 22 mmol/L (20-31)
[2024-12-03 03:25] LABS: BUN/Creatinine Ratio 33.5 (10.0-20.0); Calcium 8.5 mg/dL (8.7-10.4); Chloride 141 mmol/L (98-107); Potassium 2.9 mmol/L (3.5-5.1)
[2024-12-03 03:26] LABS: Blood Urea Nitrogen 71 mg/dL (9-23); Glucose 198 mg/dL (74-106); Sodium 176 mmol/L (136-145)
[2024-12-03 06:19] LABS: Hematocrit 37.2 % (41.0-53.0); Hemoglobin 12.4 g/dL (13.5-17.5); Mean Corpuscular Hemoglobin 33.7 pg (28.0-32.0); Mean Corpuscular Hgb Conc. 33.4 g/dL (32.0-36.0); Platelet Count (auto) 31 10^3/uL (140-450); Red Blood Cells 3.68 10^6/uL (4.5-5.90); Red Cell Distribution Width 15.7 % (11.8-14.3); White Blood Cell 8.9 10^3/uL (4.4-10.8)
[2024-12-03 06:24] LABS: Basophils % (manual) 0 (0.0-2.0); Blast Cells 0; Eosinophils % (manual) 0 (0-7); Metamyelocytes % 0; Myelocytes % 0; Promyelocytes % 0; Reactive Lymphocytes 0
--- NOTE | 2024-12-03 06:30 | DVH ---
CHEST RADIOGRAPH Indication: Aspiration pneumonia Technique: Single frontal view of the chest was obtained COMPARISON: XY CHEST PORTABLE on DOS: 12/01/24, XY CHEST PORTABLE on DOS: 09/06/24, XY CHEST XRAY 1 VIE W on DOS: 08/29/24, XY CHEST XRAY 1 VIEW on DOS: 08/27/24 FINDINGS: Lines and Tubes: None Lungs: Diffuse increased interstitial prominence Pleura: No effusion. No pneumothorax. Cardiomediastinal contours: Unremarkable Bones: Unremarkable IMPRESSION: Diffuse increased interstitial prominence, unchanged. Examination is limited secondary to suboptimal patient positioning. There is a lucency in the left margarito ng base which is felt to be artifactual related to patient positioning. If there is high clinical antoine picion for pneumothorax, recommend repeat chest radiograph.
[2024-12-03 06:31] LABS: Alanine Aminotransferase 35 U/L (7-40); Alkaline Phosphatase 74 U/L (46-116); Anion Gap 10 (5-15); BUN/Creatinine Ratio 35.1 (10.0-20.0); Carbon Dioxide 23 mmol/L (20-31)
[2024-12-03 06:32] LABS: Bilirubin, Total 0.7 mg/dL (0.2-1.0)
[2024-12-03 06:38] LABS: Albumin 2.7 g/dL (3.2-4.8); Aspartate Aminotransferase 45 U/L (13-40); Blood Urea Nitrogen 66 mg/dL (9-23); Chloride 142 mmol/L (98-107); Glucose 153 mg/dL (74-106); Lactic Acid w/Reflex 2.2 mmol/L (0.4-2.0); Phosphorus 1.9 mg/dL (2.4-5.1)
[2024-12-03 06:39] LABS: Magnesium 2.6 mg/dL (1.6-2.6); Sodium 175 mmol/L (136-145)
[2024-12-03] MEDS: POTASSIUM CHL 20MEQ/100ML 100 ML IV SCH (07:43)
[2024-12-03 07:55] LABS: Band Neutrophils % (manual) 11; Lymphocytes % (manual) 8 (10.0-50.0); Monocytes % (manual) 2 (0-12); Platelet Estimate Decreased
[2024-12-03] MEDS: VANCOMYCIN 750mg/150ml 150 ML IV ONE (09:09)
[2024-12-03] MEDS: PANTOPRAZOLE 40 MG/10 ML VIAL INJ IV SCH (10:08)
[2024-12-03] MEDS: MEROPENEM 500MG IVPB 50 ML IV SCH (11:17)
--- NOTE | 2024-12-03 13:13 | DVHPN2 ---
Progress Note Date Seen: December 03, 2024 Medical Necessity Reason Pt with a Central, PICC or Fol: Yes The following are medically ne: Central Line, Mason Catheter Subjective Review of Systems Resting in bed. Patient reports: No new complaints Objective vital signs Vital Sign Date Time Temp Pulse Resp B/P (MAP) Pulse Ox O2 Delivery O2 Flow Rate FiO2 12/03/24 13:00 60 18 100/55 (70) 96 12/03/24 07:45 97.8 97.8 12/03/24 07:30 Room Air* 0 21 Total Intake and Output 12/02/24 12/02/24 12/03/24 15:00 23:00 07:00 Intake Total 943.75 ml 342.50 ml 946.25 ml Output Total 390 ml Balance 943.75 ml 342.50 ml 556.25 ml medications Current Medications Medications Dose Ordered Sig/Elza Route Start Time Stop Time Status Last Admin Dose Admin Acetaminophen 650 mg Q6HP PRN [place] 12/01/24 21:45 12/03/24 09:20 650 MG Ondansetron HCl 4 mg Q4HP PRN IV 12/01/24 21:45 Norepinephrine Bitartrate 250 ml @ 3.75 mls/hr Q24H IV 12/01/24 22:15 12/03/24 02:00 7.5 MLS/HR Methylprednisolone Sodium Succinate 40 mg BID IV 12/02/24 22:00 12/03/24 10:08 40 MG Pantoprazole Sodium 40 mg DAILY IV 12/03/24 10:00 12/03/24 10:08 40 MG Meropenem 50 ml @ 17 mls/hr Q12HR IV 12/03/24 10:00 12/03/24 11:17 17 MLS/HR Levalbuterol HCl 0.625 mg Q4HWA NEB 12/02/24 18:00 12/03/24 10:50 0.625 MG Ipratropium [place] 0.5 mg Q4HWA NEB 12/02/24 18:00 12/03/24 10:50 0.5 MG Vancomycin HCl 0 ml @ 0 mls/hr UD IV 12/02/24 17:00 Acetylcysteine 200 mg Q8H NEB 12/02/24 22:00 12/03/24 06:39 200 MG Dextrose 1,000 ml @ 100 mls/hr Q10H IV 12/02/24 23:15 12/03/24 08:31 100 MLS/HR Examination Gen: no acute distress Lungs: Bilateral air entry, no rales Heart: RRR, normal S1 and S2 Ext: No edema Neuro: Awake laboratory and microbiology Laboratory Tests 12/03/24 06:05 Test 12/03/24 06:05 Range/Units Serum Glucose 153 H 74-106 mg/dL Microbiology Date/Time Source Procedure Growth Status 12/02/24 19:53 Voided Urine Urine Culture - Preliminary Resulted 12/01/24 19:10 Blood Blood Culture - Preliminary Resulted Labs and/or images reviewed: Labs reviewed by me Problem List/Assessment/Plan Problem List/Assessment/Plan IMP: 1) Hemodynamically mediated ROSLYN/VMN, prerenal state -downtrending serum creat 2) severe hypernatremia 3) history of Down's syndrome 4) dehydration REC: - Chemistry panels q 6 hrs - Continue IVF - We will continue to attempt reduction of serum sodium by 8-10 mEq every 24 hours. - Strict I&Os - Potassium supplementation as needed. - We will continue to follow closely Case discussed with Dr Jesús Baker Plan discussed with: Other (RN) IRIS STYLES December 03, 2024 13:13
[2024-12-03 14:09] LABS: Anion Gap 12 (5-15)
[2024-12-03 14:10] LABS: Calcium 8.8 mg/dL (8.7-10.4)
[2024-12-03 14:14] LABS: BUN/Creatinine Ratio 39.1 (10.0-20.0)
[2024-12-03 14:15] LABS: Blood Urea Nitrogen 61 mg/dL (9-23); Carbon Dioxide 20 mmol/L (20-31); Chloride 140 mmol/L (98-107); Glucose 138 mg/dL (74-106); Potassium 3.4 mmol/L (3.5-5.1)
[2024-12-03 14:16] LABS: Sodium 172 mmol/L (136-145)
[2024-12-03] MEDS: MORPHINE SULFATE INJ 2 MG/ml SYRG IV PRN (14:25)
[2024-12-03] MEDS: ONDANSETRON HCL 4 MG/2 ML VIAL IV PRN (14:26)
[2024-12-03 16:26] LABS: Anion Gap 11 (5-15); Carbon Dioxide 22 mmol/L (20-31)
[2024-12-03 16:27] LABS: Calcium 8.7 mg/dL (8.7-10.4)
[2024-12-03 16:32] LABS: BUN/Creatinine Ratio 41.1 (10.0-20.0)
[2024-12-03 16:35] LABS: Blood Urea Nitrogen 58 mg/dL (9-23); Chloride 137 mmol/L (98-107); Glucose 170 mg/dL (74-106); Potassium 3.3 mmol/L (3.5-5.1)
[2024-12-03 17:04] LABS: Sodium 170 mmol/L (136-145)
--- NOTE | 2024-12-03 17:45 | DVHPN2 ---
Progress Note - Dictate Date Seen: December 03, 2024 Medical Necessity Reason Pt with a Central, PICC or Fol: Yes The following are medically ne: Central Line, Mason Catheter vital signs Vital Sign Date Time Temp Pulse Resp B/P (MAP) Pulse Ox O2 Delivery O2 Flow Rate FiO2 12/03/24 15:45 53 18 149/56 (87) 91 12/03/24 15:00 97.6 97.6 12/03/24 07:30 Room Air* 0 21 Total Intake and Output 12/02/24 12/02/24 12/03/24 15:00 23:00 07:00 Intake Total 943.75 ml 342.50 ml 946.25 ml Output Total 390 ml Balance 943.75 ml 342.50 ml 556.25 ml medications Current Medications Medications Dose Ordered Sig/Elza Route Start Time Stop Time Status Last Admin Dose Admin Acetaminophen 650 mg Q6HP PRN [place] 12/01/24 21:45 12/03/24 09:20 650 MG Ondansetron HCl 4 mg Q4HP PRN IV 12/01/24 21:45 12/03/24 14:26 4 MG Norepinephrine Bitartrate 250 ml @ 3.75 mls/hr Q24H IV 12/01/24 22:15 12/03/24 02:00 7.5 MLS/HR Methylprednisolone Sodium Succinate 40 mg BID IV 12/02/24 22:00 12/03/24 10:08 40 MG Pantoprazole Sodium 40 mg DAILY IV 12/03/24 10:00 12/03/24 10:08 40 MG Meropenem 50 ml @ 17 mls/hr Q12HR IV 12/03/24 10:00 12/03/24 11:17 17 MLS/HR Levalbuterol HCl 0.625 mg Q4HWA [facility] 12/02/24 18:00 12/03/24 14:37 0.625 MG Ipratropium [place] 0.5 mg Q4HWA [facility] 12/02/24 18:00 12/03/24 14:37 0.5 MG Vancomycin HCl 0 ml @ 0 mls/hr UD IV 12/02/24 17:00 Acetylcysteine 200 mg Q8H NEB 12/02/24 22:00 12/03/24 14:37 200 MG Dextrose 1,000 ml @ 100 mls/hr Q10H IV 12/02/24 23:15 12/03/24 08:31 100 MLS/HR Morphine Sulfate 1 mg Q4HP PRN IV 12/03/24 13:15 12/03/24 14:25 1 MG Lorazepam 0.5 mg Q6HP PRN IV 12/03/24 13:15 laboratory and microbiology Laboratory Tests 12/03/24 16:03 12/03/24 06:05 Test 12/03/24 16:03 Range/Units Serum Glucose 170 H 74-106 mg/dL Assessment/Plan Impression Acute hypoxemic respiratory failure Aspiration pneumonia Sepsis UTI Patient seen and examined in ICU Events Low oxygen requirements On room air Hemodynamics improving, on low dose Levophed Labs and imaging reviewed Management Supplemental oxygen as needed Titrate to maintain sats 90% or above Incentive spirometry Continue antibiotics F/u cultures Bronchodilators Monitor renal function Monitor electrolytes Supplement as needed Once off pressors, okay to downgrade from pulmonary standpoint DVT prophylaxis Critical care time 35 minutes Plan discussed with: Patient CIRA CRHISTIANSON MD December 03, 2024 17:45
[2024-12-03] MEDS ORDERED: ACCU-CHEK COMFORT CURVE STRIP VI SCH (18:00)
[2024-12-03] MEDS ORDERED: DOPamine 1600MCG/ML D5W 250 ML IV SCH (18:15)
[2024-12-03 18:16] LABS: Anion Gap 10 (5-15); Carbon Dioxide 23 mmol/L (20-31)
[2024-12-03 18:21] LABS: BUN/Creatinine Ratio 36.6 (10.0-20.0)
[2024-12-03] MEDS ORDERED: DEXTROSE (50%) 50ML SYRG IV PRN (18:30)
[2024-12-03 18:49] LABS: Blood Urea Nitrogen 52 mg/dL (9-23); Chloride 135 mmol/L (98-107); Glucose 166 mg/dL (74-106); Potassium 3.4 mmol/L (3.5-5.1)
[2024-12-03 18:52] LABS: Sodium 168 mmol/L (136-145)
--- NOTE | 2024-12-03 19:56 | DVHPN2 ---
Subjective Confused Not following commands On Levophed drip Bradycardic Changes from previous H/P or p: Changes Eyes: No Pain, No Vision change, No Conjunctivae inflammation, No Eyelid inflammation, No Other, No Redness ENT: No Ear pain, No Ear discharge, No Nose pain, No Nose discharge, No Nose congestion, No Mouth pain, No Mouth swelling, No Throat pain, No Throat swelling, No Other Cardiovascular: No Chest Pain, No Palpitations, No Orthopnea, No Paroxysmal Noc. Dyspnea, No Edema, No Lt Headedness, No Other Respiratory: No Cough, No Dry; Shortness of breath; No SOB with excertion, No Wheezing, No Hemoptysis, No Pleuritic Pain, No Sputum; Other (SOB at rest) Gastrointestinal: No Nausea, No Vomiting, No Abdominal Pain, No Diarrhea, No Constipation, No Melena, No Hematochezia, No Other Genitourinary: No Dysuria, No Frequency, No Incontinence, No Hematuria, No Retention; Other (Anuric) Musculoskeletal: No other, No neck pain, No shoulder pain, No arm pain, No back pain, No hand pain, No leg pain, No foot pain Skin: No Rash, No Lesions, No Jaundice, No Bruising, No Other Objective Vitals Vital Signs Date Time Temp Pulse Resp B/P (MAP) Pulse Ox O2 Delivery O2 Flow Rate FiO2 12/03/24 19:13 41 20 99 12/03/24 18:59 Room Air* 0 21 12/03/24 15:45 149/56 (87) 12/03/24 15:00 97.6 97.6 Intake/Output Intake and Output 12/03/24 07:00 Intake Total 2232.50 ml Output Total 390 ml Balance 1842.50 ml Intake IV Total 2232.50 ml Output Urine Total 390 ml General Appearance: Other (Confused and disoriented and not following commands) Lungs: Other Extremities: No edema (Bilateral rhonchi) Medications Current Medications Medications Dose Ordered Sig/Leza Route Start Time Stop Time Status Last Admin Dose Admin Acetaminophen 650 mg Q6HP PRN [place] 12/01/24 21:45 12/03/24 09:20 650 MG Ondansetron HCl 4 mg Q4HP PRN IV 12/01/24 21:45 12/03/24 14:26 4 MG Norepinephrine Bitartrate 250 ml @ 3.75 mls/hr Q24H IV 12/01/24 22:15 12/03/24 02:00 7.5 MLS/HR Methylprednisolone Sodium Succinate 40 mg BID IV 12/02/24 22:00 12/03/24 10:08 40 MG Pantoprazole Sodium 40 mg DAILY IV 12/03/24 10:00 12/03/24 10:08 40 MG Meropenem 50 ml @ 17 mls/hr Q12HR IV 12/03/24 10:00 12/03/24 11:17 17 MLS/HR Levalbuterol HCl 0.625 mg Q4HWA [facility] 12/02/24 18:00 12/03/24 18:59 0.625 MG Ipratropium [place] 0.5 mg Q4HWA [facility] 12/02/24 18:00 12/03/24 18:59 0.5 MG Vancomycin HCl 0 ml @ 0 mls/hr UD IV 12/02/24 17:00 Acetylcysteine 200 mg Q8H NEB 12/02/24 22:00 12/03/24 19:00 200 MG Dextrose 1,000 ml @ 100 mls/hr Q10H IV 12/02/24 23:15 12/03/24 08:31 100 MLS/HR Morphine Sulfate 1 mg Q4HP PRN IV 12/03/24 13:15 12/03/24 14:25 1 MG Lorazepam 0.5 mg Q6HP PRN IV 12/03/24 13:15 Diagnostic Test (Pha) 1 strip Q6HR 12/03/24 18:00 UNV Dopamine HCl/ Dextrose 250 ml @ 7.688 mls/ hr Q24H IV 12/03/24 18:30 Diagnostic Test (Pha) 1 strip Q6HR 12/04/24 00:00 Insulin Human Regular Q6HR SC 12/04/24 00:00 Dextrose 50 ml UD PRN IV 12/03/24 18:30 Laboratory Results Laboratory Tests 12/03/24 06:05 12/03/24 17:49 Chemistry Test 12/02/24 21:55 12/03/24 01:50 12/03/24 06:05 12/03/24 13:12 Calcium Level 9.1 mg/dL (8.7-10.4) 8.5 mg/dL (8.7-10.4) L 9.0 mg/dL (8.7-10.4) 8.8 mg/dL (8.7-10.4) Albumin 2.7 g/dL (3.2-4.8) L Magnesium Level 2.6 mg/dL (1.6-2.6) Phosphorus Level 1.9 mg/dL (2.4-5.1) L Total Protein 5.0 g/dL (5.7-8.2) L Test 12/03/24 16:03 12/03/24 17:49 Calcium Level 8.7 mg/dL (8.7-10.4) 9.0 mg/dL (8.7-10.4) LFT Test 12/03/24 06:05 Alanine Aminotransferase (ALT) 35 U/L (7-40) Alkaline Phosphatase 74 U/L (46-116) Aspartate Amino Transferase (AST) 45 U/L (13-40) H Total Bilirubin 0.7 mg/dL (0.2-1.0) Urinalysis Test 12/02/24 19:53 Urine Color Colorless (Yellow) Urine Clarity Turbid (Clear) H Urine pH 5.0 (5.0-9.0) Urine Specific [place] 1.020 (1.001-1.035) Urine Protein Trace (Negative) H Urine Ketones Negative (Negative) Urine Blood 2+ /uL (Negative) H Urine Nitrite Negative (Negative) Urine Bilirubin Negative (Negative) Urine Urobilinogen Normal mg/dL (Negative) Urine Leukocyte Esterase Negative /uL (Negative) Urine RBC 1 /hpf (0 - 3) Urine Microscopic WBC 3 /HPF (0-3) Urine Squamous Epithelial Cells Few /hpf (<5) Urine Amorphous Crystals Few /hpf (None Seen) Urine Bacteria None seen /hpf (None Seen) Urine Glucose Normal mg/dL (Normal) Microbiology Microbiology Date/Time Source Procedure Growth Status 12/02/24 19:53 Voided Urine Urine Culture - Preliminary Resulted 12/02/24 11:18 Nose MRSA Screen - Final Complete 12/01/24 19:10 Blood Blood Culture - Preliminary Resulted Assessment/Plan Assessment/Plan Severe sepsis with septic shock Severe hypernatremia Down syndrome Dehydration Acute kidney injury hemodynamically mediated vasomotor nephropathy Bradycardia Thrombocytopenia due to sepsis Bacteremia with Gram-positive cocci in clusters and pairs Plan Continue IV antibiotics meropenem and vancomycin Vasopressors as needed Start dopamine drip for bradycardia as needed Nephrology consult Pulmonary consult IV fluids D5W DNR Plan discussed with: Other My Orders Orders - JAIR FITZGERALD MD Procedure Category Date Status Time Morphine Sulfate PHA 12/03/24 In Process Injection 13:15 Lorazepam 2mg/Ml Inj PHA 12/03/24 In Process (Ativan Inj) 13:15 Dopamine 1600mcg/Ml PHA 12/03/24 In Process D5W 18:30 Glucose Blood PHA 12/04/24 In Process (Accu-Chek Comfort 00:00 Insulin R (Human) PHA 12/04/24 In Process (Insulin R) 00:00 Dextrose 50% Syringe PHA 12/03/24 In Process 18:30 Date of Service: December 03, 2024 Billing Provider: JAIR FITZGERALD MD Common Visit Codes: [id number] CARE 30-74 MIN JAIR FITZGERALD MD December 03, 2024 19:56
[2024-12-03 22:08] LABS: Anion Gap 8 (5-15); Carbon Dioxide 23 mmol/L (20-31)
[2024-12-03 22:09] LABS: Calcium 8.8 mg/dL (8.7-10.4)
[2024-12-03 22:13] LABS: BUN/Creatinine Ratio 35.6 (10.0-20.0)
[2024-12-03 22:49] LABS: Blood Urea Nitrogen 47 mg/dL (9-23); Chloride 135 mmol/L (98-107); Glucose 172 mg/dL (74-106); Potassium 3.4 mmol/L (3.5-5.1)
[2024-12-03 22:55] LABS: Sodium 166 mmol/L (136-145)
[2024-12-04] VITALS (100 sets, daily range): BP systolic 84–144; BP diastolic 23–94; PULSE 43–185; RESP 11–31; TEMP 96.4–99.3; O2SAT 86–100
[2024-12-04] MEDS: ACCU-CHEK COMFORT CURVE STRIP VI SCH (00:01)
[2024-12-04] MEDS: InsuLIN REG 1unit/0.01ml Soln (100units/ml) SC SCH (00:06)
[2024-12-04 02:19] LABS: Hematocrit 36.8 % (41.0-53.0); Mean Corpuscular Hemoglobin 33.3 pg (28.0-32.0); Mean Corpuscular Hgb Conc. 32.6 g/dL (32.0-36.0); Mean Corpuscular Volume 102.1 fL (80.0-100.0); Red Cell Distribution Width 16.3 % (11.8-14.3); White Blood Cell 9.6 10^3/uL (4.4-10.8)
[2024-12-04 02:22] LABS: Platelet Count (auto) 29 10^3/uL (140-450)
[2024-12-04 02:24] LABS: Basophils % (manual) 0 (0.0-2.0); Blast Cells 0; Eosinophils % (manual) 0 (0-7); Metamyelocytes % 0; Myelocytes % 0; Promyelocytes % 0; Reactive Lymphocytes 0
[2024-12-04 02:29] LABS: Potassium 3.7 mmol/L (3.5-5.1)
[2024-12-04 02:30] LABS: Anion Gap 8 (5-15); Carbon Dioxide 23 mmol/L (20-31)
[2024-12-04 02:33] LABS: Calcium 8.6 mg/dL (8.7-10.4); Chloride 133 mmol/L (98-107); Sodium 164 mmol/L (136-145)
[2024-12-04 02:35] LABS: BUN/Creatinine Ratio 32.3 (10.0-20.0)
[2024-12-04 02:39] LABS: Blood Urea Nitrogen 43 mg/dL (9-23); Glucose 158 mg/dL (74-106); Magnesium 2.7 mg/dL (1.6-2.6)
[2024-12-04 04:05] LABS: Alanine Aminotransferase 34 U/L (7-40); Alkaline Phosphatase 70 U/L (46-116); Anion Gap 9 (5-15); Aspartate Aminotransferase 30 U/L (13-40); BUN/Creatinine Ratio 33.6 (10.0-20.0); Bilirubin, Total 0.5 mg/dL (0.2-1.0); Carbon Dioxide 24 mmol/L (20-31); Potassium 3.8 mmol/L (3.5-5.1)
[2024-12-04 04:35] LABS: Albumin 2.7 g/dL (3.2-4.8); Blood Urea Nitrogen 44 mg/dL (9-23); Calcium 8.4 mg/dL (8.7-10.4); Chloride 131 mmol/L (98-107); Glucose 144 mg/dL (74-106); Total Protein 4.9 g/dL (5.7-8.2)
[2024-12-04 04:36] LABS: Sodium 164 mmol/L (136-145)
[2024-12-04 05:18] LABS: Band Neutrophils % (manual) 31; Lymphocytes % (manual) 4 (10.0-50.0)
[2024-12-04 05:19] LABS: Anisocytosis Slight; Macrocytosis Slight; Monocytes % (manual) 1 (0-12); Platelet Estimate Markedly Decreased
[2024-12-04] MEDS: LEVALBUTEROL HCL 1.25 MG/3 ML NEB ONE (06:39)
[2024-12-04] MEDS: IPRATROPIUM BROM 0.5 MG/2.5ML INH SOL ONE (06:39)
--- NOTE | 2024-12-04 07:06 | DVH ---
CHEST RADIOGRAPH Indication: Aspiration pneumonia Technique: Single frontal view of the chest was obtained Comparison: XY CHEST XRAY 1 VIEW on DOS: 12/03/24, XY CHEST PORTABLE on DOS: 12/01/24, XY CHEST PORTABL E on DOS: 09/06/24, XY CHEST XRAY 1 VIEW on DOS: 08/29/24, XY CHEST XRAY 1 VIEW on DOS: 08/27/24, XY SAMIR ST XRAY 1 VIEW on DOS: 12/03/24 FINDINGS: Lines and Tubes: None Lungs: Diffuse increased interstitial prominence Pleura: No effusion. No pneumothorax. Cardiomediastinal contours: Unremarkable Bones: Unremarkable IMPRESSION: Diffuse increased interstitial prominence, unchanged.
[2024-12-04] MEDS: DOPamine 1600MCG/ML D5W 250 ML IV SCH (07:59)
--- NOTE | 2024-12-04 09:53 | DVHPN2 ---
Progress Note - Dictate Date Seen: December 04, 2024 Medical Necessity Reason Pt with a Central, PICC or Fol: Yes The following are medically ne: Central Line, Mason Catheter vital signs Vital Sign Date Time Temp Pulse Resp B/P (MAP) Pulse Ox O2 Delivery O2 Flow Rate FiO2 12/04/24 07:40 60 18 100 12/04/24 07:32 Room Air 12/04/24 07:32 0 21 12/04/24 06:50 130/50 12/04/24 06:45 97.2 207.0 Total Intake and Output 12/03/24 12/03/24 12/04/24 15:00 23:00 07:00 Intake Total 752.5 ml 783.75 ml 837.35 ml Output Total 850 ml 450 ml Balance 752.5 ml -66.25 ml 387.35 ml medications Current Medications Medications Dose Ordered Sig/Elza Route Start Time Stop Time Status Last Admin Dose Admin Acetaminophen 650 mg Q6HP PRN [place] 12/01/24 21:45 12/03/24 09:20 650 MG Ondansetron HCl 4 mg Q4HP PRN IV 12/01/24 21:45 12/03/24 14:26 4 MG Norepinephrine Bitartrate 250 ml @ 3.75 mls/hr Q24H IV 12/01/24 22:15 12/04/24 05:03 11.25 MLS/HR Methylprednisolone Sodium Succinate 40 mg BID IV 12/02/24 22:00 12/03/24 22:38 40 MG Pantoprazole Sodium 40 mg DAILY IV 12/03/24 10:00 12/03/24 10:08 40 MG Meropenem 50 ml @ 17 mls/hr Q12HR IV 12/03/24 10:00 12/03/24 22:38 17 MLS/HR Levalbuterol HCl 0.625 mg Q4HWA [facility] 12/02/24 18:00 12/04/24 07:26 0.625 MG Ipratropium [place] 0.5 mg Q4HWA [facility] 12/02/24 18:00 12/04/24 07:26 0.5 MG Vancomycin HCl 0 ml @ 0 mls/hr UD IV 12/02/24 17:00 Acetylcysteine 200 mg Q8H NEB 12/02/24 22:00 12/04/24 07:29 200 MG Dextrose 1,000 ml @ 100 mls/hr Q10H IV 12/02/24 23:15 12/04/24 08:00 100 MLS/HR Morphine Sulfate 1 mg Q4HP PRN IV 12/03/24 13:15 12/03/24 14:25 1 MG Lorazepam 0.5 mg Q6HP PRN IV 12/03/24 13:15 Diagnostic Test (Pha) 1 strip Q6HR 12/03/24 18:00 UNV Dopamine HCl/ Dextrose 250 ml @ 7.688 mls/ hr Q24H IV 12/03/24 18:30 Diagnostic Test (Pha) 1 strip Q6HR 12/04/24 00:00 12/04/24 05:55 1 STRIP Insulin Human Regular Q6HR SC 12/04/24 00:00 12/04/24 00:06 2 UNITS Dextrose 50 ml UD PRN IV 12/03/24 18:30 laboratory and microbiology Laboratory Tests 12/04/24 03:08 12/04/24 01:51 Test 12/04/24 03:08 Range/Units Serum Glucose 144 H 74-106 mg/dL Assessment/Plan Impression Acute hypoxemic respiratory failure Aspiration pneumonia Sepsis UTI Patient seen and examined in ICU Events Low oxygen requirements On room air On low dose Levophed drip for hemodynamic support No acute events Labs and imaging reviewed Management Supplemental oxygen as needed Titrate to maintain sats 90% or above Incentive spirometry Continue antibiotics F/u cultures Bronchodilators Monitor renal function Monitor electrolytes Supplement as needed Once off pressors, okay to downgrade from pulmonary standpoint DVT prophylaxis Critical care time 35 minutes Dietary Evaluation Review Recommendations by RD: Dietary education by RD, Protein Supplementation Comments: 1) Initiate Ensure Enlive tid d/t underweight BMI. Encourage optimal PO intake 2) Advance to regular diet when medically feasible, pending RETAIL SUPERVISOR aproval. 3) Refer to outpatient RD for weight management 4) Follow-up with nephrology and pulmonology 5) Continue to monitor I&O, labs, and skin integrity Expected Outcomes/Goals: 1) appetite and labs to improve 2) diet to advance 3) f/u in 3-5 days Plan discussed with: Patient CIRA CHRISTIANSON MD December 04, 2024 09:53
[2024-12-04] MEDS: VANCOMYCIN 750mg/150ml 150 ML IV ONE (10:55)
--- NOTE | 2024-12-04 13:42 | DVHPN2 ---
Subjective Sodium is 164 however the patient is calmer and appears to be more alert Changes from previous H/P or p: Changes Eyes: No Pain, No Vision change, No Conjunctivae inflammation, No Eyelid inflammation, No Other, No Redness ENT: No Ear pain, No Ear discharge, No Nose pain, No Nose discharge, No Nose congestion, No Mouth pain, No Mouth swelling, No Throat pain, No Throat swelling, No Other Cardiovascular: No Chest Pain, No Palpitations, No Orthopnea, No Paroxysmal Noc. Dyspnea, No Edema, No Lt Headedness, No Other Respiratory: No Cough, No Dry; Shortness of breath; No SOB with excertion, No Wheezing, No Hemoptysis, No Pleuritic Pain, No Sputum; Other (SOB at rest) Gastrointestinal: No Nausea, No Vomiting, No Abdominal Pain, No Diarrhea, No Constipation, No Melena, No Hematochezia, No Other Genitourinary: No Dysuria, No Frequency, No Incontinence, No Hematuria, No Retention; Other (Anuric) Musculoskeletal: No other, No neck pain, No shoulder pain, No arm pain, No back pain, No hand pain, No leg pain, No foot pain Skin: No Rash, No Lesions, No Jaundice, No Bruising, No Other Objective Vitals Vital Signs Date Time Temp Pulse Resp B/P (MAP) Pulse Ox O2 Delivery O2 Flow Rate FiO2 12/04/24 10:37 46 19 100 12/04/24 07:32 Room Air 12/04/24 07:32 0 21 12/04/24 06:50 130/50 12/04/24 06:45 97.2 207.0 Intake/Output Intake and Output 12/04/24 07:00 Intake Total 2373.60 ml Output Total 1300 ml Balance 1073.60 ml Intake Oral 0 ml IV Total 2373.60 ml Output Urine Total 1300 ml General Appearance: Other (Confused and disoriented and not following commands) Lungs: Other Extremities: No edema (Bilateral rhonchi) Medications Current Medications Medications Dose Ordered Sig/Elza Route Start Time Stop Time Status Last Admin Dose Admin Acetaminophen 650 mg Q6HP PRN [place] 12/01/24 21:45 12/03/24 09:20 650 MG Ondansetron HCl 4 mg Q4HP PRN IV 12/01/24 21:45 12/03/24 14:26 4 MG Norepinephrine Bitartrate 250 ml @ 3.75 mls/hr Q24H IV 12/01/24 22:15 12/04/24 05:03 11.25 MLS/HR Methylprednisolone Sodium Succinate 40 mg BID IV 12/02/24 22:00 12/04/24 10:48 40 MG Pantoprazole Sodium 40 mg DAILY IV 12/03/24 10:00 12/04/24 10:48 40 MG Meropenem 50 ml @ 17 mls/hr Q12HR IV 12/03/24 10:00 12/04/24 11:23 17 MLS/HR Levalbuterol HCl 0.625 mg Q4HWA [facility] 12/02/24 18:00 12/04/24 07:26 0.625 MG Ipratropium [place] 0.5 mg Q4HWA [facility] 12/02/24 18:00 12/04/24 10:29 0.5 MG Vancomycin HCl 0 ml @ 0 mls/hr UD IV 12/02/24 17:00 Acetylcysteine 200 mg Q8H [facility] 12/02/24 22:00 12/04/24 07:29 200 MG Dextrose 1,000 ml @ 100 mls/hr Q10H IV 12/02/24 23:15 12/04/24 08:00 100 MLS/HR Morphine Sulfate 1 mg Q4HP PRN IV 12/03/24 13:15 12/03/24 14:25 1 MG Lorazepam 0.5 mg Q6HP PRN IV 12/03/24 13:15 Diagnostic Test (Pha) 1 strip Q6HR 12/03/24 18:00 UNV Dopamine HCl/ Dextrose 250 ml @ 7.688 mls/ hr Q24H IV 12/03/24 18:30 Diagnostic Test (Pha) 1 strip Q6HR 12/04/24 00:00 12/04/24 12:39 1 STRIP Insulin Human Regular Q6HR [place] 12/04/24 00:00 12/04/24 12:38 2 UNITS Dextrose 50 ml UD PRN IV 12/03/24 18:30 Laboratory Results Laboratory Tests 12/04/24 01:51 12/04/24 03:08 Chemistry Test 12/03/24 16:03 12/03/24 17:49 12/03/24 21:55 12/04/24 01:51 Calcium Level 8.7 mg/dL (8.7-10.4) 9.0 mg/dL (8.7-10.4) 8.8 mg/dL (8.7-10.4) 8.6 mg/dL (8.7-10.4) L Magnesium Level 2.7 mg/dL (1.6-2.6) H Test 12/04/24 03:08 Albumin 2.7 g/dL (3.2-4.8) L Calcium Level 8.4 mg/dL (8.7-10.4) L Total Protein 4.9 g/dL (5.7-8.2) L LFT Test 12/04/24 03:08 Alanine Aminotransferase (ALT) 34 U/L (7-40) Alkaline Phosphatase 70 U/L (46-116) Aspartate Amino Transferase (AST) 30 U/L (13-40) Total Bilirubin 0.5 mg/dL (0.2-1.0) Urinalysis Test 12/02/24 19:53 Urine Color Colorless (Yellow) Urine Clarity Turbid (Clear) H Urine pH 5.0 (5.0-9.0) Urine Specific [place] 1.020 (1.001-1.035) Urine Protein Trace (Negative) H Urine Ketones Negative (Negative) Urine Blood 2+ /uL (Negative) H Urine Nitrite Negative (Negative) Urine Bilirubin Negative (Negative) Urine Urobilinogen Normal mg/dL (Negative) Urine Leukocyte Esterase Negative /uL (Negative) Urine RBC 1 /hpf (0 - 3) Urine Microscopic WBC 3 /HPF (0-3) Urine Squamous Epithelial Cells Few /hpf (<5) Urine Amorphous Crystals Few /hpf (None Seen) Urine Bacteria None seen /hpf (None Seen) Urine Glucose Normal mg/dL (Normal) Microbiology Microbiology Date/Time Source Procedure Growth Status 12/03/24 18:00 Nose MRSA Screen - Final Complete 12/02/24 19:53 Voided Urine Urine Culture - Preliminary Resulted 12/01/24 19:10 Blood Blood Culture - Preliminary Resulted Assessment/Plan Assessment/Plan Severe sepsis with septic shock Severe hypernatremia Down syndrome Dehydration Acute kidney injury hemodynamically mediated vasomotor nephropathy Bradycardia Thrombocytopenia due to sepsis Bacteremia with Gram-positive cocci in clusters and pairs Plan Continue IV antibiotics meropenem and vancomycin Vasopressors as needed Start dopamine drip for bradycardia as needed Nephrology consult Pulmonary consult IV fluids D5W DNR 12/04/2024: Hypernatremia: Continue D5 infusion, start him on liquid diet and encouraged free water ROSLYN: Continue IV fluids Down syndrome Dehydration Levophed as needed IV antibiotics Monitor DNR Plan discussed with: Patient, Other My Orders Orders - JAIR FITZGERALD MD Procedure Category Date Status Time Dopamine 1600mcg/Ml PHA 12/03/24 In Process D5W 18:30 Glucose Blood PHA 12/04/24 In Process (Accu-Chek Comfort 00:00 Insulin R (Human) PHA 12/04/24 In Process (Insulin R) 00:00 Dextrose 50% Syringe PHA 12/03/24 In Process 18:30 Date of Service: December 04, 2024 Billing Provider: JAIR FITZGERALD MD Common Visit Codes: [id number] INP/OBS CARE(HIGH) JAIR FITZGERALD MD December 04, 2024 13:42
--- NOTE | 2024-12-04 14:44 | DVHPN2 ---
Progress Note - Dictate Date Seen: December 04, 2024 Medical Necessity Reason Pt with a Central, PICC or Fol: Yes The following are medically ne: Central Line, Mason Catheter Subjective Patient moving spontaneously, vital signs Vital Sign Date Time Temp Pulse Resp B/P (MAP) Pulse Ox O2 Delivery O2 Flow Rate FiO2 12/04/24 14:29 50 22 100 12/04/24 07:32 Room Air 12/04/24 07:32 0 21 12/04/24 06:50 130/50 12/04/24 06:45 97.2 207.0 Total Intake and Output 12/03/24 12/03/24 12/04/24 15:00 23:00 07:00 Intake Total 752.5 ml 783.75 ml 948.35 ml Output Total 850 ml 450 ml Balance 752.5 ml -66.25 ml 498.35 ml medications Current Medications Medications Dose Ordered Sig/Elza Route Start Time Stop Time Status Last Admin Dose Admin Acetaminophen 650 mg Q6HP PRN [place] 12/01/24 21:45 12/03/24 09:20 650 MG Ondansetron HCl 4 mg Q4HP PRN IV 12/01/24 21:45 12/03/24 14:26 4 MG Norepinephrine Bitartrate 250 ml @ 3.75 mls/hr Q24H IV 12/01/24 22:15 12/04/24 05:03 11.25 MLS/HR Methylprednisolone Sodium Succinate 40 mg BID IV 12/02/24 22:00 12/04/24 10:48 40 MG Pantoprazole Sodium 40 mg DAILY IV 12/03/24 10:00 12/04/24 10:48 40 MG Meropenem 50 ml @ 17 mls/hr Q12HR IV 12/03/24 10:00 12/04/24 11:23 17 MLS/HR Levalbuterol HCl 0.625 mg Q4HWA [facility] 12/02/24 18:00 12/04/24 14:19 0.625 MG Ipratropium [place] 0.5 mg Q4HWA [facility] 12/02/24 18:00 12/04/24 14:19 0.5 MG Vancomycin HCl 0 ml @ 0 mls/hr UD IV 12/02/24 17:00 Acetylcysteine 200 mg Q8H NEB 12/02/24 22:00 12/04/24 14:19 200 MG Dextrose 1,000 ml @ 100 mls/hr Q10H IV 12/02/24 23:15 12/04/24 08:00 100 MLS/HR Morphine Sulfate 1 mg Q4HP PRN IV 12/03/24 13:15 12/03/24 14:25 1 MG Lorazepam 0.5 mg Q6HP PRN IV 12/03/24 13:15 Diagnostic Test (Pha) 1 strip Q6HR 12/03/24 18:00 UNV Dopamine HCl/ Dextrose 250 ml @ 7.688 mls/ hr Q24H IV 12/03/24 18:30 Diagnostic Test (Pha) 1 strip Q6HR 12/04/24 00:00 12/04/24 12:39 1 STRIP Insulin Human Regular Q6HR SC 12/04/24 00:00 12/04/24 12:38 2 UNITS Dextrose 50 ml UD PRN IV 12/03/24 18:30 objective Gen: Cachectic cvs: no rub abd: soft, ext: no edema laboratory and microbiology Laboratory Tests 12/04/24 03:08 12/04/24 01:51 Test 12/04/24 03:08 Range/Units Serum Glucose 144 H 74-106 mg/dL Assessment/Plan IMP: 1) Hemodynamically mediated ROSLYN/VMN, prerenal state - improving 2) severe hypernatremia 3) history of Down's syndrome 4) dehydration REC: - we will increase D5 to 125 mL an hour - q.6 hours basic chemistry panels Dietary Evaluation Review Recommendations by RD: Dietary education by RD, Protein Supplementation Comments: 1) Initiate Ensure Enlive tid d/t underweight BMI. Encourage optimal PO intake 2) Advance to regular diet when medically feasible, pending RETAIL OPERATIONS MANAGER aproval. 3) Refer to outpatient RD for weight management 4) Follow-up with nephrology and pulmonology 5) Continue to monitor I&O, labs, and skin integrity Expected Outcomes/Goals: 1) appetite and labs to improve 2) diet to advance 3) f/u in 3-5 days Plan discussed with: RAE Bhakta MD December 04, 2024 14:44
[2024-12-04] MEDS: D5W 5% 1,000 ML IV SCH (16:50)
[2024-12-04] MEDS: LORazepam 2MG/ML-1ML VIAL IV PRN (18:19)
[2024-12-04 19:02] LABS: Anion Gap 9 (5-15); Carbon Dioxide 23 mmol/L (20-31)
[2024-12-04 19:03] LABS: Calcium 8.7 mg/dL (8.7-10.4)
[2024-12-04 19:07] LABS: BUN/Creatinine Ratio 32.7 (10.0-20.0)
[2024-12-04 19:54] LABS: Blood Urea Nitrogen 34 mg/dL (9-23); Chloride 129 mmol/L (98-107); Glucose 154 mg/dL (74-106); Potassium 3.3 mmol/L (3.5-5.1)
[2024-12-04 19:56] LABS: Sodium 161 mmol/L (136-145)
[2024-12-04] MEDS: POTASSIUM CHL 20MEQ/100ML 100 ML IV SCH (20:46)
[2024-12-05] VITALS (105 sets, daily range): BP systolic 89–157; BP diastolic 23–71; PULSE 41–103; RESP 11–31; TEMP 96.4–99.7; O2SAT 90–100
[2024-12-05 04:03] LABS: Hemoglobin 11.1 g/dL (13.5-17.5); Red Blood Cells 3.37 10^6/uL (4.5-5.90)
[2024-12-05 04:09] LABS: Hematocrit 33.9 % (41.0-53.0); Mean Corpuscular Hemoglobin 32.9 pg (28.0-32.0); Mean Corpuscular Hgb Conc. 32.7 g/dL (32.0-36.0); Mean Corpuscular Volume 100.8 fL (80.0-100.0); Platelet Count (auto) 26 10^3/uL (140-450); Red Cell Distribution Width 15.7 % (11.8-14.3)
[2024-12-05 04:12] LABS: Basophils % (manual) 0 (0.0-2.0); Blast Cells 0; Eosinophils % (manual) 0 (0-7); Reactive Lymphocytes 0
[2024-12-05 04:42] LABS: Potassium 4.3 mmol/L (3.5-5.1)
[2024-12-05 04:43] LABS: Anion Gap 7 (5-15); Carbon Dioxide 23 mmol/L (20-31)
[2024-12-05 04:44] LABS: Calcium 8.9 mg/dL (8.7-10.4)
[2024-12-05 04:45] LABS: Chloride 128 mmol/L (98-107); Sodium 158 mmol/L (136-145)
[2024-12-05 05:05] LABS: Band Neutrophils % (manual) 3; Lymphocytes % (manual) 7 (10.0-50.0); Metamyelocytes % 1; Monocytes % (manual) 3 (0-12); Myelocytes % 1; Platelet Estimate Markedly Decreased; Promyelocytes % 1
[2024-12-05 05:12] LABS: Glucose 143 mg/dL (74-106)
[2024-12-05 05:44] LABS: BUN/Creatinine Ratio 21.8 (10.0-20.0); Blood Urea Nitrogen 22 mg/dL (9-23)
--- NOTE | 2024-12-05 05:55 | DVH ---
CHEST RADIOGRAPH Indication: Aspiration pneumonia Technique: Single frontal view of the chest was obtained Comparison: None FINDINGS: Lines and Tubes: None Lungs: Unchanged multifocal airspace opacities. Pleura: No effusion. No pneumothorax. Cardiomediastinal contours: Unremarkable Bones: No acute osseous abnormality. IMPRESSION: Unchanged multifocal pneumonia.
[2024-12-05] MEDS: ALBUTEROL SULF 2.5 MG/0.5ML(0.5%) NEB SOLN NEB SCH (10:23)
--- NOTE | 2024-12-05 12:07 | MEDREC ---
[facility] ASP Intervention Section I [facility] ASP Intervention: Deescalate AB based on CS (PLEASE CONSIDER DE-ESCALATION BASED ON CULTURE RESULTS) JENNIFER FREIRE PHARMACIST December 05, 2024 12:07
[2024-12-05 13:54] LABS: Potassium 3.8 mmol/L (3.5-5.1)
[2024-12-05 13:55] LABS: Anion Gap 6 (5-15); Carbon Dioxide 27 mmol/L (20-31); Chloride 124 mmol/L (98-107); Sodium 157 mmol/L (136-145)
[2024-12-05 13:58] LABS: Calcium 8.6 mg/dL (8.7-10.4)
[2024-12-05 14:00] LABS: BUN/Creatinine Ratio 21.7 (10.0-20.0); Blood Urea Nitrogen 20 mg/dL (9-23)
[2024-12-05 14:03] LABS: Glucose 242 mg/dL (74-106)
--- NOTE | 2024-12-05 14:39 | DVHPN2 ---
Progress Note - Dictate Date Seen: December 05, 2024 Medical Necessity Reason Pt with a Central, PICC or Fol: Yes The following are medically ne: Central Line, Mason Catheter Subjective Patient awake, moving spontaneously. Patient's sitter is at the bedside. vital signs Vital Sign Date Time Temp Pulse Resp B/P (MAP) Pulse Ox O2 Delivery O2 Flow Rate FiO2 12/05/24 12:34 107/38 12/05/24 10:30 54 14 100 12/05/24 07:30 99.0 210.2 12/05/24 07:10 Room Air 12/05/24 07:10 0 21 Total Intake and Output 12/04/24 12/04/24 12/05/24 15:00 23:00 07:00 Intake Total 1037.50 ml 1094.25 ml 1283.188 ml Output Total 375 ml 1150 ml Balance 1037.50 ml 719.25 ml 133.188 ml medications Current Medications Medications Dose Ordered Sig/Elza Route Start Time Stop Time Status Last Admin Dose Admin Acetaminophen 650 mg Q6HP PRN [place] 12/01/24 21:45 12/03/24 09:20 650 MG Ondansetron HCl 4 mg Q4HP PRN IV 12/01/24 21:45 12/03/24 14:26 4 MG Norepinephrine Bitartrate 250 ml @ 3.75 mls/hr Q24H IV 12/01/24 22:15 12/04/24 05:03 11.25 MLS/HR Methylprednisolone Sodium Succinate 40 mg BID IV 12/02/24 22:00 12/05/24 09:50 40 MG Pantoprazole Sodium 40 mg DAILY IV 12/03/24 10:00 12/05/24 09:50 40 MG Ipratropium [place] 0.5 mg Q4HWA [facility] 12/02/24 18:00 12/05/24 10:22 0.5 MG Vancomycin HCl 0 ml @ 0 mls/hr UD IV 12/02/24 17:00 Acetylcysteine 200 mg Q8H NEB 12/02/24 22:00 12/05/24 06:53 200 MG Morphine Sulfate 1 mg Q4HP PRN IV 12/03/24 13:15 12/03/24 14:25 1 MG Lorazepam 0.5 mg Q6HP PRN IV 12/03/24 13:15 12/04/24 18:19 0.5 MG Diagnostic Test (Pha) 1 strip Q6HR 12/03/24 18:00 UNV Dopamine HCl/ Dextrose 250 ml @ 7.688 mls/ hr Q24H IV 12/03/24 18:30 12/05/24 06:54 7.688 MLS/HR Diagnostic Test (Pha) 1 strip Q6HR 12/04/24 00:00 12/05/24 06:00 1 STRIP Insulin Human Regular Q6HR SC 12/04/24 00:00 12/05/24 00:15 3 UNITS Dextrose 50 ml UD PRN IV 12/03/24 18:30 Dextrose 1,000 ml @ 125 mls/hr Q8H IV 12/04/24 15:00 12/05/24 06:55 125 MLS/HR Albuterol 2.5 mg Q4HWA NEB 12/05/24 10:00 12/05/24 10:23 2.5 MG Vancomycin HCl 150 ml @ 150 mls/hr DAILY@1200 IV 12/05/24 12:00 Meropenem 50 ml @ 17 mls/hr Q12HR IV 12/05/24 22:00 objective Gen: Cachectic cvs: no rub abd: soft, ext: no edema laboratory and microbiology Laboratory Tests 12/05/24 13:05 12/05/24 03:18 Test 12/05/24 13:05 Range/Units Serum Glucose 242 H 74-106 mg/dL Assessment/Plan IMP: 1) Hemodynamically mediated ROSLYN/VMN, prerenal state - improving 2) severe hypernatremia 3) history of Down's syndrome 4) dehydration REC: - we will continue with current IV fluids - target serum sodium in the low 150 range for the next 12 hours Dietary Evaluation Review Recommendations by RD: Dietary education by RD, Protein Supplementation Comments: 1) Initiate Ensure Enlive tid d/t underweight BMI. Encourage optimal PO intake 2) Advance to regular diet when medically feasible, pending GROC[employer] CLERK STOCKING aproval. 3) Refer to outpatient RD for weight management 4) Follow-up with nephrology and pulmonology 5) Continue to monitor I&O, labs, and skin integrity Expected Outcomes/Goals: 1) appetite and labs to improve 2) diet to advance 3) f/u in 3-5 days Plan discussed with: RAE Bhakta MD December 05, 2024 14:39
[2024-12-05] MEDS: VANCOMYCIN 750mg/150ml 150 ML IV SCH (15:37)
--- NOTE | 2024-12-05 16:35 | DVHPNRES ---
Progress Note Date Seen: December 05, 2024 Resident Creating Document: MARITZA WEEKS RESIDENT Medical Necessity Reason Pt with a Central, PICC or Fol: Yes The following are medically ne: Central Line, Mason Catheter Subjective Review of Systems Orlando Christy is a 54-year-old male patient who presents to the ED due to altered mental status and progressive dyspnea from functional class II to functional class IV one week prior to his admission, associated with decreased food intake and productive cough with green phlegm. Patient is altered, poor historian, obtained history from EMR and sister (she is the caregiver). Patient is in home hospice, is goals of care are DNI and DNR, due to increased respiratory effort, sister who is the caregiver decided to call EMS to evaluate for probable aspiration pneumonia. Patient was recently hospitalized due to metabolic encephalopathy secondary to severe hypernatremia associated with septic shock due to aspiration pneumonia, current symptoms are similar to that admission. 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 Multiple history of pneumonia PSH: Denies Family history: Mother has diabetes and hypertension Social history: Lives with sister (Vandana, she is the caregiver and next of kin) in [place]. Denies smoking, alcohol and other drug abuse Allergies: Denies Home medication: Lorazepam, haloperidol and midodrine Patient seen and examined at bedside. Patient is nonverbal but more alert, could not obtain review of systems. Patient has asymptomatic bradycardia, on Dopamine drip. Reducing natremia no more than 8-10 mEq every 24 hours with D5W. Ordered BMP q.6 hours until natremia improves. Ordered head CT, but patient is combative. Patient will not be intubated due to goals of care (DNR/DNI). Adjusted IV antibiotics (on Ceftrieaxone). Objective vital signs Vital Sign Date Time Temp Pulse Resp B/P (MAP) Pulse Ox O2 Delivery O2 Flow Rate FiO2 12/05/24 15:59 52 16 98 21 12/05/24 15:00 97.2 104/38 (60) 207.0 12/05/24 14:00 Nasal Cannula* 2 Total Intake and Output 12/04/24 12/04/24 12/05/24 15:00 23:00 07:00 Intake Total 1037.50 ml 1094.25 ml 1283.188 ml Output Total 375 ml 1150 ml Balance 1037.50 ml 719.25 ml 133.188 ml medications Current Medications Medications Dose Ordered Sig/Elza Route Start Time Stop Time Status Last Admin Dose Admin Acetaminophen 650 mg Q6HP PRN [place] 12/01/24 21:45 12/03/24 09:20 650 MG Ondansetron HCl 4 mg Q4HP PRN IV 12/01/24 21:45 12/03/24 14:26 4 MG Norepinephrine Bitartrate 250 ml @ 3.75 mls/hr Q24H IV 12/01/24 22:15 12/04/24 05:03 11.25 MLS/HR Methylprednisolone Sodium Succinate 40 mg BID IV 12/02/24 22:00 12/05/24 09:50 40 MG Pantoprazole Sodium 40 mg DAILY IV 12/03/24 10:00 12/05/24 09:50 40 MG Ipratropium [place] 0.5 mg Q4HWA [facility] 12/02/24 18:00 12/05/24 14:45 0.5 MG Vancomycin HCl 0 ml @ 0 mls/hr UD IV 12/02/24 17:00 Acetylcysteine 200 mg Q8H NEB 12/02/24 22:00 12/05/24 14:45 200 MG Morphine Sulfate 1 mg Q4HP PRN IV 12/03/24 13:15 12/03/24 14:25 1 MG Lorazepam 0.5 mg Q6HP PRN IV 12/03/24 13:15 12/04/24 18:19 0.5 MG Diagnostic Test (Pha) 1 strip Q6HR 12/03/24 18:00 UNV Dopamine HCl/ Dextrose 250 ml @ 7.688 mls/ hr Q24H IV 12/03/24 18:30 12/05/24 06:54 7.688 MLS/HR Diagnostic Test (Pha) 1 strip Q6HR 12/04/24 00:00 12/05/24 15:35 1 STRIP Insulin Human Regular Q6HR SC 12/04/24 00:00 12/05/24 15:36 2 UNITS Dextrose 50 ml UD PRN IV 12/03/24 18:30 Dextrose 1,000 ml @ 125 mls/hr Q8H IV 12/04/24 15:00 12/05/24 15:37 125 MLS/HR Albuterol 2.5 mg Q4HWA NEB 12/05/24 10:00 12/05/24 14:45 2.5 MG Vancomycin HCl 150 ml @ 150 mls/hr DAILY@1200 IV 12/05/24 12:00 12/05/24 15:37 150 MLS/HR Meropenem 50 ml @ 17 mls/hr Q12HR IV 12/05/24 22:00 Examination Patient lying in bed, in no acute distress General: Odell, afebrile, Down facies, mucosae are dry, cachectic. Cardiovascular: Normal S1 and S2, bradycardia. No murmurs, gallops or rubs Respiratory: Regular ventilation mechanics. Rhonchus predominantly on right hemithorax associated with diffuse wheezing Abdomen: Soft, nontender, no organomegaly, normal bowel sounds, palpable abdominal aorta MSK/skin: Mobilizes 4 limbs. Skin is dry Neurological: Patient is non verbal, cannot assess orientation. No motor no sensitive deficits. Right eye has traumatic injury, left pupil is isochoric and reactive laboratory and microbiology Laboratory Tests 12/05/24 13:05 12/05/24 03:18 Test 12/05/24 13:05 Range/Units Serum Glucose 242 H 74-106 mg/dL Microbiology Date/Time Source Procedure Growth Status 12/03/24 18:00 Nose MRSA Screen - Final Complete 12/02/24 19:53 Voided Urine Urine Culture - Final Complete 12/01/24 19:10 Blood Blood Culture - Final Staphylococcus aureus Staphylococcus simulans Complete Problem List/Assessment/Plan Problem List/Assessment/Plan Neurology # Metabolic encephalopathy secondary to hypernatremia Ordered head CT, but could not be completed since patient is combative. Continue improving natremia, continue D5W. Cardiovascular # Mixed shock (Hypovolemia and septic) # Asymptomatic bradycardia On IV vasopressors (Dopamine) Respiratory # Acute respiratory failure secondary to aspiration pneumonia On oxygen therapy with Nasal cannula at 2 L/min Currently under empiric IV antibiotics (Doxycycline and Meropenem) Gastrointestinal History of Hepatic steatosis LFTs within normal limits. Will continue monitoring Genitourinary/Renal # Severe Hyponatremia # ROSLYN hemodynamically mediated (VMN) - baseline 0.76 # Severe dehydration # Hypermagnesemia Continue D5W drip at 125 ml/h. Should not correct more than 8-10 mEq every 24 hours. BMP every 6 hours Nephrology on board: Optimizing medical therapy Infectious Disease # Mixed shock (Septic and hypovolemic) # Aspiration pneumonia # MSSA bacteriemia Currently under adjusted IV antibiotics (Ceftriaxone, previously on Vancomycin, Doxycycline and Meropenem) On IV vasopressors Repeated blood cultures Endocrine # Failure to thrive # Severe protein calorie malnutrition with a BMI 15.6 Patient is on pureed diet. Nutritional consult Hematology #Thrombocytopenia # Polycythemia - Probably secondary to dehydration (Resolved) # Macrocytic anemia No heparin. On SCDs Nutrition: Pureed diet Prophylaxis: PUD (Pantoprazole) and DVT (SCDs) Lines 12/01/2024 Right femoral CVC Drips Dopamine 5 ug/kg/min D5W was 125 ml/h Goals of care discussed with sister (Vandana) who is caregiver for over 18 minutes: DNR/DNI Case discussed with Dr. Nuñez, sister and nurse: Patient is ICU status due to requirement of IV vasopressors (Dopamine) due to bradycardia and hypotension, lowering hypernatremia at a rate of 8-10 mEq every 24 hours, currently on D5W, we will continue obtaining BMP. Appreciate nephrology input. Adjusted IV antibiotics. Patient has poor prognosis, have discussed with sister. Critical care time spent including discussion with nursing and family, excluding procedures: 92 minutes Plan discussed with: Patient, Other (Sister (Vandana farfan) and nurses) My Orders My Orders Orders - MARITZA WEEKS RESIDENT Procedure Category Date Status Time Abg W/ Co-Ox RT 12/05/24 Logged 07:39 Blood Culture GUERO 12/05/24 In Process 07:39 Basic Metabolic Panel LAB 12/05/24 Logged 22:00 Basic Metabolic Panel LAB 12/06/24 Verified 10:00 Basic Metabolic Panel LAB 12/06/24 Verified 22:00 Basic Metabolic Panel LAB 12/07/24 Verified 10:00 Basic Metabolic Panel LAB 12/07/24 Verified 22:00 Basic Metabolic Panel LAB 12/08/24 Verified 10:00 Basic Metabolic Panel LAB 12/05/24 Logged 18:00 Basic Metabolic Panel LAB 12/06/24 Verified 00:00 Basic Metabolic Panel LAB 12/06/24 Verified 06:00 Basic Metabolic Panel LAB 12/06/24 Verified 12:00 Basic Metabolic Panel LAB 12/06/24 Verified 18:00 Basic Metabolic Panel LAB 12/07/24 Verified 00:00 Basic Metabolic Panel LAB 12/07/24 Verified 06:00 Basic Metabolic Panel LAB 12/07/24 Verified 12:00 Basic Metabolic Panel LAB 12/07/24 Verified 18:00 Albuterol Medneb PHA 12/05/24 In Process (Ventolin Medneb) 10:00 Electrocardigram EKG 12/05/24 Logged 12:11 Vancomycin PHA 12/05/24 In Process 750mg/150ml 12:00 Vancomycin,Trough LAB 12/08/24 Verified 11:00 Vancomycin Per JULIEN 12/08/24 In Process Pharmacy Protoc 12:00 Meropenem 1gm Ivpb PHA 12/05/24 In Process (Merrem 1gm/ Ns) 22:00 Dietary Evaluation Review Recommendations by RD: Dietary education by RD, Protein Supplementation Comments: 1) Initiate Ensure Enlive tid d/t underweight BMI. Encourage optimal PO intake 2) Advance to regular diet when medically feasible, pending HEALTH INFORMATION SPECIALIST aproval. 3) Refer to outpatient RD for weight management 4) Follow-up with nephrology and pulmonology 5) Continue to monitor I&O, labs, and skin integrity Expected Outcomes/Goals: 1) appetite and labs to improve 2) diet to advance 3) f/u in 3-5 days MARITZA WEEKS RESIDENT December 05, 2024 16:35
[2024-12-05 18:30] LABS: Potassium 3.6 mmol/L (3.5-5.1)
[2024-12-05 18:31] LABS: Anion Gap 8 (5-15); Calcium 9.3 mg/dL (8.7-10.4); Carbon Dioxide 26 mmol/L (20-31)
[2024-12-05 18:36] LABS: BUN/Creatinine Ratio 20.7 (10.0-20.0); Blood Urea Nitrogen 17 mg/dL (9-23)
[2024-12-05 18:46] LABS: Chloride 125 mmol/L (98-107); Glucose 175 mg/dL (74-106); Sodium 159 mmol/L (136-145)
[2024-12-05] MEDS: cefTRIAXone 1GM/50ML D5W 50 ML IV ONE (20:23)
[2024-12-05] MEDS: LACTATED RINGER'S 500 ML IV ONE (20:36)
[2024-12-05] MEDS ORDERED: MEROPENEM 1GM IVPB 50 ML IV SCH (22:00)
[2024-12-05 22:26] LABS: Anion Gap 7 (5-15); Carbon Dioxide 28 mmol/L (20-31)
[2024-12-05 22:31] LABS: BUN/Creatinine Ratio 21.3 (10.0-20.0); Blood Urea Nitrogen 17 mg/dL (9-23)
[2024-12-05 22:48] LABS: Chloride 124 mmol/L (98-107); Glucose 144 mg/dL (74-106); Potassium 3.4 mmol/L (3.5-5.1); Sodium 159 mmol/L (136-145)
[2024-12-06] VITALS (109 sets, daily range): BP systolic 78–164; BP diastolic 29–62; PULSE 43–100; RESP 11–24; TEMP 97.3–99.5; O2SAT 94–100
[2024-12-06 04:04] LABS: Hemoglobin 11.8 g/dL (13.5-17.5); Mean Corpuscular Hemoglobin 33.4 pg (28.0-32.0); Red Blood Cells 3.54 10^6/uL (4.5-5.90)
[2024-12-06 04:06] LABS: Calcium 8.7 mg/dL (8.7-10.4); Carbon Dioxide 27 mmol/L (20-31)
[2024-12-06 04:10] LABS: Hematocrit 35.1 % (41.0-53.0); Mean Corpuscular Hgb Conc. 33.7 g/dL (32.0-36.0); Mean Corpuscular Volume 99.2 fL (80.0-100.0); Platelet Count (auto) 32 10^3/uL (140-450); Red Cell Distribution Width 14.8 % (11.8-14.3); White Blood Cell 5.4 10^3/uL (4.4-10.8)
[2024-12-06 04:12] LABS: BUN/Creatinine Ratio 15.6 (10.0-20.0); Blood Urea Nitrogen 12 mg/dL (9-23); Magnesium 2.4 mg/dL (1.6-2.6)
[2024-12-06 04:21] LABS: Basophils % (manual) 0 (0.0-2.0); Blast Cells 0; Eosinophils % (manual) 0 (0-7); Promyelocytes % 0; Reactive Lymphocytes 0
--- NOTE | 2024-12-06 04:21 | DVH ---
CHEST RADIOGRAPH Indication: Aspiration pneumonia Technique: Single frontal view of the chest was obtained Comparison: XY CHEST XRAY 1 VIEW on DOS: 12/05/24, XY CHEST XRAY 1 VIEW on DOS: 12/04/24, XY CHEST XRAY 1 VIEW on DOS: 12/03/24, XY CHEST PORTABLE on DOS: 12/01/24, XY CHEST PORTABLE on DOS: 09/06/24, XY SAMIR ST XRAY 1 VIEW on DOS: 12/05/24 FINDINGS: Lines and Tubes: None Lungs: Worsening multifocal airspace opacities. Pleura: No effusion. No pneumothorax. Cardiomediastinal contours: Unremarkable Bones: No acute osseous abnormality. IMPRESSION: multifocal pneumonia.Worsening
[2024-12-06 04:39] LABS: Glucose 161 mg/dL (74-106); Phosphorus 2.2 mg/dL (2.4-5.1)
[2024-12-06 04:46] LABS: Anion Gap 7 (5-15)
[2024-12-06 04:47] LABS: Chloride 123 mmol/L (98-107); Potassium 3.4 mmol/L (3.5-5.1); Sodium 157 mmol/L (136-145)
[2024-12-06 05:14] LABS: Band Neutrophils % (manual) 2; Lymphocytes % (manual) 6 (10.0-50.0); Metamyelocytes % 1; Monocytes % (manual) 5 (0-12); Myelocytes % 1
[2024-12-06 05:15] LABS: Platelet Estimate Decreased
[2024-12-06] MEDS: POTASSIUM CHL 20MEQ/100ML 100 ML IV SCH ×2 (05:35→22:59)
[2024-12-06] MEDS: methylPREDNISolone SOD SUCC 40 MG/ML VL IV SCH (10:02)
[2024-12-06] MEDS: cefTRIAXone 1GM/50ML D5W 50 ML IV SCH (10:02)
[2024-12-06] MEDS: D5W 5% 1,000 ML IV SCH ×2 (10:22→12:26)
[2024-12-06 10:25] LABS: Anion Gap 4 (5-15)
[2024-12-06 10:31] LABS: BUN/Creatinine Ratio 20.3 (10.0-20.0); Blood Urea Nitrogen 15 mg/dL (9-23)
[2024-12-06 10:33] LABS: Calcium 8.4 mg/dL (8.7-10.4); Carbon Dioxide 32 mmol/L (20-31); Chloride 120 mmol/L (98-107); Glucose 146 mg/dL (74-106); Potassium 3.4 mmol/L (3.5-5.1); Sodium 156 mmol/L (136-145)
[2024-12-06] MEDS: ceFAZolin 1GM/50ML 50 ML IV ONE (13:29)
--- NOTE | 2024-12-06 13:36 | DVH ---
Bilateral Upper Extremity Venous Duplex Date: 12/06/2024 11:24 AM Clinical History: Swollen left upper limb Comparison: None Findings: Duplex Doppler evaluation of the venous systems of the right and left lower neck and upper extremitie s including color Doppler and spectral/pulsed waveform analysis was performed. RIGHT SIDE: The internal jugular vein demonstrates appropriate compressibility and waveform variability. The subclavian vein is patent on color Doppler evaluation without intraluminal thrombus and demonstra milly waveform variability. The visualized portion of the brachiocephalic vein is patent on color Doppler evaluation without intr aluminal thrombus and demonstrates waveform variability. The axillary vein demonstrates appropriate compressibility and waveform variability. The brachial veins demonstrate appropriate compressibility and patency on Doppler evaluation. The basilic vein demonstrates appropriate compressibility and patency on Doppler evaluation. The cephalic vein demonstrates appropriate compressibility and patency on Doppler evaluation. LEFT SIDE: The internal jugular vein demonstrates appropriate compressibility and waveform variability. The subclavian vein is patent on color Doppler evaluation without intraluminal thrombus and demonstra milly waveform variability. The visualized portion of the brachiocephalic vein is patent on color Doppler evaluation without intr aluminal thrombus and demonstrates waveform variability. The axillary vein demonstrates appropriate compressibility and waveform variability. The brachial veins demonstrate appropriate compressibility and patency on Doppler evaluation. The basilic vein demonstrates appropriate compressibility and patency on Doppler evaluation. The cephalic vein demonstrates appropriate compressibility and patency on Doppler evaluation. IMPRESSION: No venous thrombus identified in the right or left upper extremity vessels evaluated above. If clinical concern/symptoms persist or worsen, short-interval follow-up study is suggested. END IMPRESSION:
--- NOTE | 2024-12-06 13:38 | ECG ---
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
--- NOTE | 2024-12-06 13:39 | ECG ---
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
[2024-12-06] MEDS: NOREPINEPHRINE 8 MG/250ML KIT 250 ML IV SCH (15:30)
--- NOTE | 2024-12-06 18:51 | DVHPN2 ---
Progress Note - Dictate Date Seen: December 06, 2024 Medical Necessity Reason Pt with a Central, PICC or Fol: Yes The following are medically ne: Central Line, Mason Catheter Subjective Patient seen earlier this morning vital signs Vital Sign Date Time Temp Pulse Resp B/P (MAP) Pulse Ox O2 Delivery O2 Flow Rate FiO2 12/06/24 18:15 98.8 60 20 137/57 (83) 97 209.8 12/06/24 18:00 Room Air* 0 21 Total Intake and Output 12/05/24 12/05/24 12/06/24 15:00 23:00 07:00 Intake Total 1034.596 ml 1113.816 ml 1952.139 ml Output Total 475 ml 1975 ml Balance 1034.596 ml 638.816 ml -22.861 ml medications Current Medications Medications Dose Ordered Sig/Elza Route Start Time Stop Time Status Last Admin Dose Admin Acetaminophen 650 mg Q6HP PRN [place] 12/01/24 21:45 12/03/24 09:20 650 MG Ondansetron HCl 4 mg Q4HP PRN IV 12/01/24 21:45 12/03/24 14:26 4 MG Pantoprazole Sodium 40 mg DAILY IV 12/03/24 10:00 12/06/24 10:02 40 MG Ipratropium [place] 0.5 mg Q4HWA NEB 12/02/24 18:00 12/06/24 17:55 0.5 MG Acetylcysteine 200 mg Q8H NEB 12/02/24 22:00 12/06/24 14:13 200 MG Lorazepam 0.5 mg Q6HP PRN IV 12/03/24 13:15 12/04/24 18:19 0.5 MG Diagnostic Test (Pha) 1 strip Q6HR 12/03/24 18:00 UNV Dopamine HCl/ Dextrose 250 ml @ 7.688 mls/ hr Q24H IV 12/03/24 18:30 12/05/24 06:54 7.688 MLS/HR Diagnostic Test (Pha) 1 strip Q6HR 12/04/24 00:00 12/06/24 18:22 1 STRIP Insulin Human Regular Q6HR SC 12/04/24 00:00 12/06/24 06:55 2 UNITS Dextrose 50 ml UD PRN IV 12/03/24 18:30 Albuterol 2.5 mg Q4HWA NEB 12/05/24 10:00 12/06/24 17:55 2.5 MG Dextrose 1,000 ml @ 100 mls/hr Q10H IV 12/06/24 12:15 12/06/24 12:26 100 MLS/HR Cefazolin Sodium 50 ml @ 100 mls/hr Q8H IV 12/06/24 20:30 Norepinephrine Bitartrate 250 ml @ 3.75 mls/hr Q24H IV 12/06/24 15:30 12/06/24 15:30 1.875 MLS/HR objective Gen: Cachectic cvs: no rub abd: soft, ext: no edema laboratory and microbiology Laboratory Tests 12/06/24 10:00 12/06/24 03:00 Test 12/06/24 10:00 Range/Units Serum Glucose 146 H 74-106 mg/dL Assessment/Plan IMP: 1) Hemodynamically mediated ROSLYN/VMN, prerenal state - resolved 2) severe hypernatremia 3) history of Down's syndrome 4) dehydration REC: - ROSLYN resolved - indolent improvement in hypernatremia, we will continue to monitor on current dose Of IV free water. - enteral water encouraged pending swallow evaluation. Dietary Evaluation Review Recommendations by RD: Dietary education by RD, Protein Supplementation Comments: 1) Initiate Ensure Enlive tid d/t underweight BMI. Encourage optimal PO intake 2) Advance to regular diet when medically feasible, pending SALES AND SERVICE ASSOCIATE aproval. 3) Refer to outpatient RD for weight management 4) Follow-up with nephrology and pulmonology 5) Continue to monitor I&O, labs, and skin integrity Expected Outcomes/Goals: 1) appetite and labs to improve 2) diet to advance 3) f/u in 3-5 days Plan discussed with: RAE Bhakta MD December 06, 2024 18:51
[2024-12-06] MEDS: ceFAZolin 1GM/50ML 50 ML IV SCH (20:35)
--- NOTE | 2024-12-06 22:39 | DVHPNRES ---
Progress Note Date Seen: December 06, 2024 Resident Creating Document: MARITZA WEEKS RESIDENT Medical Necessity Reason Pt with a Central, PICC or Fol: Yes The following are medically ne: Central Line, Mason Catheter Subjective Review of Systems Orlando Christy is a 54-year-old male patient who presents to the ED due to altered mental status and progressive dyspnea from functional class II to functional class IV one week prior to his admission, associated with decreased food intake and productive cough with green phlegm. Patient is altered, poor historian, obtained history from EMR and sister (she is the caregiver). Patient is in home hospice, is goals of care are DNI and DNR, due to increased respiratory effort, sister who is the caregiver decided to call EMS to evaluate for probable aspiration pneumonia. Patient was recently hospitalized due to metabolic encephalopathy secondary to severe hypernatremia associated with septic shock due to aspiration pneumonia, current symptoms are similar to that admission. 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 Multiple history of pneumonia PSH: Denies Family history: Mother has diabetes and hypertension Social history: Lives with sister (Vandana, she is the caregiver and next of kin) in [place]. Denies smoking, alcohol and other drug abuse Allergies: Denies Home medication: Lorazepam, haloperidol and midodrine Patient seen and examined at bedside. Patient is nonverbal but more alert, could not obtain review of systems. Patient has asymptomatic bradycardia, on Dopamine drip. Reducing natremia no more than 8-10 mEq every 24 hours with D5W. Ordered BMP q.6 hours until natremia improves. Ordered head CT, but patient is combative. Patient will not be intubated due to goals of care (DNR/DNI). Adjusted IV antibiotics (on Cefazolin). Objective vital signs Vital Sign Date Time Temp Pulse Resp B/P (MAP) Pulse Ox O2 Delivery O2 Flow Rate FiO2 12/06/24 22:17 147/52 12/06/24 21:52 59 19 100 12/06/24 21:42 Room Air 0.0 12/06/24 21:42 21 12/06/24 19:00 98.8 209.8 Total Intake and Output 12/05/24 12/05/24 12/06/24 15:00 23:00 07:00 Intake Total 1034.596 ml 1113.816 ml 1952.139 ml Output Total 475 ml 1975 ml Balance 1034.596 ml 638.816 ml -22.861 ml medications Current Medications Medications Dose Ordered Sig/Elza Route Start Time Stop Time Status Last Admin Dose Admin Acetaminophen 650 mg Q6HP PRN [place] 12/01/24 21:45 12/03/24 09:20 650 MG Ondansetron HCl 4 mg Q4HP PRN IV 12/01/24 21:45 12/03/24 14:26 4 MG Pantoprazole Sodium 40 mg DAILY IV 12/03/24 10:00 12/06/24 10:02 40 MG Ipratropium [place] 0.5 mg Q4HWA [facility] 12/02/24 18:00 12/06/24 21:42 0.5 MG Acetylcysteine 200 mg Q8H NEB 12/02/24 22:00 12/06/24 21:42 200 MG Lorazepam 0.5 mg Q6HP PRN IV 12/03/24 13:15 12/04/24 18:19 0.5 MG Diagnostic Test (Pha) 1 strip Q6HR 12/03/24 18:00 UNV Dopamine HCl/ Dextrose 250 ml @ 7.688 mls/ hr Q24H IV 12/03/24 18:30 12/06/24 20:34 3.075 MLS/HR Diagnostic Test (Pha) 1 strip Q6HR 12/04/24 00:00 12/06/24 18:22 1 STRIP Insulin Human Regular Q6HR SC 12/04/24 00:00 12/06/24 06:55 2 UNITS Dextrose 50 ml UD PRN IV 12/03/24 18:30 Albuterol 2.5 mg Q4HWA NEB 12/05/24 10:00 12/06/24 21:42 2.5 MG Dextrose 1,000 ml @ 100 mls/hr Q10H IV 12/06/24 12:15 12/06/24 12:26 100 MLS/HR Cefazolin Sodium 50 ml @ 100 mls/hr Q8H IV 12/06/24 20:30 12/06/24 20:35 100 MLS/HR Norepinephrine Bitartrate 250 ml @ 3.75 mls/hr Q24H IV 12/06/24 15:30 12/06/24 15:30 1.875 MLS/HR Examination Patient lying in bed, in no acute distress General: Odell, afebrile, Down facies, mucosae are dry, cachectic. Cardiovascular: Normal S1 and S2, bradycardia. No murmurs, gallops or rubs Respiratory: Regular ventilation mechanics. Rhonchus predominantly on right hemithorax associated with diffuse wheezing Abdomen: Soft, nontender, no organomegaly, normal bowel sounds, palpable abdominal aorta MSK/skin: Mobilizes 4 limbs. Skin is dry Neurological: Patient is non verbal, cannot assess orientation. No motor no sensitive deficits. Right eye has traumatic injury, left pupil is isochoric and reactive laboratory and microbiology Laboratory Tests 12/06/24 10:00 12/06/24 03:00 Test 12/06/24 10:00 Range/Units Serum Glucose 146 H 74-106 mg/dL Microbiology Date/Time Source Procedure Growth Status 12/05/24 09:50 Blood Blood Culture - Preliminary NO GROWTH AFTER 24 HOURS OF INCUBATION. Resulted 12/03/24 18:00 Nose MRSA Screen - Final Complete 12/02/24 19:53 Voided Urine Urine Culture - Final Complete Problem List/Assessment/Plan Problem List/Assessment/Plan Neurology # Metabolic encephalopathy secondary to hypernatremia # Right phthisis bulbi # Down syndrome Ordered head CT, but could not be completed since patient is combative. Continue improving natremia, continue D5W. Cardiovascular # Mixed shock (Hypovolemia and septic) # Asymptomatic bradycardia On IV vasopressors (Dopamine) Respiratory # Acute respiratory failure secondary to aspiration pneumonia On oxygen therapy with Nasal cannula at 2 L/min Currently under adjusted IV antibiotics (Cefazolin, previously on Vancomycin, Doxycycline and Meropenem) Gastrointestinal # History of Hepatic steatosis LFTs within normal limits. Will continue monitoring Genitourinary/Renal # Severe Hyponatremia # ROSLYN hemodynamically mediated (VMN) - baseline 0.76 # Severe dehydration # Hypermagnesemia Continue D5W drip at 125 ml/h. Should not correct more than 8-10 mEq every 24 hours. BMP every 6 hours Nephrology on board: Optimizing medical therapy Infectious Disease # Mixed shock (Septic and hypovolemic) # Aspiration pneumonia # MSSA bacteriemia Currently under adjusted IV antibiotics (Cefazolin, previously on Vancomycin, Doxycycline and Meropenem) On IV vasopressors Repeated blood cultures Endocrine # Failure to thrive # Severe protein calorie malnutrition with a BMI 15.6 # Ruled out hypothyroidism Patient is on pureed diet. Nutritional consult Hematology # Thrombocytopenia # Polycythemia - Probably secondary to dehydration (Resolved) # Macrocytic anemia No heparin. On SCDs Nutrition: Pureed diet Prophylaxis: PUD (Pantoprazole) and DVT (SCDs) Lines 12/01/2024 Right femoral CVC Drips Dopamine 5 ug/kg/min D5W was 100 ml/h Goals of care discussed with sister (Vandana) who is caregiver for over 18 minutes: DNR/DNI Case discussed with Dr. Sandoval, sister and nurse: Patient is ICU status due to requirement of IV vasopressors (Dopamine) due to bradycardia and hypotension, lowering hypernatremia at a rate of 8-10 mEq every 24 hours, currently on D5W, we will continue obtaining BMP. Appreciate nephrology input. Adjusted IV antibiotics. Patient has poor prognosis, have discussed with sister. Critical care time spent including discussion with nursing and family, excluding procedures: 92 minutes Plan discussed with: Patient, Other (Nurses) My Orders My Orders Orders - MARITZA WEEKS RESIDENT Procedure Category Date Status Time Bi Lat Upper Dvt US 12/06/24 Resulted 11:13 Dietary Evaluation Review Recommendations by RD: Dietary education by RD, Protein Supplementation Comments: 1) Initiate Ensure Enlive tid d/t underweight BMI. Encourage optimal PO intake 2) Advance to regular diet when medically feasible, pending RADIOLOGY DIRECTOR aproval. 3) Refer to outpatient RD for weight management 4) Follow-up with nephrology and pulmonology 5) Continue to monitor I&O, labs, and skin integrity Expected Outcomes/Goals: 1) appetite and labs to improve 2) diet to advance 3) f/u in 3-5 days Date of Service: December 06, 2024 Billing Provider: DAYDAY SANDOVAL MD Common Visit Codes: 69988-[id number] CARE 30-74 MIN, [id number] CARE-EACH +30MIN MARITZA WEEKS December 06, 2024 22:39 DAYDAY SANDOVAL MD December 07, 2024 15:14
[2024-12-07] VITALS (101 sets, daily range): BP systolic 82–137; BP diastolic 30–64; PULSE 44–103; RESP 11–25; TEMP 97.3–98.4; O2SAT 80–100
[2024-12-07 03:59] LABS: Hemoglobin 11.5 g/dL (13.5-17.5); White Blood Cell 5.8 10^3/uL (4.4-10.8)
[2024-12-07 04:01] LABS: Hematocrit 34.1 % (41.0-53.0); Mean Corpuscular Hemoglobin 32.8 pg (28.0-32.0); Mean Corpuscular Hgb Conc. 33.6 g/dL (32.0-36.0); Mean Corpuscular Volume 97.5 fL (80.0-100.0); Platelet Count (auto) 42 10^3/uL (140-450); Red Cell Distribution Width 14.7 % (11.8-14.3)
[2024-12-07 04:04] LABS: Potassium 3.5 mmol/L (3.5-5.1)
[2024-12-07 04:05] LABS: Anion Gap 5 (5-15); Carbon Dioxide 31 mmol/L (20-31)
[2024-12-07 04:08] LABS: Basophils % (manual) 0 (0.0-2.0); Blast Cells 0; Eosinophils % (manual) 0 (0-7); Myelocytes % 0; Promyelocytes % 0; Reactive Lymphocytes 0
[2024-12-07 04:10] LABS: BUN/Creatinine Ratio 15.4 (10.0-20.0); Blood Urea Nitrogen 10 mg/dL (9-23)
[2024-12-07 04:25] LABS: Calcium 7.9 mg/dL (8.7-10.4); Chloride 117 mmol/L (98-107); Sodium 153 mmol/L (136-145)
[2024-12-07 04:47] LABS: Glucose 82 mg/dL (74-106)
--- NOTE | 2024-12-07 05:17 | DVH ---
CHEST RADIOGRAPH Indication: Aspiration pneumonia Technique: Single frontal view of the chest was obtained Comparison: XY CHEST XRAY 1 VIEW on DOS: 12/06/24 FINDINGS: Lines and Tubes: None Lungs: Bilateral central predominant pulmonary opacities similar to prior study. Pleura: No effusion. No pneumothorax. Cardiomediastinal contours: Unremarkable Bones: No acute osseous abnormality. IMPRESSION: 1. Bilateral central predominant opacities similar to prior study which may represent worsening pulmo nary edema or pneumonia.
[2024-12-07 05:48] LABS: Band Neutrophils % (manual) 2; Lymphocytes % (manual) 10 (10.0-50.0); Metamyelocytes % 2; Monocytes % (manual) 7 (0-12); Platelet Estimate Decreased
[2024-12-07] MEDS: FOLIC ACID 1 MG TAB PO ONE (09:58)
[2024-12-07] MEDS: MULTIPLE VITAMIN TAB PO ONE (09:59)
--- NOTE | 2024-12-07 21:38 | DVHPNRES ---
Progress Note Date Seen: December 07, 2024 Resident Creating Document: MARITZA WEEKS RESIDENT Medical Necessity Reason Pt with a Central, PICC or Fol: Yes The following are medically ne: Central Line, Mason Catheter Subjective Review of Systems Orlando Christy is a 54-year-old male patient who presents to the ED due to altered mental status and progressive dyspnea from functional class II to functional class IV one week prior to his admission, associated with decreased food intake and productive cough with green phlegm. Patient is altered, poor historian, obtained history from EMR and sister (she is the caregiver). Patient is in home hospice, is goals of care are DNI and DNR, due to increased respiratory effort, sister who is the caregiver decided to call EMS to evaluate for probable aspiration pneumonia. Patient was recently hospitalized due to metabolic encephalopathy secondary to severe hypernatremia associated with septic shock due to aspiration pneumonia, current symptoms are similar to that admission. 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 Multiple history of pneumonia PSH: Denies Family history: Mother has diabetes and hypertension Social history: Lives with sister (Vandana, she is the caregiver and next of kin) in [place]. Denies smoking, alcohol and other drug abuse Allergies: Denies Home medication: Lorazepam, haloperidol and midodrine Patient seen and examined at bedside. Patient is nonverbal but more alert, could not obtain review of systems. Patient has asymptomatic bradycardia which hasresolved, off of Dopamine drip, in conditions to be downgraded. Reducing natremia no more than 8-10 mEq every 24 hours with D5W. Patient will not be intubated due to goals of care (DNR/DNI). Adjusted IV antibiotics (on Cefazolin). Objective vital signs Vital Sign Date Time Temp Pulse Resp B/P (MAP) Pulse Ox O2 Delivery O2 Flow Rate FiO2 12/07/24 21:00 97.9 93 19 96/44 (61) 97 208.2 12/07/24 20:00 Room Air* 0 21 Total Intake and Output 12/06/24 12/06/24 12/07/24 15:00 23:00 07:00 Intake Total 327.75 ml 1287.275 ml 1004.600 ml Output Total 1600 ml 1300 ml Balance 327.75 ml -312.725 ml -295.400 ml medications Current Medications Medications Dose Ordered Sig/Elza Route Start Time Stop Time Status Last Admin Dose Admin Acetaminophen 650 mg Q6HP PRN [place] 12/01/24 21:45 12/03/24 09:20 650 MG Ondansetron HCl 4 mg Q4HP PRN IV 12/01/24 21:45 12/03/24 14:26 4 MG Pantoprazole Sodium 40 mg DAILY IV 12/03/24 10:00 12/07/24 09:57 40 MG Ipratropium [place] 0.5 mg Q4HWA [facility] 12/02/24 18:00 12/07/24 18:19 0.5 MG Lorazepam 0.5 mg Q6HP PRN IV 12/03/24 13:15 12/04/24 18:19 0.5 MG Diagnostic Test (Pha) 1 strip Q6HR 12/03/24 18:00 UNV Dopamine HCl/ Dextrose 250 ml @ 7.688 mls/ hr Q24H IV 12/03/24 18:30 12/06/24 20:34 3.075 MLS/HR Diagnostic Test (Pha) 1 strip Q6HR 12/04/24 00:00 12/07/24 18:00 1 STRIP Insulin Human Regular Q6HR SC 12/04/24 00:00 12/07/24 00:35 2 UNITS Dextrose 50 ml UD PRN IV 12/03/24 18:30 Albuterol 2.5 mg Q4HWA [facility] 12/05/24 10:00 12/07/24 18:19 2.5 MG Dextrose 1,000 ml @ 100 mls/hr Q10H IV 12/06/24 12:15 12/07/24 17:34 100 MLS/HR Cefazolin Sodium 50 ml @ 100 mls/hr Q8H IV 12/06/24 20:30 12/07/24 20:42 100 MLS/HR Norepinephrine Bitartrate 250 ml @ 3.75 mls/hr Q24H IV 12/06/24 15:30 12/06/24 15:30 1.875 MLS/HR Multivitamins 1 tab DAILY PO 12/08/24 10:00 Folic Acid 1 mg DAILY PO 12/08/24 10:00 Examination Patient lying in bed, in no acute distress General: Neto alert, linn, afebrile, Down facies, mucosae are dry, cachectic. Cardiovascular: Normal S1 and S2, bradycardia. No murmurs, gallops or rubs Respiratory: Regular ventilation mechanics. Rhonchus predominantly on right hemithorax associated with diffuse wheezing Abdomen: Soft, nontender, no organomegaly, normal bowel sounds, palpable abdominal aorta MSK/skin: Mobilizes 4 limbs. Skin is dry Neurological: Patient is non verbal, cannot assess orientation. No motor no sensitive deficits. Right eye has traumatic injury, left pupil is isochoric and reactive laboratory and microbiology Laboratory Tests 12/07/24 03:18 Test 12/07/24 03:18 Range/Units Serum Glucose 82 74-106 mg/dL Microbiology Date/Time Source Procedure Growth Status 12/05/24 09:50 Blood Blood Culture - Preliminary NO GROWTH AFTER 48 HOURS OF INCUBATION. Resulted 12/03/24 18:00 Nose MRSA Screen - Final Complete 12/02/24 19:53 Voided Urine Urine Culture - Final Complete Problem List/Assessment/Plan Problem List/Assessment/Plan Neurology # Metabolic encephalopathy secondary to hypernatremia # Right phthisis bulbi # Down syndrome Ordered head CT, but could not be completed since patient is combative. Continue improving natremia, continue D5W. Cardiovascular # Mixed shock (Hypovolemia and septic) # Asymptomatic bradycardia Required IV vasopressors (Dopamine). Currently off IV vasoactive drugs Respiratory # Acute respiratory failure secondary to aspiration pneumonia On oxygen therapy with Nasal cannula at 2 L/min Currently under adjusted IV antibiotics (Cefazolin, previously on Vancomycin, Doxycycline and Meropenem) Gastrointestinal # History of Hepatic steatosis LFTs within normal limits. Will continue monitoring Genitourinary/Renal # Severe Hyponatremia # ROSLYN hemodynamically mediated (VMN) - baseline 0.76 # Severe dehydration # Hypermagnesemia Continue D5W drip at 125 ml/h. Should not correct more than 8-10 mEq every 24 hours. BMP every 6 hours Nephrology on board: Optimizing medical therapy Infectious Disease # Mixed shock (Septic and hypovolemic) # Aspiration pneumonia # MSSA bacteriemia Currently under adjusted IV antibiotics (Cefazolin, previously on Vancomycin, Doxycycline and Meropenem) On IV vasopressors Repeated blood cultures Endocrine # Failure to thrive # Severe protein calorie malnutrition with a BMI 15.6 # Ruled out hypothyroidism Patient is on pureed diet. Nutritional consult Hematology # Thrombocytopenia # Polycythemia - Probably secondary to dehydration (Resolved) # Macrocytic anemia No heparin. On SCDs Nutrition: Pureed diet Prophylaxis: PUD (Pantoprazole) and DVT (SCDs) Lines 12/01/2024 Right femoral CVC Drips Dopamine 0 D5W was 100 ml/h Goals of care discussed with sister (Vandana) who is caregiver for over 18 minutes: DNR/DNI Case discussed with Dr. Sandoval, sister and nurse: Patient downgraded to Telemetry status, dscontinued IV vasopressors (Dopamine and norepinephrine) due to bradycardia and hypotension, lowering hypernatremia at a rate of 8-10 mEq every 24 hours, currently on D5W, we will continue obtaining BMP. Appreciate nephrology input. Adjusted IV antibiotics. Patient has poor prognosis, have discussed with sister. Critical care time spent including discussion with nursing and family, excluding procedures: 61 minutes Plan discussed with: Patient, Other (Sister (Vandana) and nurses) My Orders My Orders Orders - MARITZA WEEKS RESIDENT Procedure Category Date Status Time Pt Request For Service PT 12/07/24 Logged 08:27 Multiple Vitamin PHA 12/08/24 In Process Tablet (Mvi Tab) 10:00 Folic Acid Tablet PHA 12/08/24 In Process 10:00 Transfer Orders XFER 12/07/24 Transmitted 21:26 Complete Blood Count LAB 12/08/24 Verified 04:00 Comprehensive LAB 12/08/24 Verified Metabolic Panel 04:00 Magnesium LAB 12/08/24 Verified 04:00 Phosphorus LAB 12/08/24 Verified 04:00 Dietary Evaluation Review Recommendations by RD: Dietary education by RD, Protein Supplementation Comments: 1) Initiate Ensure Enlive tid d/t underweight BMI. Encourage optimal PO intake 2) Advance to regular diet when medically feasible, pending INSTRUMENT SETTER aproval. 3) Refer to outpatient RD for weight management 4) Follow-up with nephrology and pulmonology 5) Continue to monitor I&O, labs, and skin integrity Expected Outcomes/Goals: 1) appetite and labs to improve 2) diet to advance 3) f/u in 3-5 days Date of Service: December 08, 2024 Billing Provider: DAYDAY SANDOVAL MD Common Visit Codes: [id number] CARE 30-74 MIN MARITZA WEEKS December 07, 2024 21:38 DAYDAY SANDOVAL MD December 08, 2024 12:07
[2024-12-07] MEDS: D5W 5% 1,000 ML IV SCH (21:45)
[2024-12-08] VITALS (24 sets, daily range): BP systolic 91–125; BP diastolic 42–51; PULSE 59–109; RESP 15–19; TEMP 97.4–98.4; O2SAT 92–100
[2024-12-08] MEDS: FREE WATER PO SCH
--- NOTE | 2024-12-08 05:55 | DVH ---
EXAM: XR Chest, 1 View CLINICAL INDICATION: Aspiration pneumonia TECHNIQUE: Frontal view of the chest. COMPARISON: XY CHEST XRAY 1 VIEW on DOS: 12/07/24, XY CHEST XRAY 1 VIEW on DOS: 12/06/24, XY CHEST XR AY 1 VIEW on DOS: 12/05/24, XY CHEST XRAY 1 VIEW on DOS: 12/04/24, XY CHEST XRAY 1 VIEW on DOS: 12/03/24 FINDINGS: LUNGS AND PLEURAL SPACES: Pulmonary congestion and edema. Pneumonia cannot be excluded. No pneumot horax. HEART: Unremarkable. No cardiomegaly. MEDIASTINUM: Unremarkable. Normal mediastinal contour. BONES/JOINTS: Unremarkable. No acute fracture. OTHER FINDINGS: . IMPRESSION: Pulmonary congestion and edema. Pneumonia cannot be excluded.
[2024-12-08 08:03] LABS: Hematocrit 36.2 % (41.0-53.0); Hemoglobin 12.1 g/dL (13.5-17.5); Mean Corpuscular Hemoglobin 33.1 pg (28.0-32.0); Mean Corpuscular Hgb Conc. 33.5 g/dL (32.0-36.0); Mean Corpuscular Volume 98.6 fL (80.0-100.0); Platelet Count (auto) 48 10^3/uL (140-450); Red Blood Cells 3.67 10^6/uL (4.5-5.90); Red Cell Distribution Width 14.7 % (11.8-14.3); White Blood Cell 3.1 10^3/uL (4.4-10.8)
[2024-12-08 08:04] LABS: Band Neutrophils % (manual) 0; Basophils % (manual) 0 (0.0-2.0); Blast Cells 0; Metamyelocytes % 0; Myelocytes % 0; Promyelocytes % 0; Reactive Lymphocytes 0
[2024-12-08 08:15] LABS: Alkaline Phosphatase 90 U/L (46-116); Anion Gap 6 (5-15); BUN/Creatinine Ratio 15.7 (10.0-20.0); Blood Urea Nitrogen 11 mg/dL (9-23); Glucose 76 mg/dL (74-106)
[2024-12-08 08:17] LABS: Bilirubin, Total 0.4 mg/dL (0.2-1.0); Phosphorus 2.7 mg/dL (2.4-5.1)
[2024-12-08 08:28] LABS: Alanine Aminotransferase 52 U/L (7-40); Albumin 2.1 g/dL (3.2-4.8); Aspartate Aminotransferase 47 U/L (13-40); Carbon Dioxide 32 mmol/L (20-31); Chloride 114 mmol/L (98-107); Sodium 152 mmol/L (136-145)
[2024-12-08 10:22] LABS: Eosinophils % (manual) 1 (0-7); Lymphocytes % (manual) 12 (10.0-50.0); Monocytes % (manual) 6 (0-12); Platelet Estimate Decreased
[2024-12-08] MEDS: FOLIC ACID 1 MG TAB PO SCH (10:40)
[2024-12-08] MEDS: MULTIPLE VITAMIN TAB PO SCH (10:40)
[2024-12-08] MEDS: POTASSIUM CHL 20MEQ/100ML 100 ML IV SCH (12:18)
--- NOTE | 2024-12-08 20:28 | DVHPNRES ---
Progress Note Date Seen: December 08, 2024 Resident Creating Document: MARITZA WEEKS RESIDENT Medical Necessity Reason Pt with a Central, PICC or Fol: Yes The following are medically ne: Central Line, Mason Catheter Subjective Review of Systems Orlando Christy is a 54-year-old male patient who presents to the ED due to altered mental status and progressive dyspnea from functional class II to functional class IV one week prior to his admission, associated with decreased food intake and productive cough with green phlegm. Patient is altered, poor historian, obtained history from EMR and sister (she is the caregiver). Patient is in home hospice, is goals of care are DNI and DNR, due to increased respiratory effort, sister who is the caregiver decided to call EMS to evaluate for probable aspiration pneumonia. Patient was recently hospitalized due to metabolic encephalopathy secondary to severe hypernatremia associated with septic shock due to aspiration pneumonia, current symptoms are similar to that admission. 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 Multiple history of pneumonia PSH: Denies Family history: Mother has diabetes and hypertension Social history: Lives with sister (Vandana, she is the caregiver and next of kin) in [place]. Denies smoking, alcohol and other drug abuse Allergies: Denies Home medication: Lorazepam, haloperidol and midodrine Patient seen and examined at bedside. Patient is nonverbal but more alert, could not obtain review of systems. Patient has asymptomatic bradycardia which hasresolved, off of Dopamine drip, in conditions to be downgraded. Reducing natremia no more than 8-10 mEq every 24 hours with D5W. Patient will not be intubated due to goals of care (DNR/DNI). Adjusted IV antibiotics (on Cefazolin). Objective vital signs Vital Sign Date Time Temp Pulse Resp B/P (MAP) Pulse Ox O2 Delivery O2 Flow Rate FiO2 12/08/24 18:43 71 18 100 12/08/24 18:35 Room Air 12/08/24 18:35 0 21 12/08/24 17:19 97.4 111/51 (71) 97.4 Total Intake and Output 512/07/24 12/08/24 14:59 22:59 06:59 Intake Total 862.300 ml 885 ml 760 ml Output Total 1250 ml Balance 862.300 ml -365 ml 760 ml medications Current Medications Medications Dose Ordered Sig/Elza Route Start Time Stop Time Status Last Admin Dose Admin Acetaminophen 650 mg Q6HP PRN [place] 12/01/24 21:45 12/03/24 09:20 650 MG Ondansetron HCl 4 mg Q4HP PRN IV 12/01/24 21:45 12/03/24 14:26 4 MG Pantoprazole Sodium 40 mg DAILY IV 12/03/24 10:00 12/08/24 10:44 40 MG Ipratropium [place] 0.5 mg Q4HWA [facility] 12/02/24 18:00 12/08/24 18:35 0.5 MG Lorazepam 0.5 mg Q6HP PRN IV 12/03/24 13:15 12/04/24 18:19 0.5 MG Diagnostic Test (Pha) 1 strip Q6HR 12/03/24 18:00 UNV Diagnostic Test (Pha) 1 strip Q6HR 12/04/24 00:00 12/08/24 17:22 1 STRIP Insulin Human Regular Q6HR SC 12/04/24 00:00 12/07/24 00:35 2 UNITS Dextrose 50 ml UD PRN IV 12/03/24 18:30 Albuterol 2.5 mg Q4HWA [facility] 12/05/24 10:00 12/08/24 18:35 2.5 MG Cefazolin Sodium 50 ml @ 100 mls/hr Q8H IV 12/06/24 20:30 12/08/24 11:23 100 MLS/HR Multivitamins 1 tab DAILY PO 12/08/24 10:00 12/08/24 10:40 1 TAB Folic Acid 1 mg DAILY PO 12/08/24 10:00 12/08/24 10:40 1 MG Purified Water 200 ml Q6HR PO 12/08/24 00:00 12/08/24 05:42 200 ML Dextrose 1,000 ml @ 50 mls/hr Q20H IV 12/07/24 21:45 12/08/24 18:42 50 MLS/HR Examination Patient lying in bed, in no acute distress General: Neto alert, linn, afebrile, Down facies, mucosae are dry, cachectic. Cardiovascular: Normal S1 and S2, bradycardia. No murmurs, gallops or rubs Respiratory: Regular ventilation mechanics. Rhonchus predominantly on right hemithorax associated with diffuse wheezing Abdomen: Soft, nontender, no organomegaly, normal bowel sounds, palpable abdominal aorta MSK/skin: Mobilizes 4 limbs. Skin is dry Neurological: Patient is non verbal, cannot assess orientation. No motor no sensitive deficits. Right eye has traumatic injury, left pupil is isochoric and reactive laboratory and microbiology Laboratory Tests 12/08/24 05:51 Test 12/08/24 05:51 Range/Units Serum Glucose 76 74-106 mg/dL Microbiology Date/Time Source Procedure Growth Status 12/05/24 09:50 Blood Blood Culture - Preliminary NO GROWTH AFTER 72 HOURS OF INCUBATION. Resulted 12/03/24 18:00 Nose MRSA Screen - Final Complete 12/02/24 19:53 Voided Urine Urine Culture - Final Complete Problem List/Assessment/Plan Problem List/Assessment/Plan Neurology # Metabolic encephalopathy secondary to hypernatremia # Right phthisis bulbi # Down syndrome Ordered head CT, but could not be completed since patient is combative. Continue improving natremia, continue D5W. Cardiovascular # Mixed shock (Hypovolemia and septic) # Asymptomatic bradycardia Required IV vasopressors (Dopamine). Currently off IV vasoactive drugs Respiratory # Acute respiratory failure secondary to aspiration pneumonia On oxygen therapy with Nasal cannula at 2 L/min Currently under adjusted IV antibiotics (Cefazolin, previously on Vancomycin, Doxycycline and Meropenem) Gastrointestinal # History of Hepatic steatosis LFTs within normal limits. Will continue monitoring Genitourinary/Renal # Severe Hyponatremia # ROSLYN hemodynamically mediated (VMN) - baseline 0.76 # Severe dehydration # Hypermagnesemia Continue D5W drip at 125 ml/h. Should not correct more than 8-10 mEq every 24 hours. Nephrology on board: Optimizing medical therapy Infectious Disease # Mixed shock (Septic and hypovolemic) # Aspiration pneumonia # MSSA bacteriemia Currently under adjusted IV antibiotics (Cefazolin, previously on Vancomycin, Doxycycline and Meropenem) On IV vasopressors Repeated blood cultures Endocrine # Failure to thrive # Severe protein calorie malnutrition with a BMI 15.6 # Ruled out hypothyroidism Patient is on pureed diet. Nutritional consult Hematology # Thrombocytopenia # Polycythemia - Probably secondary to dehydration (Resolved) # Macrocytic anemia No heparin. On SCDs Nutrition: Pureed diet Prophylaxis: PUD (Pantoprazole) and DVT (SCDs) Lines 12/01/2024 Right femoral CVC Goals of care discussed with sister (Vandana) who is caregiver for over 18 minutes: DNR/DNI Case discussed with Dr. Sandoval, sister and nurse: Patient downgraded to Med/Surge status, lowering hypernatremia at a rate of 8-10 mEq every 24 hours, with free water, tolerating pureed diet, we will continue obtaining BMP. Appreciate nephrology input. Adjusted IV antibiotics. Patient has poor prognosis, have discussed with sister. Planning on discharging to home hospice. Critical care time spent including discussion with nursing and family, excluding procedures: 59 minutes Plan discussed with: Patient, Other (Sister (Vandana) and nurses) My Orders My Orders Orders - MARITZA WEEKS RESIDENT Procedure Category Date Status Time Transfer Orders XFER 12/07/24 Transmitted 21:26 Free Water PHA 12/08/24 In Process 00:00 D5w 5% (Dextrose 5%) PHA 12/07/24 In Process 21:45 Dietary Evaluation Review Recommendations by RD: Dietary education by RD, Protein Supplementation Comments: 1) Initiate Ensure Enlive tid d/t underweight BMI. Encourage optimal PO intake 2) Advance to regular diet when medically feasible, pending TEACHERS ASSISTANT aproval. 3) Refer to outpatient RD for weight management 4) Follow-up with nephrology and pulmonology 5) Continue to monitor I&O, labs, and skin integrity Expected Outcomes/Goals: 1) appetite and labs to improve 2) diet to advance 3) f/u in 3-5 days Date of Service: December 08, 2024 Billing Provider: DAYDAY SANDOVAL MD Common Visit Codes: [id number] CARE 30-74 MIN MARITZA WEEKS RESIDENT December 08, 2024 20:28 DAYDAY SANDOVAL MD Dec 11, 2024 11:41
[2024-12-09] VITALS (18 sets, daily range): BP systolic 92–150; BP diastolic 40–53; PULSE 58–110; RESP 16–20; TEMP 97.5–98.4; O2SAT 88–97
[2024-12-09 06:47] LABS: Basophils # (auto) 0 10 ^3/uL (0-0.2); Basophils % (auto) 0.1 % (0.0-2.0); Eosinophils # (auto) 0 10 ^3/uL (0-0.8); Lymphocytes # (auto) 0.2 10 ^3/uL (0.4-5.4); Lymphocytes % (auto) 5.5 % (10.0-50.0); Monocytes # (auto) 0.1 10 ^3/uL (0-1.3); Neutrophils # (auto) 2.7 10 ^3/uL (1.6-8.6); Nucleated Red Blood Cells % 0.2 %
[2024-12-09 06:50] LABS: Eosinophils % (auto) 1.2 % (0.0-7.0); Hematocrit 34.9 % (41.0-53.0); Hemoglobin 11.7 g/dL (13.5-17.5); Mean Corpuscular Hemoglobin 33.4 pg (28.0-32.0); Mean Corpuscular Hgb Conc. 33.6 g/dL (32.0-36.0); Mean Corpuscular Volume 99.5 fL (80.0-100.0); Neutrophils % (auto) 90.2 % (37.0-80.0); Platelet Count (auto) 73 10^3/uL (140-450); Red Blood Cells 3.51 10^6/uL (4.5-5.90); Red Cell Distribution Width 14.9 % (11.8-14.3)
[2024-12-09 06:58] LABS: Alanine Aminotransferase 27 U/L (7-40); Alkaline Phosphatase 85 U/L (46-116); Anion Gap 5 (5-15); Aspartate Aminotransferase 31 U/L (13-40); BUN/Creatinine Ratio 10.1 (10.0-20.0); Bilirubin, Total 0.5 mg/dL (0.2-1.0); Carbon Dioxide 30 mmol/L (20-31); Glucose 77 mg/dL (74-106); Magnesium 2.1 mg/dL (1.6-2.6)
[2024-12-09 07:01] LABS: Potassium 3.4 mmol/L (3.5-5.1); Sodium 149 mmol/L (136-145)
[2024-12-09 07:02] LABS: Albumin 2.1 g/dL (3.2-4.8); Blood Urea Nitrogen 7 mg/dL (9-23); Calcium 7.9 mg/dL (8.7-10.4); Chloride 114 mmol/L (98-107); Phosphorus 2.4 mg/dL (2.4-5.1); Total Protein 4.1 g/dL (5.7-8.2)
[2024-12-09] MEDS: POTASSIUM CHL 20MEQ/100ML 100 ML IV SCH (08:40)
--- NOTE | 2024-12-09 10:01 | DVH ---
Date: 12/09/2024 09:25 AM Examination: XY KUB ABDOMEN SINGLE VIEW History: Constipation Comparison: None TECHNIQUE: Frontal views of the abdomen was obtained. FINDINGS: Bowel gas pattern is unremarkable. The lung bases are unremarkable. No acute osseous abnormality identified. Right central venous catheter terminating at the right aspect of the L4-L5 interspace. Mason cathete r overlying the bladder. IMPRESSION: Nonobstructive bowel gas pattern. Large stool burden.
--- NOTE | 2024-12-09 10:43 | DVH ---
CHEST RADIOGRAPH Indication: Aspiration pneumonia Technique: Frontal view of the chest. Comparison: XY CHEST XRAY 1 VIEW on DOS: 12/08/24, XY CHEST XRAY 1 VIEW on DOS: 12/07/24, XY CHEST XRAY 1 VIEW on DOS: 12/06/24, XY CHEST XRAY 1 VIEW on DOS: 12/05/24, XY CHEST XRAY 1 VIEW on DOS: 12/04/24, XY CHEST XRAY 1 VIEW on DOS: 12/08/24 FINDINGS: LUNGS AND PLEURAL SPACES: Pulmonary congestion and edema. Pneumonia cannot be excluded. No pneumot horax. HEART: Unremarkable. No cardiomegaly. MEDIASTINUM: Unremarkable. Normal mediastinal contour. BONES/JOINTS: Unremarkable. No acute fracture. IMPRESSION: Pulmonary congestion and edema. Pneumonia cannot be excluded.
[2024-12-09] MEDS: DOCUSATE SOD 100 MG CAP PO ONE (16:15)
--- NOTE | 2024-12-09 16:26 | DVHPNRES ---
Progress Note Date Seen: December 09, 2024 Resident Creating Document: MARITZA WEEKS RESIDENT Medical Necessity Reason Pt with a Central, PICC or Fol: Yes The following are medically ne: Central Line, Mason Catheter Subjective Review of Systems Orlando Christy is a 54-year-old male patient who presents to the ED due to altered mental status and progressive dyspnea from functional class II to functional class IV one week prior to his admission, associated with decreased food intake and productive cough with green phlegm. Patient is altered, poor historian, obtained history from EMR and sister (she is the caregiver). Patient is in home hospice, is goals of care are DNI and DNR, due to increased respiratory effort, sister who is the caregiver decided to call EMS to evaluate for probable aspiration pneumonia. Patient was recently hospitalized due to metabolic encephalopathy secondary to severe hypernatremia associated with septic shock due to aspiration pneumonia, current symptoms are similar to that admission. 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 Multiple history of pneumonia PSH: Denies Family history: Mother has diabetes and hypertension Social history: Lives with sister (Prasanna, she is the caregiver and next of kin) in [place]. Denies smoking, alcohol and other drug abuse Allergies: Denies Home medication: Lorazepam, haloperidol and midodrine Patient seen and examined at bedside. Patient is verbal, more alert, but not oriented (back to baseline), could not obtain review of systems. Reducing natremia no more than 8-10 mEq every 24 hours with D5W and free water PO. Patient will not be intubated due to goals of care (DNR/DNI). Adjusted IV antibiotics (on Cefazolin). Objective vital signs Vital Sign Date Time Temp Pulse Resp B/P (MAP) Pulse Ox O2 Delivery O2 Flow Rate FiO2 12/09/24 13:21 94 18 97 12/09/24 13:16 Room Air* 0 21 12/09/24 13:00 98.4 150/53 (85) 98.4 Total Intake and Output 12/08/24 12/08/24 12/09/24 15:00 23:00 07:00 Intake Total 150 ml 370 ml 100 ml Output Total 2500 ml 900 ml Balance 150 ml -2130 ml -800 ml medications Current Medications Medications Dose Ordered Sig/Elza Route Start Time Stop Time Status Last Admin Dose Admin Acetaminophen 650 mg Q6HP PRN [place] 12/01/24 21:45 12/03/24 09:20 650 MG Ondansetron HCl 4 mg Q4HP PRN IV 12/01/24 21:45 12/03/24 14:26 4 MG Pantoprazole Sodium 40 mg DAILY IV 12/03/24 10:00 12/09/24 10:34 40 MG Ipratropium [place] 0.5 mg Q4HWA [facility] 12/02/24 18:00 12/09/24 13:16 0.5 MG Lorazepam 0.5 mg Q6HP PRN IV 12/03/24 13:15 12/04/24 18:19 0.5 MG Diagnostic Test (Pha) 1 strip Q6HR 12/03/24 18:00 UNV Diagnostic Test (Pha) 1 strip Q6HR 12/04/24 00:00 12/09/24 10:59 1 STRIP Insulin Human Regular Q6HR SC 12/04/24 00:00 12/07/24 00:35 2 UNITS Dextrose 50 ml UD PRN IV 12/03/24 18:30 Albuterol 2.5 mg Q4HWA [facility] 12/05/24 10:00 12/09/24 13:16 2.5 MG Cefazolin Sodium 50 ml @ 100 mls/hr Q8H IV 12/06/24 20:30 12/09/24 12:50 100 MLS/HR Multivitamins 1 tab DAILY PO 12/08/24 10:00 12/09/24 10:34 1 TAB Folic Acid 1 mg DAILY PO 12/08/24 10:00 12/09/24 10:34 1 MG Purified Water 200 ml Q6HR PO 12/08/24 00:00 12/09/24 10:34 200 ML Dextrose 1,000 ml @ 50 mls/hr Q20H IV 12/07/24 21:45 12/09/24 13:43 50 MLS/HR Examination Patient lying in bed, in no acute distress General: More alert, linn, afebrile, Down facies, mucosae are dry, cachectic. Cardiovascular: Normal S1 and S2, bradycardia. No murmurs, gallops or rubs Respiratory: Regular ventilation mechanics. Rhonchus predominantly on right hemithorax associated with diffuse wheezing Abdomen: Soft, nontender, no organomegaly, normal bowel sounds, palpable abdominal aorta MSK/skin: Mobilizes 4 limbs. Skin is dry Neurological: Patient is verbal but communicates with isolated words (not full sentences), cannot assess orientation. No motor no sensitive deficits. Right eye has traumatic injury, left pupil is isochoric and reactive laboratory and microbiology Laboratory Tests 12/09/24 05:28 Test 12/09/24 05:28 Range/Units Serum Glucose 77 74-106 mg/dL Microbiology Date/Time Source Procedure Growth Status 12/05/24 09:50 Blood Blood Culture - Preliminary NO GROWTH AFTER 72 HOURS OF INCUBATION. Resulted 12/03/24 18:00 Nose MRSA Screen - Final Complete 12/02/24 19:53 Voided Urine Urine Culture - Final Complete Problem List/Assessment/Plan Problem List/Assessment/Plan Neurology # Metabolic encephalopathy secondary to hypernatremia # Right phthisis bulbi # Down syndrome Ordered head CT, but could not be completed since patient is combative. Continue improving natremia, continue D5W. Cardiovascular # Mixed shock (Hypovolemia and septic) # Asymptomatic bradycardia Required IV vasopressors (Dopamine). Currently off IV vasoactive drugs Respiratory # Acute respiratory failure secondary to aspiration pneumonia On intermittent oxygen therapy, up to Nasal cannula at 2 L/min Currently under adjusted IV antibiotics (Cefazolin, previously on Vancomycin, Doxycycline and Meropenem) Gastrointestinal # History of Hepatic steatosis # Constipation LFTs within normal limits. Will continue monitoring Patient has started soft mechanical diet. Adjusted laxative medication and prokinetics. Genitourinary/Renal # Severe Hyponatremia # ROSLYN hemodynamically mediated (VMN) - baseline 0.76 # Severe dehydration # Hypermagnesemia Continue D5W drip at 125 ml/h. Should not correct more than 8-10 mEq every 24 hours. Nephrology on board: Optimizing medical therapy Infectious Disease # Mixed shock (Septic and hypovolemic) # Aspiration pneumonia # MSSA bacteriemia Currently under adjusted IV antibiotics (Cefazolin, previously on Vancomycin, Doxycycline and Meropenem) Repeated blood cultures Endocrine # Failure to thrive # Severe protein calorie malnutrition with a BMI 15.6 # Ruled out hypothyroidism Patient is on pureed diet. Nutritional consult Hematology # Thrombocytopenia # Polycythemia - Probably secondary to dehydration (Resolved) # Macrocytic anemia No heparin. On SCDs Nutrition: Pureed diet Prophylaxis: PUD (Pantoprazole) and DVT (SCDs) Lines 12/01/2024 Right femoral CVC. Will replace with peripheral. Goals of care discussed with sister (Prasanna) who is caregiver for over 18 minutes: DNR/DNI Case discussed with Dr. Johnson, sister and nurse: Patient downgraded to Med/Surge status, lowering hypernatremia at a rate of 8-10 mEq every 24 hours, with free water, tolerating pureed diet, we will continue obtaining BMP. Appreciate nephrology input. Adjusted IV antibiotics. Planning on obtaining peripheral line and discontinuing central line. Patient has been constipated, indicated laxatives and prokinetic medication. Patient has poor prognosis, have discussed with sister. Planning on discharging to home hospice. Critical care time spent including discussion with nursing and family, excluding procedures: 84 minutes Plan discussed with: Patient, Other (Sister (Prasanna) and nurses) My Orders My Orders Orders - MARITZA WEEKS RESIDENT Procedure Category Date Status Time Transfer Orders XFER 12/08/24 Transmitted 20:24 Discontinue Tele JULIEN 12/08/24 In Process 20:24 Kub Abdomen Single XY 12/09/24 Resulted View 07:17 Docusate Sodium PHA 12/09/24 Logged Capsule (Colace 22:00 Docusate Sodium PHA 12/09/24 Logged Capsule (Colace 16:15 Metoclopramide PHA 12/09/24 Logged Injection (Reglan 22:00 Metoclopramide PHA 12/09/24 Logged Injection (Reglan 16:15 Dietary Evaluation Review Recommendations by RD: Dietary education by RD, Protein Supplementation Comments: 1) Initiate Ensure Enlive tid d/t underweight BMI. Encourage optimal PO intake 2) Advance to regular diet when medically feasible, pending [employer] aproval. 3) Refer to outpatient RD for weight management 4) Follow-up with nephrology and pulmonology 5) Continue to monitor I&O, labs, and skin integrity Expected Outcomes/Goals: 1) appetite and labs to improve 2) diet to advance 3) f/u in 3-5 days MARITZA WEEKS RESIDENT December 09, 2024 16:26
[2024-12-09] MEDS: METOCLOPRAMIDE HCL 5MG/ml INJ 2ml VIAL IV ONE (18:31)
[2024-12-09] MEDS: DOCUSATE SOD 100 MG CAP PO SCH (21:43)
[2024-12-09] MEDS: METOCLOPRAMIDE HCL 5MG/ml INJ 2ml VIAL IV SCH (21:43)
[2024-12-10] VITALS (8 sets, daily range): BP systolic 71–95; BP diastolic 26–55; PULSE 69–88; RESP 16–21; TEMP 96.6–98.4; O2SAT 87–94
[2024-12-10 07:44] LABS: Anion Gap 6 (5-15); Carbon Dioxide 29 mmol/L (20-31)
[2024-12-10 07:50] LABS: BUN/Creatinine Ratio 11.6 (10.0-20.0)
[2024-12-10 07:52] LABS: Blood Urea Nitrogen 8 mg/dL (9-23); Calcium 7.5 mg/dL (8.7-10.4); Chloride 112 mmol/L (98-107); Glucose 73 mg/dL (74-106); Potassium 3.4 mmol/L (3.5-5.1); Sodium 147 mmol/L (136-145)
[2024-12-10 08:25] LABS: Hematocrit 36.3 % (41.0-53.0); Hemoglobin 12.1 g/dL (13.5-17.5); Mean Corpuscular Hemoglobin 33.1 pg (28.0-32.0); Mean Corpuscular Hgb Conc. 33.2 g/dL (32.0-36.0); Mean Corpuscular Volume 99.5 fL (80.0-100.0); Platelet Count (auto) 104 10^3/uL (140-450); Red Blood Cells 3.65 10^6/uL (4.5-5.90); Red Cell Distribution Width 14.9 % (11.8-14.3); White Blood Cell 4.1 10^3/uL (4.4-10.8)
[2024-12-10 08:33] LABS: Basophils % (manual) 0 (0.0-2.0); Blast Cells 0; Metamyelocytes % 0; Myelocytes % 0; Promyelocytes % 0; Reactive Lymphocytes 0
[2024-12-10 09:23] LABS: Anisocytosis Slight; Band Neutrophils % (manual) 9; Eosinophils % (manual) 1 (0-7); Lymphocytes % (manual) 8 (10.0-50.0); Monocytes % (manual) 5 (0-12); Platelet Estimate Decreased
--- NOTE | 2024-12-10 10:08 | DVH ---
EXAM: XR Chest, 1 View CLINICAL INDICATION: Aspiration pneumonia TECHNIQUE: Frontal view of the chest. COMPARISON: XY CHEST XRAY 1 VIEW on DOS: 12/09/24, XY CHEST XRAY 1 VIEW on DOS: 12/08/24, XY CHEST XR AY 1 VIEW on DOS: 12/07/24, XY CHEST XRAY 1 VIEW on DOS: 12/06/24, XY CHEST XRAY 1 VIEW on DOS: 12/05/24 FINDINGS: LUNGS AND PLEURAL SPACES: Stable interstitial and patchy airspace disease. No consolidation. No p neumothorax. HEART: Unremarkable. No cardiomegaly. MEDIASTINUM: Unremarkable. Normal mediastinal contour. BONES/JOINTS: Unremarkable. No acute fracture. OTHER FINDINGS: . . IMPRESSION: Stable interstitial and patchy airspace disease.
--- NOTE | 2024-12-10 17:40 | DVHPN2 ---
Subjective in bed non verbal Reviewed: H&P Changes from previous H/P or p: No Changes Eyes: No Pain, No Vision change, No Conjunctivae inflammation, No Eyelid inflammation, No Other, No Redness ENT: No Ear pain, No Ear discharge, No Nose pain, No Nose discharge, No Nose congestion, No Mouth pain, No Mouth swelling, No Throat pain, No Throat swelling, No Other Cardiovascular: No Chest Pain, No Palpitations, No Orthopnea, No Paroxysmal Noc. Dyspnea, No Edema, No Lt Headedness, No Other Respiratory: No Cough, No Dry; Shortness of breath; No SOB with excertion, No Wheezing, No Hemoptysis, No Pleuritic Pain, No Sputum; Other (SOB at rest) Gastrointestinal: No Nausea, No Vomiting, No Abdominal Pain, No Diarrhea, No Constipation, No Melena, No Hematochezia, No Other Genitourinary: No Dysuria, No Frequency, No Incontinence, No Hematuria, No Retention; Other (Anuric) Musculoskeletal: No other, No neck pain, No shoulder pain, No arm pain, No back pain, No hand pain, No leg pain, No foot pain Skin: No Rash, No Lesions, No Jaundice, No Bruising, No Other Objective Vitals Vital Signs Date Time Temp Pulse Resp B/P (MAP) Pulse Ox O2 Delivery O2 Flow Rate FiO2 12/10/24 17:05 97.3 81 20 89/45 (60) 93 97.3 12/10/24 10:00 Nasal Cannula 2.0 12/10/24 10:00 28 Intake/Output Intake and Output 12/10/24 07:00 Intake Total 850 ml Output Total 1500 ml Balance -650 ml Intake Oral 750 ml IV Total 100 ml Output Urine Total 1500 ml General Appearance: Alert, Other (Confused and disoriented and not following commands) HEENT: Atraumatic Lungs: Clear to auscultation, Other Cardiovascular: Regular rate, Normal S1, Normal S2 Abdomen: Normal bowel sounds Extremities: No edema (Bilateral rhonchi) Medications Current Medications Medications Dose Ordered Sig/Elza Route Start Time Stop Time Status Last Admin Dose Admin Acetaminophen 650 mg Q6HP PRN [place] 12/01/24 21:45 12/03/24 09:20 650 MG Ondansetron HCl 4 mg Q4HP PRN IV 12/01/24 21:45 12/03/24 14:26 4 MG Pantoprazole Sodium 40 mg DAILY IV 12/03/24 10:00 12/10/24 09:19 40 MG Lorazepam 0.5 mg Q6HP PRN IV 12/03/24 13:15 12/04/24 18:19 0.5 MG Diagnostic Test (Pha) 1 strip Q6HR 12/03/24 18:00 UNV Diagnostic Test (Pha) 1 strip Q6HR 12/04/24 00:00 12/10/24 17:28 1 STRIP Insulin Human Regular Q6HR SC 12/04/24 00:00 12/07/24 00:35 2 UNITS Dextrose 50 ml UD PRN IV 12/03/24 18:30 Cefazolin Sodium 50 ml @ 100 mls/hr Q8H IV 12/06/24 20:30 12/10/24 11:28 100 MLS/HR Multivitamins 1 tab DAILY PO 12/08/24 10:00 12/09/24 10:34 1 TAB Folic Acid 1 mg DAILY PO 12/08/24 10:00 12/09/24 10:34 1 MG Purified Water 200 ml Q6HR PO 12/08/24 00:00 12/10/24 11:40 200 ML Dextrose 1,000 ml @ 50 mls/hr Q20H IV 12/07/24 21:45 12/10/24 09:21 50 MLS/HR Docusate Sodium 100 mg BID PO 12/09/24 22:00 12/11/24 10:00 Metoclopramide HCl 5 mg Q8HR IV 12/09/24 22:00 12/11/24 10:00 12/10/24 13:28 5 MG Laboratory Results Laboratory Tests 12/10/24 05:24 Chemistry Test 12/10/24 05:24 Calcium Level 7.5 mg/dL (8.7-10.4) L Urinalysis Test 12/02/24 19:53 Urine Color Colorless (Yellow) Urine Clarity Turbid (Clear) H Urine pH 5.0 (5.0-9.0) Urine Specific [place] 1.020 (1.001-1.035) Urine Protein Trace (Negative) H Urine Ketones Negative (Negative) Urine Blood 2+ /uL (Negative) H Urine Nitrite Negative (Negative) Urine Bilirubin Negative (Negative) Urine Urobilinogen Normal mg/dL (Negative) Urine Leukocyte Esterase Negative /uL (Negative) Urine RBC 1 /hpf (0 - 3) Urine Microscopic WBC 3 /HPF (0-3) Urine Squamous Epithelial Cells Few /hpf (<5) Urine Amorphous Crystals Few /hpf (None Seen) Urine Bacteria None seen /hpf (None Seen) Urine Glucose Normal mg/dL (Normal) Microbiology Microbiology Date/Time Source Procedure Growth Status 12/05/24 09:50 Blood Blood Culture - Final NO GROWTH AFTER 5 DAYS OF INCUBATION. Complete 12/03/24 18:00 Nose MRSA Screen - Final Complete 12/02/24 19:53 Voided Urine Urine Culture - Final Complete Assessment/Plan Assessment/Plan # Metabolic encephalopathy secondary to hypernatremia # Right phthisis bulbi # Down syndrome # Mixed shock (Hypovolemia and septic) # Asymptomatic bradycardia # Acute respiratory failure secondary to aspiration pneumonia On intermittent oxygen therapy, up to Nasal cannula at 2 L/min Currently under adjusted IV antibiotics (Cefazolin, previously on Vancomycin, Doxycycline and Meropenem) # Severe Hyponatremia # ROSLYN hemodynamically mediated (VMN) - baseline 0.76 # Severe dehydration # Hypermagnesemia Continue D5W drip at 125 ml/h. Should not correct more than 8-10 mEq every 24 hours. Nephrology on board: Optimizing medical therapy # Failure to thrive # Severe protein calorie malnutrition with a BMI 15.6 # Ruled out hypothyroidism Patient is on pureed diet. Nutritional consult # Thrombocytopenia # Polycythemia - Probably secondary to dehydration (Resolved) # Macrocytic anemia No heparin. On SCDs Nutrition: Pureed diet Prophylaxis: PUD (Pantoprazole) and DVT (SCDs) Lines 12/01/2024 Right femoral CVC. Will replace with peripheral. Plan discussed with: Other (nurse) Date of Service: December 10, 2024 Billing Provider: JOSE CARUSO MD Common Visit Codes: [id number] INP/OBS CARE(HIGH) JOSE CARUSO MD December 10, 2024 17:40
[2024-12-11] VITALS (8 sets, daily range): BP systolic 76–115; BP diastolic 37–51; PULSE 57–83; RESP 15–19; TEMP 96.4–97.7; O2SAT 90–97
--- NOTE | 2024-12-11 09:12 | DVH ---
CHEST RADIOGRAPH Indication: Aspiration pneumonia Technique: Single frontal view of the chest was obtained Comparison: 12/10/2024 FINDINGS: The cardiac silhouette is unremarkable. The lungs demonstrate diffuse bilateral pulmonary interstitia l airspace opacities, increased from the previous examination. The pulmonary vasculature is prominent . There is no pleural effusion.. There is no pneumothorax. IMPRESSION: 1. Interstitial airspace opacities, overall increased, which could represent sequela of pulmonary peters[place] ma, atypical infection, chronic lung changes/disease.
[2024-12-11] MEDS: SODIUM CHLORIDE 0.9% 1,000 ML IV ONE (11:57)
--- NOTE | 2024-12-11 17:31 | DVHPN2 ---
Subjective in bed non verbal Reviewed: H&P Changes from previous H/P or p: No Changes Eyes: No Pain, No Vision change, No Conjunctivae inflammation, No Eyelid inflammation, No Other, No Redness ENT: No Ear pain, No Ear discharge, No Nose pain, No Nose discharge, No Nose congestion, No Mouth pain, No Mouth swelling, No Throat pain, No Throat swelling, No Other Cardiovascular: No Chest Pain, No Palpitations, No Orthopnea, No Paroxysmal Noc. Dyspnea, No Edema, No Lt Headedness, No Other Respiratory: No Cough, No Dry; Shortness of breath; No SOB with excertion, No Wheezing, No Hemoptysis, No Pleuritic Pain, No Sputum; Other (SOB at rest) Gastrointestinal: No Nausea, No Vomiting, No Abdominal Pain, No Diarrhea, No Constipation, No Melena, No Hematochezia, No Other Genitourinary: No Dysuria, No Frequency, No Incontinence, No Hematuria, No Retention; Other (Anuric) Musculoskeletal: No other, No neck pain, No shoulder pain, No arm pain, No back pain, No hand pain, No leg pain, No foot pain Skin: No Rash, No Lesions, No Jaundice, No Bruising, No Other Objective Vitals Vital Signs Date Time Temp Pulse Resp B/P (MAP) Pulse Ox O2 Delivery O2 Flow Rate FiO2 12/11/24 16:28 96.9 83 15 95/42 (59) 93 96.9 12/11/24 10:00 Nasal Cannula 2.0 12/11/24 10:00 28 Intake/Output Intake and Output 12/11/24 07:00 Intake Total 1975 ml Output Total 1300 ml Balance 675 ml Intake Oral 1325 ml IV Total 650 ml Output Urine Total 1300 ml General Appearance: Alert, Other (Confused and disoriented and not following commands) HEENT: Atraumatic Lungs: Clear to auscultation, Other Cardiovascular: Regular rate, Normal S1, Normal S2 Abdomen: Normal bowel sounds Extremities: No edema (Bilateral rhonchi) Medications Current Medications Medications Dose Ordered Sig/Elza Route Start Time Stop Time Status Last Admin Dose Admin Acetaminophen 650 mg Q6HP PRN [place] 12/01/24 21:45 12/03/24 09:20 650 MG Ondansetron HCl 4 mg Q4HP PRN IV 12/01/24 21:45 12/03/24 14:26 4 MG Pantoprazole Sodium 40 mg DAILY IV 12/03/24 10:00 12/11/24 09:06 40 MG Lorazepam 0.5 mg Q6HP PRN IV 12/03/24 13:15 12/11/24 12:53 0.5 MG Diagnostic Test (Pha) 1 strip Q6HR 12/03/24 18:00 UNV Diagnostic Test (Pha) 1 strip Q6HR 12/04/24 00:00 12/11/24 17:27 1 STRIP Insulin Human Regular Q6HR SC 12/04/24 00:00 12/07/24 00:35 2 UNITS Dextrose 50 ml UD PRN IV 12/03/24 18:30 Cefazolin Sodium 50 ml @ 100 mls/hr Q8H IV 12/06/24 20:30 12/11/24 11:44 100 MLS/HR Multivitamins 1 tab DAILY PO 12/08/24 10:00 12/09/24 10:34 1 TAB Folic Acid 1 mg DAILY PO 12/08/24 10:00 12/09/24 10:34 1 MG Purified Water 200 ml Q6HR PO 12/08/24 00:00 12/11/24 05:16 200 ML Dextrose 1,000 ml @ 50 mls/hr Q20H IV 12/07/24 21:45 12/11/24 05:57 50 MLS/HR Laboratory Results Laboratory Tests 12/10/24 05:24 Urinalysis Test 12/02/24 19:53 Urine Color Colorless (Yellow) Urine Clarity Turbid (Clear) H Urine pH 5.0 (5.0-9.0) Urine Specific [place] 1.020 (1.001-1.035) Urine Protein Trace (Negative) H Urine Ketones Negative (Negative) Urine Blood 2+ /uL (Negative) H Urine Nitrite Negative (Negative) Urine Bilirubin Negative (Negative) Urine Urobilinogen Normal mg/dL (Negative) Urine Leukocyte Esterase Negative /uL (Negative) Urine RBC 1 /hpf (0 - 3) Urine Microscopic WBC 3 /HPF (0-3) Urine Squamous Epithelial Cells Few /hpf (<5) Urine Amorphous Crystals Few /hpf (None Seen) Urine Bacteria None seen /hpf (None Seen) Urine Glucose Normal mg/dL (Normal) Microbiology Microbiology Date/Time Source Procedure Growth Status 12/05/24 09:50 Blood Blood Culture - Final NO GROWTH AFTER 5 DAYS OF INCUBATION. Complete 12/03/24 18:00 Nose MRSA Screen - Final Complete 12/02/24 19:53 Voided Urine Urine Culture - Final Complete Assessment/Plan Assessment/Plan # Metabolic encephalopathy secondary to hypernatremia # Right phthisis bulbi # Down syndrome # Mixed shock (Hypovolemia and septic) # Asymptomatic bradycardia # Acute respiratory failure secondary to aspiration pneumonia On intermittent oxygen therapy, up to Nasal cannula at 2 L/min Currently under adjusted IV antibiotics (Cefazolin, previously on Vancomycin, Doxycycline and Meropenem) # Severe Hyponatremia # ROSLYN hemodynamically mediated (VMN) - baseline 0.76 # Severe dehydration # Hypermagnesemia Continue D5W drip at 125 ml/h. Should not correct more than 8-10 mEq every 24 hours. Nephrology on board: Optimizing medical therapy # Failure to thrive # Severe protein calorie malnutrition with a BMI 15.6 # Ruled out hypothyroidism Patient is on pureed diet. Nutritional consult # Thrombocytopenia # Polycythemia - Probably secondary to dehydration (Resolved) # Macrocytic anemia No heparin. On SCDs Nutrition: Pureed diet Prophylaxis: PUD (Pantoprazole) and DVT (SCDs) Lines 12/01/2024 Right femoral CVC. Will replace with peripheral. Plan discussed with: Patient My Orders Orders - JOSE CARUSO MD Procedure Category Date Status Time * Wound Consult CONS 12/11/24 Transmitted * Dietary Consult CONS 12/11/24 Transmitted 13:05 Apply Barrier Cream JULIEN 12/11/24 In Process 11:37 Date of Service: Dec 11, 2024 Billing Provider: JOSE CARUSO MD Common Visit Codes: [id number] INP/OBS CARE(HIGH) JOSE CARUSO MD Dec 11, 2024 17:31
[2024-12-12 01:00] VITALS: BP 96/51; PULSE 83; RESP 16; TEMP 96.5; O2SAT 96
[2024-12-12 04:53] VITALS: BP 119/45; PULSE 66; RESP 16; TEMP 96.6; O2SAT 95
--- NOTE | 2024-12-12 06:33 | DVH ---
EXAM: XR Chest, 1 View CLINICAL INDICATION: Aspiration pneumonia TECHNIQUE: Frontal view of the chest. COMPARISON: XY CHEST XRAY 1 VIEW on DOS: 12/11/24, XY CHEST XRAY 1 VIEW on DOS: 12/10/24, XY CHEST XRA Y 1 VIEW on DOS: 12/09/24, XY CHEST XRAY 1 VIEW on DOS: 12/08/24, XY CHEST XRAY 1 VIEW on DOS: 12/07/24 FINDINGS: LUNGS AND PLEURAL SPACES: Interstitial and patchy airspace disease in both lungs. No consolidation . No pneumothorax. HEART: Unremarkable. No cardiomegaly. MEDIASTINUM: Unremarkable. Normal mediastinal contour. BONES/JOINTS: Unremarkable. No acute fracture. OTHER FINDINGS: . IMPRESSION: Interstitial and patchy airspace disease in both lungs.
[2024-12-12 08:00] VITALS: RESP 18
[2024-12-12 08:56] VITALS: BP 99/49; PULSE 60; RESP 17; TEMP 96.9; O2SAT 96
[2024-12-12 10:00] VITALS: O2SAT 92
--- NOTE | 2024-12-12 10:18 | DVHDS2 ---
Discharge Summary Date of Admission December 01, 2024 at 22:51 Date of Discharge: Dec 12, 2024 Labs/Diagnostic Data: Laboratory Results Test 12/12/24 05:56 12/10/24 05:24 12/09/24 05:28 12/06/24 03:00 POC Glucose 101 mg/dl (70-106) White Blood Count 4.1 10^3/uL (4.4-10.8) Red Blood Count 3.65 10^6/uL (4.5-5.90) Hemoglobin 12.1 g/dL (13.5-17.5) Hematocrit 36.3 % (41.0-53.0) Mean Corpuscular Volume 99.5 fL (80.0-100.0) Mean Corpuscular Hemoglobin 33.1 pg (28.0-32.0) Mean Corpuscular Hemoglobin Concent 33.2 g/dL (32.0-36.0) Red Cell Distribution Width 14.9 % (11.8-14.3) Platelet Count 104 10^3/uL (140-450) Mean Platelet Volume 10.1 fL (6.9-10.8) Neutrophils (%) (Auto) % (37.0-80.0) Lymphocytes (%) (Auto) % (10.0-50.0) Monocytes (%) (Auto) % (0.0-12.0) Basophils (%) (Auto) % (0.0-2.0) Neutrophils # (Auto) 10 ^3/uL (1.6-8.6) Lymphocytes # (Auto) 10 ^3/uL (0.4-5.4) Monocytes # (Auto) 10 ^3/uL (0-1.3) Differential Total Cells Counted 100.0 (100) Neutrophils % (Manual) 77 (37.0-80.0) Band Neutrophils % (Manual) 9 Lymphocytes % (Manual) 8 (10.0-50.0) Monocytes % (Manual) 5 (0-12) Eosinophils % (Manual) 1 (0-7) Basophils % (Manual) 0 (0.0-2.0) Metamyelocytes % (manual) 0 Myelocytes % (Manual) 0 Promyelocytes % (Manual) 0 Blast Cells % (Manual) 0 Nucleated Red Blood Cells 1.0 % Reactive Lymphocytes 0 Platelet Estimate Decreased Anisocytosis (manual) Slight Sodium Level 147 mmol/L (136-145) Potassium Level 3.4 mmol/L (3.5-5.1) Chloride Level 112 mmol/L (98-107) Carbon Dioxide Level 29 mmol/L (20-31) Anion Gap 6 (5-15) Blood Urea Nitrogen 8 mg/dL (9-23) Creatinine 0.69 mg/dL (0.700-1.30) Glomerular Filtration Rate Calc 109 mL/min (>90) BUN/Creatinine Ratio 11.6 (10.0-20.0) Serum Glucose 73 mg/dL (74-106) Calcium Level 7.5 mg/dL (8.7-10.4) Eosinophils (%) (Auto) 1.2 % (0.0-7.0) Eosinophils # (Auto) 0 10 ^3/uL (0-0.8) Basophils # (Auto) 0 10 ^3/uL (0-0.2) Phosphorus Level 2.4 mg/dL (2.4-5.1) Magnesium Level 2.1 mg/dL (1.6-2.6) Total Bilirubin 0.5 mg/dL (0.2-1.0) Aspartate Amino Transferase (AST) 31 U/L (13-40) Alanine Aminotransferase (ALT) 27 U/L (7-40) Alkaline Phosphatase 85 U/L (46-116) Total Protein 4.1 g/dL (5.7-8.2) Albumin 2.1 g/dL (3.2-4.8) Lactic Acid Level 1.3 mmol/L (0.4-2.0) Test 12/05/24 10:31 12/05/24 03:18 12/04/24 03:00 12/04/24 01:51 Blood Gas Specimen Type Arterial Blood Gas Sample Site Right brachial Blood Gas Patient Temperature 37.0 Arterial Blood Date Drawn [id number] Arterial Blood pH 7.446 (7.350-7.450) Arterial Blood Partial Pressure CO2 36.9 mmHg (35.0-48.0) Arterial Blood Partial Pressure O2 76.8 mmHg (83.0-108.0) Arterial Blood HCO3 24.8 mmol/L (21.0-28.0) Arterial Blood Oxygen Saturation 95.1 % (94.0-98.0) Arterial Blood Base Excess 1.0 mmol/L (-2.0-3.0) Arterial Blood Oxyhemoglobin 94.8 % (94.0-98.0) Arterial Blood Carboxyhemoglobin 0.1 % (0.5-1.5) Arterial Blood Methemoglobin 0.2 % (0.0-1.5) Jeff Test N/a Blood Gas Total Hemoglobin 12.60 g/dL (13.5-17.5) Blood Gas Liter Flow 2.00 Blood Gas Modality Nasal cannula FiO2 % 28.0 Random Vancomycin Level 14.8 ug/mL (5-10) Ammonia < 10 umol/L (11-32) Macrocytosis Slight Test 12/02/24 19:53 12/02/24 11:18 12/02/24 10:52 12/02/24 10:37 Urine Color Colorless (Yellow) Urine Clarity Turbid (Clear) Urine pH 5.0 (5.0-9.0) Urine Specific [place] 1.020 (1.001-1.035) Urine Protein Trace (Negative) Urine Ketones Negative (Negative) Urine Blood 2+ /uL (Negative) Urine Nitrite Negative (Negative) Urine Bilirubin Negative (Negative) Urine Urobilinogen Normal mg/dL (Negative) Urine Leukocyte Esterase Negative /uL (Negative) Urine RBC 1 /hpf (0 - 3) Urine Microscopic WBC 3 /HPF (0-3) Urine Squamous Epithelial Cells Few /hpf (<5) Urine Amorphous Crystals Few /hpf (None Seen) Urine Bacteria None seen /hpf (None Seen) Urine Glucose Normal mg/dL (Normal) Urine Opiates Screen Neg (NEGATIVE) Urine Fentanyl Screen Neg (NEGATIVE) Urine Barbiturates Screen Neg (NEGATIVE) Urine Phencyclidine Screen Neg (NEGATIVE) Urine Amphetamines Screen Neg (NEGATIVE) Urine Benzodiazepines Screen Neg (NEGATIVE) Urine Cocaine Screen Neg (NEGATIVE) Urine Cannabinoids Screen Neg (NEGATIVE) Influenza Type A Antigen Negative (Negative) Influenza Type B Antigen Negative (Negative) SARS-CoV-2 Antigen (Rapid) Negative (NEGATIVE) Blood Gas Critical Value Read Back Yes Blood Gas Notified Whom laure Radford md. Blood Gas Notified Time [id number] Blood Gas Notified By tea Rose rt. Prothrombin Time 15.2 sec (9.3-11.8) Prothrombin Time INR 1.49 (0.9-1.15) Activated Partial Thromboplast Time 35.6 SEC (24.5-34.5) Test 12/02/24 09:00 12/02/24 04:36 12/01/24 19:10 Triglycerides Level 128 mg/dL (< 150) Cholesterol Level 116 mg/dL (< 200) LDL Cholesterol 52 mg/dL (< 100) HDL Cholesterol 20 mg/dL (40-59) Vitamin B12 Level 406 pg/mL (211-911) Vitamin D 25-Hydroxy 51.7 ng/mL (30.0-100) Hemoglobin A1c 5.4 % A1C (<5.7) C-Reactive Protein High Sensitivity 15.65 mg/dL (<1.0) B-Type Natriuretic Peptide 311.05 pg/mL (0-100) Thyroid Stimulating Hormone (TSH) 1.26 uIU/mL (0.55-4.78) Large Platelets Few Other Laboratory Tests 12/10/24 05:24 Brief Hx & Hospital Course: SEE DICTATED NOTE Condition at Discharge: Fair Final Diagnosis/Problems List PNEUMONIA [facility] Instruct/Medications Diet: Regular Activity: No Restrictions, As Tolerated Follow Up/Referral: FU WITH HOSPICE Medications: PER HOSPICE Discharge Statement: "Patient was advised to return to the ER or call 911 if any headaches, dizziness, shortness of breath, chest pain, abdominal pain, bleeding, fevers, or worsening of medical condition. Patient was counseled about treatment plan, medications, possible side effects, patientverbalized understanding. All questions were answered to the best of my ability. This discharge took greater then 30 minutes in planning, reviewing documentation, counseling the patient, and discussing with other team members." ASSESSMENT ASSESSMENT Assessment PNEUMONIA Date of Service: Dec 12, 2024 Billing Provider: DAYDAY SANDOVAL MD Common Visit Codes: 07541-VSD/OBS DISCH DAY >30min Secondary Visit Codes: 10375-[id number] CARE PLAN 30 MINUTES DAYDAY SANDOVAL MD Dec 12, 2024 10:17
--- NOTE | 2024-12-12 10:28 | DVHDS ---
DATE OF DISCHARGE: 12/12/2024 HISTORY OF PRESENT ILLNESS: The patient is a 54-year-old gentleman who was admitted with a history of increasing difficulty in breathing and decreased oral intake. The patient has a history of Down syndrome. HOSPITAL COURSE: The patient was noted to be in acute respiratory failure. He had bilateral infiltrates suggestive of pneumonia. His blood cultures grew Staph aureus and Staph simulans that was oxacillin sensitive. The patient was dehydrated, with elevated sodium of 161. He was given free water as well as hydration. His sodium has now improved to 147. He is now improved in his mental status and has been eating. The patient will be discharged home under hospice with medications as per hospice. I have discussed the plan of care with his sister, Vandana. FINAL DIAGNOSES: * Encephalopathy, metabolic. * Down syndrome. * Shock, hypovolemic/septic. * Acute respiratory failure with likely aspiration pneumonia secondary to Staphylococcus aureus and Staph simulans. * History of hepatic steatosis. * Acute renal failure, likely vasomotor nephropathy. * Severe protein malnutrition. * Thrombocytopenia. ADVANCED CARE PLANNING: The patient is DNR. Time spent in discharge planning, including discussion with family, was 37 minutes. MD LOYD Huertas/WHITNEY TID: [id number] RECEIPT: [id number]
[2024-12-12] MEDS: POTASSIUM EFFERVESENT TAB 25 MEQ PO ONE (10:34)
[2024-12-12] MEDS: FUROSEMIDE 20 MG/2 ML VIAL IV ONE (10:36)
[2024-12-12 11:14] VITALS: BP 101/70; TEMP 36.1
== END 2024-12-12 13:20 | disposition hospice, home (50) | DRG 720 ==
LOC: EDBD 18:29 → ER 18:29 → OVERFLOW 22:51 → ICU WEST 12-03 16:57 → TELE-CENTR 12-08 00:23 → CENTRAL 12-08 23:28
PROVIDERS: ADMIT Internal Medicine; ATTEND Internal Medicine
DX: A41.9 Sepsis, unspecified organism (principal); J96.01 Acute respiratory failure with hypoxia; N17.0 Acute kidney failure with tubular necrosis; J69.0 Pneumonitis due to inhalation of food and vomit; R65.21 Severe sepsis with septic shock; G93.41 Metabolic encephalopathy; J15.211 Pneumonia due to Methicillin susceptible Staphylococcus aureus; E83.41 Hypermagnesemia; D69.59 Other secondary thrombocytopenia; E87.0 Hyperosmolality and hypernatremia; E86.0 Dehydration; N39.0 Urinary tract infection, site not specified; Q90.9 Down syndrome, unspecified; K76.0 Fatty (change of) liver, not elsewhere classified; E43 Unspecified severe protein-calorie malnutrition; Z51.5 Encounter for palliative care; Z68.1 Body mass index [BMI] 19.9 or less, adult; D75.1 Secondary polycythemia; H44.521 Atrophy of globe, right eye; D53.9 Nutritional anemia, unspecified; R62.7 Adult failure to thrive; E87.1 Hypo-osmolality and hyponatremia; Z20.822 Contact with and (suspected) exposure to COVID-19; F17.200 Nicotine dependence, unspecified, uncomplicated; Z66 Do not resuscitate; Z82.49 Family history of ischemic heart disease and other diseases of the circulatory system; Z83.3 Family history of diabetes mellitus; J15.29 Pneumonia due to other staphylococcus
CPT/HCPCS: 36415; 36600; 71045; 74018; 80048; 80053; 80061; 80202; 80307; 81001; 82140; 82306; 82565; 82607; 82805; 82962; 83036; 83605; 83735; 83880; 84100; 84443; 85007; 85025; 85027; 85610; 85730; 86141; 87040; 87077; 87081; 87086; 87186; 87426; 87804; 92610; 93005; 93970; 94640; 96365; 97110; 97116; 97163; 97530; 99291; G0378; J2185; J2405; J2470; J2543; J3480; J7042; J7060